=== PATIENT | male | born 1955 | race Caucasian/White ===

== ENCOUNTER → 2020-08-31 12:39 | Outpatient (BNVA) | payer MEDICARE, SELFPAY | PROVIDERS: PCP Internal Medicine; Visit Provider Nurse Practitioner Family | DX: I25.10 Atherosclerotic heart disease of native coronary artery without angina pectoris (principal); R07.89 Other chest pain; F17.200 Nicotine dependence, unspecified, uncomplicated; E78.00 Pure hypercholesterolemia, unspecified; Z95.1 Presence of aortocoronary bypass graft | CPT/HCPCS: Q3014 ==

== ENCOUNTER → 2020-10-25 10:54 | Outpatient (BNVA) | payer MEDICARE, SELFPAY | PROVIDERS: PCP Internal Medicine; Visit Provider Anesthesiology | DX: R07.89 Other chest pain (principal); Z95.4 Presence of other heart-valve replacement | CPT/HCPCS: 99202 ==

== ENCOUNTER 2021-06-01 09:28 | Outpatient (REF) | payer MEDICARE, SELFPAY ==
[2021-06-01 11:25] LABS: MANUAL DIFF FLAG NO
[2021-06-01 11:34] LABS: Basophils Absolute Auto 0.1 X10*3/uL (0.0-0.2); Basophils Percent Auto 0.7 % (0-2); Eosinophils Absolute Auto 0.1 X10*3/uL (0.0-0.4); Eosinophils Percent Auto 1.8 % (0-4); Hematocrit 45.4 % (42.0-52.0); Hemoglobin 15.8 g/dl (14.0-18.0); Imm Gran Abs Auto 0.02 X10*3/uL (0.00-0.03); Imm Gran Pct Auto 0.3 % (0.0-0.4); Lymphocytes Absolute Auto 2.1 X10*3/uL (1.2-4.9); Lymphocytes Percent Auto 27.9 % (20-40); Mean Corpuscular HGB Conc 34.8 g/dl (31.0-36.0); Mean Corpuscular Hemoglobin 30.9 pg (27.0-33.0); Mean Corpuscular Volume 88.7 fL (80.0-98.0); Mean Platelet Volume 10.3 fL (9.4-12.4); Monocytes Absolute Auto 0.6 X10*3/uL (0.1-1.2); Monocytes Percent Auto 8.2 % (2-11); Neutrophils Absolute Auto 4.6 x10*3/uL (2.0-8.3); Neutrophils Percent Auto 61.1 % (45-73); Platelet Count 212 X10*3/uL (160-400); Red Blood Count 5.12 X10*6/uL (4.60-5.80); Red Cell Distribution Width 13.1 % (11.0-16.0); White Blood Count 7.6 X10*3/uL (4.8-10.8)
[2021-06-01 11:51] LABS: Estimated Average Glucose 203 mg/dL; Hemoglobin A1c % 8.7 %
[2021-06-01 12:09] LABS: TSH reflex Free T4 1.33 uIU/mL (0.32-4.0)
[2021-06-01 12:10] LABS: Alanine Aminotransferase 15 U/L (0-40); Albumin Level 4.2 g/dL (3.5-5.0); Alkaline Phosphatase 92 U/L (39-117); Anion Gap 13 (12-20); Aspartate Amino Transferase 17 U/L (5-37); Bilirubin Total 0.7 mg/dL (0.0-1.0); Blood Urea Nitrogen 10 mg/dL (9-16); Calcium 9.2 mg/dL (8.4-10.2); Carbon Dioxide 27 mmol/L (22-29); Chloride 102 mmol/L (96-108); Cholesterol 160 mg/dL; Estimated Glomerular Filt Rate > 60; Glucose Fasting 180 mg/dL (60-99); HDL Cholesterol 42 mg/dL; LDL Cholesterol Calculated 92 mg/dl; Potassium 4.1 mmol/L (3.3-5.1); Sodium 138 mmol/L (135-145); Total Protein 6.9 g/dL (6.5-8.0); Triglycerides 132 mg/dL
== END 2021-06-01 09:29 | disposition home or self-care (01) ==
LOC: HO.HMGCLDS 09:28
PROVIDERS: PCP Internal Medicine; Visit Provider Internal Medicine
DX: E78.00 Pure hypercholesterolemia, unspecified (principal); I25.10 Atherosclerotic heart disease of native coronary artery without angina pectoris; E11.9 Type 2 diabetes mellitus without complications; E66.3 Overweight; K21.9 Gastro-esophageal reflux disease without esophagitis; F17.200 Nicotine dependence, unspecified, uncomplicated
CPT/HCPCS: 36415; 80053; 80061; 83036; 84443; 85025

== ENCOUNTER 2022-02-14 07:33 | Outpatient (REF) | payer MEDICARE, SELFPAY ==
[2022-02-14 07:58] LABS: MANUAL DIFF FLAG NO
[2022-02-14 08:28] LABS: Basophils Absolute Auto 0.1 X10*3/uL (0.0-0.2); Basophils Percent Auto 1.1 % (0-2); Eosinophils Absolute Auto 0.2 X10*3/uL (0.0-0.4); Eosinophils Percent Auto 2.5 % (0-4); Hematocrit 44.4 % (42.0-52.0); Hemoglobin 15.6 g/dl (14.0-18.0); Imm Gran Abs Auto 0.02 X10*3/uL (0.00-0.03); Imm Gran Pct Auto 0.3 % (0.0-0.4); Lymphocytes Absolute Auto 2.2 X10*3/uL (1.2-4.9); Lymphocytes Percent Auto 29.3 % (20-40); Mean Corpuscular HGB Conc 35.1 g/dl (31.0-36.0); Mean Corpuscular Hemoglobin 30.6 pg (27.0-33.0); Mean Corpuscular Volume 87.2 fL (80.0-98.0); Mean Platelet Volume 9.8 fL (9.4-12.4); Monocytes Absolute Auto 0.6 X10*3/uL (0.1-1.2); Monocytes Percent Auto 8.5 % (2-11); Neutrophils Absolute Auto 4.4 x10*3/uL (2.0-8.3); Neutrophils Percent Auto 58.3 % (45-73); Platelet Count 198 X10*3/uL (160-400); Red Blood Count 5.09 X10*6/uL (4.60-5.80); White Blood Count 7.5 X10*3/uL (4.8-10.8)
[2022-02-14 08:34] LABS: Estimated Average Glucose 232 mg/dL; Hemoglobin A1c % 9.7 %
[2022-02-14 08:51] LABS: Alanine Aminotransferase 13 U/L (0-40); Albumin Level 4.2 g/dL (3.5-5.0); Alkaline Phosphatase 78 U/L (39-117); Anion Gap 12 (12-20); Aspartate Amino Transferase 15 U/L (5-37); Bilirubin Total 0.5 mg/dL (0.0-1.0); Blood Urea Nitrogen 9 mg/dL (9-16); Carbon Dioxide 27 mmol/L (22-29); Chloride 102 mmol/L (96-108); Cholesterol 163 mg/dL; Estimated Glomerular Filt Rate > 60; Glucose Fasting 240 mg/dL (60-99); HDL Cholesterol 37 mg/dL; LDL Cholesterol Calculated 89 mg/dl; Potassium 4.3 mmol/L (3.3-5.1); Sodium 137 mmol/L (135-145); Triglycerides 186 mg/dL
[2022-02-14 08:57] LABS: B Type Natriuretic Peptide 93 pg/mL (<100)
[2022-02-14 09:20] LABS: Prostate Specific Antigen 4.23 ng/mL (<0.05-4.0); TSH reflex Free T4 1.66 uIU/mL (0.32-4.0); Vitamin D 25-OH Total 18.4 ng/mL (>30)
== END 2022-02-14 07:34 | disposition home or self-care (01) ==
LOC: HO.LAB 07:33
PROVIDERS: PCP Internal Medicine; Visit Provider Internal Medicine
DX: Z00.00 Encounter for general adult medical examination without abnormal findings (principal); Z12.5 Encounter for screening for malignant neoplasm of prostate; E11.9 Type 2 diabetes mellitus without complications; E55.9 Vitamin D deficiency, unspecified; E78.00 Pure hypercholesterolemia, unspecified; I10 Essential (primary) hypertension; N40.0 Benign prostatic hyperplasia without lower urinary tract symptoms; R06.00 Dyspnea, unspecified
CPT/HCPCS: 36415; 80053; 80061; 82306; 83036; 83880; 84153; 84443; 85025

== ENCOUNTER 2022-09-02 07:46 | Outpatient (REF) | payer MEDICARE, SELFPAY ==
[2022-09-02 08:01] LABS: MANUAL DIFF FLAG NO
[2022-09-02 08:30] LABS: Basophils Absolute Auto 0.1 X10*3/uL (0.0-0.2); Basophils Percent Auto 1.1 % (0-2); Eosinophils Absolute Auto 0.2 X10*3/uL (0.0-0.4); Eosinophils Percent Auto 2.3 % (0-4); Hematocrit 47.8 % (42.0-52.0); Hemoglobin 16.8 g/dl (14.0-18.0); Imm Gran Abs Auto 0.09 X10*3/uL (0.00-0.03); Imm Gran Pct Auto 1.1 % (0.0-0.4); Lymphocytes Absolute Auto 2.4 X10*3/uL (1.2-4.9); Lymphocytes Percent Auto 28.8 % (20-40); Mean Corpuscular HGB Conc 35.1 g/dl (31.0-36.0); Mean Corpuscular Hemoglobin 30.8 pg (27.0-33.0); Mean Corpuscular Volume 87.5 fL (80.0-98.0); Mean Platelet Volume 9.7 fL (9.4-12.4); Monocytes Absolute Auto 0.6 X10*3/uL (0.1-1.2); Monocytes Percent Auto 7.8 % (2-11); Neutrophils Absolute Auto 4.8 x10*3/uL (2.0-8.3); Neutrophils Percent Auto 58.9 % (45-73); Platelet Count 181 X10*3/uL (160-400); Red Blood Count 5.46 X10*6/uL (4.60-5.80); Red Cell Distribution Width 12.7 % (11.0-16.0); White Blood Count 8.2 X10*3/uL (4.8-10.8)
[2022-09-02 08:38] LABS: Estimated Average Glucose 278 mg/dL; Hemoglobin A1c % 11.3 %
[2022-09-02 09:10] LABS: Alanine Aminotransferase 17 U/L (0-40); Albumin Level 4.2 g/dL (3.5-5.0); Alkaline Phosphatase 93 U/L (39-117); Anion Gap 13 (12-20); Aspartate Amino Transferase 18 U/L (5-37); Bilirubin Total 0.6 mg/dL (0.0-1.0); Blood Urea Nitrogen 13 mg/dL (9-16); Calcium 9.6 mg/dL (8.4-10.2); Carbon Dioxide 28 mmol/L (22-29); Chloride 98 mmol/L (96-108); Cholesterol 172 mg/dL; Estimated Glomerular Filt Rate > 60; Glucose Fasting 289 mg/dL (60-99); HDL Cholesterol 37 mg/dL; LDL Cholesterol Calculated 100 mg/dl; Potassium 5.1 mmol/L (3.3-5.1); Sodium 134 mmol/L (135-145); Total Protein 6.9 g/dL (6.5-8.0); Triglycerides 178 mg/dL
[2022-09-02 09:29] LABS: TSH reflex Free T4 2.18 uIU/mL (0.32-4.0); Vitamin D 25-OH Total 18.4 ng/mL (>30)
[2022-09-08 20:38] LABS: Glutamic acid decarboxylase Ab <5 IU/mL (<5)
== END 2022-09-02 07:47 | disposition home or self-care (01) ==
LOC: HO.LAB 07:46
PROVIDERS: PCP Internal Medicine; Visit Provider Internal Medicine
DX: Z00.00 Encounter for general adult medical examination without abnormal findings (principal); E78.00 Pure hypercholesterolemia, unspecified; E11.9 Type 2 diabetes mellitus without complications; I10 Essential (primary) hypertension; E55.9 Vitamin D deficiency, unspecified
CPT/HCPCS: 36415; 80053; 80061; 82306; 83036; 84443; 84681; 85025; 86341

== ENCOUNTER 2022-12-01 10:59 | Outpatient (REF) | payer MEDICARE, SELFPAY ==
[2022-12-01 13:48] LABS: MANUAL DIFF FLAG NO
[2022-12-01 13:59] LABS: Appearance Urine Clear; Color Urine Yellow; Glucose Urine UA 500 mg/dL (Negative); Leukocyte Esterase Urine Negative (Negative); Nitrite Urine Negative (Negative); Specific Gravity - Urine 1.015 (1.005-1.025); UMIC TRIGGER UACC YES; Urine Blood Small (1+) (Negative); Urine Ketones Negative (Negative); Urine Protein Trace mg/dL (Neg-Trace)
[2022-12-01 14:04] LABS: Basophils Absolute Auto 0.1 X10*3/uL (0.0-0.2); Basophils Percent Auto 1.2 % (0-2); Eosinophils Absolute Auto 0.2 X10*3/uL (0.0-0.4); Eosinophils Percent Auto 2.6 % (0-4); Hematocrit 45.3 % (42.0-52.0); Hemoglobin 16.2 g/dl (14.0-18.0); Imm Gran Abs Auto 0.02 X10*3/uL (0.00-0.03); Imm Gran Pct Auto 0.3 % (0.0-0.4); Lymphocytes Absolute Auto 1.8 X10*3/uL (1.2-4.9); Lymphocytes Percent Auto 24.2 % (20-40); Mean Corpuscular HGB Conc 35.8 g/dl (31.0-36.0); Mean Corpuscular Hemoglobin 30.6 pg (27.0-33.0); Mean Corpuscular Volume 85.5 fL (80.0-98.0); Mean Platelet Volume 9.9 fL (9.4-12.4); Monocytes Absolute Auto 0.7 X10*3/uL (0.1-1.2); Monocytes Percent Auto 9.5 % (2-11); Neutrophils Absolute Auto 4.7 x10*3/uL (2.0-8.3); Neutrophils Percent Auto 62.2 % (45-73); Platelet Count 198 X10*3/uL (160-400); Red Cell Distribution Width 13.3 % (11.0-16.0); White Blood Count 7.6 X10*3/uL (4.8-10.8)
[2022-12-01 14:06] LABS: Estimated Average Glucose 266 mg/dL; Hemoglobin A1c % 10.9 %
[2022-12-01 14:21] LABS: Creatinine Urine 120.09 mg/dL; Microalbum/Creatinine Ratio Ur 58.2 ug/mg cr
[2022-12-01 14:24] LABS: Bacteria Urine None Seen (None Seen); Hyaline Casts Urine 0-2 /LPF (0-2); Squamous Epithelial Cell Urine 0-2 /HPF (0-2); WBC Urine 0-5 /HPF (0-5)
[2022-12-01 14:25] LABS: Alanine Aminotransferase 17 U/L (0-40); Albumin Level 4.1 g/dL (3.5-5.0); Alkaline Phosphatase 101 U/L (39-117); Anion Gap 12 (12-20); Aspartate Amino Transferase 18 U/L (5-37); Bilirubin Total 0.9 mg/dL (0.0-1.0); Blood Urea Nitrogen 9 mg/dL (9-16); Calcium 9.5 mg/dL (8.4-10.2); Carbon Dioxide 27 mmol/L (22-29); Chloride 100 mmol/L (96-108); Cholesterol 142 mg/dL; Estimated Glomerular Filt Rate > 60; Glucose Fasting 227 mg/dL (60-99); HDL Cholesterol 37 mg/dL; LDL Cholesterol Calculated 84 mg/dl; Potassium 4.3 mmol/L (3.3-5.1); Sodium 135 mmol/L (135-145); Total Protein 6.7 g/dL (6.5-8.0); Triglycerides 105 mg/dL
[2022-12-01 14:42] LABS: TSH reflex Free T4 1.37 uIU/mL (0.32-4.0); Vitamin D 25-OH Total 21.7 ng/mL (>30)
== END 2022-12-01 11:00 | disposition home or self-care (01) ==
LOC: HO.HMGCLDS 10:59
PROVIDERS: PCP Internal Medicine; Visit Provider Internal Medicine
DX: E78.00 Pure hypercholesterolemia, unspecified (principal); E11.9 Type 2 diabetes mellitus without complications; E55.9 Vitamin D deficiency, unspecified; I10 Essential (primary) hypertension; R30.0 Dysuria
CPT/HCPCS: 36415; 80053; 80061; 81001; 82043; 82306; 83036; 84443; 85025

== ENCOUNTER 2023-03-15 09:16 | Outpatient (REF) | payer MEDICARE, SELFPAY ==
[2023-03-15 11:25] LABS: MANUAL DIFF FLAG NO
[2023-03-15 11:45] LABS: Basophils Absolute Auto 0.1 X10*3/uL (0.0-0.2); Basophils Percent Auto 0.9 % (0-2); Eosinophils Absolute Auto 0.2 X10*3/uL (0.0-0.4); Eosinophils Percent Auto 2.2 % (0-4); Hematocrit 46.1 % (42.0-52.0); Hemoglobin 16.7 g/dl (14.0-18.0); Imm Gran Abs Auto 0.02 X10*3/uL (0.00-0.03); Imm Gran Pct Auto 0.2 % (0.0-0.4); Lymphocytes Percent Auto 24.5 % (20-40); Mean Corpuscular HGB Conc 36.2 g/dl (31.0-36.0); Mean Corpuscular Hemoglobin 31.1 pg (27.0-33.0); Mean Corpuscular Volume 85.8 fL (80.0-98.0); Mean Platelet Volume 10.3 fL (9.4-12.4); Monocytes Absolute Auto 0.7 X10*3/uL (0.1-1.2); Neutrophils Absolute Auto 5.2 x10*3/uL (2.0-8.3); Neutrophils Percent Auto 64.2 % (45-73); Platelet Count 223 X10*3/uL (160-400); Red Blood Count 5.37 X10*6/uL (4.60-5.80); Red Cell Distribution Width 13.1 % (11.0-16.0); White Blood Count 8.1 X10*3/uL (4.8-10.8)
[2023-03-15 11:58] LABS: Estimated Average Glucose 266 mg/dL; Hemoglobin A1c % 10.9 % (<6.0)
[2023-03-15 12:16] LABS: Alanine Aminotransferase 13 U/L (0-40); Albumin Level 4.1 g/dL (3.5-5.0); Alkaline Phosphatase 97 U/L (39-117); Anion Gap 12 (12-20); Aspartate Amino Transferase 14 U/L (5-37); Bilirubin Total 0.5 mg/dL (0.0-1.0); Blood Urea Nitrogen 8 mg/dL (9-16); Calcium 9.8 mg/dL (8.4-10.2); Carbon Dioxide 27 mmol/L (22-29); Chloride 100 mmol/L (96-108); Cholesterol 156 mg/dL (<200); Estimated Glomerular Filt Rate > 60; Glucose Fasting 270 mg/dL (60-99); HDL Cholesterol 36 mg/dL (>40); LDL Cholesterol Calculated 93 mg/dL (<100); Sodium 135 mmol/L (135-145); Total Protein 7.4 g/dL (6.5-8.0); Triglycerides 138 mg/dL (<150)
[2023-03-15 12:21] LABS: TSH reflex Free T4 1.27 uIU/mL (0.32-4.0); Vitamin D 25-OH Total 25.6 ng/mL (>30)
[2023-03-20 11:58] LABS: Testosterone, Free 20.1 pg/mL (35.0-155.0); Testosterone, Total 184 ng/dL (250-1100)
== END 2023-03-15 09:17 | disposition home or self-care (01) ==
LOC: HO.HMGCLDS 09:16
PROVIDERS: PCP Internal Medicine; Visit Provider Internal Medicine
DX: E11.9 Type 2 diabetes mellitus without complications (principal); E78.00 Pure hypercholesterolemia, unspecified; I10 Essential (primary) hypertension; R53.83 Other fatigue; R79.89 Other specified abnormal findings of blood chemistry; E55.9 Vitamin D deficiency, unspecified
CPT/HCPCS: 36415; 80053; 80061; 82306; 83036; 84402; 84403; 84443; 85025

== ENCOUNTER 2023-03-19 07:00 | Outpatient (REF) | payer MEDICARE, SELFPAY ==
[2023-03-19 16:03] LABS: Appearance Urine Clear; Color Urine Yellow; Glucose Urine UA 250 mg/dL (Negative); Leukocyte Esterase Urine Negative (Negative); Nitrite Urine Negative (Negative); PH 7.5 (5.0-9.0); Urine Blood Negative (Negative); Urine Ketones Negative (Negative); Urine Protein Negative (Neg-Trace)
[2023-03-19 16:43] LABS: Creatinine Urine 57.49 mg/dL; Microalbum/Creatinine Ratio Ur 20.8 ug/mg cr (<30)
== END 2023-03-19 07:01 | disposition home or self-care (01) ==
LOC: HO.HMGCLNP 07:00
PROVIDERS: PCP Internal Medicine; Visit Provider Internal Medicine
DX: R30.0 Dysuria (principal); E11.9 Type 2 diabetes mellitus without complications
CPT/HCPCS: 81003; 82043

== ENCOUNTER 2023-03-19 12:47 | Outpatient (AMB) | payer MEDICARE, SELFPAY ==
[2023-03-19 12:59] VITALS: BP 110/70; PULSE 67; O2SAT 96; BMI 25.3
--- NOTE | 2023-03-19 12:59 | A.OFFPC_ITS ---
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 Accompanied by: Self / Same As Patient Allergies trazodone Adverse Reaction (Intermediate, Verified 03/19/23 13:42) bedwetting Medication List - Last Reconciled 03/19/23 by Laron Jimenez MD albuterol sulfate 90 mcg/actuation 2 puffs PO Q6H PRN aspirin 81 mg PO DAILY gabapentin 300 mg PO TID glimepiride 1 mg PO QAM metformin ER 500 mg PO BID metoprolol tartrate 50 mg PO BID nitroglycerin 0.4 mg sublingual Q5M PRN nystatin (Nystop) 1 appl topical BID 7 days omeprazole magnesium 20 mg PO DAILY oxycodone 15 mg PO Q6H PRN 28 days rosuvastatin 40 mg PO DAILY tamsulosin 0.4 mg PO DAILY tiotropium bromide 2.5 mcg/actuation (Spiriva Respimat) 2 inhalations inhalation QAM 30 days Tradjenta (linagliptin) 5 mg PO QAM 30 days NS Tobacco use date assessed: 03/19/23 Fall risk assessment: No Falls in past year Last assessed Fall Risk: 03/19/23 Dental Screening Dental Screen Date: 03/19/23 Did you have a dental visit in the last 12 months?: No Did you have a dental problem in the last 6 months where you did not have access to dental care?: No Was dental information given to patient?: No HPI DM, COPD, hyperlipidemia HPI Details Patient comes in today for his follow up visit States that he has been experiencing increased pain in both his hands and arms and both legs for a few weeks now Notes that the pain is often worse in the morning and at night but they do not keep him up at night He denies any increased pain over his neck or lower back Has also been experiencing increased pain over the medial aspect of his knee for the past 4 weeks Relates that he was changing a tire back then when he suddenly felt a sharp pain in his right knee and the pain has been bothering him since then Still has chronic pain over his anterior chest wall but states that his current Rx helps keep his pain manageable He denies any headaches or dizziness Denies any increased SOB No nausea/vomiting, no abdominal pain No change in bowel habits noted Needs a couple of his Rx refilled Had his follow up labs done a few days ago - to discuss his results States that he has not been able to get his urine test done yet and will try to get this done today [facility] Medical History Allergy to metal Benign prostatic hyperplasia Chest wall discomfort Colonoscopy refused COPD (chronic obstructive pulmonary disease) Coronary artery disease Depression Diabetes mellitus GERD without esophagitis Hyperlipidemia Insomnia Overweight (BMI 25.0-29.9) Pure hypercholesterolemia Smoker Tietze's syndrome Surgical History History of coronary artery bypass graft (~2002) Family History Father Liver problem Cancer Mother CVD (cardiovascular disease) COPD (chronic obstructive pulmonary disease) Brother Myocardial infarction Brother S/P CABG x 1 CVD (cardiovascular disease) Family/Other FH: mental illness Daughter Substance abuse Social History Housing: House Alcohol intake: current Alcohol intake frequency: does not drink Patient Tobacco Use Status: Current everyday Tobacco user Tobacco use type: Cigarette Cigarettes Per Day: 10 e-Cigarette/Vaping Use: Never Used Second Hand Smoke Exposure: Yes service: No Current occupational status: retired Cognitive needs: No Hearing needs: No Vision needs: Yes Questionnaire PHQ-9 Over the last 2 weeks, how often have you been bothered by any of the following problems? 1. Little interest or pleasure in doing things: not at all 2. Feeling down, depressed, or hopeless: not at all 3. Trouble falling or staying asleep, or sleeping too much: several days (due to pain) 4. Feeling tired or having little energy: not at all 5. Poor appetite or overeating: not at all 6. Feeling bad about yourself - or that you are a failure or have let yourself or your family down: not at all 7. Trouble concentrating on things, such as reading the newspaper or watching television: not at all 8. Moving or speaking so slowly that other people could have noticed. Or the opposite - being so fidgety or restless that you have been moving around a lot more than usual: not at all 9. Thoughts that you would be better off or of hurting yourself in some way: not at all Total score: 1 Depression Screening Interpretation: Negative 73711 - PHQ-9 Billing: Yes Source: Developed by Drs. Marcus Benites, Amrita Canseco, Finesse Coleman and colleagues, with an educational isauro from [employer]. Thrive Questionnaire Date Thrive assessed: 03/19/23 I am a: Patient What is your living situation today?: I have a steady place to live Within the past 12 months, did the food you bought not last and you didn't have the money to get more?: Never true Within the past 12 months, did you worry whether your food would run out before you got money to buy more?: Never true Do you have trouble paying for medicines?: No Do you have trouble getting transportation to medical appointments?: No Do you have trouble paying your heating and electricity bill?: No Do you have trouble taking care of your child, family member or friend?: No Do you have trouble with day-to-day activities such as bathing, preparing meals, shopping, managing finances, etc.?: No Are you currently unemployed and looking for a job?: No Are you interested in more education?: No Please select the resources that you would like help with: None Currently or been in a relationship where the following occur: no concerns reported AUDIT C Alcohol Use Questionnaire (AUDIT-C) 1. How often do you have a drink containing alcohol?: Never 3. How often do you have six or more drinks on one occasion?: Never Total Score: 0 Score Reviewed/Action Taken: Yes BUDDY-7 AMB Questionnaire BUDDY-7 Date BUDDY - 7 assessed: 03/19/23 Feeling nervous, anxious, or on edge: 0 = Not at all Not being able to stop or control worryin = Not at all Worrying too much about different things: 0 = Not at all Trouble relaxin = Not at all Being so restless that it is hard to sit still: 0 = Not at all Becoming easily annoyed or irritable: 0 = Not at all Feeling afraid as if something awful might happen: 0 = Not at all Total BUDDY-7 score (0-4 normal; 5-9 mild; 10-14 moderate; 15-21 severe): 0 Source: Developed by Drs. Marcus Benites, Amrita Canseco, Finesse Coleman and colleagues, with an educational isauro from [employer]. Review of Systems Const Denies chills, Reports fatigue, Denies fever(s) and Denies headache(s) ENT Denies dysphagia, Denies dizziness, Denies otalgia, Denies headache(s), Denies neck pain, Denies odynophagia and Denies sore throat Card Reports chest pain (chronic - over the anterior chest wall) and Denies dyspnea Resp Denies cough, Denies dyspnea and Denies wheezing GI Denies abdominal pain, Denies constipation, Denies dysphagia, Denies heartburn, Denies diarrhea, Denies nausea, Denies odynophagia and Denies vomiting Denies dysuria, Reports nocturia and Reports urinary frequency Musc Denies back pain, Reports arthralgias (in both hands and feet, on and off but worse in AM and at night; right knee), Denies muscle weakness and Denies neck pain Skin/Breast Reports rash (recurrent itchy rash over the inguinal areas - Nystatin powder helps) Neuro Denies dizziness and Denies headache(s) Endo Reports fatigue Aller/Immun Denies wheezing Physical exam (Primary Care) Vital Signs: Last Vital Signs Pulse 67 03/19/23 12:59 BP 110/70 03/19/23 12:59 Pulse Ox 96 03/19/23 12:59 Oxygen Delivery Method Room Air 03/19/23 12:59 BMI result Body Mass Index 25.3 Tobacco/Smoking Status: Tobacco use Status Tobacco use date assessed 03/19/23 03/19/23 13:06 Patient Tobacco Use Status Current everyday Tobacco 03/19/23 13:06 Tobacco use type Cigarette 03/19/23 13:06 e-Cigarette/Vaping Use Never Used 03/19/23 13:06 PHQ-9: PHQ-9 Score PHQ-9: Total score 1 03/19/23 13:06 Depression Screening Interpretation: Negative Thrive Assessment: Date of Thrive Assessment Date Thrive assessed 03/19/23 03/19/23 13:06 Currently or been in a relationship where the following occur: no concerns reported Const General: no acute distress and alert HENMT Ears: TM's normal bilaterally and EAC's normal Throat: Yes posterior oropharynx normal and Yes tonsils normal Neck Neck: Yes no lymphadenopathy and Yes supple Lymphatic: no lymphadenopathy noted Chest Chest palpation & inspection: tenderness (over the entire anterior chest wall - CHRONIC) Resp Auscultation: no rales, no wheezes and diminished lung sounds bilateral (slightly) Cardio Rate: regular rate Rhythm: regular rhythm Heart sounds: no murmurs GI Palpation (GI): Soft to palpation, nontender and no guarding Auscultation: normal bowel sounds General: Yes no CVA tenderness Back/Spine/Pelvis Back: no CVA tenderness Cervical Spine: No Cervical spine tenderness Thoracic/Lumbar Spine: thoracic and lumbar spine normal to inspection and No lumbar spinal tenderness Skin Rashes: no rashes Extrem General: Yes no clubbing, cyanosis or edema Right lower extremity: knee Details: tenderness Location: of the medial joint line; no swelling Results Reviewed Results Reviewed: Laboratory Tests 03/15/23 03/15/23 03/15/23 09:19 09:19 09:19 WBC 8.1 Hgb 16.7 Hct 46.1 Plt Count 223 Sodium 135 Potassium 4.0 Estimated GFR > 60 Fasting Glucose 270 H Hemoglobin A1c % 10.9 H Calcium 9.8 AST 14 ALT 13 Triglycerides 138 Cholesterol 156 LDL Cholesterol, Calc 93 HDL Cholesterol 36 L 25-OH Vitamin D Total 25.6 TSH 1.27 Assessment and Plan Assessment & Plan (1) Bilateral hand pain: Code(s): M79.641 - Pain in right hand; M79.642 - Pain in left hand Plan: Will send for EMG and NCV of the upper extremities for further evaluation Discussed that his symptoms are most likely due to osteoarthritis but neuropathy sometimes may also present with similar symptoms (2) Pain in both lower extremities: Code(s): M79.604 - Pain in right leg; M79.605 - Pain in left leg Plan: Will also send for EMG & NCV of the lower extremities for further evaluation (3) Right knee pain: Code(s): M25.561 - Pain in right knee Qualifiers: Chronicity: unspecified Qualified Code(s): M25.561 - Pain in right knee Plan: Will send for right knee x-rays for further evaluation (4) Pure hypercholesterolemia: Code(s): E78.00 - Pure hypercholesterolemia, unspecified Plan: Results of his labs done a few days ago reviewed and discussed with patient Reinforced low cholesterol diet Continue Crestor 40 mg QD Will recheck his labs and fasting lipids in 3 months for follow up (5) Coronary artery disease: Code(s): I25.10 - Atherosclerotic heart disease of [place] coronary artery without angina pectoris Qualifiers: Coronary Disease-Associated Artery/Lesion type: [place] artery [place] vs. 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 [Tietze] Plan: Continue Oxycodone 15 mg every 6 hours as needed for increased pain and Gabapentin 300 mg TID Was seen by pain management for his chronic chest wall pain last year and has been advised that his chronic chest pains may be due to an allergic reaction to the wires used to hold his sternum and ribs in place following his sternotomy and recommended that he have them removed but patient does not wish to pursue this option further at this time Has been referred to allergy/immunology to check him for allergy to metals, potentially his guide wire, and if he is, then we have a more urgent and valid reason to have his sternotomy wires removed - was scheduled to see drop forger sometime earlier this year for initial consultation but patient also failed to keep his appointment Follow up with [facility] [place] [facility] [place] [facility] as scheduled (7) Diabetes mellitus: Code(s): E11.9 - Type 2 diabetes mellitus without complications Qualifiers: Diabetes mellitus type: type 2 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 use Diabetes mellitus complication status: without complication Qualified Code(s): E11.9 - Type 2 diabetes mellitus without complications Plan: HgbA1c remains unchanged at 10.9% on his labs done a few days ago - goal is < 7.0% Reinforced diabetic diet Was on Metformin ER 1000 mg BID and Tradjenta 5 mg QD previously but had to cut his Metformin ER down to 500 mg BID as he was frequently feeling very nauseous lately on his previous dose Continue Metformin ER 500 mg BID and Tradjenta 5 mg QD Was also on Glimepiride 1 mg QD but will now increase this to 2 mg QD (8) COPD (chronic obstructive pulmonary disease): Code(s): J44.9 - Chronic obstructive pulmonary disease, unspecified Qualifiers: COPD type: unspecified COPD Qualified Code(s): J44.9 - Chronic obstructive pulmonary disease, unspecified Plan: Stable lately Was on Spiriva Respimat 2.5 mcg 2 inhalations QD and Albuterol HFA 1 to 2 inhalations Q 6 hours PRN but this was switched over to Atrovent HFA a few months ago as could not afford his Spiriva Respimat (over $300) due to insurance formulary change His sent over a message with patient that his insurance will now AGAIN cover Spiriva and he needs a new Rx - will start him back on Spiriva Respimat 2.5 mcg 2 inhalations QD; will D/C Atrovent HFA Continue Albuterol HFA 2 inhalations Q 6 hours PRN - Rx refilled (9) GERD without esophagitis: Code(s): K21.9 - Gastro-esophageal reflux disease without esophagitis Plan: Dietary restrictions reinforced Conitinue Omeprazole 40 mg QD (10) Benign prostatic hyperplasia: Code(s): N40.0 - Benign prostatic hyperplasia without lower urinary tract symptoms Qualifiers: Lower urinary tract symptom presence: unspecified whether lower urinary tract symptoms present Qualified Code(s): N40.0 - Benign prostatic hyperplasia without lower urinary tract symptoms Plan: Comtinue Tamsulosin 0.4 mg QD Follow up with urology as scheduled Patient is advised that part of the reason for his nocturia and urinary frequency is his uncontrolled blood sugar (11) Depression: Code(s): F32.9 - Major depressive disorder, single episode, unspecified Qualifiers: Depression Type: major depressive disorder Major depression recurrence: recurrent Active/Remission status: currently active Major depression episode severity: unspecified Qualified Code(s): F33.9 - Major depressive disorder, recurrent, unspecified Plan: Is currently not on any Rx for depression - feels that he has been doing well so far and no intervention is needed at this time (12) Smoker: Code(s): F17.200 - Nicotine dependence, unspecified, uncomplicated Plan: Counseled again on smoking cessation although patient appears unmotivated to quit (13) Overweight (BMI 25.0-29.9): Code(s): E66.3 - Overweight Plan: Reinforced diet/exercise as tolerated/lose weight - patient has been mostly sedentary for the past few years now due to significantly increased anterior chest wall pain even with minimal activity or exertion Plan Follow up in 3 months Orders: Orders NE electromyogram (EMG) Today M79.604 - Pain in right leg, M79.605 - Pain in left leg, M79.641 - Pain in right hand, M79.642 - Pain in left hand NE nerve conduction velocity Today M79.604 - Pain in right leg, M79.605 - Pain in left leg, M79.641 - Pain in right hand, M79.642 - Pain in left hand XR knee RT 3V Today M25.561 - Pain in right knee Complete Blood Count Auto Diff 3 Months I10 - Essential (primary) hypertension Comprehensive [place]. Panel Fast 3 Months E78.00 - Pure hypercholesterolemia, unspecified Lipid Panel 3 Months E78.00 - Pure hypercholesterolemia, unspecified Hemoglobin A1c 3 Months E11.9 - Type 2 diabetes mellitus without complications TSH reflex Free T4 3 Months E78.00 - Pure hypercholesterolemia, unspecified Microalbumin, Random (w Creat) 3 Months E11.9 - Type 2 diabetes mellitus without complications UA CC w/rflx Micro + Cult 3 Months R30.0 - Dysuria Vitamin D 25-OH Total 3 Months E55.9 - Vitamin D deficiency, unspecified Medications: Changed From glimepiride 1 mg PO QAM 90 tabs 1RF To glimepiride 2 mg PO QAM 30 days 30 tabs 3RF Refilled albuterol sulfate 90 mcg/actuation 2 puffs PO Q6H PRN 8.5 ea 5RF for wheezing nystatin (Nystop) 1 appl topical BID 7 days 30 grams 2RF Review Patient declined Colonoscopy: 01/04/21 Coding Level of Care Code Est Pt Level 4 (45401) Diagnoses Bilateral hand pain M79.641; M79.642 Pain in both lower extremities M79.604; M79.605 Right knee pain M25.561 Chronicity: unspecified Pure hypercholesterolemia E78.00 Coronary artery disease I25.10 Coronary Disease-Associated Artery/Lesion type: [place] artery [place] vs. 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
== END 2023-03-19 13:53 | disposition home or self-care (01) ==
PROVIDERS: PCP Internal Medicine; Visit Provider Internal Medicine
DX: E11.9 Type 2 diabetes mellitus without complications (principal); K21.9 Gastro-esophageal reflux disease without esophagitis; F17.210 Nicotine dependence, cigarettes, uncomplicated; F33.9 Major depressive disorder, recurrent, unspecified; J44.9 Chronic obstructive pulmonary disease, unspecified; M79.641 Pain in right hand; M79.642 Pain in left hand; M79.604 Pain in right leg; M79.605 Pain in left leg; M25.561 Pain in right knee; E78.00 Pure hypercholesterolemia, unspecified; I25.10 Atherosclerotic heart disease of native coronary artery without angina pectoris
CPT/HCPCS: 99214

== ENCOUNTER 2023-04-13 09:34 | Outpatient (REF) | payer MEDICARE, SELFPAY ==
--- NOTE | 2023-04-13 | EMG_ITS ---
Chief complaint: Bilateral hand pain, feet numbness Poorly controlled diabetes with recent A1c 10.9 Reason for referral: Evaluate for neuropathy Referred by: Dr. Jimenez Procedure done: Order was for bilateral upper extremities and bilateral lower extremity NCS/EMG Precautions and/or limitations: Poor tolerance of test The limb temperature was monitored continuously and remained between 32-36 degrees C during the performance of the NCS. Nerve Conduction Studies Anti Sensory Summary Table ?Stim Site NR Onset (ms) Norm Onset (ms) Peak (ms) Norm Peak (ms) O-P Amp (?V) Norm O-P Amp Site1 Site2 Delta-0 (ms) Dist (cm) Jesse (m/s) Norm Jesse (m/s) Left Median Anti Sensory (2nd Digit) Wrist ? 3.0 4.1 <3.6 9.4 >10 Wrist 2nd Digit 3.0 14.0 47 Right Median Anti Sensory (2nd Digit) Wrist ? 2.9 3.8 <3.6 20.6 >10 Wrist 2nd Digit 2.9 14.0 48 Right Radial Anti Sensory (Thumb) Forearm ? 0.9 2.1 <3.1 3.1 Forearm Thumb 0.9 0.0 Left Ulnar Anti Sensory (5th Digit) Wrist ? 2.9 3.5 <3.7 9.5 >15.0 Wrist 5th Digit 2.9 14.0 48 Right Ulnar Anti Sensory (5th Digit) Wrist ? 2.8 3.9 <3.7 14.6 >15.0 Wrist 5th Digit 2.8 14.0 50 Motor Summary Table ?Stim Site NR Onset (ms) Norm Onset (ms) O-P Amp (mV) Norm O-P Amp iAmp (mV) Amp (1st) (%) Site1 Site2 Delta-0 (ms) Dist (cm) Jesse (m/s) Norm Jesse (m/s) Left Median Motor (Abd Poll Brev) Wrist ? 5.0 <3.9 2.8 >4.5 3.4 100.0 Elbow Wrist 4.5 21.0 47 >45 Elbow ? 9.5 3.9 4.6 139.3 Right Median Motor (Abd Poll Brev) Wrist ? 3.6 <3.9 7.7 >4.5 9.3 100.0 Elbow Wrist 4.4 19.0 43 >45 Elbow ? 8.0 7.7 9.5 100.0 Left Ulnar Motor (Abd Dig Minimi) Wrist ? 3.0 <3.0 5.4 >5 6.6 100.0 B Elbow Wrist 3.2 17.0 53 >45 B Elbow ? 6.2 6.8 8.4 125.9 A Elbow B Elbow 1.7 10.0 59 >45 A Elbow ? 7.9 6.6 8.2 122.2 Right Ulnar Motor (Abd Dig Minimi) Wrist ? 3.0 <3.0 9.4 >5 11.3 100.0 B Elbow Wrist 3.8 17.0 45 >45 B Elbow ? 6.8 7.9 9.4 84.0 A Elbow B Elbow 1.6 10.0 62 >45 A Elbow ? 8.4 8.5 10.2 90.4 FINDINGS: Right median motor nerve showed normal distal latency, normal amplitude and slow conduction velocity. Left median motor nerve showed prolonged distal latency, small amplitude and normal conduction velocity. Bilateral median sensory nerves showed prolonged peak latency. Right ulnar sensory nerve showed prolonged peak latency and small amplitude. Left ulnar sensory nerve showed normal peak latency but small amplitude. Bilateral ulnar motor nerves and right radial sensory nerve within normal. Patient did not want to proceed with this test further. NCS for lower extremities not done. Needle EMG not done. IMPRESSION: 1. This is an abnormal NCS study of bilateral upper extremities. No needle EMG done. 2. There is electrodiagnostic evidence for bilateral moderate-severe median neuropathy at the wrists, could be consistent with Carpal Tunnel Syndrome. 3. Abnormal ulnar SNAPS could be suggestive of neuropathy. CLINICAL COMMENT: Patient will think about if he will come back for lower extremity testing. He was given the number to call and schedule. Thank you for your kind referral. Yudelka Zavaleta MD, ZIA Board Certified, [place] [employer] and [employer] (ABPMR) Board Certified, [place] Board [employer] Electro[employer]ostic [employer] (ABEM) CODIN MTDD
== END 2023-04-13 09:35 | disposition home or self-care (01) ==
LOC: HO.NEURO 09:34
PROVIDERS: PCP Internal Medicine; Visit Provider Internal Medicine
DX: M79.641 Pain in right hand (principal); M79.642 Pain in left hand; M79.604 Pain in right leg
CPT/HCPCS: 95911

== ENCOUNTER → 2023-04-13 09:45 | Outpatient (BNV) | payer MEDICARE, SELFPAY | PROVIDERS: PCP Internal Medicine; Visit Provider Physical Medicine & Rehabilitation | DX: G56.13 Other lesions of median nerve, bilateral upper limbs (principal) | CPT/HCPCS: 95911 ==

== ENCOUNTER 2023-06-19 14:47 | Outpatient (AMB) | payer MEDICARE, SELFPAY ==
[2023-06-19 14:50] VITALS: BP 120/82; PULSE 73; O2SAT 95; BMI 25.1
--- NOTE | 2023-06-19 14:50 | A.OFFPC_ITS ---
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: No Accompanied by: Self / Same As Patient Allergies trazodone Adverse Reaction (Intermediate, Verified 10/05/23 09:54) bedwetting Medication List - Last Reconciled 06/19/23 by Laron Jimenez MD albuterol sulfate 90 mcg/actuation 2 puffs PO Q6H PRN aspirin 81 mg PO DAILY gabapentin 300 mg PO TID glimepiride 2 mg PO QAM 30 days metformin ER 500 mg PO BID metoprolol tartrate 50 mg PO BID nitroglycerin 0.4 mg sublingual Q5M PRN nystatin (Nystop) 1 appl topical BID 7 days omeprazole magnesium 20 mg PO DAILY oxycodone 15 mg PO Q6H PRN 28 days rosuvastatin 40 mg PO DAILY tamsulosin 0.4 mg PO DAILY tiotropium bromide 2.5 mcg/actuation (Spiriva Respimat) 2 inhalations inhalation QAM 30 days Tradjenta (linagliptin) 5 mg PO QAM 30 days NS Tobacco use date assessed: 06/19/23 Fall risk assessment: No Falls in past year Last assessed Fall Risk: 06/19/23 Dental Screening Dental Screen Date: 06/19/23 Did you have a dental visit in the last 12 months?: No Did you have a dental problem in the last 6 months where you did not have access to dental care?: No Was dental information given to patient?: No HPI Annual Exam-DM, OA, hyperlipidemia, COPD HPI Details Patient comes in today for his annual physical examination States that he feels okay Denies any headaches or dizziness Denies any increased SOB; still has recurrent sharp anterior chest wall pains but states that his pains are adequately controlled/managed on his current Rx No nausea/vomiting, no abdominal pain No change in bowel habits noted Denies any acute urinary symptoms - states that he does have some trouble urinating at times (slow urine) but this has been going on for a while now; denies any pain on urination He has never had a screening colonoscopy done (by choice) and still prefers NOT to have it done as he prefers to avoid any and all medical procedures as much as possible He has not had any follow up labs done recently yet [facility] Medical History (Updated 10/05/23 @ 13:02 by Laron Jimenez MD) Hypotestosteronism Colonoscopy refused Allergy to metal Chest wall discomfort Insomnia Pure hypercholesterolemia Overweight (BMI 25.0-29.9) Smoker Depression Benign prostatic hyperplasia GERD without esophagitis COPD (chronic obstructive pulmonary disease) Diabetes mellitus Tietze's syndrome Coronary artery disease Hyperlipidemia Surgical History History of coronary artery bypass graft (~2002) Family History Father Liver problem Cancer Mother CVD (cardiovascular disease) COPD (chronic obstructive pulmonary disease) Brother Myocardial infarction Brother S/P CABG x 1 CVD (cardiovascular disease) Family/Other FH: mental illness Daughter Substance abuse Social History Housing: House Alcohol intake: current Alcohol intake frequency: does not drink Patient Tobacco Use Status: Current everyday Tobacco user Tobacco use type: Cigarette Cigarette Packs Per Day: 0.5 Cigarettes Per Day: 10 e-Cigarette/Vaping Use: Never Used Second Hand Smoke Exposure: Yes service: No Current occupational status: retired Cognitive needs: No Hearing needs: No Vision needs: Yes Questionnaire PHQ-9 Over the last 2 weeks, how often have you been bothered by any of the following problems? 1. Little interest or pleasure in doing things: not at all 2. Feeling down, depressed, or hopeless: not at all 3. Trouble falling or staying asleep, or sleeping too much: several days (due to pain) 4. Feeling tired or having little energy: not at all 5. Poor appetite or overeating: not at all 6. Feeling bad about yourself - or that you are a failure or have let yourself or your family down: not at all 7. Trouble concentrating on things, such as reading the newspaper or watching television: not at all 8. Moving or speaking so slowly that other people could have noticed. Or the opposite - being so fidgety or restless that you have been moving around a lot more than usual: not at all 9. Thoughts that you would be better off or of hurting yourself in some way: not at all Total score: 1 Depression Screening Interpretation: Negative Depression Screening Done: Yes 81733 - PHQ-9 Billing: Yes Source: Developed by Drs. Marcus Benites, Amrita Canseco, Finesse Coleman and colleagues, with an educational isauro from [employer]. Thrive Questionnaire Date Thrive assessed: 06/19/23 I am a: Patient What is your living situation today?: I have a steady place to live Within the past 12 months, did the food you bought not last and you didn't have the money to get more?: Never true Within the past 12 months, did you worry whether your food would run out before you got money to buy more?: Never true Do you have trouble paying for medicines?: No Do you have trouble getting transportation to medical appointments?: No Do you have trouble paying your heating and electricity bill?: No Do you have trouble taking care of your child, family member or friend?: No Do you have trouble with day-to-day activities such as bathing, preparing meals, shopping, managing finances, etc.?: No Are you currently unemployed and looking for a job?: No Are you interested in more education?: No Please select the resources that you would like help with: None Currently or been in a relationship where the following occur: no concerns reported AUDIT C Alcohol Use Questionnaire (AUDIT-C) 1. How often do you have a drink containing alcohol?: Never 3. How often do you have six or more drinks on one occasion?: Never Total Score: 0 Score Reviewed/Action Taken: Yes BUDDY-7 AMB Questionnaire BUDDY-7 Date BUDDY - 7 assessed: 06/19/23 Feeling nervous, anxious, or on edge: 0 = Not at all Not being able to stop or control worryin = Not at all Worrying too much about different things: 0 = Not at all Trouble relaxin = Not at all Being so restless that it is hard to sit still: 0 = Not at all Becoming easily annoyed or irritable: 0 = Not at all Feeling afraid as if something awful might happen: 0 = Not at all Total BUDDY-7 score (0-4 normal; 5-9 mild; 10-14 moderate; 15-21 severe): 0 Source: Developed by Drs. Marcus Benites, Amrita Canseco, Finesse Coleman and colleagues, with an educational isauro from [employer]. Review of Systems Const Denies chills, Reports fatigue, Denies fever(s) and Denies headache(s) Eyes Denies blurry vision, Denies change in vision, Denies irritation and Denies itchy eyes ENT Denies dysphagia, Denies dizziness, Denies otalgia, Denies headache(s), Denies neck pain, Denies odynophagia and Denies sore throat Card Reports chest pain (chronic - over the anterior chest wall) and Reports dyspnea on exertion (mild) Resp Denies chest congestion, Denies cough, Reports dyspnea on exertion (mild) and Denies wheezing GI Denies abdominal pain, Denies constipation, Denies dysphagia, Denies heartburn, Denies diarrhea, Denies nausea, Denies odynophagia and Denies vomiting Reports difficulty urinating (at times), Denies dysuria, Reports nocturia and Reports urinary frequency Musc Denies back pain, Reports arthralgias (in both hands and feet, on and off but worse in AM and at night; right knee), Denies muscle weakness and Denies neck pain Skin/Breast Reports rash (recurrent itchy rash over the inguinal areas - Nystatin powder helps) Neuro Denies dizziness and Denies headache(s) Psych Denies anxiety and Denies depression Endo Reports fatigue Aller/Immun Denies itchy eyes and Denies wheezing Physical exam (Primary Care) Vital Signs: Last Vital Signs Pulse 73 06/19/23 14:50 BP 120/82 06/19/23 14:50 Pulse Ox 95 06/19/23 14:50 Oxygen Delivery Method Room Air 06/19/23 14:50 BMI result Body Mass Index 25.1 Tobacco/Smoking Status: Tobacco use Status Tobacco use date assessed 06/19/23 06/19/23 14:51 Patient Tobacco Use Status Current everyday Tobacco 06/19/23 14:51 Tobacco use type Cigarette 06/19/23 14:51 e-Cigarette/Vaping Use Never Used 06/19/23 14:51 PHQ-9: PHQ-9 Score PHQ-9: Total score 1 06/19/23 16:10 Depression Screening Interpretation: Negative Thrive Assessment: Date of Thrive Assessment Date Thrive assessed 06/19/23 06/19/23 14:51 Currently or been in a relationship where the following occur: no concerns reported Const General: no acute distress and alert Orientation/consciousness: [facility] x3 [facility]: Yes normocephalic and Yes atraumatic Ears: TM's normal bilaterally and EAC's normal General nose exam: No nasal discharge present Face and sinus: Yes normal facial exam and Yes sinuses nontender Teeth and gingiva: dentition normal Throat: Yes posterior oropharynx normal and Yes tonsils normal Eyes Eyelids: Yes eyelids normal Conjunctivae: conjunctivae normal Pupils: Equal, round and reactive pupils present EOM: EOMs intact bilaterally Neck Neck: Yes no lymphadenopathy and Yes supple Thyroid: Thyroid normal Lymphatic: no lymphadenopathy noted Chest Chest palpation & inspection: tenderness (over the entire anterior chest wall - CHRONIC) Resp Auscultation: no rales, no wheezes and diminished lung sounds bilateral (slightly) Cardio Rate: regular rate Rhythm: regular rhythm Heart sounds: no murmurs GI Palpation (GI): Soft to palpation and nontender Auscultation: normal bowel sounds General: Yes no CVA tenderness Back/Spine/Pelvis Back: no CVA tenderness Cervical Spine: No Cervical spine tenderness Thoracic/Lumbar Spine: No lumbar spinal tenderness Skin Lesions: no lesions Rashes: no rashes Neuro General: patient oriented x3, moves all extremities, no focal motor deficits and CN's II-XI intact bilaterally Cranial nerves: Yes Equal, round and reactive pupils present Cognition (Neuro): normal cognition Gait exam (Neuro): Normal gait present Extrem General: Yes no clubbing, cyanosis or edema Right lower extremity: knee Details: tenderness Location: of the medial joint line; no swelling Assessment and Plan Assessment & Plan (1) Annual physical exam: Code(s): Z00.00 - Encounter for general adult medical examination without abnormal findings Plan: Patient is instructed to get his previously ordered labs done MARCO A He has never had a screening colonoscopy done (by choice) and still prefers NOT to have it done but agrees to get Cologuard testing instead (2) Coronary artery disease: Code(s): I25.10 - Atherosclerotic heart disease of [place] coronary artery without angina pectoris Qualifiers: Coronary Disease-Associated Artery/Lesion type: [place] artery [place] vs. 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 [Tietze] Plan: Continue Oxycodone 15 mg every 6 hours as needed for increased pain and increase his Gabapentin to 400 mg TID Was seen by pain management for his chronic chest wall pain last year and has been advised that his chronic chest pains may be due to an allergic reaction to the wires used to hold his sternum and ribs in place following his sternotomy and recommended that he have them removed but patient does not wish to pursue this option further at this time He was referred to allergy/immunology to check him for allergy to metals, potentially his guide wire, and if he is, then we have a more urgent and valid reason to have his sternotomy wires removed - he was scheduled to see detail technician sometime earlier this year for initial consultation but patient failed to keep his appointment Follow up with [facility] as scheduled (4) Pure hypercholesterolemia: Code(s): E78.00 - Pure hypercholesterolemia, unspecified Plan: Have instructed patient to get his labs done MARCO A to follow up on his cholesterol levels Reinforced low cholesterol diet Continue Crestor 40 mg QD Will recheck his labs and fasting lipids in 3 months for follow up (5) Diabetes mellitus: Code(s): E11.9 - Type 2 diabetes mellitus without complications Qualifiers: Diabetes mellitus type: type 2 Diabetes mellitus intermediate project manager insulin use: without intermediate project manager use Diabetes mellitus complication status: without complic ation Qualified Code(s): E11.9 - Type 2 diabetes mellitus without complications Plan: His HgbA1c was at 10.9% when last checked in February 2023 - goal is < 7.0% Reinforced diabetic diet Was on Metformin ER 1000 mg BID and Tradjenta 5 mg QD previously but had to cut his Metformin ER down to 500 mg BID as he was frequently feeling very nauseous on his previous dose Continue Metformin ER 500 mg BID, Tradjenta 5 mg QD and Glimepiride 2 mg QD He is advised that if his HgbA1c has not improved significantly when he gets his labs done (soon), then we will need to make some changes to his meds (6) COPD (chronic obstructive pulmonary disease): Code(s): J44.9 - Chronic obstructive pulmonary disease, unspecified Qualifiers: COPD type: unspecified COPD Qualified Code(s): J44.9 - Chronic obstructive pulmonary disease, unspecified Plan: Stable lately Was on Spiriva Respimat 2.5 mcg 2 inhalations QD and Albuterol HFA 1 to 2 inhalations Q 6 hours PRN but this was switched over to Atrovent HFA a few months ago as could not afford his Spiriva Respimat (over $300) due to insurance formulary change Will start him instead on Incruse Ellipta 62.5 mcg 1 inhalation QD - is advised that Atrovent is a short-acting anticholinergic Rx and Incruse Ellipta may work out better for him Continue Albuterol HFA 2 inhalations Q 6 hours PRN (7) GERD without esophagitis: Code(s): K21.9 - Gastro-esophageal reflux disease without esophagitis Plan: Dietary restrictions reinforced Conitinue Omeprazole 40 mg QD (8) Benign prostatic hyperplasia: Code(s): N40.0 - Benign prostatic hyperplasia without lower urinary tract symptoms Qualifiers: Lower urinary tract symptom presence: unspecified whether lower urinary tract symptoms present Qualified Code(s): N40.0 - Benign prostatic hyperplasia without lower urinary tract symptoms Plan: Comtinue Tamsulosin 0.4 mg QD Follow up with urology as scheduled Will check his PSA level in 3 months for follow p (9) Bilateral hand pain: Code(s): M79.641 - Pain in right hand; M79.642 - Pain in left hand Plan: EMG and NCV of the upper extremities done back in March 2023 revealed (+) abnormal NCS study of bilateral upper extremities. No needle EMG done. There is electrodiagnostic evidence for bilateral moderate-severe median neuropathy at the wrists, could be consistent with Carpal Tunnel Syndrome. Abnormal ulnar SNAPS could be suggestive of neuropathy. He is advised as well that his symptoms are most likely also partly due to osteoarthritis (10) Pain in both lower extremities: Code(s): M79.604 - Pain in right leg; M79.605 - Pain in left leg Plan: He was also sent for EMG & NCV of the lower extremities for further evaluation but patient declined to have the test done when he was there for upper extremity testing. He was instructed to call them back to schedule it for any time at his convenience and he has yet to do so (11) Right knee pain: Code(s): M25.561 - Pain in right knee Qualifiers: Chronicity: unspecified Qualified Code(s): M25.561 - Pain in right knee Plan: Is likely due to OA Patient was also sent for right knee x-rays for further evaluation previously but he did not get these done (12) Depression: Code(s): F32.9 - Major depressive disorder, single episode, unspecified Qualifiers: Depression Type: major depressive disorder Major depression recurrence: recurrent Active/Remission status: currently active Major depression episode severity: unspecified Qualified Code(s): F33.9 - Major depressive disorder, recurrent, unspecified Plan: Is currently not on any Rx for depression - feels that he has been doing well so far and no intervention is needed at this time (13) Smoker: Code(s): F17.200 - Nicotine dependence, unspecified, uncomplicated Plan: Counseled again on smoking cessation although patient appears unmotivated to quit (14) Overweight (BMI 25.0-29.9): Code(s): E66.3 - Overweight Plan: Reinforced diet/exercise as tolerated/lose weight - patient has been mostly sedentary for the past few years now due to significantly increased anterior chest wall pain even with minimal activity or exertion (15) Colon cancer screening: Code(s): Z12.11 - Encounter for screening for malignant neoplasm of colon Plan: Patient declined colonoscopy but agrees to do Cologuard testing instead - Cologuard ordered Plan Follow up in 3 months Orders: Orders Comprehensive Pipestem. Panel Fast 3 Months E78.00 - Pure hypercholesterolemia, unspecified Hemoglobin A1c 3 Months E11.9 - Type 2 diabetes mellitus without complications TSH reflex Free T4 3 Months E78.00 - Pure hypercholesterolemia, unspecified UA CC w/rflx Micro + Cult 3 Months R30.0 - Dysuria Testosterone, Free/Total 3 Months R79.89 - Other specified abnormal findings of blood chemistry Complete Blood Count Auto Diff 3 Months I10 - Essential (primary) hypertension Lipid Panel 3 Months E78.00 - Pure hypercholesterolemia, unspecified Microalbumin, Random (w Creat) 3 Months E11.9 - Type 2 diabetes mellitus without complications Vitamin D 25-OH Total 3 Months E55.9 - Vitamin D deficiency, unspecified Vitamin B12 and Folate 3 Months E53.8 - Deficiency of other specified B group vitamins Prostate Specific Antigen 3 Months N40.0 - Benign prostatic hyperplasia without lower urinary tract symptoms Referrals Cologuard Test Z12.11 - Encounter for screening for malignant neoplasm of colon Medications: New Incruse Ellipta 62.5 mcg/actuation (umeclidinium) 1 inh inhalation DAILY 30 ea 5RF 30 days NS Changed From gabapentin 300 mg PO TID 90 caps 3RF M94.0 - Chondrocostal junction syndrome [Tietze] To gabapentin 400 mg PO TID 90 caps 5RF 30 days M94.0 - Chondrocostal junction syndrome [Tietze] Review Patient declined Colonoscopy: 01/04/21 Coding Level of Care Code Est Pt Prev Care >65y(31798) Diagnoses Annual physical exam Z00.00 Coronary artery disease involving [place] coronary artery of [place] heart without angina pectoris I25.10 Coronary Disease-Associated Artery/Lesion type: [place] artery [place] vs. transplanted heart: [place] heart Associated angina: without angina Tietze's syndrome M94.0 Pure hypercholesterolemia E78.00 Type 2 diabetes mellitus without complication, without long-term current use of insulin E11.9 Diabetes mellitus type: type 2 Diabetes mellitus shelter insulin use: without shelter use Diabetes mellitus complication status: without complication Chronic obstructive pulmonary disease, unspecified COPD type J44.9 COPD type: unspecified COPD GERD without esophagitis K21.9 Benign prostatic hyperplasia, unspecified whether lower urinary tract symptoms present N40.0 Lower urinary tract symptom presence: unspecified whether lower urinary tract symptoms present Bilateral hand pain M79.641; M79.642 Pain in both lower extremities M79.604; M79.605 Right knee pain, unspecified chronicity M25.561 Chronicity: unspecified Episode of recurrent major depressive disorder, unspecified depression episode severity F33.9 Depression Type: major depressive disorder Major depression recurrence: recurrent Active/Remission status: currently active Major depression episode severity: unspecified Smoker F17.200 Overweight (BMI 25.0-29.9) E66.3 Colon cancer screening Z12.11
== END 2023-06-19 16:13 | disposition home or self-care (01) ==
PROVIDERS: PCP Internal Medicine; Visit Provider Internal Medicine
DX: Z00.00 Encounter for general adult medical examination without abnormal findings (principal); I25.10 Atherosclerotic heart disease of native coronary artery without angina pectoris; M94.0 Chondrocostal junction syndrome [Tietze]; E78.00 Pure hypercholesterolemia, unspecified; E11.9 Type 2 diabetes mellitus without complications; J44.9 Chronic obstructive pulmonary disease, unspecified; K21.9 Gastro-esophageal reflux disease without esophagitis; N40.0 Benign prostatic hyperplasia without lower urinary tract symptoms; M79.641 Pain in right hand; M79.642 Pain in left hand; M79.604 Pain in right leg; M79.605 Pain in left leg
CPT/HCPCS: 99499

== ENCOUNTER 2023-07-02 08:51 | Outpatient (REF) | payer MEDICARE, SELFPAY ==
[2023-07-02 11:23] LABS: MANUAL DIFF FLAG NO
[2023-07-02 11:36] LABS: Basophils Absolute Auto 0.1 X10*3/uL (0.0-0.2); Basophils Percent Auto 0.9 % (0-2); Eosinophils Absolute Auto 0.3 X10*3/uL (0.0-0.4); Eosinophils Percent Auto 2.9 % (0-4); Hematocrit 45.9 % (42.0-52.0); Hemoglobin 16.2 g/dl (14.0-18.0); Imm Gran Abs Auto 0.03 X10*3/uL (0.00-0.03); Imm Gran Pct Auto 0.3 % (0.0-0.4); Lymphocytes Percent Auto 21.2 % (20-40); Mean Corpuscular HGB Conc 35.3 g/dl (31.0-36.0); Mean Corpuscular Hemoglobin 31.2 pg (27.0-33.0); Mean Corpuscular Volume 88.4 fL (80.0-98.0); Mean Platelet Volume 9.6 fL (9.4-12.4); Monocytes Absolute Auto 0.7 X10*3/uL (0.1-1.2); Monocytes Percent Auto 7.7 % (2-11); Neutrophils Absolute Auto 6.4 x10*3/uL (2.0-8.3); Platelet Count 205 X10*3/uL (160-400); Red Blood Count 5.19 X10*6/uL (4.60-5.80); Red Cell Distribution Width 13.6 % (11.0-16.0); White Blood Count 9.5 X10*3/uL (4.8-10.8)
[2023-07-02 11:37] LABS: Appearance Urine Clear; Color Urine Yellow; Glucose Urine UA Negative (Negative); Leukocyte Esterase Urine Negative (Negative); Nitrite Urine Negative (Negative); PH 7.5 (5.0-9.0); Urine Blood Negative (Negative); Urine Ketones Negative (Negative); Urine Protein Negative (Neg-Trace)
[2023-07-02 11:56] LABS: Estimated Average Glucose 157 mg/dL; Hemoglobin A1c % 7.1 % (<6.0)
[2023-07-02 12:14] LABS: Alanine Aminotransferase 13 U/L (0-40); Albumin Level 4.1 g/dL (3.5-5.0); Alkaline Phosphatase 87 U/L (39-117); Anion Gap 14 (12-20); Aspartate Amino Transferase 17 U/L (5-37); Bilirubin Total 0.5 mg/dL (0.0-1.0); Blood Urea Nitrogen 9 mg/dL (9-16); Calcium 9.6 mg/dL (8.4-10.2); Carbon Dioxide 25 mmol/L (22-29); Chloride 103 mmol/L (96-108); Cholesterol 155 mg/dL (<200); Estimated Glomerular Filt Rate > 60; Glucose Fasting 162 mg/dL (60-99); HDL Cholesterol 39 mg/dL (>40); LDL Cholesterol Calculated 86 mg/dL (<100); Potassium 4.4 mmol/L (3.3-5.1); Sodium 138 mmol/L (135-145); Total Protein 7.3 g/dL (6.5-8.0); Triglycerides 153 mg/dL (<150)
[2023-07-02 12:19] LABS: TSH reflex Free T4 1.47 uIU/mL (0.32-4.0); Vitamin D 25-OH Total 28.4 ng/mL (>30)
[2023-07-02 12:32] LABS: Creatinine Urine 64.96 mg/dL; Microalbum/Creatinine Ratio Ur 30.7 ug/mg cr (<30)
== END 2023-07-02 08:52 | disposition home or self-care (01) ==
LOC: HO.HMGCLDS 08:51
PROVIDERS: PCP Internal Medicine; Visit Provider Internal Medicine
DX: R30.0 Dysuria (principal); E11.9 Type 2 diabetes mellitus without complications; I10 Essential (primary) hypertension; E55.9 Vitamin D deficiency, unspecified; E78.00 Pure hypercholesterolemia, unspecified
CPT/HCPCS: 36415; 80053; 80061; 81003; 82043; 82306; 82570; 83036; 84443; 85025

== ENCOUNTER 2023-09-21 08:47 | Outpatient (AMB) | payer MEDICARE, SELFPAY ==
--- NOTE | 2023-09-21 08:49 | A.OFFVIS_ITS ---
Intake Vital Signs 09/21/23 09:02 Height 5 ft 6 in Weight 162 lb BMI 26.1 BP 143/64 H Blood Pressure Location Lt brachial Position Sitting Pulse 59 Intake Visit Reasons: Colonoscopy Screening Intake Note: Patient new consult for 2nd pre Colonoscopy screening Patient cc: acid reflex due his Hiatal hernia. Denies any other GI issues. First Colonoscopy was done by Dr. Kothari. 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 Patient had positive Cologuard in June of 2023. Patient denies any cardiac or respiratory symptoms. History of GERD on PPI. Moving his bowels without any issues. Previously patient refused colonoscopies. Denies any family history of colorectal cancer. Denies any issues with anesthesia in the past. No history of sleep apnea. On low-dose aspirin. [facility] Medical History Allergy to metal Benign prostatic hyperplasia Chest wall discomfort Colonoscopy refused COPD (chronic obstructive pulmonary disease) Coronary artery disease Depression Diabetes mellitus GERD without esophagitis Hyperlipidemia Insomnia Overweight (BMI 25.0-29.9) Pure hypercholesterolemia Smoker Tietze's syndrome Surgical History History of coronary artery bypass graft (~2002) Family History Father Liver problem Cancer Mother CVD (cardiovascular disease) COPD (chronic obstructive pulmonary disease) Brother Myocardial infarction Brother S/P CABG x 1 CVD (cardiovascular disease) Family/Other FH: mental illness Daughter Substance abuse Social History Housing: House Alcohol intake: current Alcohol intake frequency: does not drink Patient Tobacco Use Status: Current everyday Tobacco user Tobacco use type: Cigarette Cigarettes Per Day: 10 e-Cigarette/Vaping Use: Never Used Second Hand Smoke Exposure: Yes service: No Current occupational status: retired Cognitive needs: No Hearing needs: No Vision needs: Yes Review of Systems Card Reports dyspnea Resp Reports cough and Reports dyspnea Physical Exam Vital Signs: Last Vital Signs Pulse 59 09/21/23 09:02 BP 143/64 H 09/21/23 09:02 BMI result Body Mass Index 26.1 Const General: no acute distress and well developed Nutritional Appearance: well nourished Orientation/consciousness: patient oriented x3 Resp Effort & Inspection: normal respiratory effort, able to speak in complete sentences, Actively coughing, no tracheal deviation and symmetric chest movement Auscultation: rhonchi and wheezes Cardio Rate: regular rate GI Inspection: Yes normal to inspection and No distended Palpation (GI): Soft to palpation, not firm, nontender and No hepatosplenomegaly present Auscultation: normal bowel sounds General: Yes no CVA tenderness Back/Spine/Pelvis Back: no CVA tenderness Skin General skin exam: elasticity normal, turgor normal and dry skin Neuro General: patient oriented x3 Psych Appearance: grossly normal Mental Status: mental status grossly normal Assessment & Plan Assessment & Plan (1) COPD exacerbation: Code(s): J44.1 - Chronic obstructive pulmonary disease with (acute) exacerbation (2) Positive colorectal cancer screening using Cologuard test: Code(s): R19.5 - Other fecal abnormalities Plan Positive Cologuard, please book patient for colonoscopy. History of COPD frequent coughing, short of breath most likely related to COPD. Patient is on inhalers, has not seen supervisor production department for over 5 years. Will send him to see supervisor production department to be cleared for the procedure. Patient is on low dose aspirin. Colonoscopy in 2007 showed no polyps. Coronary artery bypass in 2002. Patient denies any chest pain shortness of breath most likely due to COPD and smoking. What to expect before during and after the procedure discussed with patient. Clear liquid diet and good bowel prep discussed with patient. If patient will not be able to be cleared for the procedure we might need to work on PA for colonography. I will see patient after procedure, sooner on as needed basis. Patient is agreeable to this plan and verbalizes understanding of instructions. He was given the opportunity to ask questions and all questions answered. Thank you for allowing me to participate in his care Orders: Referrals Pulmonary Medicine Referral J44.1 - Chronic obstructive pulmonary disease with (acute) exacerbation Medications: New bisacodyl (Dulcolax (bisacodyl)) take 4 tabs at noon the day before your colonoscopy 20 mg (4 x 5 mg) PO ONCE 1 day 4 tabs 0RF Z12.11 - Encounter for screening for malignant neoplasm of colon polyethylene glycol 3350 (Miralax) As directed by gastroenterology department at [facility] 238 grams PO ONCE 238 grams 0RF Z12.11 - Encounter for screening for malignant neoplasm of colon Coding Level of Care Code New Pt Level 4 (33098) Diagnoses COPD exacerbation J44.1 Positive colorectal cancer screening using Cologuard test R19.5 Time Spent (min) 45 Comment 30 minutes spent with patient and additional 10 minutes spent reviewing his records
[2023-09-21 09:02] VITALS: BP 143/64; PULSE 59; BMI 26.1
== END 2023-09-21 10:05 | disposition home or self-care (01) ==
PROVIDERS: PCP Internal Medicine; Visit Provider Nurse Practitioner Family
DX: J44.1 Chronic obstructive pulmonary disease with (acute) exacerbation (principal); R19.5 Other fecal abnormalities
CPT/HCPCS: 99204

== ENCOUNTER → 2023-09-21 08:47 | Outpatient (BNVA) | payer MEDICARE, SELFPAY | PROVIDERS: PCP Internal Medicine; Visit Provider Nurse Practitioner Family | DX: J44.1 Chronic obstructive pulmonary disease with (acute) exacerbation (principal); R19.5 Other fecal abnormalities | CPT/HCPCS: 99202 ==

== ENCOUNTER 2023-10-03 08:56 | Outpatient (REF) | payer MEDICARE, SELFPAY ==
[2023-10-03 11:25] LABS: MANUAL DIFF FLAG NO
[2023-10-03 11:40] LABS: Appearance Urine Clear; Color Urine Yellow; Glucose Urine UA Negative (Negative); Leukocyte Esterase Urine Negative (Negative); Nitrite Urine Negative (Negative); Specific Gravity - Urine 1.015 (1.005-1.025); UMIC TRIGGER UACC YES; Urine Blood Trace (Negative); Urine Ketones Negative (Negative); Urine Protein Negative (Neg-Trace)
[2023-10-03 11:42] LABS: Basophils Absolute Auto 0.1 X10*3/uL (0.0-0.2); Basophils Percent Auto 1.1 % (0-2); Eosinophils Absolute Auto 0.2 X10*3/uL (0.0-0.4); Eosinophils Percent Auto 2.8 % (0-4); Hematocrit 45.6 % (42.0-52.0); Hemoglobin 15.9 g/dl (14.0-18.0); Imm Gran Abs Auto 0.02 X10*3/uL (0.00-0.03); Imm Gran Pct Auto 0.3 % (0.0-0.4); Lymphocytes Absolute Auto 2.2 X10*3/uL (1.2-4.9); Lymphocytes Percent Auto 29.9 % (20-40); Mean Corpuscular HGB Conc 34.9 g/dl (31.0-36.0); Mean Corpuscular Hemoglobin 30.9 pg (27.0-33.0); Mean Corpuscular Volume 88.7 fL (80.0-98.0); Mean Platelet Volume 9.7 fL (9.4-12.4); Monocytes Absolute Auto 0.7 X10*3/uL (0.1-1.2); Neutrophils Absolute Auto 4.2 x10*3/uL (2.0-8.3); Neutrophils Percent Auto 56.9 % (45-73); Platelet Count 188 X10*3/uL (160-400); Red Blood Count 5.14 X10*6/uL (4.60-5.80); Red Cell Distribution Width 13.3 % (11.0-16.0); White Blood Count 7.4 X10*3/uL (4.8-10.8)
[2023-10-03 11:45] LABS: Bacteria Urine None Seen (None Seen); Hyaline Casts Urine 0-2 /LPF (0-2); RBC Urine 0-2 /HPF (0-2); Squamous Epithelial Cell Urine 0-2 /HPF (0-2); WBC Urine 0-5 /HPF (0-5)
[2023-10-03 12:06] LABS: Alanine Aminotransferase 16 U/L (0-40); Albumin Level 4.1 g/dL (3.5-5.0); Alkaline Phosphatase 92 U/L (39-117); Anion Gap 13 (12-20); Aspartate Amino Transferase 20 U/L (5-37); Bilirubin Total 0.4 mg/dL (0.0-1.0); Blood Urea Nitrogen 11 mg/dL (9-16); Calcium 9.6 mg/dL (8.4-10.2); Carbon Dioxide 30 mmol/L (22-29); Chloride 101 mmol/L (96-108); Cholesterol 157 mg/dL (<200); Estimated Glomerular Filt Rate > 60; Glucose Fasting 176 mg/dL (60-99); HDL Cholesterol 40 mg/dL (>40); LDL Cholesterol Calculated 85 mg/dL (<100); Potassium 4.6 mmol/L (3.3-5.1); Sodium 139 mmol/L (135-145); Total Protein 7.2 g/dL (6.5-8.0); Triglycerides 160 mg/dL (<150)
[2023-10-03 12:11] LABS: Vitamin D 25-OH Total 19.9 ng/mL (>30)
[2023-10-03 12:39] LABS: Creatinine Urine 95.66 mg/dL; Microalbum/Creatinine Ratio Ur 42.8 ug/mg cr (<30)
[2023-10-03 14:58] LABS: Folate 5.6 ng/mL (> or = 4.0); Prostate Specific Antigen 5.46 ng/mL (<0.05-4.0); Vitamin B12 503 pg/mL (200-900)
[2023-10-03 15:20] LABS: Estimated Average Glucose 180 mg/dL; Hemoglobin A1c % 7.9 % (<6.0)
[2023-10-10 14:48] LABS: Testosterone, Free 17.1 pg/mL (30.0-135.0); Testosterone, Total 139 ng/dL (250-1100)
== END 2023-10-03 08:57 | disposition home or self-care (01) ==
LOC: HO.HMGCLDS 08:56
PROVIDERS: PCP Internal Medicine; Visit Provider Internal Medicine
DX: E78.00 Pure hypercholesterolemia, unspecified (principal); E11.9 Type 2 diabetes mellitus without complications; R79.89 Other specified abnormal findings of blood chemistry; I10 Essential (primary) hypertension; E55.9 Vitamin D deficiency, unspecified; E53.8 Deficiency of other specified B group vitamins; N40.0 Benign prostatic hyperplasia without lower urinary tract symptoms; R30.0 Dysuria; Z12.5 Encounter for screening for malignant neoplasm of prostate
CPT/HCPCS: 36415; 80053; 80061; 81001; 82043; 82306; 82570; 82607; 82746; 83036; 84153; 84402; 84403; 84443; 85025

== ENCOUNTER 2023-10-05 09:11 | Outpatient (AMB) | payer MEDICARE, SELFPAY ==
--- NOTE | 2023-10-05 09:14 | A.OFFPC_ITS ---
Vital Signs 10/05/23 09:16 Height 5 ft 6 in Weight 166 lb 6 oz BMI 26.9 BP 132/64 Blood Pressure Location Lt brachial Position Sitting Pulse 58 Pulse Source Pulse Oximeter Pulse Oximetry (%) 93 Oxygen Delivery Method Room Air Intake Visit Reasons: 3mth f/u Intake Note: Patient is here to follow up on DM, COPD, Hypercholesterolemia. Student Admissions Clerk Required: No Stunner Animal: Present Accompanied by: Spouse Allergies trazodone Adverse Reaction (Intermediate, Verified 10/05/23 09:54) bedwetting Medication List - Last Reconciled 10/05/23 by Laron Jimenez MD albuterol sulfate 90 mcg/actuation 2 puffs inhalation Q6H PRN aspirin 81 mg PO DAILY bisacodyl (Dulcolax (bisacodyl)) 20 mg (4 x 5 mg) PO ONCE 1 day gabapentin 400 mg PO TID 30 days glimepiride 2 mg PO QAM 30 days Incruse Ellipta 62.5 mcg/actuation (umeclidinium) 1 inh inhalation DAILY 30 days NS metformin ER 500 mg PO BID metoprolol tartrate 50 mg PO BID nitroglycerin 0.4 mg sublingual Q5M PRN nystatin (Nystop) 1 appl topical BID 7 days omeprazole magnesium 20 mg PO DAILY oxycodone 15 mg PO Q6H 28 days polyethylene glycol 3350 (Miralax) 238 grams PO ONCE rosuvastatin 40 mg PO DAILY tamsulosin 0.4 mg PO DAILY tiotropium bromide 2.5 mcg/actuation (Spiriva Respimat) 2 inhalations inhalation QAM 30 days Tradjenta (linagliptin) 5 mg PO QAM 30 days NS trazodone 100 mg PO BEDTIME PRN Tobacco use date assessed: 10/05/23 Fall risk assessment: No Falls in past year Last assessed Fall Risk: 10/05/23 Dental Screening Dental Screen Date: 10/05/23 Did you have a dental visit in the last 12 months?: No Did you have a dental problem in the last 6 months where you did not have access to dental care?: No Was dental information given to patient?: No (dentures) HPI 3mth f/u HPI Details Patient comes in today for his follow up visit States that he continues to feel very fatigued often and that this has been going on for some time now Feels that he sleeps well at night and does not think that his fatigue is from lack of sleep although he admits to having trouble falling asleep at times States that he was recently given a bag of some edible gummies by a friend and he brought the bag in for us to see if this is something he can try taking - bag is noted to be distributed by [facility] He denies any headaches or dizziness Denies any chest pains; still has GERONIMO and states that he does not really do much in terms of physical activity He has been referred to pulmonary for further evaluation of his breathing issues and he is scheduled to be seen for his initial visit with them on 10/29/2023 No nausea/vomiting, no abdominal pain No change in bowel habits noted States that his chronic pain, including his chest wall pains, remain adequately controlled on his current Rx He was also seen by GI recently (referred for colonoscopy due to a positive Cologuard test) and they have him scheduled for the colonoscopy sometime in February 2024 They have advised him to get his breathing issues managed better by pulmonary in the meantime so it would not be an issue when he goes for his colonoscopy later this summer Needs his Nitroglycerin tablets Rx refilled Had his follow up labs done a couple of days ago - to discuss his results [facility] Medical History (Updated 10/05/23 @ 12:32 by Laron Jimenez MD) Hypotestosteronism Colonoscopy refused Allergy to metal Chest wall discomfort Insomnia Pure hypercholesterolemia Overweight (BMI 25.0-29.9) Smoker Depression Benign prostatic hyperplasia GERD without esophagitis COPD (chronic obstructive pulmonary disease) Diabetes mellitus Tietze's syndrome Coronary artery disease Hyperlipidemia Surgical History History of coronary artery bypass graft (~2002) Family History Father Liver problem Cancer Mother CVD (cardiovascular disease) COPD (chronic obstructive pulmonary disease) Brother Myocardial infarction Brother S/P CABG x 1 CVD (cardiovascular disease) Family/Other FH: mental illness Daughter Substance abuse Social History Housing: House Alcohol intake: current Alcohol intake frequency: does not drink Patient Tobacco Use Status: Current everyday Tobacco user Tobacco use type: Cigarette Cigarette Packs Per Day: 0.5 Cigarettes Per Day: 10 e-Cigarette/Vaping Use: Never Used Second Hand Smoke Exposure: Yes service: No Current occupational status: retired Cognitive needs: No Hearing needs: No Vision needs: Yes Questionnaire PHQ-9 Over the last 2 weeks, how often have you been bothered by any of the following problems? 1. Little interest or pleasure in doing things: not at all 2. Feeling down, depressed, or hopeless: not at all 3. Trouble falling or staying asleep, or sleeping too much: not at all 4. Feeling tired or having little energy: not at all 5. Poor appetite or overeating: not at all 6. Feeling bad about yourself - or that you are a failure or have let yourself or your family down: not at all 7. Trouble concentrating on things, such as reading the newspaper or watching television: not at all 8. Moving or speaking so slowly that other people could have noticed. Or the opposite - being so fidgety or restless that you have been moving around a lot more than usual: not at all 9. Thoughts that you would be better off or of hurting yourself in some way: not at all Total score: 0 Depression Screening Interpretation: Negative Depression Screening Done: Yes [id number] - PHQ-9 Billing: Yes Source: Developed by Drs. Marcus Benites, Amrita Canseco, Finesse Coleman and colleagues, with an educational isauro from [employer]. Thrive Questionnaire Date Thrive assessed: 10/05/23 I am a: Patient What is your living situation today?: I have a steady place to live Within the past 12 months, did the food you bought not last and you didn't have the money to get more?: Never true Within the past 12 months, did you worry whether your food would run out before you got money to buy more?: Never true Do you have trouble paying for medicines?: No Do you have trouble getting transportation to medical appointments?: No Do you have trouble paying your heating and electricity bill?: No Do you have trouble taking care of your child, family member or friend?: No Do you have trouble with day-to-day activities such as bathing, preparing meals, shopping, managing finances, etc.?: No Are you currently unemployed and looking for a job?: No Are you interested in more education?: No Currently or been in a relationship where the following occur: no concerns reported THRIVE Score: 0 AUDIT C Alcohol Use Questionnaire (AUDIT-C) 1. How often do you have a drink containing alcohol?: Never Total Score: 0 Score Reviewed/Action Taken: Yes BUDDY-7 AMB Questionnaire BUDDY-7 Date BUDDY - 7 assessed: 10/05/23 Feeling nervous, anxious, or on edge: 0 = Not at all Not being able to stop or control worryin = Not at all Worrying too much about different things: 0 = Not at all Trouble relaxin = Not at all Being so restless that it is hard to sit still: 0 = Not at all Becoming easily annoyed or irritable: 0 = Not at all Feeling afraid as if something awful might happen: 0 = Not at all Total BUDDY-7 score (0-4 normal; 5-9 mild; 10-14 moderate; 15-21 severe): 0 Source: Developed by Drs. Marcus Benites, Amrita Canseco, Finesse Coleman and colleagues, with an educational isauro from [employer]. Review of Systems Const Denies chills, Reports difficulty sleeping (mostly in falling asleep), Reports fatigue, Denies fever(s), Denies headache(s) and Denies night sweats ENT Denies dysphagia, Denies dizziness, Denies otalgia, Denies headache(s), Denies neck pain, Denies odynophagia and Denies sore throat Card Reports chest pain (chronic - over the anterior chest wall) and Reports dyspnea on exertion (mild) Resp Denies chest congestion, Denies cough, Reports dyspnea on exertion (mild) and Denies wheezing GI Denies abdominal pain, Denies constipation, Denies dysphagia, Denies heartburn, Denies diarrhea, Denies nausea, Denies odynophagia and Denies vomiting Reports difficulty urinating (at times), Denies dysuria, Reports nocturia and Reports urinary frequency Musc Denies back pain, Reports arthralgias (in both hands and feet, on and off but worse in AM and at night; right knee), Denies muscle weakness and Denies neck pain Skin/Breast Reports rash (recurrent itchy rash over the inguinal areas - Nystatin powder helps) Neuro Denies dizziness and Denies headache(s) Endo Reports fatigue Aller/Immun Denies wheezing Physical exam (Primary Care) Vital Signs: Last Vital Signs Pulse 58 10/05/23 09:16 BP 132/64 10/05/23 09:16 Pulse Ox 93 10/05/23 09:16 Oxygen Delivery Method Room Air 10/05/23 09:16 BMI result Body Mass Index 26.9 Tobacco/Smoking Status: Tobacco use Status Tobacco use date assessed 10/05/23 10/05/23 09:23 Patient Tobacco Use Status Current everyday Tobacco 10/05/23 09:23 Tobacco use type Cigarette 10/05/23 09:23 e-Cigarette/Vaping Use Never Used 10/05/23 09:23 PHQ-9: PHQ-9 Score PHQ-9: Total score 0 10/05/23 09:23 Depression Screening Interpretation: Negative Thrive Assessment: Date of Thrive Assessment Date Thrive assessed 10/05/23 10/05/23 09:23 Currently or been in a relationship where the following occur: no concerns reported Const General: no acute distress and alert HENMT Ears: TM's normal bilaterally and EAC's normal Throat: Yes posterior oropharynx normal and Yes tonsils normal Neck Neck: Yes no lymphadenopathy and Yes supple Lymphatic: no lymphadenopathy noted Chest Chest palpation & inspection: tenderness (over the entire anterior chest wall - CHRONIC) Resp Auscultation: no rales, no wheezes and diminished lung sounds bilateral (slightly) Cardio Rate: regular rate Rhythm: regular rhythm Heart sounds: no murmurs GI Palpation (GI): Soft to palpation and nontender Auscultation: normal bowel sounds General: Yes no CVA tenderness Back/Spine/Pelvis Back: no CVA tenderness Cervical Spine: No Cervical spine tenderness Thoracic/Lumbar Spine: No lumbar spinal tenderness Skin Rashes: no rashes Extrem General: Yes no clubbing, cyanosis or edema Right lower extremity: knee Details: tenderness Location: of the medial joint line; no swelling Results Reviewed Results Reviewed: Laboratory Tests 10/03/23 10/03/23 10/03/23 09:03 09:03 09:10 WBC 7.4 Hgb 15.9 Hct 45.6 Plt Count 188 Sodium 139 Potassium 4.6 Creatinine 0.82 Estimated GFR > 60 Fasting Glucose 176 H Hemoglobin A1c % 7.9 H Calcium 9.6 AST 20 ALT 16 Triglycerides 160 H Cholesterol 157 LDL Cholesterol, Calc 85 HDL Cholesterol 40 L Prostate Specific Ag 5.46 H Vitamin B12 503 25-OH Vitamin D Total 19.9 L TSH 2.90 Ur Specific [place] 1.015 Urine Protein Negative Urine Glucose (UA) Negative Urine Blood Trace H Urine Nitrite Negative Ur Leukocyte Esterase Microalb/Creat Ratio 10/03/23 09:10 WBC Hgb Hct Plt Count Sodium Potassium Creatinine Estimated GFR Fasting Glucose Hemoglobin A1c % Calcium AST ALT Triglycerides Cholesterol LDL Cholesterol, Calc HDL Cholesterol Prostate Specific Ag Vitamin B12 25-OH Vitamin D Total TSH Ur Specific [place] Urine Protein Urine Glucose (UA) Urine Blood Urine Nitrite Ur Leukocyte Esterase Negative Microalb/Creat Ratio 42.8 H Assessment and Plan Assessment & Plan (1) Pure hypercholesterolemia: Code(s): E78.00 - Pure hypercholesterolemia, unspecified Plan: Results of his labs done a couple of days ago reviewed and discussed with patient Reinforced low cholesterol diet Continue Crestor 40 mg QD Will recheck his labs and fasting lipids in 3 months for follow up (2) Coronary artery disease: Code(s): I25.10 - Atherosclerotic heart disease of eek coronary artery without angina pectoris Qualifiers: Coronary Disease-Associated Artery/Lesion type: eek artery [place] vs. 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 [Tietze] Plan: Continue Oxycodone 15 mg every 6 hours as needed for increased pain and Gabapentin 300 mg TID Was seen by pain management for his chronic chest wall pain a couple of years ago and has been advised that his chronic chest pains may be due to an allergic reaction to the wires used to hold his sternum and ribs in place following his sternotomy and recommended that he have them removed but patient does not wish to pursue this option further He was then referred to allergy/immunology to check him for allergy to metals, potentially his guide wire, and if he is, then we have a more urgent and valid reason to have his sternotomy wires removed - he was scheduled to see patient coordinator front desk sometime last year for initial consultation but patient also failed to keep his appointment States that he does not wish to pursue this further [place] [facility] [place] (4) Diabetes mellitus: Code(s): E11.9 - Type 2 diabetes mellitus without complications Qualifiers: Diabetes mellitus type: type 2 Diabetes mellitus international controller insulin use: without international controller use Diabetes mellitus complication status: without complication Qualified Code(s): E11.9 - Type 2 diabetes mellitus without complications Plan: His HgbA1c has increased to 7.9% on his recent labs (was at 7.1% back in June 2023) - goal is < 7.0% Reinforced diabetic diet Was on Metformin ER 1000 mg BID and Tradjenta 5 mg QD previously but had to cut his Metformin ER down to 500 mg BID as he was frequently feeling very nauseous on his previous dose Continue Metformin ER 500 mg BID, Tradjenta 5 mg QD and Glimepiride 2 mg QD He is advised that we will need to make some changes or adjustments to his meds again if he cannot get his diabetes back under control over the next few months (5) COPD (chronic obstructive pulmonary disease): Code(s): J44.9 - Chronic obstructive pulmonary disease, unspecified Qualifiers: COPD type: unspecified COPD Qualified Code(s): J44.9 - Chronic obstructive pulmonary disease, unspecified Plan: Stable Continue Spiriva Respimat 2.5 mcg 2 inhalations QD and Albuterol HFA 1 to 2 inhalations Q 6 hours PRN He was referred to and will be seeing pulmonary early next month for initial consultation (6) Hypotestosteronism: Code(s): E34.9 - Endocrine disorder, unspecified Plan: Have advised patient that this is most likely the biggest contributor to his increasing fatigue lately and that this is likely multifactorial, including due to him being on chronic opioids as well as being a diabetic We have sent him to have this rechecked but his repeat labs are still pending as of this visit today Is advised that even if his repeat labs confirm his low testosterone level, I would not recommend starting him on testosterone replacement until he can get his prostate checked and prostate cancer is completely ruled out as testosterone replacement can increase one's risk for developing prostate cancer (7) GERD without esophagitis: Code(s): K21.9 - Gastro-esophageal reflux disease without esophagitis Plan: Dietary restrictions reinforced Conitinue Omeprazole 40 mg QD (8) Bilateral hand pain: Code(s): M79.641 - Pain in right hand; M79.642 - Pain in left hand Plan: EMG and NCV of the upper extremities done back in March 2023 revealed (+) abnormal NCS study of bilateral upper extremities. No needle EMG done. There is electrodiagnostic evidence for bilateral moderate-severe median neuropathy at the wrists, could be consistent with Carpal Tunnel Syndrome. Abnormal ulnar SNAPS could be suggestive of neuropathy. He is advised as well that his symptoms are most likely also partly due to osteoarthritis (9) Pain in both lower extremities: Code(s): M79.604 - Pain in right leg; M79.605 - Pain in left leg Plan: He was also sent for EMG & NCV of the lower extremities for further evaluation but patient declined to have the test done when he was there for upper extremity testing. He was instructed to call them back to schedule it for any time at his convenience and he has yet to do so (10) Right knee pain: Code(s): M25.561 - Pain in right knee Qualifiers: Chronicity: unspecified Qualified Code(s): M25.561 - Pain in right knee Plan: Is likely due to OA Patient was also sent for right knee x-rays for further evaluation previously but he did not get these done (11) Benign prostatic hyperplasia: Code(s): N40.0 - Benign prostatic hyperplasia without lower urinary tract symptoms Qualifiers: Lower urinary tract symptom presence: unspecified whether lower urinary tract symptoms present Qualified Code(s): N40.0 - Benign prostatic hyperplasia without lower urinary tract symptoms Plan: He is advised that his PSA has gone up slightly from before and is now at 5.46, which is elevated Comtinue Tamsulosin 0.4 mg QD Follow up with urology as scheduled - have advised that he will need to have urology check him out further to r/o prostate cancer Patient would like to have pulmonary see him first and get his colonoscopy done if possible before going for any procedures for his prostate (12) Depression: Code(s): F32.9 - Major depressive disorder, single episode, unspecified Qualifiers: Depression Type: major depressive disorder Major depression recurrence: recurrent Active/Remission status: currently active Major depression episode severity: unspecified Qualified Code(s): F33.9 - Major depressive disorder, recurrent, unspecified Plan: Is currently not on any Rx for depression - feels that he has been doing well s o far and no intervention is needed at this time (13) Smoker: Code(s): F17.200 - Nicotine dependence, unspecified, uncomplicated Plan: Counseled again on smoking cessation although patient still appears unmotivated to quit (14) Overweight (BMI 25.0-29.9): Code(s): E66.3 - Overweight Plan: Reinforced diet/exercise as tolerated/lose weight - patient has been mostly sedentary for the past few years now due to significantly increased anterior chest wall pain even with minimal activity or exertion (15) Positive colorectal cancer screening using Cologuard test: Code(s): R19.5 - Other fecal abnormalities Plan: He has been referred for colonoscopy and he is scheduled for this sometime in February 2024 Plan Follow up in 3 months Orders: Orders 2 Comprehensive [facility]ascade. Panel Fast 3 Months E78.00 - Pure hypercholesterolemia, unspecified Microalbumin, Random (w Creat) 3 Months E11.9 - Type 2 diabetes mellitus without complications UA CC w/rflx Micro + Cult 3 Months R30.0 - Dysuria Vitamin D 25-OH Total 3 Months E55.9 - Vitamin D deficiency, unspecified Hemoglobin A1c 3 Months E11.9 - Type 2 diabetes mellitus without complications Complete Blood Count Auto Diff 3 Months D64.9 - Anemia, unspecified Lipid Panel 3 Months E78.00 - Pure hypercholesterolemia, unspecified TSH reflex Free T4 3 Months E78.00 - Pure hypercholesterolemia, unspecified Medications: Refilled nitroglycerin do not exceed 3 doses per episode 0.4 mg sublingual Q5M PRN 30 tabs 3RF chest pain Review Patient declined Colonoscopy: 01/04/21 Coding Level of Care Code Est Pt Level 4 (93221) Diagnoses Pure hypercholesterolemia E78.00 Coronary artery disease involving eek coronary artery of eek heart without angina pectoris I25.10 Coronary Disease-Associated Artery/Lesion type: eek artery [place] vs. transplanted heart: eek heart Associated angina: without angina Tietze's syndrome M94.0 Type 2 diabetes mellitus without complication, without long-term current use of insulin E11.9 Diabetes mellitus type: type 2 Diabetes mellitus international controller insulin use: without international controller use Diabetes mellitus complication status: without complication Chronic obstructive pulmonary disease, unspecified COPD type J44.9 COPD type: unspecified COPD Hypotestosteronism E34.9 GERD without esophagitis K21.9 Bilateral hand pain M79.641; M79.642 Pain in both lower extremities M79.604; M79.605 Right knee pain, unspecified chronicity M25.561 Chronicity: unspecified Benign prostatic hyperplasia, unspecified whether lower urinary tract symptoms present N40.0 Lower urinary tract symptom presence: unspecified whether lower urinary tract symptoms present Episode of recurrent major depressive disorder, unspecified depression episode severity F33.9 Depression Type: major depressive disorder Major depression recurrence: recurrent Active/Remission status: currently active Major depression episode severity: unspecified Smoker F17.200 Overweight (BMI 25.0-29.9) E66.3 Positive colorectal cancer screening using Cologuard test R19.5
[2023-10-05 09:16] VITALS: BP 132/64; PULSE 58; O2SAT 93; BMI 26.9
== END 2023-10-05 10:08 | disposition home or self-care (01) ==
PROVIDERS: PCP Internal Medicine; Visit Provider Internal Medicine
DX: E78.00 Pure hypercholesterolemia, unspecified (principal); E11.9 Type 2 diabetes mellitus without complications; J44.9 Chronic obstructive pulmonary disease, unspecified; F33.9 Major depressive disorder, recurrent, unspecified; I25.10 Atherosclerotic heart disease of native coronary artery without angina pectoris; M94.0 Chondrocostal junction syndrome [Tietze]; E34.9 Endocrine disorder, unspecified; K21.9 Gastro-esophageal reflux disease without esophagitis; M79.641 Pain in right hand; M79.642 Pain in left hand; M79.604 Pain in right leg; M79.605 Pain in left leg
CPT/HCPCS: 99214

== ENCOUNTER 2023-10-29 09:28 | Outpatient (AMB) | payer MEDICARE, SELFPAY ==
[2023-10-29 09:32] VITALS: BP 134/70; PULSE 64; O2SAT 97; BMI 26.7
--- NOTE | 2023-10-29 09:32 | MHC.OFFVIS ---
Intake Vital Signs 10/29/23 09:32 Height 5 ft 6 in Weight 165 lb 5.547 oz BMI 26.7 BP 134/70 Blood Pressure Location Lt brachial Position Sitting Pulse 64 Pulse Source Pulse Oximeter Pulse Oximetry (%) 97 Oxygen Delivery Method Room Air Intake Visit Reasons: Chronic obstructive pulmonary disease Architectural Draftsman Required: No Inventory Specialist Manager: Inventory Specialist Manager offered & declined Accompanied by: Spouse Allergies No Known Allergies Allergy (Verified 10/29/23 10:15) Medication List - Last Reconciled 10/29/23 by Lindsey Knott LPN albuterol sulfate 90 mcg/actuation 2 puffs inhalation Q6H PRN aspirin 81 mg PO DAILY bisacodyl (Dulcolax (bisacodyl)) 20 mg (4 x 5 mg) PO ONCE 1 day gabapentin 400 mg PO TID 30 days glimepiride 2 mg PO QAM 30 days metformin ER 500 mg PO BID metoprolol tartrate 50 mg PO BID nitroglycerin 0.4 mg sublingual Q5M PRN nystatin (Nystop) 1 appl topical BID 7 days omeprazole magnesium 20 mg PO DAILY oxycodone 15 mg PO Q6H 28 days polyethylene glycol 3350 (Miralax) 238 grams PO ONCE rosuvastatin 40 mg PO DAILY tamsulosin 0.4 mg PO DAILY tiotropium bromide 2.5 mcg/actuation (Spiriva Respimat) 2 inhalations inhalation QAM 30 days trazodone 100 mg PO BEDTIME PRN HPI Chronic obstructive pulmonary disease HPI Details John is a pleasant 68 year old male, current smoker 1/2 ppd with 50+ pack year history, with underlying COPD, asthma, h/o coronary artery bypass x 3 in 2002, insomnia,GERD, DMII, HTN, BPH, and tietze's syndrome. He was referred by GI for perioperative evaluation for colonscopy as well as to establish care. He was previously under the care of pulmonology years ago. He is suboptimally controlled on Spiriva and albuterol MDI. He continues to report dyspnea on minimal exertion, wheezing, chest tightness and productive cough, unsure sputum color. He denies any recent hospitalizations, antibiotics or prednisone use. He reports diagnosed with asthma as an adult. Denies intubations. He reports GERD is controlled with omeprazole. Denies seasonal allergies. He denies any pertinent family history. 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 He was previously under the care of cardiology but was lost to follow up, advised patient to reestablish care. [facility] Medical History (Updated 10/29/23 @ 10:09 by Emelia Hope NP) Hypotestosteronism Colonoscopy refused Allergy to metal Chest wall discomfort Insomnia Pure hypercholesterolemia Overweight (BMI 25.0-29.9) Smoker Depression Benign prostatic hyperplasia GERD without esophagitis COPD (chronic obstructive pulmonary disease) Diabetes mellitus Tietze's syndrome Coronary artery disease Hyperlipidemia Surgical History History of coronary artery bypass graft (~2002) Family History Father Liver problem Cancer Mother CVD (cardiovascular disease) COPD (chronic obstructive pulmonary disease) Brother Myocardial infarction Brother S/P CABG x 1 CVD (cardiovascular disease) Family/Other FH: mental illness Daughter Substance abuse Social History (Updated 10/29/23 @ 09:43 by Lindsey Knott LPN) Housing: House Alcohol intake: current Alcohol intake frequency: does not drink Patient Tobacco Use Status: Current everyday Tobacco user Tobacco use type: Cigarette Cigarette Packs Per Day: 0.5 Cigarettes Per Day: 10 e-Cigarette/Vaping Use: Never Used Second Hand Smoke Exposure: Yes service: No Current occupational status: retired Cognitive needs: No Hearing needs: No Vision needs: Yes Review of Systems Const Denies chills, Denies excessive sweating, Denies fever(s), Denies headache(s) and Denies night sweats Eyes Denies dry eyes, Denies irritation and Denies itchy eyes ENT Reports Normal hearing present, Denies headache(s), Denies nasal congestion, Denies nasal discharge, Denies post nasal drip and Denies sore throat Card Denies chest pain, Denies chest pain at rest, Denies chest pain with activity, Denies claudication, Denies leg edema, Denies orthopnea and Denies paroxysmal nocturnal dyspnea Resp Denies chest congestion, Denies excessive phlegm production, Denies pain on inspiration, Denies pain with cough and Denies stridor Musc Denies myalgias Neuro Reports Normal hearing present and Denies headache(s) Endo Denies excessive sweating Joaquin/Lymph Denies lymphadenopathy Aller/Immun Denies itchy eyes and Denies seasonal rhinorrhea Physical Exam Vital Signs: Last Vital Signs Pulse 64 10/29/23 09:32 BP 134/70 10/29/23 09:32 Pulse Ox 97 10/29/23 09:32 Oxygen Delivery Method Room Air 10/29/23 09:32 BMI result Body Mass Index 26.7 Const General: cooperative, healthy appearing, comfortable, no acute distress, well developed and alert Orientation/consciousness: patient oriented x3 Limitations: no limitations HEENT Head: Yes normal to inspection, Yes normocephalic and Yes atraumatic Ears: hearing grossly normal bilaterally and external ears normal Eyes General: appearance normal, both eyes and all related structures Eyelids: Yes eyelids normal Sclerae: sclerae normal EOM: EOMs intact bilaterally Neck Neck: Yes normal visual inspection and Yes no lymphadenopathy Lymphatic: no lymphadenopathy noted Chest Chest palpation & inspection: normal inspection of the chest Resp Other: mildly diminished lung sounds Effort & Inspection: normal respiratory effort, able to speak in complete sentences, no audible wheezes, no cough, no stridor, not tachypneic, no tripod positioning and no use of accessory muscles Cardio Jugular venous distension: no JVD Rate: regular rate Rhythm: regular rhythm Skin Other: warm, dry General skin exam: no rashes or lesions noted Neuro General: patient oriented x3 Cranial nerves: Yes Normal hearing present Cognition (Neuro): normal cognition Gait exam (Neuro): Normal gait present Extrem General: Yes normal to inspection, Yes capillary refill normal, Yes no clubbing, cyanosis or edema and Yes no pedal edema Psych Appearance: grossly normal and well kempt Speech and movement: Normal speech and movement present and Clear speech present Affect: normal affect Attitude: cooperative Thought process: Normal thought process present Thought content: Normal thought content present Insight: Good insight present (Psych) Judgement: Good judgement present (Psych) Office Procedures 6 Minute Walk Time:: 10:06 SPO2 % at rest: 97 Pulse at rest: 62 SPO2 % during excercise: 96 Pulse during excercise: 76 SPO2 % after excercise: 97 Pulse after excercise: 66 Distance in yards walked: 1,000 Sri Score: 4 Performance Observations:: Patient walked unassisted on level ground at a slow/moderate pace. He was able to maintain O2 saturation of 96% or greater and pulse rate in the 70's during the entire walk. Patient does report he does not usually walk very far and gets short of breath walking up stairs or on an incline. No supplemental oxygen was required. [id number] - 6 Minute Walk Assessment & Plan Assessment & Plan (1) COPD (chronic obstructive pulmonary disease): Code(s): J44.9 - Chronic obstructive pulmonary disease, unspecified Qualifiers: COPD type: unspecified COPD Qualified Code(s): J44.9 - Chronic obstructive pulmonary disease, unspecified (2) Nicotine dependence, cigarettes, uncomplicated: Code(s): F17.210 - Nicotine dependence, cigarettes, uncomplicated (3) Cough: Code(s): R05.9 - Cough, unspecified Plan John's symptoms are likely related to underlying COPD/asthma, unclear severity. Will send for PFT to evaluate. 6MWT performed and patient does not require supplemental oxygen at this time. Will discontinue spiriva and empirically trial on Trelegy. Inhaler technique reviewed and discussed importance of good oral hygiene. Will also send for chest CT given smoking history, cough, and likely asbestos exposure. All questions were answered and patient is in agreement of plan. Will follow up to review results and further risk stratify for upcoming colonoscopy. Orders: Orders PFT pulmonary function test Today J44.9 - Chronic obstructive pulmonary disease, unspecified CT chest wo IV con Today F17.210 - Nicotine dependence, cigarettes, uncomplicated, R05.9 - Cough, unspecified Medications: New thakswboxzw-aooqftkza-uutkigfv 200-62.5-25 mcg (Trelegy Ellipta) 1 inh inhalation DAILY 60 ea 6RF albuterol sulfate 2.5 mg (3 mL) inhalation Q4-6H PRN 90 mL 2RF shortness of breath or wheezing Coding Level of Care Code New Pt Level 4 (95418) Diagnoses Chronic obstructive pulmonary disease, unspecified COPD type J44.9 COPD type: unspecified COPD Nicotine dependence, cigarettes, uncomplicated F17.210 Cough R05.9 CPT Codes Coding ([id number])
[2023-10-29 10:21] VITALS: PULSE 62; O2SAT 97
== END 2023-10-29 10:31 | disposition home or self-care (01) ==
PROVIDERS: PCP Internal Medicine; Referring Provider Nurse Practitioner Family; Visit Provider Nurse Practitioner Family
DX: J44.9 Chronic obstructive pulmonary disease, unspecified (principal); F17.210 Nicotine dependence, cigarettes, uncomplicated; R05.9 Cough, unspecified
CPT/HCPCS: 94618; 99204

== ENCOUNTER → 2023-10-29 09:28 | Outpatient (BNVA) | payer MEDICARE, SELFPAY | PROVIDERS: PCP Internal Medicine; Referring Provider Nurse Practitioner Family; Visit Provider Nurse Practitioner Family | DX: J44.9 Chronic obstructive pulmonary disease, unspecified (principal); R05.9 Cough, unspecified; F17.210 Nicotine dependence, cigarettes, uncomplicated | CPT/HCPCS: 94618; 99202 ==

== ENCOUNTER 2023-12-03 22:20 | Inpatient (IN) | payer MEDICARE, SELFPAY ==
--- NOTE | 2023-12-03 | ECG_ITS ---
Test Reason : ABD PAIN Blood Pressure : / mmHG Vent. Rate : 074 BPM Atrial Rate : 074 BPM P-R Int : 152 ms QRS Dur : 104 ms QT Int : 420 ms P-R-T Axes : 070 000 067 degrees QTc Int : 466 ms Normal sinus rhythm Possible Left atrial enlargement Borderline ECG No previous ECGs available Referred By: Generic ED Physician Electronically Signed By:FADIA MARCH MD
--- NOTE | ~2023-12-03 | FL_ITS ---
EXAMINATION: XR FLUOROSCOPY WITH IMAGES CLINICAL INFORMATION: ERCP. COMPARISON: CT abdomen and pelvis dated 12/04/2023. TECHNIQUE: Fluoroscopy Supervised By: Dr. Gage Wesley. Fluoroscopy Time: 4 minutes and 20.3 seconds. Cumulative Dose: 45.046 mGy. DAP: 19.595 Gycm2. Images: 5. FINDINGS: The submitted images show an endoscope, injection catheter and ingested contrast within the biliary tree. There are common bile duct filling defects consistent with calculi. These are removed on the final image. FL/FL guidance in OR IMPRESSION: Intraoperative fluoroscopic guidance is provided during ERCP. Please see the patient's Operative Report for full procedural details.
--- NOTE | ~2023-12-03 | US_ITS ---
EXAMINATION: US ABDOMEN LIMITED CLINICAL INFORMATION: CBD stones seen on CT scan COMPARISON: CT scan abdomen and pelvis 12/04/2023 TECHNIQUE: Real-time imaging of the right upper quadrant abdominal viscera. FINDINGS: PANCREAS: The pancreas is obscured by bowel gas. GALLBLADDER: Echogenic bile is seen within the gallbladder. No gallstones are identified. The gallbladder is physiologically distended without evidence of stones, sludge, polyps, wall thickening or pericholecystic fluid. No sonographic Mejia's sign. COMMON BILE DUCT: The proximal common bile duct measures 0.8 cm. The mid and distal common duct are obscured by bowel gas. The common bile duct stones are better seen on CT scan obtained today. US/US abdomen limited IMPRESSION: 1. The pancreas is obscured by bowel gas. 2. The proximal common bile duct is dilated measuring 0.8 cm. The mid and distal common duct are obscured by bowel gas. The common bile duct stones are better seen on CT scan obtained today.
--- NOTE | ~2023-12-03 | CT_ITS ---
EXAMINATION: CT ABDOMEN AND PELVIS WITH CONTRAST CLINICAL INFORMATION: Pain. Concern for choledocholithiasis. COMPARISON: None available. TECHNIQUE: Multidetector volumetric images were obtained from the superior aspect of the liver through the pubic symphysis following administration 85 mL of Omnipaque 350 intravenous contrast. Sagittal and coronal reformatted images were obtained on the technologist's workstation. Oral contrast: No This CT examination was performed using dose optimization techniques as appropriate, variously including the following: *Automated exposure control *Adjustment of mA and/or kV according to patient size (this includes techniques or standardized protocols for targeted exams where dose is matched to indication/reason for exam; i.e. extremities or head) *Use of iterative reconstruction technique DLP: 400 mGy-cm FINDINGS: LUNG BASES: The visualized lung bases are unremarkable. LIVER, GALLBLADDER, AND BILIARY TREE: The liver is normal in size, shape, and attenuation. There is no focal liver lesions. There is mild intrahepatic biliary duct dilatation. The common bile duct is also dilated up to 1.1 cm. There are two to three distal common bile duct calculi measuring up to 9 mm. The gallbladder is mildly distended. PANCREAS: Unremarkable. SPLEEN: Unremarkable. ADRENAL GLANDS: Unremarkable. KIDNEYS AND URETERS: The kidneys are normal in size, shape, and attenuation. There are scattered bilateral renal cysts measuring up to 2.8 cm midpole left kidney. There are scattered bilateral nonobstructing renal calculi measuring up to 7 mm. There is no hydronephrosis. BLADDER: Unremarkable. GASTROINTESTINAL TRACT: There are a few diverticula of the sigmoid colon without diverticulitis. A small tubular structure along the base of the cecum suggests a normal appendix. ABDOMINAL WALL: No significant hernia is appreciated. LYMPH NODES: Normal. VASCULAR: There is significant atherosclerotic plaque of the abdominal aorta with a 3.2 cm infrarenal abdominal aortic aneurysm. There is also atherosclerotic plaque of the iliac and femoral arteries greater on the right. PELVIC VISCERA: Unremarkable. OSSEOUS STRUCTURES: There is mild diffuse lumbar disc degenerative change. CT/CT abdomen pelvis w IV con IMPRESSION: 1. Choledocholithiasis with mild intrahepatic and extrahepatic biliary duct dilatation. 2. Bilateral nonobstructing renal calculi. 3. Diverticulosis without diverticulitis. 4. Significant atherosclerotic plaque of the abdominal aorta with a 3.2 cm infrarenal abdominal aortic aneurysm. There is also atherosclerotic plaque of the iliac and femoral arteries greater on the right. Fleischner guidelines were followed.
--- NOTE | ~2023-12-03 | XR_ITS ---
EXAMINATION: XR ABDOMEN KUB CLINICAL INDICATION: abd fullness COMPARISON: CT abdomen/pelvis 12/04/2023 TECHNIQUE: AP view of the abdomen. FINDINGS: There are dilated loops of small or large bowel. Stool and air is visualized throughout the entirety of the colon. No overt pneumoperitoneum. Moderate scattered atheromatous calcifications of the iliofemoral vessels. No acute osseous abnormality. Visualized lung bases are clear. XR/XR KUB IMPRESSION: Nonobstructive bowel gas pattern.
--- NOTE | ~2023-12-03 | XR_ITS ---
EXAMINATION: XR CHEST CLINICAL INFORMATION: Shortness of breath. COMPARISON: 07/25/2018. TECHNIQUE: Frontal view of the chest was obtained. FINDINGS: Median sternotomy wires and mediastinal clips redemonstrated. Evaluation somewhat limited due to patient rotation and lordotic position. Cardiac silhouette upper limits of normal in size. There is no gross pneumothorax. No pleural effusion. Degenerative changes in the thoracic spine. A few mild opacities at the left lung base may represent atelectasis and/or an infectious/inflammatory process. XR/XR chest 1V IMPRESSION: A few mild opacities at the left lung base may represent atelectasis and/or an infectious/inflammatory process. This study was presented today, 12/05/2023, for interpretation. Stat results provided at this time as requested by referring provider.
[2023-12-03 22:28] VITALS: BP 160/98; PULSE 80; O2SAT 96
[2023-12-03 22:44] VITALS: BP 162/71; PULSE 56; RESP 20; TEMP 36.7; O2SAT 97; BMI 25.6
[2023-12-03 22:59] LABS: MANUAL DIFF FLAG NO
--- NOTE | 2023-12-03 23:04 | PC.NURSE ---
pt biba from home, a&ox4, respirations even and unlabored. pt reporting onset of upper right quadrant pain x3 days, reports intermittent chest burning. pt reports hx of open heart surgery. pt reports nausea but denies vomiting and diarrhea. ems placed 18G in left ac. labs obtained and sent to lab. pt normal sinus on tele 68-70bpm.
[2023-12-03 23:07] LABS: Basophils Absolute Auto 0.1 X10*3/uL (0.0-0.2); Basophils Percent Auto 0.5 % (0-2); Eosinophils Absolute Auto 0.1 X10*3/uL (0.0-0.4); Hematocrit 41.1 % (42.0-52.0); Hemoglobin 14.9 g/dl (14.0-18.0); Imm Gran Abs Auto 0.03 X10*3/uL (0.00-0.03); Imm Gran Pct Auto 0.3 % (0.0-0.4); Lymphocytes Absolute Auto 1.2 X10*3/uL (1.2-4.9); Lymphocytes Percent Auto 10.1 % (20-40); Mean Corpuscular HGB Conc 36.3 g/dl (31.0-36.0); Mean Corpuscular Hemoglobin 31.3 pg (27.0-33.0); Mean Corpuscular Volume 86.3 fL (80.0-98.0); Mean Platelet Volume 9.4 fL (9.4-12.4); Monocytes Absolute Auto 0.9 X10*3/uL (0.1-1.2); Monocytes Percent Auto 7.6 % (2-11); Neutrophils Absolute Auto 9.4 x10*3/uL (2.0-8.3); Neutrophils Percent Auto 80.5 % (45-73); Platelet Count 156 X10*3/uL (160-400); Red Blood Count 4.76 X10*6/uL (4.60-5.80); Red Cell Distribution Width 13.6 % (11.0-16.0); White Blood Count 11.6 X10*3/uL (4.8-10.8)
[2023-12-03 23:15] LABS: Alanine Aminotransferase 120 U/L (0-40); Albumin Level 4.1 g/dL (3.5-5.0); Alkaline Phosphatase 386 U/L (39-117); Anion Gap 18 (12-20); Aspartate Amino Transferase 112 U/L (5-37); Bilirubin Total 2.5 mg/dL (0.0-1.0); Blood Urea Nitrogen 14 mg/dL (9-16); Calcium 9.1 mg/dL (8.4-10.2); Carbon Dioxide 23 mmol/L (22-29); Chloride 96 mmol/L (96-108); Creatinine Clr Calc Pharmacy 72.1; Estimated Glomerular Filt Rate > 60; Glucose Random 202 mg/dL (60-115); Potassium 3.5 mmol/L (3.3-5.1); Sodium 133 mmol/L (135-145); Total Protein 7.3 g/dL (6.5-8.0)
[2023-12-03 23:22] LABS: Troponin-I High Sensitivity 6.6 ng/L (<3.5-35.0)
--- NOTE | 2023-12-03 23:44 | ED.ABDPAIN ---
HPI - Abdominal Pain General Chief Complaint: Abdominal Pain Stated Complaint: abdominal/chest pain, pain is getting better Time Seen by Provider: 12/03/23 23:44 Source: patient Mode of arrival: ambulatory Limitations: no limitations History of Present Illness HPI narrative: Patient history of coronary artery disease status post CABG 20 years ago no history of gallstones been having epigastric right upper abdominal pain for last 3 4 days today after eating meals pain got worse nausea no vomiting about 3 times pain is mostly in epigastric and right upper quadrant no history of gallstones no alcohol use patient also feeling pain in the mid chest after vomiting no shortness of breath no fever or chills Related Data Home Medications ?Medication ?Instructions ?Recorded ?Confirmed aspirin 81 mg tablet,delayed 81 mg PO DAILY 07/20/20 10/29/23 release omeprazole magnesium 20 mg 20 mg PO DAILY 10/25/20 10/29/23 tablet,delayed release Previous Rx's ?Medication ?Instructions ?Recorded metformin 500 mg tablet,extended 500 mg PO BID #360 tabs 02/26/23 release 24 hr nystatin 100,000 unit/gram topical 1 appl topical BID 7 days #30 grams 03/19/23 powder (Nystop) gabapentin 400 mg capsule 400 mg PO TID 30 days #90 caps 06/19/23 tiotropium bromide 2.5 2 inh inhalation QAM 30 days #4 08/23/23 mcg/actuation mist for inhalation grams (Spiriva Respimat) tamsulosin 0.4 mg capsule 0.4 mg PO DAILY #90 caps 09/04/23 trazodone 100 mg tablet 100 mg PO BEDTIME PRN insomnia #90 09/04/23 tabs albuterol sulfate 90 mcg/actuation 2 puff inhalation Q6H PRN 09/19/23 aerosol inhaler shortness of breath or wheezing #8.5 ea bisacodyl 5 mg tablet,delayed 20 mg (4 x 5 mg) PO ONCE 1 day #4 09/21/23 release (Dulcolax (bisacodyl)) tabs polyethylene glycol 3350 17 238 g PO ONCE #238 grams 09/21/23 gram/dose oral powder (Miralax) nitroglycerin 0.4 mg sublingual 0.4 mg sublingual Q5M PRN chest 10/05/23 tablet pain #30 tabs albuterol sulfate 2.5 mg/3 mL 2.5 mg (3 mL) inhalation Q4-6H PRN 10/29/23 (0.083 %) solution for nebulization shortness of breath or wheezing #90 mL fluticasone fur. 200 mcg-umeclid 1 inh inhalation DAILY #60 ea 10/29/23 62.5 mcg-vilant 25 mcg inhalat.powder (Trelegy Ellipta) oxycodone 15 mg tablet 15 mg PO Q6H pain 28 days #112 tabs 11/12/23 glimepiride 2 mg tablet 2 mg PO QAM 30 days #90 tabs 12/03/23 metoprolol tartrate 50 mg tablet 50 mg PO BID #180 tabs 12/03/23 rosuvastatin 40 mg tablet 40 mg PO DAILY #90 tabs 12/03/23 Allergies Allergy/AdvReac Type Severity Reaction Status Date / Time No Known Allergies Allergy Verified 12/03/23 22:44 Review of Systems Review of Systems Yes all other systems are reviewed and are negative PMFSH Past Medical History Medical History Hypotestosteronism Colonoscopy refused Allergy to metal Chest wall discomfort Insomnia Pure hypercholesterolemia Overweight (BMI 25.0-29.9) Smoker Depression Benign prostatic hyperplasia GERD without esophagitis COPD (chronic obstructive pulmonary disease) Diabetes mellitus Tietze's syndrome Coronary artery disease Hyperlipidemia Surgical History History of coronary artery bypass graft (~2002) Family History Family History Father Liver problem Cancer Mother CVD (cardiovascular disease) COPD (chronic obstructive pulmonary disease) Brother Myocardial infarction Brother S/P CABG x 1 CVD (cardiovascular disease) Family/Other FH: mental illness Daughter Substance abuse Social History Social History Housing: House Alcohol intake: current Alcohol intake frequency: does not drink Patient Tobacco Use Status: Current everyday Tobacco user Tobacco use type: Cigarette Cigarette Packs Per Day: 0.5 Cigarettes Per Day: 10 Smoked in Last 30 Days: Yes e-Cigarette/Vaping Use: Never Used Second Hand Smoke Exposure: Yes Use of substances other than those prescribed or required for medical reasons: No Advance Directives: No Advance Directives Information Provided: Yes Do you have a plan to hurt others: No Plan service: No Current occupational status: retired Cognitive needs: No Hearing needs: No Vision needs: Yes Physical Exam ED Vital Signs: Vital Signs - 24 hr 12/03/23 22:44 12/04/23 00:33 Temperature 98.0 F Pulse Rate 56 Respiratory Rate 20 18 Blood Pressure 162/71 H Pulse Oximetry 97 Oxygen Delivery Method Room Air BMI result Body Mass Index 25.6 Appearance: Alert. Oriented X3. No acute distress. Eyes: No pallor or icterus ENT: Pharynx normal. Oral Mucosa moist Neck: Normal inspection. Neck supple. CVS: Normal heart rate and rhythm. Pulses normal. Respiratory: No respiratory distress. Equal air entry bilateral, no wheezing/rales/rhonchi Abdomen: Soft , tenderness right upper quadrant and epigastric area with guarding no rebound tenderness, Bowel sounds are present, no mass palpable, no CVA tenderness Skin: Skin warm and dry. Normal skin color. Normal skin turgor. Extremities: No lower extremity edema. No calf tenderness Neuro: Oriented X 3. No motor deficit. No sensory deficit.No cerebellar signs , cranial nerves II-XII intact Medical Decision Making Medical Decision Making [facility] Narrative: Patient with upper abdominal pain etiology not very clear with elevated liver enzymes with no prior history in the past final CT scan report is pending , possible patient has a gallstone in the neck of the gallbladder. Patient is signed out to Dr. Lebron pending final disposition Differential Diagnosis Differential Diagnoses: The differential diagnosis associated with the presentation includes Cholelithiasis/pancreatic mass/pancreatitis Lab Data [facility] Lab Attestation statement: I reviewed the patient's lab results. 12/03/23 22:55 12/03/23 22:55 Labs: Lab Results 12/03/23 Range/Units 22:55 WBC 11.6 H (4.8-10.8) X10*3/uL RBC 4.76 (4.60-5.80) X10*6/uL Hgb 14.9 (14.0-18.0) g/dl Hct 41.1 L (42.0-52.0) % MCV 86.3 (80.0-98.0) fL MCH 31.3 (27.0-33.0) pg MCHC 36.3 H (31.0-36.0) g/dl RDW 13.6 (11.0-16.0) % Plt Count 156 L (160-400) X10*3/uL MPV 9.4 (9.4-12.4) fL Immature Gran % (Auto) 0.3 (0.0-0.4) % Neut % (Auto) 80.5 H (45-73) % Lymph % (Auto) 10.1 L (20-40) % [place] % (Auto) 7.6 (2-11) % Eos % (Auto) 1.0 (0-4) % Baso % (Auto) 0.5 (0-2) % Lymph # (Auto) 1.2 (1.2-4.9) X10*3/uL [place] # (Auto) 0.9 (0.1-1.2) X10*3/uL Eos # (Auto) 0.1 (0.0-0.4) X10*3/uL Baso # (Auto) 0.1 (0.0-0.2) X10*3/uL Abs Immat Gran (auto) 0.03 (0.00-0.03) X10*3/uL Absolute Neuts (auto) 9.4 H (2.0-8.3) x10*3/uL Absolute Nucleated RBC 0.000 (0.0-0.012) X10*3/uL Nucleated RBC % (auto) 0.0 (0.0-0.2) /100WBC Sodium 133 L (135-145) mmol/L Potassium 3.5 D (3.3-5.1) mmol/L Chloride 96 (96-108) mmol/L Carbon Dioxide 23 (22-29) mmol/L Anion Gap 18 (12-20) BUN 14 (9-16) mg/dL Creatinine 0.86 (0.5-1.4) mg/dL Estim Creat Clear Calc 72.1 Estimated GFR > 60 Random Glucose 202 H (60-115) mg/dL Calcium 9.1 (8.4-10.2) mg/dL Total Bilirubin 2.5 H (0.0-1.0) mg/dL AST 112 H (5-37) U/L ALT 120 H (0-40) U/L Alkaline Phosphatase 386 H (39-117) U/L Troponin I High Sens 6.6 (<3.5-35.0) ng/L Total Protein 7.3 (6.5-8.0) g/dL Albumin 4.1 (3.5-5.0) g/dL Lipase 28 (8-78) U/L Independent Interpretation I performed an independent interpretation of an: EKG Interpretation: Normal sinus rhythm heart rate 74 beats per minute normal interval normal axis no acute ST-T changes no acute ischemia Medications Administered Discontinued Medications Generic Name Dose Route Start Last Admin Trade Name Freq PRN Reason Stop Dose Admin Sodium Chloride 1,000 mls @ 999 mls/hr 12/04/23 00:01 12/04/23 00:32 Ns IV 12/04/23 01:01 999 mls/hr .Q1H1M ONE Administration Iohexol 85 ml 12/04/23 00:24 12/04/23 00:25 Iohexol 350 Mg/Ml 100 Ml Infus..Btl IV 12/04/23 00:25 85 ml ONCE ONE Administration Morphine Sulfate 4 mg 12/04/23 00:04 12/04/23 00:33 Morphine Sulfate 4 Mg/Ml Cartridge IVPUSH 12/04/23 00:05 4 mg ONCE ONE Administration Protocol Ondansetron HCl 4 mg 12/04/23 00:04 12/04/23 00:33 Ondansetron Hcl 4 Mg/2 Ml Vial IVPUSH 12/04/23 00:05 4 mg ONCE ONE Administration Discharge Plan Discharge Clinical Impression: Abdominal pain Patient Disposition: Still a Patient Prescriptions: No Action metformin 500 mg tablet extended release 24 hr 500 mg PO BID Qty: 360 1RF Spiriva Respimat 2.5 mcg/actuation mist 2 inh inhalation QAM 30 Days Qty: 4 5RF tamsulosin 0.4 mg capsule 0.4 mg PO DAILY Qty: 90 1RF trazodone 100 mg tablet 100 mg PO BEDTIME PRN (Reason: insomnia) Qty: 90 1RF albuterol sulfate 90 mcg/actuation HFA aerosol inhaler 2 puff inhalation Q6H PRN (Reason: shortness of breath or wheezing) Qty: 8.5 5RF oxycodone 15 mg tablet 15 mg PO Q6H 28 Days Qty: 112 0RF metoprolol tartrate 50 mg tablet 50 mg PO BID Qty: 180 3RF rosuvastatin 40 mg tablet 40 mg PO DAILY Qty: 90 1RF glimepiride 2 mg tablet 2 mg PO QAM 30 Days Qty: 90 1RF aspirin 81 mg tablet,delayed release (DR/EC) 81 mg PO DAILY gabapentin 400 mg capsule 400 mg PO TID 30 Days Qty: 90 5RF nystatin [Nystop] 100,000 unit/gram powder 1 appl topical BID 7 Days Qty: 30 2RF nitroglycerin 0.4 mg tablet, sublingual 0.4 mg sublingual Q5M PRN (Reason: chest pain) Qty: 30 3RF Rx Instructions: do not exceed 3 doses per episode omeprazole magnesium 20 mg tablet,delayed release (DR/EC) 20 mg PO DAILY bisacodyl [Dulcolax (bisacodyl)] 5 mg tablet,delayed release (DR/EC) 20 mg PO ONCE 1 Days Qty: 4 0RF Rx Instructions: take 4 tabs at noon the day before your colonoscopy polyethylene glycol 3350 [Miralax] 17 gram/dose powder 238 g PO ONCE Qty: 238 0RF Rx Instructions: As directed by gastroenterology department at [facility] Trelegy Ellipta 200-62.5-25 mcg blister with device 1 inh inhalation DAILY Qty: 60 6RF albuterol sulfate 2.5 mg /3 mL (0.083 %) solution for nebulization 2.5 mg inhalation Q4-6H PRN (Reason: shortness of breath or wheezing) Qty: 90 2RF Print Language: Icelandic
[2023-12-04] VITALS (21 sets, daily range): BP systolic 100–137; BP diastolic 45–68; PULSE 57–82; RESP 14–20; TEMP 36.2–37.8; O2SAT 92–98
[2023-12-04 00:25] LABS: Lipase 28 U/L (8-78)
[2023-12-04] MEDS: iohexoL 350 MG/ML 100 ML INFUS..BTL 85 ML IV (00:25)
[2023-12-04] MEDS: 0.9 % Sodium Chloride 1,000 ML 999 ML IV (00:32)
[2023-12-04] MEDS: Morphine Sulfate 4 MG/ML CARTRIDGE IVPUSH (00:33)
[2023-12-04] MEDS: ondansetron HCL 4 MG/2 ML VIAL IVPUSH (00:33)
--- NOTE | 2023-12-04 00:34 | PC.NURSE ---
pt medicated per sep for12/30 upper right quadrant pain.
[2023-12-04] MEDS: Piperacillin Sodium/Tazobactam 4.5 GM in 0.9 % Sodium Chloride 100 ML IV (03:41)
[2023-12-04 03:46] LABS: Lactic Acid 0.8 mmol/L (0.5-2.0)
[2023-12-04 03:53] LABS: INTERNATIONAL NORM RATIO 1.1 (0.9-1.1)
[2023-12-04 03:55] LABS: Partial Thromboplastin Time 29.2 SEC (26.0-36.8)
--- NOTE | 2023-12-04 04:09 | PM.IMHP ---
History of Present Illness Date of Service: 12/04/23 Attending physician on admission: Dexter Pepe Chief Complaint: Abdominal pain John Yoder is a 68 years old man with past medical history significant for type 2 diabetes mellitus, GERD, COPD, CAD and hyperlipidemia presents to the emergency department complaining of epigastric pain that started today associated with nausea and vomiting. Over the weekend he was feeling well and having chills. Denied associated diarrhea. Patient did not report headache, palpitations, chest pain or shortness on breath. HPI was limited as the patient was in severe pain. His who was at bedside contributed to the HPI. In the ED, he was found to have normal vital signs. Most recent temperature is a 100.0 degrees. Blood workup is remarkable for leukocytosis of 11.6. Hemoglobin is normal. Platelets level is 156. Corrected sodium is 135. There are no significant electrolyte imbalances. Renal function is normal. LFTs are elevated. Lipase is normal. Choledocholithiasis with mild intrahepatic and extrahepatic biliary duct dilation, diverticulosis without diverticulitis, significant atherosclerotic plaque of the abdominal aorta with a 3.2 cm infrarenal abdominal aortic aneurysm and bilateral nonobstructive renal calculi. ED tx: NS 1 L bolus, morphine 4 mg IV, Zofran 4 mg IV, Zosyn 4.5 g IV, Dilaudid 0.5 mg IV. Review of Systems Review of Systems: Limited due to acute pain. [facility] Medical History Hypotestosteronism Colonoscopy refused Allergy to metal Chest wall discomfort Insomnia Pure hypercholesterolemia Overweight (BMI 25.0-29.9) Smoker Depression Benign prostatic hyperplasia GERD without esophagitis COPD (chronic obstructive pulmonary disease) Diabetes mellitus Tietze's syndrome Coronary artery disease Hyperlipidemia Family History Father Liver problem Cancer Mother CVD (cardiovascular disease) COPD (chronic obstructive pulmonary disease) Brother Myocardial infarction Brother S/P CABG x 1 CVD (cardiovascular disease) Family/Other FH: mental illness Daughter Substance abuse Surgical History History of coronary artery bypass graft (~2002) Social History Housing: House Alcohol intake: current Alcohol intake frequency: does not drink Patient Tobacco Use Status: Current everyday Tobacco user Tobacco use type: Cigarette Cigarette Packs Per Day: 0.5 Cigarettes Per Day: 10 Smoked in Last 30 Days: Yes e-Cigarette/Vaping Use: Never Used Second Hand Smoke Exposure: Yes Use of substances other than those prescribed or required for medical reasons: No Advance Directives: No Advance Directives Information Provided: Yes Do you have a plan to hurt others: No Plan service: No Current occupational status: retired Cognitive needs: No Hearing needs: No Vision needs: Yes Meds Allergies Allergy/AdvReac Type Severity Reaction Status Date / Time No Known Allergies Allergy Verified 12/03/23 22:44 Active Medications: Current Medications Calcium Carbonate (Calcium Carbonate 750 Mg Tab.Chew) 750 mg PO Q6H PRN PRN Reason: Heartburn Lactated Ringer's (Lr) 1,000 mls @ 125 mls/hr IVCONT .Q8H JANICE Piperacillin Sod/Tazobactam (Sod 3.375 gm/ Sodium Chloride) 50 mls @ 100 mls/hr IV Q6H JANICE Insulin Human Lispro (Insulin Lispro 100 Unit/Ml 3 Ml Vial) 0 unit SUBCUT Q6H JANICE; Protocol Ketorolac Tromethamine (Ketorolac Tromethamine 15 Mg/Ml Vial) 15 mg IVPUSH ONCE ONE Stop: 12/04/23 04:05 Magnesium Hydroxide (Milk Of Magnesia 30 Ml Oral.Susp) 30 ml PO DAILY PRN PRN Reason: Constipation Melatonin (Melatonin 3 Mg Tablet) 6 mg PO BEDTIME PRN PRN Reason: Insomnia Ondansetron HCl (Ondansetron Hcl 4 Mg/2 Ml Vial) 4 mg IVPUSH Q4H PRN PRN Reason: Nausea and Vomiting Polyethylene Glycol (Polyethylene Glycol 3350 17 Gm Powd.Pack) 17 gm PO DAILY PRN PRN Reason: Constipation Sodium Chloride (0.9 % Sodium Chloride Flush 3 Ml Syringe) 3 ml IVFLUSH QSHIFT [facility] Home Medications ?Medication ?Instructions ?Recorded ?Confirmed ?Last Taken ?Type aspirin 81 mg tablet,delayed 81 mg PO DAILY 07/20/20 10/29/23 Unknown History release omeprazole magnesium 20 mg 20 mg PO DAILY 10/25/20 10/29/23 Unknown History tablet,delayed release Physical Exam Vital Signs and Narrative: Vital Signs: Last Vital Signs Temp 100.0 F 12/04/23 04:03 Pulse 82 12/04/23 04:03 Resp 20 12/04/23 04:03 BP 134/68 12/04/23 04:03 Pulse Ox 94 12/04/23 04:03 O2 Del Method Room Air 12/04/23 04:03 BMI result Body Mass Index 25.6 Constitutional - Awake and Alert. Looks in distress due to severe abdominal pain. Febrile. Heart - S1S2, RRR. Lungs - Normal lung expansion, Normal respiratory effort, No respiratory distress, CTA bilaterally Abdomen - Increased bowel sounds. No distention. RUQ + epigastric tenderness to palpation with positive guarding and rebound. Extremities - no calf tenderness bilaterally, no swelling Skin - Warm/Dry Neurological - Alert & oriented x3. No focal weakness noted. Normal speech. Psychological - Appropriate affect Results Labs 12/03/23 22:55 12/03/23 22:55 Labs: Laboratory Results - last 24 hr 12/03/23 12/04/23 22:55 03:31 MCV 86.3 MCH 31.3 MCHC 36.3 H RDW 13.6 Plt Count 156 L MPV 9.4 Immature Gran % (Auto) 0.3 Neut % (Auto) 80.5 H Lymph % (Auto) 10.1 L [place] % (Auto) 7.6 Eos % (Auto) 1.0 Baso % (Auto) 0.5 Lymph # (Auto) 1.2 [place] # (Auto) 0.9 Eos # (Auto) 0.1 Baso # (Auto) 0.1 Abs Immat Gran (auto) 0.03 Absolute Neuts (auto) 9.4 H Absolute Nucleated RBC 0.000 Nucleated RBC % (auto) 0.0 PT 13.0 INR 1.1 APTT 29.2 Anion Gap 18 Estim Creat Clear Calc 72.1 Estimated GFR > 60 Random Glucose 202 H Lactic Acid 0.8 Calcium 9.1 Total Bilirubin 2.5 H AST 112 H ALT 120 H Alkaline Phosphatase 386 H Troponin I High Sens 6.6 Total Protein 7.3 Albumin 4.1 Lipase 28 Imaging Radiologist's Impressions: Impressions Abdomen/Pelvis CT 12/04/23 00:25 IMPRESSION: 1. Choledocholithiasis with mild intrahepatic and extrahepatic biliary duct dilatation. 2. Bilateral nonobstructing renal calculi. 3. Diverticulosis without diverticulitis. 4. Significant atherosclerotic plaque of the abdominal aorta with a 3.2 cm infrarenal abdominal aortic aneurysm. There is also atherosclerotic plaque of the iliac and femoral arteries greater on the right. Fleischner guidelines were followed. Assessment and Plan (1) Choledocholithiasis: Status: Acute (2) Abdominal pain: Qualifiers: Abdominal location: right upper quadrant Qualified Code(s): R10.11 - Right upper quadrant pain Status: Acute (3) Acute cholangitis: Status: Acute (4) GERD without esophagitis: Status: Acute (5) COPD (chronic obstructive pulmonary disease): Qualifiers: COPD type: unspecified COPD Qualified Code(s): J44.9 - Chronic obstructive pulmonary disease, unspecified Status: Acute Plan John Yoder is a 68 y/o man admitted with: Choledocholithiasis + acute cholangitis. Admit to hospitalist service. Keep NPO. Start IV fluids. Pain control with Dilaudid IV as needed. Continue empiric IV antibiotic therapy with Zosyn. Protonix 40 mg IV daily. GI consult for ERCP today -Dr. Kothari contacted by Dr. Pena. Continue to monitor LFTs. Type 2 diabetes mellitus. Hold glimepiride and metformin. BG checks every 6 hours while NPO. Blood glucose control with insulin sliding scale. COPD. Not in acute exacerbation. Bronchodilator therapy as needed. Continue Trelegy, Spiriva or alternative. Hyperlipidemia. Statin on hold due to elevated LFTs and NPO status. Essential hypertension. Continue metoprolol when able. BPH. Continue tamsulosin when able. CAD. Aspirin on hold -procedure plan. Statin on hold due to NPO status and elevated LFTs. Diverticulosis without diverticulitis. Incidental finding. Bilateral nonobstructive renal calculi. Incidental finding. 3.2 cm infrarenal abdominal aortic aneurysm. Incidental finding. Will need follow up as an outpatient. Code status: Full DVT prophylaxis: SCDs (pharmacological DVT prophylaxis on hold -procedure planned). Patient will need hospitalization for at least 2 midnights for choledocholithiasis and acute cholangitis management with empiric IV antibiotic therapy, IV fluids, IV pain meds and evaluation by subspecialty for urgent procedure. Quality Stroke Does the patient have a stroke diagnosis?: No VTE Prior VTE?: No VTE Risk Level:: Medical - moderate - high VTE Device Contraindication: N/A - Device Ordered VTE Drug Contraindication: Treatment Not Indicated
[2023-12-04] MEDS: HYDROmorphone HCl 1 MG/ML SYRINGE IVPUSH ×4 (04:19→13:51)
[2023-12-04] MEDS: Ketorolac Tromethamine 15 MG/ML VIAL IVPUSH (04:19)
[2023-12-04] MEDS: Lactated Ringers 1,000 ML 125 ML IVCONT ×3 (04:26→21:54)
--- NOTE | 2023-12-04 04:28 | PC.NURSE ---
aware of pt temperature at this time, pt medicated per sep. pt reporting 10/10 upper right quadrant pain, pt medicated per sep. continuous fluids administered at this time.
--- NOTE | 2023-12-04 05:01 | MHC.EDTECH ---
This tech took over care of patient at this time, hourly rounds,vitals,and belongings list completed and copy placed in chart.
[2023-12-04] MEDS: Nicotine Polacrilex 2 MG GUM BUCCAL (06:12)
[2023-12-04] MEDS: Pantoprazole Sodium 40 MG/10 ML VIAL IVPUSH (06:12)
[2023-12-04 06:18] LABS: Glucose, Whole Blood 176 mg/dL (60-115)
[2023-12-04] MEDS: Insulin Lispro 100 UNIT/ML 3 ML VIAL SUBCUT ×2 (06:18→23:47)
--- NOTE | 2023-12-04 06:18 | MHC.EDTECH ---
Patient ambulated to the bathroom with a steady gait, patient's POC taken and is 176 RN aware
--- NOTE | 2023-12-04 07:57 | PC.NURSE ---
patient sitting up in bed, respirations equal and unlabored, patient is alert and oriented x3. patient medicated per MAR with prn medication for pain. patient skin is dry and intact, ambulated with steady gait to the bathroom. patient has LR running at 125ml/hr, currently npo
--- NOTE | 2023-12-04 08:02 | PM.EVENT ---
Event Note Date of Service: 12/04/23 Event Note: 68-year-old man admitted with acute and choledocholithiasis Choledocholithiasis + acute cholangitis. Keep NPO. IV fluids. Pain control with Dilaudid IV as needed. Continue empiric IV antibiotic therapy with Zosyn. Protonix 40 mg IV daily. GI consult> plan for ERCP today Continue to monitor LFTs. Type 2 diabetes mellitus. Hold glimepiride and metformin. BG checks every 6 hours while NPO. Blood glucose control with insulin sliding scale. COPD. Not in acute exacerbation. Bronchodilator therapy as needed. Continue Trelegy, Spiriva or alternative. Essential hypertension. Continue metoprolol when able. BPH. Continue tamsulosin when able. CAD. Aspirin on hold -procedure plan. Statin on hold due to NPO status and elevated LFTs. Diverticulosis without diverticulitis. Incidental finding. Bilateral nonobstructive renal calculi. Incidental finding. 3.2 cm infrarenal abdominal aortic aneurysm. Incidental finding. Will need follow up as an outpatient. Code status: Full Attending Dr. Erazo DVT prophylaxis: SCDs (pharmacological DVT prophylaxis on hold -procedure planned). Patient will need hospitalization for at least 2 midnights for choledocholithiasis and acute cholangitis management with empiric IV antibiotic therapy, IV fluids, IV pain meds and evaluation by subspecialty for urgent procedure. Time Spent With Patient Time: Total time managing care of this patient today ____ minutes.
--- NOTE | 2023-12-04 08:31 | PHA.MEDREC ---
Pharmacy Consult ? Medication Reconciliation Pharmacy has completed the medication reconciliation. Spoke to patient's spouse to confirm meds.
--- NOTE | 2023-12-04 08:43 | PM.EVENT ---
Event Note Date of Service: 12/04/23 Event Note: GI Consult-Full note dictated-History from patient, his , and the EMR Imp: Choledocholithiasis seen on CT with biliary ductal dilatation and elevated LFT's. Presently stable and without any signs of sepsis/cholangitis. His abdominal exam is presently benign. Of note, he did take four 81mg aspirin overnight at the direction of the EMT's due to concerns of a possible cardiac issue. He does take one 81 mg aspirin daily, but no other blood thinners. Rec: ERCP with me or Dr. Wesley. Full consent obtained for this, including risks of bleeding, perforation, cholangitis, and pancreatitis. Continue antibiotics. Check RUQ U/S today and if + for gallstones I would recommend a surgery consult for eventual CCY as well. D/W patient and his in detail. They are comfortable with this plan. Thanks Time Spent With Patient Time: Total time managing care of this patient today ____ minutes.
--- NOTE | 2023-12-04 08:50 | MHC.SHP ---
Pre-Procedural Eval Section A - 24 Hr Update-Section A only Date of Service: 12/04/23 The patient is an INPATIENT: Yes The patient has been examined within 24 hours of the surgical procedure. The History & Physical has been completed within 30 days and I have reviewed it.: Yes Section B - Complete if H&P > 30 days Chief Complaint: Choledocolithiasis Allergies: Allergies Allergy/AdvReac Type Severity Reaction Status Date / Time No Known Allergies Allergy Verified 12/03/23 22:44 Plan I have reviewed the history and physical and performed a pertinent physical examination on my patient. No changes have occurred unless specified. Time Spent With Patient Time: Total time managing care of this patient today ____ minutes.
[2023-12-04] MEDS: Piperacillin Sodium/Tazobactam 3.375 GM in 0.9 % Sodium Chloride 50 ML IV (10:44)
--- NOTE | 2023-12-04 11:55 | MHC.CM.PN ---
PT LIVES WITH THEY ARE INDEPENDENT HE HAS A RIDE HOME NOT EXPECTED TO NEED SERVIES WHEN DCD
[2023-12-04 13:10] LABS: Glucose, Whole Blood 141 mg/dL (60-115)
--- NOTE | 2023-12-04 14:11 | PC.NURSE ---
patient left for ERCP
--- NOTE | 2023-12-04 16:20 | PM.OP ---
Brief Operative Note Date of Service: 12/04/23 Pre-op diagnosis: CBD stones Post-op diagnosis: same Procedure: ERCP Surgeon: Gage Wesley MD Anesthesia: GETA Was an Processing Manager used for this Procedure?: No Estimated blood loss (mL): 2 Pathology: none sent Condition: stable Disposition: PACU
--- NOTE | 2023-12-04 16:21 | PM.EVENT ---
Event Note Date of Service: 12/04/23 Event Note: ERCP multiple cbd stones removed after sphincterotomy. purulent bile c/w cholangitis. Rec: cont abx gen surg consult for ccy Time Spent With Patient Time: Total time managing care of this patient today ____ minutes.
[2023-12-04] MEDS: Piperacillin Sodium/Tazobactam 3.375 GM in 0.9 % Sodium Chloride 50 ML 3.37 GM IV ×2 (16:36→21:48)
--- NOTE | 2023-12-04 16:43 | OP_ITS ---
DATE OF SERVICE: 12/04/2023 SURGEON: Gage Wesley MD INDICATIONS: Common bile duct stones. PREOPERATIVE DIAGNOSIS: POSTOPERATIVE DIAGNOSIS: PROCEDURE PERFORMED: Endoscopic retrograde cholangiopancreatography with sphincterotomy and extraction of multiple common bile duct stones. ESTIMATED BLOOD LOSS: COMPLICATIONS: ANESTHESIA: General anesthesia. ASSISTANTS: SPECIMENS: DESCRIPTION OF PROCEDURE: A history and physical was performed. The risks and benefits of the procedure were explained to the patient and informed consent was obtained. The patient was placed in the prone position with a wedge under the right shoulder. The Olympus therapeutic duodenoscope was introduced into the esophagus, stomach, and duodenum. Examination was performed and the scope was removed. He tolerated the procedure well and was returned to recovery area in stable condition. FINDINGS: Endoscopy: Limited examination of the esophagus, stomach, duodenum was within normal limits. There was a moderate-sized periampullary diverticulum. Purulent bile was noted to drain from the major papilla. The common bile duct was cannulated with a sphincterotome and a guidewire. Contrast injection showed multiple filling defects in the distal bile duct. The bile duct appeared somewhat dilated at about 9 mm. The cystic duct was seen to fill. The sphincterotomy was performed to approximately 10 mm and no immediate complications and multiple stones were removed using a combination of the sphincterotome and the balloon extraction catheter. There was a large amount of purulent bile, which drained immediately after the sphincterotomy. After occlusion, cholangiography showed no residual stones. There was noted to be excellent drainage of clear yellow bile. No pancreatogram was attempted or obtained. IMPRESSION: 1. Common bile duct stones, multiple. 2. Cholangitis. RECOMMENDATIONS: 1. Continue IV antibiotics. 2. General Surgery consultation for consideration of cholecystectomy. MD SADA Tariq/MARLENEL / [phone]
[2023-12-04 16:59] LABS: Glucose, Whole Blood 145 mg/dL (60-115)
[2023-12-04] MEDS: Albuterol Sulfate (0.083%) 2.5 MG/3 ML VIAL.NEB INHALE (18:22)
[2023-12-04] MEDS: 0.9 % Sodium Chloride Flush 3 ML SYRINGE IVFLUSH (21:48)
[2023-12-04 23:41] LABS: Glucose, Whole Blood 303 mg/dL (60-115)
[2023-12-05] VITALS (12 sets, daily range): BP systolic 109–151; BP diastolic 63–89; PULSE 60–96; RESP 16–20; TEMP 36–37.1; O2SAT 90–97
--- NOTE | 2023-12-05 | ECG_ITS ---
Test Reason : SOB Blood Pressure : / mmHG Vent. Rate : 087 BPM Atrial Rate : 087 BPM P-R Int : 132 ms QRS Dur : 104 ms QT Int : 408 ms P-R-T Axes : 074 -15 076 degrees QTc Int : 490 ms Sinus rhythm with frequent Premature ventricular complexes and Fusion complexes Nonspecific ST and T wave abnormality Prolonged QT Abnormal ECG When compared with ECG of 03-DEC-2023 22:50, Fusion complexes are now Present Premature ventricular complexes are now Present Referred By: Rosy Ring Electronically Signed By:FADIA MARCH MD
--- NOTE | 2023-12-05 | ECG_ITS ---
Test Reason : sob Blood Pressure : / mmHG Vent. Rate : 085 BPM Atrial Rate : 085 BPM P-R Int : 134 ms QRS Dur : 102 ms QT Int : 420 ms P-R-T Axes : 079 -07 097 degrees QTc Int : 499 ms Sinus rhythm with frequent Premature ventricular complexes in a pattern of bigeminy Nonspecific ST and T wave abnormality Prolonged QT Abnormal ECG When compared with ECG of 05-DEC-2023 12:54, Fusion complexes are no longer Present Referred By: Rosy Ring Electronically Signed By:FADIA MARCH MD
--- NOTE | 2023-12-05 03:29 | CONS_ITS ---
DATE OF SERVICE: 12/04/2023 REASON FOR CONSULTATION: Choledocholithiasis. HISTORY OF PRESENT ILLNESS: This has been obtained from the patient, his , and the medical record. Patient is a 68-year-old male who describes that he was in his usual state of health up until about 2 or 3 days before the admission. He began having some nausea and subsequent increasing abdominal and lower chest pain. He apparently had more severe pain with associated vomiting and came to the ER. He describes that prior to becoming ill, he had been feeling well without any particular GI complaints. He denies any chronic heartburn, dysphagia, change in bowel habits, hematochezia, melena, nor any signs of jaundice. He did not have any definitive fevers at home. He denies any pre-existing history of liver disease in himself nor family members. He does not use any significant amounts of alcohol. He has not been on any new medication. His workup in the ER revealed a CT scan with some biliary dilatation and distal common bile duct stones, as well as elevated LFTs. In the ER, he has been hemodynamically stable. MEDICATIONS: His medications at home included albuterol, aspirin 81 mg, fluticasone, metoprolol, metformin, gabapentin, glimepiride, omeprazole, oxycodone, rosuvastatin, tamsulosin, and trazodone. Medications in the hospital included Dilaudid p.r.n., insulin, Toradol, morphine p.r.n., Zofran p.r.n., IV Protonix, IV Zosyn, and MiraLAX. PAST MEDICAL HISTORY: Diabetes mellitus, gastroesophageal reflux, COPD, hyperlipidemia. He denies any history of stroke. He did undergo an upper endoscopy and colonoscopy with ct in 2007, although I do not have those records available. He does describe that he was found to have a positive Cologuard test recently. Coronary artery disease with previous coronary artery bypass. SOCIAL HISTORY: He is . He does not use any significant amounts of alcohol. He still smokes. FAMILY HISTORY: Noncontributory. REVIEW OF SYSTEMS: CONSTITUTIONAL: He has been feeling well up until the past 2 to 3 days. Appetite had been good. SKIN: Without rash. No pruritus. CARDIAC: No chest pain. PULMONARY: No coughing or hemoptysis. GI: As above. PHYSICAL EXAMINATION: GENERAL: The patient is a pleasant, alert, comfortable-appearing male. SKIN: Warm and dry. Nonjaundiced. HEENT: Anicteric sclerae. Moist mucous membranes. NECK: Supple without lymphadenopathy. CHEST: Clear. CARDIAC: Normal S1, S2. ABDOMEN: Soft, nondistended, nontender without organomegaly or mass. EXTREMITIES: Without edema. LABORATORY DATA: White blood cell count 11.6, hemoglobin 14.9, platelets 156,000. PT is 13.0 with INR of 1.1. Total bilirubin is 2.5, AST 112, ALT 120, alkaline phosphatase 386. His CT scan describes a normal-appearing liver, but mild intrahepatic biliary ductal dilatation and the common duct dilated up to 1.1 cm. There appeared to be 2 or 3 distal common duct stones. The gallbladder appeared to be mildly distended. There is no splenomegaly nor ascites. IMPRESSION: Given the patient's clinical history of relatively acute onset of symptoms and the CT scan findings, along with his elevated LFTs, would speak for symptomatic choledocholithiasis. Given his description of some low-grade fever at home, he may have a component of cholangitis certainly in relation to this. At this point, I would recommend ERCP later today with myself or Dr. Wesley. Full consent was obtained from him and his for this, including risks of bleeding, perforation, cholangitis, and pancreatitis. In the meantime, I would continue IV antibiotics and keep him n.p.o. Full consent has been obtained from him for the ERCP including risks of bleeding, perforation, cholangitis, and pancreatitis. I would also check a limited right upper quadrant ultrasound to look for gallstones such that he may need a cholecystectomy given the findings of common duct stones. We did review his positive Cologuard test. He advises me that he has seen a GI doctor at the hospital, but is not scheduled for a colonoscopy until April. He is concerned about that. Given that I had performed the previous procedure on him with his upper endoscopy and colonoscopy in 2007, he and his would like to switch to me and have a colonoscopy done by me instead. I told him that I would arrange that for him as an outpatient once we have settled the issues with his common duct stones and possibly gallbladder surgery. I do not think I would need to see him in the office first and will just simply schedule the colonoscopy to evaluate the positive Cologuard test. The patient and his were both very comfortable with this plan. Thank you for the consultation. MD DOUGLAS Ward/CAROLINA / [id number]
[2023-12-05 04:25] LABS: Glucose, Whole Blood 226 mg/dL (60-115)
[2023-12-05] MEDS: Lactated Ringers 1,000 ML 125 ML IVCONT (04:57)
[2023-12-05] MEDS: Pantoprazole Sodium 40 MG/10 ML VIAL IVPUSH (04:58)
[2023-12-05] MEDS: Albuterol Sulfate (0.083%) 2.5 MG/3 ML VIAL.NEB INHALE (05:10)
[2023-12-05 06:20] LABS: Glucose, Whole Blood 187 mg/dL (60-115)
[2023-12-05] MEDS: Insulin Lispro 100 UNIT/ML 3 ML VIAL SUBCUT ×4 (06:32→23:41)
--- NOTE | 2023-12-05 07:00 | CA_ITS ---
Transthoracic Echocardiogram Patient (Last, First, Middle): John Yoder M Gender: Male Date of : 1955 Age: 68 Procedure Date: 12/05/2023 Procedure Type: Transthoracic Echocardiogram Location: [facility] [place] Height: 167.64 cm Weight: 71.67 kg BSA: 1.81 m2 Heart Rate: bpm BP: 131 / 81 mmHg Stockroom Inventory Clerk: TAMELA Referring MD: Rosy Ring NP Wheelchair Driver: Sebas Mak MD Symptoms: fluid overload Study Quality: Adequate ECG Rhythm: Sinus with extra beats Conclusions: - 1. Low normal LV ejection fraction 50-55% with impaired relaxation filling pattern with underlying regional wall motion abnormality consistent with coronary artery disease 2. Mildly dilated left atrium 3. Normal cardiac valvular Dopplers 4. Normal RV systolic pressure 5. No pericardial effusion Findings Left Ventricle Normal left ventricular cavity size. There is normal left ventricular wall thickness. The left ventricular systolic function is low normal. The visually estimated ejection fraction is between 50-55%. Spectral Doppler is indicative of an impaired relaxation filling pattern. E/E prime ratio is between 8 and 15 consistent with indeterminate filling pressures. Wall Motion Rest Echo Findings The basal inferior, basal inferoseptal, and mid inferolateral segments are hypokinetic. The basal inferolateral segment is akinetic. All other scored wall segments showed normal motion. Right Ventricle Mildly increased right ventricular cavity size. There is normal right ventricular systolic function. Atria The left atrium is mildly dilated. There is lipomatous hypertrophy of the interatrial septum. There is no evidence of interatrial shunt. The right atrium is likely dilated. Aortic Valve Normal aortic valve structure and function. There is no aortic valve stenosis. There is no aortic valve regurgitation. Mitral Valve There is mild anterior and posterior mitral leaflet thickening. There is trace mitral valve regurgitation. There is no mitral valve stenosis. Pulmonic Valve The pulmonic valve is likely normal. There is trace pulmonic valve regurgitation. Tricuspid Valve Normal tricuspid valve structure. There is mild tricuspid valve regurgitation. The right ventricular systolic pressure is normal. The right ventricular systolic pressure is 33 mmHg. Normal right atrial pressure. There is no evidence of pulmonary hypertension. Great Vessels The pulmonary artery was not well visualized. There is no dilatation of the ascending aorta measuring 2.30 cm. Venous The inferior vena cava is normal in size and collapses greater than 50% with inspiration. Pericardium/Pleural There is no evidence of pericardial effusion. Prior Study Comparison No prior study available for comparison. Measurements 2D Linear Measurements IVSd: 1.02 0.6-0.9/0.6-1.0 cm LVIDd: 5.60 3.9-5.3/4.2-5.9 cm LVIDd Index: 3.09 2.4-3.2/2.2-3.1 cm/m2 LVIDs: 4.18 2.0-3.6 cm LVPWd: 1.05 0.7-1.1 cm Ao Root: 2.60 2.1-3.5 cm LA Diam: 4.70 2.7-3.8/3.0-4.0 cm LAIDs Index: 2.60 1.5-2.3 cm/m2 LV Mass: 286.63 67-162/88-224 g LV Mass Index: 158.36 43-95/49-115 g/m2 LVOT Diam: 2.20 3.0+(-)1.3 cm 2D Systolic Function EF 4C: 47.70 >55% EF 2C: 56.70 >55% EF BiP: 50.40 >55% Aortic Valve AoV Pk Jesse: 1.75 AoV Mn Jesse: 1.00 AoV VTI: 0.38 AoV Pk Grad: 12.00 Aov Mn Grad: 5.00 MANNIE Cont.VTI: 2.24 LVOT LVOT Pk Jesse: 1.03 LVOT Mn Jesse: 0.61 LVOT VTI: 0.23 LVOT Pk Grad: 4.00 LVOT Mn Grad: 2.00 LVOT Diam: 2.20 LVOT Area: 3.80 Right Ventricle TAPSE (mm): 31.00 TVS' Jesse: 13.00 Tricuspid Valve TR Pk Jesse: 2.76 TR Pk Grad: 30.00 RA Press: 3.00 RVSP: 33.00 Great Vessels Aorta Ao Root-2D: 2.60 2.0-3.7 cm Ao Asc: 2.30 2.1-3.4 cm Pulmonary Valve PV Pk Jesse: 1.17 Peak PV Grad: 5.00 Updated in Other Vendor System with Status of Final Sebas Mak MD electronically signed on 12/06/2023 11:59:46 AM with status of Final
--- NOTE | 2023-12-05 08:35 | P.CONGS_ITS ---
History of Present Illness Consult details Consult date: 12/05/23 Narrative: Patient is a 68-year-old man with a plethora of comorbidities who presents here with a 1 to two-day history of progressively worsening epigastric/right upper quadrant pain with associated chills and nausea and vomiting. He otherwise has regular bowel habits. He has never recall being jaundice. Patient underwent emergent ERCP yesterday for choledocholithiasis for his cholangitis As noted above, patient has several intercurrent medical problems as well as a longstanding smoking history. Status post coronary bypass surgery years ago, COPD, diabetes Chart was reviewed and patient evaluated. Elevated bilirubin , normal lipase noted PMFSH Past Medical History Medical History Hypotestosteronism Colonoscopy refused Allergy to metal Chest wall discomfort Insomnia Pure hypercholesterolemia Overweight (BMI 25.0-29.9) Smoker Depression Benign prostatic hyperplasia GERD without esophagitis COPD (chronic obstructive pulmonary disease) Diabetes mellitus Tietze's syndrome Coronary artery disease Hyperlipidemia Family History Family History Father Liver problem Cancer Mother CVD (cardiovascular disease) COPD (chronic obstructive pulmonary disease) Brother Myocardial infarction Brother S/P CABG x 1 CVD (cardiovascular disease) Family/Other FH: mental illness Daughter Substance abuse Surgical History Surgical History History of coronary artery bypass graft (~2002) Social History Social History Household Members: Spouse Housing: House Alcohol intake: current Alcohol intake frequency: does not drink Patient Tobacco Use Status: Current everyday Tobacco user Tobacco use type: Cigar Cigarette Packs Per Day: 0.5 Cigarettes Per Day: 10 e-Cigarette/Vaping Use: Never Used Second Hand Smoke Exposure: Yes service: No Current occupational status: retired Cognitive needs: No Hearing needs: No Vision needs: Yes Meds Allergies Allergy/AdvReac Type Severity Reaction Status Date / Time No Known Allergies Allergy Verified 12/03/23 22:44 Active Medications: Current Medications Albuterol Sulfate (Albuterol Sulfate (0.083%) 2.5 Mg/3 Ml Vial.Neb) 2.5 mg INHALE Q2H PRN PRN Reason: Shortness of Breath/Wheezing Last Admin: 12/05/23 05:10 Dose: 2.5 mg Calcium Carbonate (Calcium Carbonate 750 Mg Tab.Chew) 750 mg PO Q6H PRN PRN Reason: Heartburn Hydromorphone HCl (Hydromorphone Hcl 1 Mg/Ml Syringe) 1 mg IVPUSH Q3H PRN; Protocol PRN Reason: Pain, Severe (Pain Scale 7-10) Last Admin: 12/04/23 13:51 Dose: 1 mg Lactated Ringer's (Lr) 1,000 mls @ 125 mls/hr IVCONT .Q8H [facility] Last Admin: 12/05/23 04:57 Dose: 125 mls/hr Piperacillin Sod/Tazobactam (Sod 3.375 gm/ Sodium Chloride) 50 mls @ 100 mls/hr IV Q6H [facility] Last Admin: 12/05/23 04:41 Dose: Not Given Insulin Human Lispro (Insulin Lispro 100 Unit/Ml 3 Ml Vial) 0 unit SUBCUT Q6H [facility]; Protocol Last Admin: 12/05/23 06:32 Dose: 2 unit Magnesium Hydroxide (Milk Of Magnesia 30 Ml Oral.Susp) 30 ml PO DAILY PRN PRN Reason: Constipation Melatonin (Melatonin 3 Mg Tablet) 6 mg PO BEDTIME PRN PRN Reason: Insomnia Nicotine Polacrilex (Nicotine Polacrilex 2 Mg Gum) 2 mg BUCCAL Q2H PRN PRN Reason: Nicotine Cravings Last Admin: 12/04/23 06:12 Dose: 2 mg Ondansetron HCl (Ondansetron Hcl 4 Mg/2 Ml Vial) 4 mg IVPUSH Q4H PRN PRN Reason: Nausea and Vomiting Pantoprazole Sodium (Pantoprazole Sodium 40 Mg/10 Ml Vial) 40 mg IVPUSH DAILY@0630 [facility] Last Admin: 12/05/23 04:58 Dose: 40 mg Polyethylene Glycol (Polyethylene Glycol 3350 17 Gm Powd.Pack) 17 gm PO DAILY PRN PRN Reason: Constipation Sodium Chloride (0.9 % Sodium Chloride Flush 3 Ml Syringe) 3 ml IVFLUSH QSHIFT [facility] Last Admin: 12/05/23 08:15 Dose: Not Given Home Medications ?Medication ?Instructions ?Recorded ?Confirmed ?Last Taken ?Type aspirin 81 mg tablet,delayed 81 mg PO DAILY 07/20/20 12/04/23 12/03/23 History release omeprazole magnesium 20 mg 20 mg PO DAILY@0630 10/25/20 12/04/23 12/03/23 History tablet,delayed release albuterol sulfate 2.5 mg/3 mL 2.5 mg inhalation Q6H PRN 12/04/23 12/04/23 Unknown History (0.083 %) solution for nebulization shortness of breath or wheezing gabapentin 400 mg capsule 400 mg PO BID 12/04/23 12/04/23 12/03/23 History glimepiride 2 mg tablet 2 mg PO DAILY 12/04/23 12/04/23 12/03/23 History nystatin 100,000 unit/gram topical 1 appl topical BEDTIME PRN Rash 12/04/23 12/04/23 Unknown History powder (Nystop) tamsulosin 0.4 mg capsule 0.4 mg PO BEDTIME 12/04/23 12/04/23 12/03/23 History Physical Exam 2 Vital Signs: Vital Signs: Last Vital Signs Temp 97.1 F 12/05/23 07:36 Pulse 71 12/05/23 07:36 Resp 18 12/05/23 07:36 BP 129/89 12/05/23 07:36 Pulse Ox 92 12/05/23 07:36 O2 Del Method Room Air 12/05/23 07:36 O2 Flow Rate 2 12/04/23 20:21 BMI result Body Mass Index 25.6 Chest: Other: Chest breath sounds bilaterally, HS 1 in 2, sternotomy scar GI: Other: Abdomen mildly corpulent, soft, benign Results Labs 12/03/23 22:55 12/03/23 22:55 Labs: Abnormal lab results 12/04/23 12/04/23 12/04/23 Range/Units 13:07 16:56 23:36 POC Glucose 141 H 145 H 303 H (60-115) mg/dL 12/05/23 12/05/23 Range/Units 04:19 06:16 POC Glucose 226 H 187 H (60-115) mg/dL All other labs normal. Assessment and Plan (1) Choledocholithiasis: Status: Acute (2) Acute cholangitis: Status: Acute (3) Cholelithiasis: Status: Acute Plan I discussed with the patient had his choledocholithiasis is secondary to cholelithiasis. To prevent recurrence of his cholangitis, strongly recommended to pursue laparoscopic possible open cholecystectomy to remove the source of the gallstones in his common bile duct. Risks, benefits, alternatives of laparoscopic possible open cholecystectomy reviewed the patient and included but not limited to bleeding, infection, recurrence of symptoms, numbness, pain, scarring, bowel or bile duct injury or leak and the patient wishes to proceed. Current plan is to tentatively put this under scheduled for tomorrow while the patient has repeat labs and restorative measures continued today. All questions answered. Procedures Date of Service Date of Service: 12/05/23
[2023-12-05] MEDS: ondansetron HCL 4 MG/2 ML VIAL IVPUSH (08:52)
[2023-12-05 09:20] LABS: Hematocrit 35.7 % (42.0-52.0); Mean Corpuscular HGB Conc 36.4 g/dl (31.0-36.0); Mean Corpuscular Hemoglobin 31.7 pg (27.0-33.0); Mean Corpuscular Volume 87.1 fL (80.0-98.0); Mean Platelet Volume 10.4 fL (9.4-12.4); Platelet Count 141 X10*3/uL (160-400); Red Cell Distribution Width 14.1 % (11.0-16.0); White Blood Count 7.8 X10*3/uL (4.8-10.8)
[2023-12-05 09:29] LABS: Alanine Aminotransferase 114 U/L (0-40); Albumin Level 3.4 g/dL (3.5-5.0); Alkaline Phosphatase 431 U/L (39-117); Anion Gap 13 (12-20); Aspartate Amino Transferase 87 U/L (5-37); Bilirubin Direct 3.5 mg/dL (0.0-0.5); Bilirubin Total 4.5 mg/dL (0.0-1.0); Blood Urea Nitrogen 12 mg/dL (9-16); Calcium 8.6 mg/dL (8.4-10.2); Carbon Dioxide 26 mmol/L (22-29); Chloride 104 mmol/L (96-108); Creatinine Clr Calc Pharmacy 72.9; Estimated Glomerular Filt Rate > 60; Glucose Random 188 mg/dL (60-115); Potassium 3.3 mmol/L (3.3-5.1); Sodium 140 mmol/L (135-145); Total Protein 6.2 g/dL (6.5-8.0)
--- NOTE | 2023-12-05 09:35 | HO.POSTANES ---
Post Anesthesia Evaluation Post Anesthesia Evaluation Date of Service: 12/05/23 Vital Signs: Vital Signs Temp Pulse Resp BP Pulse Ox O2 Del Method 12/05/23 07:36 97.1 F 71 18 129/89 92 Room Air 12/05/23 05:10 60 18 12/05/23 02:53 97.5 F 60 18 151/85 H 97 Room Air Anesthesia: General Endotracheal-GETA Mental Status: Awake Pain Control: Satisfactory Nausea/Vomiting: None Hydration: Adequate Anesthesia-Related Issues: No Anes. Related Issues
--- NOTE | 2023-12-05 10:24 | MHC.CM.PN ---
EMR REVIEWED. PER MD ROUNDS PATIENT NOT MEDICALLY CLEARED FOR DC. PLAN FOR OR TOMORROW. CM WILL CONTINUE TO FOLLOW.
--- NOTE | 2023-12-05 10:33 | MHC.SHP ---
Pre-Procedural Eval Section A - 24 Hr Update-Section A only Date of Service: 12/05/23 The patient is an INPATIENT: Yes Changes since office visit: No Cold of Flu in the past 2 weeks, No New Medical Problems, No Changes in Medication and No Patient answered all questions Section B - Complete if H&P > 30 days Chief Complaint: Choledocolithiasis Allergies: Allergies Allergy/AdvReac Type Severity Reaction Status Date / Time No Known Allergies Allergy Verified 12/03/23 22:44 Plan I have reviewed the history and physical and performed a pertinent physical examination on my patient. No changes have occurred unless specified. Time Spent With Patient Time: Total time managing care of this patient today ____ minutes.
[2023-12-05] MEDS: Piperacillin Sodium/Tazobactam 3.375 GM in 0.9 % Sodium Chloride 50 ML 3.37 GM IV (10:40)
--- NOTE | 2023-12-05 10:46 | P.PNIM_ITS ---
Subjective Subjective Date of Service: 12/05/23 Review of Systems Follow up CBD stones better today from abominal pain but now with sob Physical Exam 2 Vital Signs: Vital Signs: Last Vital Signs Temp 97.1 F 12/05/23 07:36 Pulse 71 12/05/23 07:36 Resp 18 12/05/23 07:36 BP 129/89 12/05/23 07:36 Pulse Ox 92 12/05/23 07:36 O2 Del Method Room Air 12/05/23 07:36 O2 Flow Rate 2 12/04/23 20:21 BMI result Body Mass Index 25.6 Appearing in no acute distress lung sounds rales heart regular rate rhythm, clear S1, S2 positive bowel sounds, abdomen is soft, nontender neuro patient is alert x3, no focal deficits Objective Data Active Medications Albuterol Sulfate (Albuterol Sulfate (0.083%) 2.5 Mg/3 Ml Vial.Neb) 2.5 mg INHALE Q2H PRN PRN Reason: Shortness of Breath/Wheezing Last Admin: 12/05/23 05:10 Dose: 2.5 mg Documented By: TREVOR Calcium Carbonate (Calcium Carbonate 750 Mg Tab.Chew) 750 mg PO Q6H PRN PRN Reason: Heartburn Furosemide (Furosemide 40 Mg/4 Ml Vial) 40 mg IVPUSH ONCE ONE; Protocol Stop: 12/05/23 10:46 Hydromorphone HCl (Hydromorphone Hcl 1 Mg/Ml Syringe) 1 mg IVPUSH Q3H PRN; Protocol PRN Reason: Pain, Severe (Pain Scale 7-10) Last Admin: 12/04/23 13:51 Dose: 1 mg Documented By: JACINTO Lactated Ringer's (Lr) 1,000 mls @ 125 mls/hr IVCONT .Q8H [facility] Last Admin: 12/05/23 04:57 Dose: 125 mls/hr Documented By: LIV Piperacillin Sod/Tazobactam (Sod 3.375 gm/ Sodium Chloride) 50 mls @ 100 mls/hr IV Q6H [facility] Last Admin: 12/05/23 10:40 Dose: 3.37 mls/hr Documented By: PEGGY Insulin Human Lispro (Insulin Lispro 100 Unit/Ml 3 Ml Vial) 0 unit SUBCUT Q6H [facility]; Protocol Last Admin: 12/05/23 06:32 Dose: 2 unit Documented By: COLAUGUSTO Magnesium Hydroxide (Milk Of Magnesia 30 Ml Oral.Susp) 30 ml PO DAILY PRN PRN Reason: Constipation Melatonin (Melatonin 3 Mg Tablet) 6 mg PO BEDTIME PRN PRN Reason: Insomnia Nicotine Polacrilex (Nicotine Polacrilex 2 Mg Gum) 2 mg BUCCAL Q2H PRN PRN Reason: Nicotine Cravings Last Admin: 12/04/23 06:12 Dose: 2 mg Documented By: KRYSTYNA Ondansetron HCl (Ondansetron Hcl 4 Mg/2 Ml Vial) 4 mg IVPUSH Q4H PRN PRN Reason: Nausea and Vomiting Last Admin: 12/05/23 08:52 Dose: 4 mg Documented By: PEGGY Pantoprazole Sodium (Pantoprazole Sodium 40 Mg/10 Ml Vial) 40 mg IVPUSH DAILY@0630 [facility] Last Admin: 12/05/23 04:58 Dose: 40 mg Documented By: LIV Polyethylene Glycol (Polyethylene Glycol 3350 17 Gm Powd.Pack) 17 gm PO DAILY PRN PRN Reason: Constipation Sodium Chloride (0.9 % Sodium Chloride Flush 3 Ml Syringe) 3 ml IVFLUSH QSHIFT [facility] Last Admin: 12/05/23 08:15 Dose: Not Given Documented By: PEGGY Non-Admin Reason: IV Running Labs 12/05/23 08:10 12/05/23 08:10 Labs: Laboratory Results - last 24 hr 12/04/23 12/04/23 12/04/23 13:07 16:56 23:36 MCV MCH MCHC RDW Plt Count MPV Absolute Nucleated RBC Nucleated RBC % (auto) Anion Gap Estim Creat Clear Calc Estimated GFR POC Glucose 141 H 145 H 303 H Random Glucose Calcium Total Bilirubin Direct Bilirubin AST ALT Alkaline Phosphatase Total Protein Albumin 12/05/23 12/05/23 12/05/23 04:19 06:16 08:10 MCV 87.1 MCH 31.7 MCHC 36.4 H RDW 14.1 Plt Count 141 L MPV 10.4 Absolute Nucleated RBC 0.000 Nucleated RBC % (auto) 0.0 Anion Gap 13 Estim Creat Clear Calc 72.9 Estimated GFR > 60 POC Glucose 226 H 187 H Random Glucose 188 H Calcium 8.6 Total Bilirubin 4.5 H Direct Bilirubin 3.5 H AST 87 H ALT 114 H Alkaline Phosphatase 431 H Total Protein 6.2 L Albumin 3.4 L Microbiology Microbiology Results: Microbiology 12/04/23 03:31 Blood Culture - Preliminary Blood - Venous Gram negative laverne 12/04/23 03:31 Blood Culture - Preliminary Blood - Venous Gram negative laverne Assessment and Plan (1) Acute cholangitis: Status: Acute Plan 68-year-old man admitted with acute and choledocholithiasis Acute CHF, unspecified Likely from IV fluids cxr showing inflammatory changes, doubt pna with no fever WBC count BNP 415 EKG showing PVCs biut no ischemic changes tx to IMC first dose lasix 60 mg once start Lasix 40 mg IV BID monitor intake and output closely cardiology consultation Echo ordered Choledocholithiasis + acute cholangitis. Continue empiric IV antibiotic therapy with Zosyn. Protonix 40 mg IV daily. GI consult> s/p ERCP 12/04/23 Gen surg>plan for [facility]Y will have to be postoponed due to CHF, contact surgery when patient recovered LFTs trending down Type 2 diabetes mellitus. Hold glimepiride and metformin. BG checks every 6 hours while NPO. Blood glucose control with insulin sliding scale. COPD. Not in acute exacerbation. Bronchodilator therapy as needed. Continue Trelegy, Spiriva or alternative. Essential hypertension. Continue metoprolol when able. BPH. Continue tamsulosin when able. CAD. Aspirin on hold -procedure plan. Statin on hold due to NPO status and elevated LFTs. Diverticulosis without diverticulitis. Incidental finding. Bilateral nonobstructive renal calculi. Incidental finding. 3.2 cm infrarenal abdominal aortic aneurysm. Incidental finding. Will need follow up as an outpatient. Code status: Full Attending Dr. Erazo DVT prophylaxis: SCDs (pharmacological DVT prophylaxis on hold -procedure planned). continue hospital stay for choledocholithiasis and acute cholangitis management with empiric IV antibiotic therapy, IV fluids, IV pain meds and evaluation by subspecialty for urgent procedure. Quality Stroke Does the patient have a stroke diagnosis?: No VTE Prior VTE?: No VTE Risk Level:: Medical - moderate - high VTE Device Contraindication: N/A - Device Ordered VTE Drug Contraindication: Treatment Not Indicated
[2023-12-05] MEDS: Furosemide 40 MG/4 ML VIAL IVPUSH ×2 (11:04→17:44)
[2023-12-05 11:25] LABS: Glucose, Whole Blood 208 mg/dL (60-115)
[2023-12-05 11:34] LABS: B Type Natriuretic Peptide 415 pg/mL (<100)
[2023-12-05 13:08] LABS: Troponin-I High Sensitivity 8.7 ng/L (<3.5-35.0)
--- NOTE | 2023-12-05 13:49 | PC.NURSE ---
Pt with episodes of dry heaves/ difficulty coughing up phlegm. O2 sats on room air 92-93%. Medicated at 0855 with IV zofran for nausea with some effect. Denies pain. CXR, EKG, Labs, KUB done per orders.
--- NOTE | 2023-12-05 14:44 | P.CONCA_ITS ---
History of Present Illness History of Present Illness Date of Service: 12/05/23 Requesting physician: Rosy Ring Consult reason: other (Respiratory distress) Chief complaint: Choledocolithiasis Narrative: I was consulted to see John in cardiology consultation today for sudden-onset shortness of breath since yesterday. Patient 68-year-old male with remote history of coronary artery bypass grafting in 2002, two-vessel coronary artery bypass grafting with no recent ischemic evaluation, last seen our office in 2020 and was recommended a myocardial perfusion imaging, hypertension, COPD, diabetes, chronic smoking presented with acute choledocholithiasis and possible cholangitis. He was in usual state of health over the weekend then suddenly developed right upper quadrant pain with nausea and fever. He underwent ERCP yesterday urgently for his choledocholithiasis and postprocedure said he developed symptoms of shortness of breath. He did receive general anesthesia for the procedure yesterday. He said overnight he is remained short of breath. He denies any chest pain. EKG was performed today which shows no changes compared to admission EKG in terms of ischemia but shows frequent PVCs. His BNP is elevated in the 400 range. He is received about total of 5 L positive balance of fluid since admission. He has not had any recent ischemic or LV function evaluation. He continues to be short of breath and he has not happy. He is scheduled to undergo cholecystectomy but this is being postponed due to his respiratory status. He said he tastes some chemicals and is coughing up phlegm. He appears in mild respiratory distress. Denies palpitations. No lightheadedness. Blood pressure is stable. Review of Systems 2 Constitutional: Constitutional: Reports chills and Reports fever(s) Eyes: Eyes: Reports no additional eye complaints Cardiovascular: Cardiovascular: Denies chest pain, Denies leg edema, Denies lightheadedness, Denies Loss of Consciousness, Denies palpitations and Reports dyspnea Respiratory: Respiratory: Reports cough, Reports excessive phlegm production, Reports dyspnea and Reports wheezing Gastrointestinal: Gastrointestinal: Reports no additional gastrointestinal complaints Genitourinary: Genitourinary: Reports no additional male genitourinary complaints Neurologic: Reports system reviewed and no additional complaints, except as documented Psychiatric: Psychiatric: Reports no additional psychiatric complaints Endocrine: Endocrine: Denies palpitations Allergic/Immunologic: Allergic/Immunologic: Reports wheezing PMFSH Past Medical History Medical History Hypotestosteronism Colonoscopy refused Allergy to metal Chest wall discomfort Insomnia Pure hypercholesterolemia Overweight (BMI 25.0-29.9) Smoker Depression Benign prostatic hyperplasia GERD without esophagitis COPD (chronic obstructive pulmonary disease) Diabetes mellitus Tietze's syndrome Coronary artery disease Hyperlipidemia Family History Family History Father Liver problem Cancer Mother CVD (cardiovascular disease) COPD (chronic obstructive pulmonary disease) Brother Myocardial infarction Brother S/P CABG x 1 CVD (cardiovascular disease) Family/Other FH: mental illness Daughter Substance abuse Surgical History Surgical History History of coronary artery bypass graft (~2002) Social History Social History Household Members: Spouse Housing: House Alcohol intake: current Alcohol intake frequency: does not drink Patient Tobacco Use Status: Current everyday Tobacco user Tobacco use type: Cigar Cigarette Packs Per Day: 0.5 Cigarettes Per Day: 10 e-Cigarette/Vaping Use: Never Used Second Hand Smoke Exposure: Yes service: No Current occupational status: retired Cognitive needs: No Hearing needs: No Vision needs: Yes Meds Allergies Allergy/AdvReac Type Severity Reaction Status Date / Time No Known Allergies Allergy Verified 12/03/23 22:44 Active Medications: Current Medications Albuterol Sulfate (Albuterol Sulfate (0.083%) 2.5 Mg/3 Ml Vial.Neb) 2.5 mg INHALE Q2H PRN PRN Reason: Shortness of Breath/Wheezing Last Admin: 12/05/23 05:10 Dose: 2.5 mg Calcium Carbonate (Calcium Carbonate 750 Mg Tab.Chew) 750 mg PO Q6H PRN PRN Reason: Heartburn Furosemide (Furosemide 40 Mg/4 Ml Vial) 40 mg IVPUSH BID@0900,1800 JANICE; Protocol Hydromorphone HCl (Hydromorphone Hcl 1 Mg/Ml Syringe) 1 mg IVPUSH Q3H PRN; Protocol PRN Reason: Pain, Severe (Pain Scale 7-10) Last Admin: 12/04/23 13:51 Dose: 1 mg Piperacillin Sod/Tazobactam (Sod 3.375 gm/ Sodium Chloride) 50 mls @ 100 mls/hr IV Q6H [facility] Last Admin: 12/05/23 10:40 Dose: 3.37 mls/hr Insulin Human Lispro (Insulin Lispro 100 Unit/Ml 3 Ml Vial) 0 unit SUBCUT Q6H [facility]; Protocol Last Admin: 12/05/23 12:35 Dose: 4 unit Magnesium Hydroxide (Milk Of Magnesia 30 Ml Oral.Susp) 30 ml PO DAILY PRN PRN Reason: Constipation Melatonin (Melatonin 3 Mg Tablet) 6 mg PO BEDTIME PRN PRN Reason: Insomnia Nicotine Polacrilex (Nicotine Polacrilex 2 Mg Gum) 2 mg BUCCAL Q2H PRN PRN Reason: Nicotine Cravings Last Admin: 12/04/23 06:12 Dose: 2 mg Ondansetron HCl (Ondansetron Hcl 4 Mg/2 Ml Vial) 4 mg IVPUSH Q4H PRN PRN Reason: Nausea and Vomiting Last Admin: 12/05/23 08:52 Dose: 4 mg Pantoprazole Sodium (Pantoprazole Sodium 40 Mg/10 Ml Vial) 40 mg IVPUSH DAILY@06 [facility] Last Admin: 12/05/23 04:58 Dose: 40 mg Polyethylene Glycol (Polyethylene Glycol 3350 17 Gm Powd.Pack) 17 gm PO DAILY PRN PRN Reason: Constipation Sodium Chloride (0.9 % Sodium Chloride Flush 3 Ml Syringe) 3 ml IVFLUSH QSHIFT [facility] Last Admin: 12/05/23 08:15 Dose: Not Given Home Medications ?Medication ?Instructions ?Recorded ?Confirmed ?Last Taken ?Type aspirin 81 mg tablet,delayed 81 mg PO DAILY 07/20/20 12/04/23 12/03/23 History release omeprazole magnesium 20 mg 20 mg PO DAILY@0630 10/25/20 12/04/23 12/03/23 History tablet,delayed release albuterol sulfate 2.5 mg/3 mL 2.5 mg inhalation Q6H PRN 12/04/23 12/04/23 Unknown History (0.083 %) solution for nebulization shortness of breath or wheezing gabapentin 400 mg capsule 400 mg PO BID 12/04/23 12/04/23 12/03/23 History glimepiride 2 mg tablet 2 mg PO DAILY 12/04/23 12/04/23 12/03/23 History nystatin 100,000 unit/gram topical 1 appl topical BEDTIME PRN Rash 12/04/23 12/04/23 Unknown History powder (Nystop) tamsulosin 0.4 mg capsule 0.4 mg PO BEDTIME 12/04/23 12/04/23 12/03/23 History Physical Exam 2 Vital Signs: Vital Signs: Last Vital Signs Temp 96.8 F 12/05/23 11:43 Pulse 88 12/05/23 11:43 Resp 18 12/05/23 11:43 BP 131/81 12/05/23 11:43 Pulse Ox 93 12/05/23 11:43 O2 Del Method Room Air 12/05/23 11:43 O2 Flow Rate 2 12/04/23 20:21 BMI result Body Mass Index 25.6 Const: General: cooperative, comfortable, alert, awake and in distress mild and respiratory Nutritional Appearance: average body habitus O rientation/consciousness: patient oriented x3 HEENT: Head: Yes normocephalic and Yes atraumatic Neck: Neck: Yes trachea midline, Yes supple and Yes no JVD Resp: Effort & Inspection: normal respiratory effort Auscultation: crackles (coarse more prominentin the left lower posterior field) and wheezes scattered wheezes Cardio: Rate: regular rate Rhythm: abnormal rhythm with ectopic beats H eart sounds: S1 normal heart sound present, S2 normal heart sound present, no click, no gallops and Murmur heart sound present systolic early GI: Auscultation: normal bowel sounds Skin: General skin exam: no rashes or lesions noted Neuro: General: patient oriented x3 and no focal motor deficits Extrem: General: Yes no clubbing, cyanosis or edema Objective Labs and Meds 12/05/23 08:10 12/05/23 08:10 Lab results: Laboratory Results - last 24 hr 12/04/23 12/04/23 12/05/23 16:56 23:36 04:19 WBC RBC Hgb Hct MCV MCH MCHC RDW Plt Count MPV Absolute Nucleated RBC Nucleated RBC % (auto) Sodium Potassium Chloride Carbon Dioxide Anion Gap BUN Creatinine Estim Creat Clear Calc Estimated GFR POC Glucose 145 H 303 H 226 H Random Glucose Calcium Total Bilirubin Direct Bilirubin AST ALT Alkaline Phosphatase Troponin I High Sens B-Natriuretic Peptide Total Protein Albumin 12/05/23 12/05/23 12/05/23 06:16 08:10 11:12 WBC 7.8 RBC 4.10 L Hgb 13.0 L Hct 35.7 L MCV 87.1 MCH 31.7 MCHC 36.4 H RDW 14.1 Plt Count 141 L MPV 10.4 Absolute Nucleated RBC 0.000 Nucleated RBC % (auto) 0.0 Sodium 140 Potassium 3.3 Chloride 104 Carbon Dioxide 26 Anion Gap 13 BUN 12 Creatinine 0.85 Estim Creat Clear Calc 72.9 Estimated GFR > 60 POC Glucose 187 H Random Glucose 188 H Calcium 8.6 Total Bilirubin 4.5 H Direct Bilirubin 3.5 H AST 87 H ALT 114 H Alkaline Phosphatase 431 H Troponin I High Sens 8.7 B-Natriuretic Peptide 415 H Total Protein 6.2 L Albumin 3.4 L 12/05/23 11:21 WBC RBC Hgb Hct MCV MCH MCHC RDW Plt Count MPV Absolute Nucleated RBC Nucleated RBC % (auto) Sodium Potassium Chloride Carbon Dioxide Anion Gap BUN Creatinine Estim Creat Clear Calc Estimated GFR POC Glucose 208 H Random Glucose Calcium Total Bilirubin Direct Bilirubin AST ALT Alkaline Phosphatase Troponin I High Sens B-Natriuretic Peptide Total Protein Albumin Imaging Radiologist's impression: Impressions Chest X-Ray 12/05/23 11:07 IMPRESSION: A few mild opacities at the left lung base may represent atelectasis and/or an infectious/inflammatory process. This study was presented today, 12/05/2023, for interpretation. Stat results provided at this time as requested by referring provider. Assessment and Plan (1) Acute CHF: Status: Acute Patient with acute respiratory distress since yesterday post procedure and general anesthesia. He is received significant amount of fluid up to 5 L positive balance. There is increase in BNP and clinical findings consistent with coarse crackles although has high likelihood of underlying COPD exacerbation with bronchospasm and/or atelectasis contributing to his respiratory distress. I would agree with diuresis and strict intake and output chart. There is no clinical evidence or EKG evidence of acute myocardial ischemia. He does have frequent PVCs most likely related to his respiratory distress. Full disclosure cardiac monitoring. Trend EKGs and troponins in 3 hours. Strict intake and output chart needs to be pursued. Would treat him with Xopenex as bronchodilators to improve his bronchospasm and also provide him with incentive spirometry. Echocardiogram needs to be ordered. Supportive care with oxygen therapy at bedside. Will follow with you Procedures Date of Service Date of Service: 12/05/23
--- NOTE | 2023-12-05 14:52 | PC.NURSE ---
Report given to Kasie THOMAS med tele
[2023-12-05] MEDS: 0.9 % Sodium Chloride Flush 3 ML SYRINGE IVFLUSH ×2 (15:34→20:38)
[2023-12-05] MEDS: Piperacillin Sodium/Tazobactam 3.375 GM in 0.9 % Sodium Chloride 50 ML IV ×2 (15:34→22:52)
[2023-12-05] MEDS: HYDROmorphone HCl 1 MG/ML SYRINGE IVPUSH ×2 (15:35→20:37)
[2023-12-05 17:40] LABS: Glucose, Whole Blood 190 mg/dL (60-115)
[2023-12-05 17:41] LABS: Troponin-I High Sensitivity 11.9 ng/L (<3.5-35.0)
[2023-12-05] MEDS: oxyCODONE HCl Immed Release 15 MG TABLET PO ×2 (17:45→22:52)
[2023-12-05] MEDS: Metoprolol Tartrate 50 MG TABLET PO (20:37)
[2023-12-05] MEDS: Gabapentin 400 MG CAPSULE PO (20:37)
[2023-12-05] MEDS: Tamsulosin HCL 0.4 MG CAPSULE PO (20:37)
[2023-12-05 23:30] LABS: Glucose, Whole Blood 166 mg/dL (60-115)
[2023-12-06] VITALS (7 sets, daily range): BP systolic 127–153; BP diastolic 60–84; PULSE 61–77; RESP 16–19; TEMP 36.3–37.2; O2SAT 94–97; BMI 24.5
[2023-12-06] MEDS: Piperacillin Sodium/Tazobactam 3.375 GM in 0.9 % Sodium Chloride 50 ML IV ×5 (04:56→23:12)
[2023-12-06] MEDS: oxyCODONE HCl Immed Release 15 MG TABLET PO ×4 (04:56→22:37)
[2023-12-06] MEDS: Omeprazole 20 MG CAPSULE.DR PO (06:09)
[2023-12-06] MEDS: Pantoprazole Sodium 40 MG/10 ML VIAL IVPUSH (06:10)
[2023-12-06 06:19] LABS: Glucose, Whole Blood 147 mg/dL (60-115)
[2023-12-06 07:02] LABS: Alanine Aminotransferase 168 U/L (0-40); Albumin Level 3.4 g/dL (3.5-5.0); Alkaline Phosphatase 488 U/L (39-117); Aspartate Amino Transferase 167 U/L (5-37); Bilirubin Direct 2.8 mg/dL (0.0-0.5); Bilirubin Total 3.9 mg/dL (0.0-1.0); Total Protein 6.2 g/dL (6.5-8.0)
[2023-12-06] MEDS: Furosemide 40 MG/4 ML VIAL IVPUSH (09:15)
[2023-12-06] MEDS: Metoprolol Tartrate 50 MG TABLET PO ×2 (09:15→22:36)
[2023-12-06] MEDS: Gabapentin 400 MG CAPSULE PO ×2 (09:15→22:37)
[2023-12-06] MEDS: 0.9 % Sodium Chloride Flush 3 ML SYRINGE IVFLUSH ×2 (09:16→22:38)
[2023-12-06 09:28] LABS: Anion Gap 15 (12-20); Blood Urea Nitrogen 8 mg/dL (9-16); Calcium 8.5 mg/dL (8.4-10.2); Carbon Dioxide 26 mmol/L (22-29); Chloride 96 mmol/L (96-108); Creatinine Clr Calc Pharmacy 63.9; Estimated Glomerular Filt Rate > 60; Glucose Random 261 mg/dL (60-115); Sodium 134 mmol/L (135-145)
[2023-12-06 09:31] LABS: Potassium 2.8 mmol/L (3.3-5.1)
[2023-12-06 09:50] LABS: B Type Natriuretic Peptide 342 pg/mL (<100)
[2023-12-06] MEDS: Potassium Chloride/H20 10 MEQ/100 ML PIGGYBACK 100 MEQ IV (10:19)
[2023-12-06] MEDS: Potassium Chloride ER 20 MEQ TAB.ER.PRT 40 MEQ PO (10:19)
[2023-12-06 10:59] LABS: Glucose, Whole Blood 257 mg/dL (60-115)
[2023-12-06] MEDS: Insulin Lispro 100 UNIT/ML 3 ML VIAL SUBCUT ×3 (11:37→22:36)
--- NOTE | 2023-12-06 12:00 | PM.PNCARD ---
Subjective Subjective Date of Service: 12/06/23 Principal diagnosis: Acute CHF Interval history: Patient says he has breathing a lot better. He still has cough productive of phlegm but his shortness of breath is improved. Eyes and nose unclear as to their accurate. Hemodynamically stable. No fever or chills Review of Systems Constitutional: Reports no additional constitutional complaints Cardiovascular: Reports no additional cardiovascular complaints and Reports dyspnea (Improved) Respiratory: Reports excessive phlegm production and Reports dyspnea (Improved) Gastrointestinal: Reports no additional gastrointestinal complaints Musculoskeletal: Reports no additional musculoskeletal complaints Reports system reviewed and no additional complaints, except as documented Physical Exam Vital Signs: Last Vital Signs Temp 98.3 F 12/06/23 11:19 Pulse 71 12/06/23 11:19 Resp 18 12/06/23 11:19 BP 127/60 12/06/23 11:19 Pulse Ox 95 12/06/23 11:19 O2 Del Method Room Air 12/06/23 11:19 O2 Flow Rate 2 12/05/23 15:25 BMI result Body Mass Index 24.5 Const General: cooperative, comfortable, alert, awake and in distress mild and respiratory Nutritional Appearance: average body habitus Orientation/consciousness: patient oriented x3 HEENT Head: Yes normocephalic and Yes atraumatic Neck Neck: Yes trachea midline, Yes supple and Yes no JVD Resp Effort & Inspection: normal respiratory effort Auscultation: clear to auscultation bilaterally and diminished lung sounds Cardio Rate: regular rate Rhythm: abnormal rhythm with ectopic beats Heart sounds: S1 normal heart sound present, S2 normal heart sound present, no click, no gallops and Murmur heart sound present systolic early GI Auscultation: normal bowel sounds Skin General skin exam: no rashes or lesions noted Neuro General: patient oriented x3 and no focal motor deficits Extrem General: Yes no clubbing, cyanosis or edema Objective Labs and Meds 12/05/23 08:10 12/06/23 09:08 Lab results: Laboratory Results - last 24 hr 12/05/23 12/05/23 12/05/23 08:10 16:48 17:36 Sodium Potassium Chloride Carbon Dioxide Anion Gap BUN Creatinine Estim Creat Clear Calc Estimated GFR POC Glucose 190 H Random Glucose Calcium Total Bilirubin Direct Bilirubin AST ALT Alkaline Phosphatase Troponin I High Sens 8.7 11.9 B-Natriuretic Peptide Total Protein Albumin 05/12/06/23 12/06/23 23:12 06:08 06:33 Sodium Potassium Chloride Carbon Dioxide Anion Gap BUN Creatinine Estim Creat Clear Calc Estimated GFR POC Glucose 166 H 147 H Random Glucose Calcium Total Bilirubin 3.9 H Direct Bilirubin 2.8 H AST 167 H ALT 168 H Alkaline Phosphatase 488 H Troponin I High Sens B-Natriuretic Peptide Total Protein 6.2 L Albumin 3.4 L 12/06/23 12/06/23 09:08 10:46 Sodium 134 L Potassium 2.8 L* Chloride 96 Carbon Dioxide 26 Anion Gap 15 BUN 8 L Creatinine 0.97 Estim Creat Clear Calc 63.9 Estimated GFR > 60 POC Glucose 257 H Random Glucose 261 H Calcium 8.5 Total Bilirubin Direct Bilirubin AST ALT Alkaline Phosphatase Troponin I High Sens B-Natriuretic Peptide 342 H Total Protein Albumin Imaging Radiologist's impression: Impressions Guidance Fluoroscopy 12/04/23 16:49 IMPRESSION: Intraoperative fluoroscopic guidance is provided during ERCP. Please see the patient's Operative Report for full procedural details. Chest X-Ray 12/05/23 11:07 IMPRESSION: A few mild opacities at the left lung base may represent atelectasis and/or an infectious/inflammatory process. This study was presented today, 12/05/2023, for interpretation. Stat results provided at this time as requested by referring provider. KUB X-Ray 12/05/23 13:33 IMPRESSION: Nonobstructive bowel gas pattern. Progress Note: A&P Assessment and plan (1) Acute CHF: Status: Acute Assessment and Plan: Acute respiratory distress with component of congestive heart failure in this elderly man with prior and remote history of coronary artery bypass grafting with echocardiogram showing low normal LV EF with regional wall motion abnormality. Clinically has significantly improved although not sure if there is significant diuresis obtained as intake and output chart are not clear. I would switch him to oral Lasix therapy at this point time as clinically appears to be much improved with no evidence of rales on physical exam. He is at risk for recurrent development of congestive heart failure as well given his possibility of underlying ischemic heart disease as well as fluid overload. Continue with bronchodilators therapy. Continue with metoprolol therapy both as neurohormonal modulation as well as anti ischemic therapy. Blood pressure is optimized. Continue aggressively CAD with high-intensity statin therapy as well as aspirin therapy. If plan for cholecystectomy and this is an urgent surgery that is required prior to discharge, at current point time is optimized to undergo the surgery with intermediate to high risk for recurrent development of cardiovascular issues including heart failure syndrome. In this setting I would avoid significant fluid overload and pursue closer hemodynamic monitoring during surgery and continue all medicines including metoprolol in the perioperative time. However if surgery can be postponed and can be done more electively I would pursue ischemic workup prior to pursuing noncardiac surgery. Will sign of the case at this point time. Thank you for allowing me to partake in his care Time Spent With Patient Time: Total time managing care of this patient today ____ minutes. Progress Note: Quality Stroke Does the patient have a stroke diagnosis?: No Procedures Date of Service Date of Service: 12/06/23
--- NOTE | 2023-12-06 12:36 | P.PNIM_ITS ---
Subjective Subjective Date of Service: 12/06/23 Interval History: Seen and examined this morning Follow-up for choledocholithiasis, CHF Breathing improved but still had shortness of breath overnight Review of Systems Review of Systems: Yes all other systems are reviewed and are negative Constitutional Constitutional: Denies chills and Denies fever(s) Cardiovascular Cardiovascular: Denies chest pain Respiratory Respiratory: Denies cough Gastrointestinal Gastrointestinal: Denies abdominal pain Physical Exam 2 Vital Signs: Vital Signs: Last Vital Signs Temp 98.3 F 12/06/23 11:19 Pulse 71 12/06/23 11:19 Resp 18 12/06/23 11:19 BP 127/60 12/06/23 11:19 Pulse Ox 95 12/06/23 11:19 O2 Del Method Room Air 12/06/23 11:19 O2 Flow Rate 2 12/05/23 15:25 BMI result Body Mass Index 24.5 Const: General: cooperative, comfortable, no acute distress, alert and awake Nutritional Appearance: average body habitus Orientation/consciousness: p atient oriented x3 Resp: Effort & Inspection: normal respiratory effort, able to speak in complete sentences, no respiratory distress and no use of accessory muscles Cardio: Rate: regular rate GI: Inspection: No distended Palpation (GI): Soft to palpation and nontender Neuro: General: patient oriented x3 and moves all extremities Extrem: General: Yes no pedal edema Objective Data Active Medications Albuterol Sulfate (Albuterol Sulfate (0.083%) 2.5 Mg/3 Ml Vial.Neb) 2.5 mg INHALE Q2H PRN PRN Reason: Shortness of Breath/Wheezing Last Admin: 12/05/23 05:10 Dose: 2.5 mg Documented By: TREVOR Calcium Carbonate (Calcium Carbonate 750 Mg Tab.Chew) 750 mg PO Q6H PRN PRN Reason: Heartburn Gabapentin (Gabapentin 400 Mg Capsule) 400 mg PO BID JANICE Last Admin: 12/06/23 09:15 Dose: 400 mg Documented By: MONFETE Hydromorphone HCl (Hydromorphone Hcl 1 Mg/Ml Syringe) 1 mg IVPUSH Q3H PRN; Protocol PRN Reason: Pain, Severe (Pain Scale 7-10) Last Admin: 12/05/23 20:37 Dose: 1 mg Documented By: PILLO Piperacillin Sod/Tazobactam (Sod 3.375 gm/ Sodium Chloride) 50 mls @ 100 mls/hr IV Q6H [facility] Last Infusion: 12/06/23 10:23 Dose: Infused Documented By: FLORI Insulin Human Lispro (Insulin Lispro 100 Unit/Ml 3 Ml Vial) 0 unit SUBCUT Q6H [facility]; Protocol Last Admin: 12/06/23 11:37 Dose: 6 unit Documented By: FLORI Magnesium Hydroxide (Milk Of Magnesia 30 Ml Oral.Susp) 30 ml PO DAILY PRN PRN Reason: Constipation Melatonin (Melatonin 3 Mg Tablet) 6 mg PO BEDTIME PRN PRN Reason: Insomnia Metoprolol Tartrate (Metoprolol Tartrate 50 Mg Tablet) 50 mg PO BID [facility]; Protocol Last Admin: 12/06/23 09:15 Dose: 50 mg Documented By: FLORI Nicotine Polacrilex (Nicotine Polacrilex 2 Mg Gum) 2 mg BUCCAL Q2H PRN PRN Reason: Nicotine Cravings Last Admin: 12/04/23 06:12 Dose: 2 mg Documented By: KRYSTYNA Nitroglycerin (Nitroglycerin 0.4 Mg Tab.Subl) 0.4 mg SUBLINGUAL Q5M PRN PRN Reason: chest pain Omeprazole (Omeprazole 20 Mg Capsule.Dr) 20 mg PO DAILY@629 [facility] Last Admin: 12/06/23 06:09 Dose: 20 mg Documented By: PILLO Ondansetron HCl (Ondansetron Hcl 4 Mg/2 Ml Vial) 4 mg IVPUSH Q4H PRN PRN Reason: Nausea and Vomiting Last Admin: 12/05/23 08:52 Dose: 4 mg Documented By: PEGGY Oxycodone HCl (Oxycodone Hcl Immed Release 15 Mg Tablet) 15 mg PO Q6H [facility] Last Admin: 12/06/23 10:19 Dose: 15 mg Documented By: FLORI Pantoprazole Sodium (Pantoprazole Sodium 40 Mg/10 Ml Vial) 40 mg IVPUSH DAILY@0630 [facility] Last Admin: 12/06/23 06:10 Dose: 40 mg Documented By: PILLO Polyethylene Glycol (Polyethylene Glycol 3350 17 Gm Powd.Pack) 17 gm PO DAILY PRN PRN Reason: Constipation Sodium Chloride (0.9 % Sodium Chloride Flush 3 Ml Syringe) 3 ml IVFLUSH QSHIFT [facility] Last Admin: 12/06/23 09:16 Dose: 3 ml Documented By: MONFEKAYLAN Tamsulosin HCl (Tamsulosin Hcl 0.4 Mg Capsule) 0.4 mg PO BEDTIME [facility] Last Admin: 12/05/23 20:37 Dose: 0.4 mg Documented By: LAFLAMC Trazodone HCl (Trazodone Hcl 100 Mg Tablet) 100 mg PO BEDTIME PRN PRN Reason: insomnia Labs 12/05/23 08:10 12/06/23 09:08 Labs: Laboratory Results - last 24 hr 12/05/23 12/05/23 12/05/23 08:10 16:48 17:36 Anion Gap Estim Creat Clear Calc Estimated GFR POC Glucose 190 H Random Glucose Calcium Total Bilirubin Direct Bilirubin AST ALT Alkaline Phosphatase Troponin I High Sens 8.7 11.9 B-Natriuretic Peptide Total Protein Albumin 12/05/23 12/06/23 12/06/23 23:12 06:08 06:33 Anion Gap Estim Creat Clear Calc Estimated GFR POC Glucose 166 H 147 H Random Glucose Calcium Total Bilirubin 3.9 H Direct Bilirubin 2.8 H AST 167 H ALT 168 H Alkaline Phosphatase 488 H Troponin I High Sens B-Natriuretic Peptide Total Protein 6.2 L Albumin 3.4 L 12/06/23 12/06/23 09:08 10:46 Anion Gap 15 Estim Creat Clear Calc 63.9 Estimated GFR > 60 POC Glucose 257 H Random Glucose 261 H Calcium 8.5 Total Bilirubin Direct Bilirubin AST ALT Alkaline Phosphatase Troponin I High Sens B-Natriuretic Peptide 342 H Total Protein Albumin Microbiology Microbiology Results: Microbiology 12/04/23 03:31 Blood Culture - Final Blood - Venous Escherichia coli 12/04/23 03:31 Blood Culture - Final Blood - Venous Escherichia coli Assessment and Plan (1) Cholelithiasis: Status: Acute (2) Acute CHF: Status: Acute Plan 68-year-old man admitted with acute and choledocholithiasis hospital course complicated by acute CHF Acute HFpEF Likely from IV fluids cxr showing inflammatory changes, doubt pna with no fever WBC count BNP 415, trending down EKG showing PVCs but no ischemic changes s/p IV lasix with good effect -all transitioned to p.o. Lasix per Cardiology recommendation echo - EF 55% Seen by cardiology-at risk for recurrent development of CHF recommend to continue statin, aspirin, beta brianna. When be at intermediate to high risk for development of cardiovascular issues including heart failure syndrome if surgery is required. (statin on hold for elevated LFTs, asa on hold for possible procedure) Choledocholithiasis + acute cholangitis. Continue empiric IV antibiotic therapy with Zosyn. GI consult> s/p ERCP 12/04/23 with multiple CV stones removed after sphincterotomy, purulent bile consistent with cholangitis Gen surg>plan for CCY will have to be postponed due to CHF, contact surgery when patient recovered LFTs trending down Type 2 diabetes mellitus. Hold glimepiride and metformin. follow POCs Blood glucose control with insulin sliding scale. Hypokalemia Likely due to Lasix Replace, follow COPD. Not in acute exacerbation. Bronchodilator therapy as needed. Continue Trelegy, Spiriva or alternative. Essential hypertension. Continue metoprolol BPH. Continue tamsulosin CAD. Aspirin on hold -procedure plan. Statin on hold due to elevated LFTs. Diverticulosis without diverticulitis. Incidental finding. Bilateral nonobstructive renal calculi. Incidental finding. 3.2 cm infrarenal abdominal aortic aneurysm. Incidental finding. Will need follow up as an outpatient. Code status: Full Attending Dr. Erazo DVT prophylaxis: SCDs (pharmacological DVT prophylaxis on hold -procedure planned). continue hospital stay for choledocholithiasis and acute cholangitis management with empiric IV antibiotic therapy, IV fluids, IV pain meds and evaluation by subspecialty for urgent procedure. Quality Stroke Does the patient have a stroke diagnosis?: No VTE Prior VTE?: No VTE Risk Level:: Medical - moderate - high VTE Device Contraindication: N/A - Device Ordered VTE Drug Contraindication: Treatment Not Indicated
[2023-12-06 15:22] LABS: Potassium 2.7 mmol/L (3.3-5.1)
[2023-12-06] MEDS: Potassium Chloride Packet 20 MEQ PACKET 60 MEQ PO (16:19)
[2023-12-06 16:43] LABS: Magnesium 1.4 mg/dL (1.6-2.6)
[2023-12-06 17:13] LABS: Glucose, Whole Blood 224 mg/dL (60-115)
[2023-12-06] MEDS: Magnesium Sulfate/H2O 2 GM/50 ML PIGGYBACK IV (17:28)
[2023-12-06 20:19] LABS: Glucose, Whole Blood 197 mg/dL (60-115)
[2023-12-06 22:23] LABS: Potassium 3.6 mmol/L (3.3-5.1)
[2023-12-06] MEDS: Tamsulosin HCL 0.4 MG CAPSULE PO (22:35)
[2023-12-06] MEDS: Melatonin 3 MG TABLET 6 MG PO (23:12)
[2023-12-06] MEDS: traZODone HCL 100 MG TABLET PO (23:12)
[2023-12-07] VITALS (7 sets, daily range): BP systolic 126–165; BP diastolic 60–74; PULSE 54–80; RESP 16–22; TEMP 36.1–36.4; O2SAT 91–93; BMI 24.6
[2023-12-07] MEDS: oxyCODONE HCl Immed Release 15 MG TABLET PO ×4 (07:10→23:16)
[2023-12-07] MEDS: Omeprazole 20 MG CAPSULE.DR PO (07:11)
[2023-12-07 07:55] LABS: Glucose, Whole Blood 188 mg/dL (60-115)
[2023-12-07] MEDS: Insulin Lispro 100 UNIT/ML 3 ML VIAL SUBCUT ×3 (08:11→17:14)
[2023-12-07] MEDS: Furosemide 20 MG TABLET PO (08:12)
[2023-12-07] MEDS: Metoprolol Tartrate 50 MG TABLET PO ×2 (08:12→20:40)
[2023-12-07] MEDS: Gabapentin 400 MG CAPSULE PO ×2 (08:12→20:41)
[2023-12-07] MEDS: 0.9 % Sodium Chloride Flush 3 ML SYRINGE IVFLUSH ×3 (08:13→20:45)
--- NOTE | 2023-12-07 09:03 | PM.PNGS ---
Subjective Subjective Date of Service: 12/07/23 Interval history: Patient has minimal upper abdominal complaints. Being treated for his CHF and cardiac evaluation. Patient is tolerating his diet. He is passing flatus but not had a bowel movement for couple of days. Physical Exam Vital Signs: Vital Signs: Last Vital Signs Temp 97.3 F 12/07/23 08:00 Pulse 80 12/07/23 08:00 Resp 22 H 12/07/23 08:00 BP 132/62 12/07/23 08:00 Pulse Ox 93 12/07/23 08:00 O2 Del Method Room Air 12/07/23 08:00 O2 Flow Rate 2 12/05/23 15:25 BMI result Body Mass Index 24.6 GI: Other: Abdomen is soft, mild upper abdominal tenderness but no evidence of any guarding, rebound, or rigidity. Objective Data Active Medications Calcium Carbonate (Calcium Carbonate 750 Mg Tab.Chew) 750 mg PO Q6H PRN PRN Reason: Heartburn Furosemide (Furosemide 20 Mg Tablet) 20 mg PO DAILY [facility]; Protocol Last Admin: 12/07/23 08:12 Dose: 20 mg Documented By: FLORI Gabapentin (Gabapentin 400 Mg Capsule) 400 mg PO BID [facility] Last Admin: 12/07/23 08:12 Dose: 400 mg Documented By: FLORI Hydromorphone HCl (Hydromorphone Hcl 1 Mg/Ml Syringe) 1 mg IVPUSH Q3H PRN; Protocol PRN Reason: Pain, Severe (Pain Scale 7-10) Last Admin: 12/05/23 20:37 Dose: 1 mg Documented By: PILLO Piperacillin Sod/Tazobactam (Sod 3.375 gm/ Sodium Chloride) 50 mls @ 100 mls/hr IV Q6H [facility] Last Infusion: 12/07/23 00:32 Dose: Infused Documented By: EVA Insulin Human Lispro (Insulin Lispro 100 Unit/Ml 3 Ml Vial) 0 unit SUBCUT QIDACHS [facility]; Protocol Last Admin: 12/07/23 08:11 Dose: 2 unit Documented By: FLORI Levalbuterol HCl (Levalbuterol Hcl 1.25 Mg/3 Ml Vial.Neb) 1.25 mg INHALE Q4H PRN PRN Reason: Shortness of Breath/Wheezing Magnesium Hydroxide (Milk Of Magnesia 30 Ml Oral.Susp) 30 ml PO DAILY PRN PRN Reason: Constipation Melatonin (Melatonin 3 Mg Tablet) 6 mg PO BEDTIME PRN PRN Reason: Insomnia Last Admin: 12/06/23 23:12 Dose: 6 mg Documented By: EVA Metoprolol Tartrate (Metoprolol Tartrate 50 Mg Tablet) 50 mg PO BID [facility]; Protocol Last Admin: 12/07/23 08:12 Dose: 50 mg Documented By: FLORI Nicotine Polacrilex (Nicotine Polacrilex 2 Mg Gum) 2 mg BUCCAL Q2H PRN PRN Reason: Nicotine Cravings Last Admin: 12/04/23 06:12 Dose: 2 mg Documented By: KRYSTYNA Nitroglycerin (Nitroglycerin 0.4 Mg Tab.Subl) 0.4 mg SUBLINGUAL Q5M PRN PRN Reason: chest pain Omeprazole (Omeprazole 20 Mg Capsule.Dr) 20 mg PO DAILY@0630 [facility] Last Admin: 12/07/23 07:11 Dose: 20 mg Documented By: EVA Ondansetron HCl (Ondansetron Hcl 4 Mg/2 Ml Vial) 4 mg IVPUSH Q4H PRN PRN Reason: Nausea and Vomiting Last Admin: 12/05/23 08:52 Dose: 4 mg Documented By: PEGGY Oxycodone HCl (Oxycodone Hcl Immed Release 15 Mg Tablet) 15 mg PO Q6H [facility] Last Admin: 12/07/23 07:10 Dose: 15 mg Documented By: EVA Polyethylene Glycol (Polyethylene Glycol 3350 17 Gm Powd.Pack) 17 gm PO DAILY PRN PRN Reason: Constipation Sodium Chloride (0.9 % Sodium Chloride Flush 3 Ml Syringe) 3 ml IVFLUSH QSHIFT [facility] Last Admin: 12/07/23 08:13 Dose: 3 ml Documented By: FLORI Tamsulosin HCl (Tamsulosin Hcl 0.4 Mg Capsule) 0.4 mg PO BEDTIME [facility] Last Admin: 12/06/23 22:35 Dose: 0.4 mg Documented By: EVA Trazodone HCl (Trazodone Hcl 100 Mg Tablet) 100 mg PO BEDTIME PRN PRN Reason: insomnia Last Admin: 12/06/23 23:12 Dose: 100 mg Documented By: EVA Labs 12/05/23 08:10 12/06/23 22:03 Labs: Laboratory Results - last 24 hr 12/06/23 12/06/23 12/06/23 09:08 10:46 14:33 Anion Gap 15 Estim Creat Clear Calc 63.9 Estimated GFR > 60 POC Glucose 257 H Random Glucose 261 H Calcium 8.5 Magnesium 1.4 L* B-Natriuretic Peptide 342 H 12/06/23 12/06/23 12/07/23 17:08 20:15 07:40 Anion Gap Estim Creat Clear Calc Estimated GFR POC Glucose 224 H 197 H 188 H Random Glucose Calcium Magnesium B-Natriuretic Peptide Microbiology Microbiology Results: Microbiology 12/04/23 03:31 Blood Culture - Final Blood - Venous Escherichia coli 12/04/23 03:31 Blood Culture - Final Blood - Venous Escherichia coli Procedures Date of Service Date of Service: 12/07/23 Progress Note: A&P Assessment and plan (1) Cholelithiasis: Status: Acute (2) Acute cholangitis: Status: Acute (3) Choledocholithiasis: Status: Acute Plan Patient undergoing cardiac workup. We will eventually need laparoscopic cholecystectomy which can be done as an outpatient. Patient and and I discussed follow-up in the office and once cardiac clearance is obtained, surgery can be plan. All questions answered. Time Spent With Patient Time: Total time managing care of this patient today ____ minutes. Quality Stroke Does the patient have a stroke diagnosis?: No VTE Prior VTE?: No VTE Risk Level:: Medical - moderate - high VTE Device Contraindication: N/A - Device Ordered VTE Drug Contraindication: Treatment Not Indicated
[2023-12-07 09:08] LABS: Hematocrit 38.5 % (42.0-52.0); Hemoglobin 14.3 g/dl (14.0-18.0); Mean Corpuscular HGB Conc 37.1 g/dl (31.0-36.0); Mean Corpuscular Hemoglobin 31.3 pg (27.0-33.0); Mean Corpuscular Volume 84.2 fL (80.0-98.0); Mean Platelet Volume 10.3 fL (9.4-12.4); Platelet Count 185 X10*3/uL (160-400); Red Blood Count 4.57 X10*6/uL (4.60-5.80); White Blood Count 7.6 X10*3/uL (4.8-10.8)
[2023-12-07 09:38] LABS: Alanine Aminotransferase 205 U/L (0-40); Albumin Level 3.5 g/dL (3.5-5.0); Alkaline Phosphatase 511 U/L (39-117); Anion Gap 17 (12-20); Aspartate Amino Transferase 149 U/L (5-37); Bilirubin Direct 2.2 mg/dL (0.0-0.5); Bilirubin Total 3.5 mg/dL (0.0-1.0); Blood Urea Nitrogen 8 mg/dL (9-16); Calcium 8.9 mg/dL (8.4-10.2); Carbon Dioxide 26 mmol/L (22-29); Chloride 97 mmol/L (96-108); Creatinine Clr Calc Pharmacy 81.6; Estimated Glomerular Filt Rate > 60; Glucose Random 187 mg/dL (60-115); Magnesium 1.6 mg/dL (1.6-2.6); Potassium 3.3 mmol/L (3.3-5.1); Sodium 137 mmol/L (135-145); Total Protein 6.7 g/dL (6.5-8.0)
[2023-12-07] MEDS: Piperacillin Sodium/Tazobactam 3.375 GM in 0.9 % Sodium Chloride 50 ML IV ×3 (09:40→23:17)
[2023-12-07 12:06] LABS: Glucose, Whole Blood 220 mg/dL (60-115)
--- NOTE | 2023-12-07 15:21 | HO.PM.IMPN ---
Subjective Subjective Date of Service: 12/07/23 Interval History: Seen and examined this morning Follow-up for choledocholithiasis, cholangitis, E coli bacteremia No abdominal pain, breathing improved. No fever Review of Systems Review of Systems: Yes all other systems are reviewed and are negative Physical Exam Vital Signs: Vital Signs: Last Vital Signs Temp 97.2 F 12/07/23 12:00 Pulse 54 12/07/23 12:00 Resp 20 12/07/23 12:00 BP 136/64 12/07/23 12:00 Pulse Ox 93 12/07/23 12:00 O2 Del Method Room Air 12/07/23 12:00 O2 Flow Rate 2 12/05/23 15:25 BMI result Body Mass Index 24.6 Const: General: cooperative, comfortable, no acute distress, alert and awake Nutritional Appearance: average body habitus Orientation/consciousness: patient oriented x3 Resp: Effort & Inspection: normal respiratory effort, able to speak in complete sentences, no respiratory distress and no use of accessory muscles Cardio: Rate: regular rate GI: Inspection: No distended Palpation (GI): Soft to palpation and nontender Neuro: General: patient oriented x3 and moves all extremities Extrem: General: Yes no pedal edema Objective Data Active Medications Calcium Carbonate (Calcium Carbonate 750 Mg Tab.Chew) 750 mg PO Q6H PRN PRN Reason: Heartburn Furosemide (Furosemide 20 Mg Tablet) 20 mg PO DAILY [facility]; Protocol Last Admin: 12/07/23 08:12 Dose: 20 mg Documented By: FLORI Gabapentin (Gabapentin 400 Mg Capsule) 400 mg PO BID [facility] Last Admin: 12/07/23 08:12 Dose: 400 mg Documented By: FLORI Hydromorphone HCl (Hydromorphone Hcl 1 Mg/Ml Syringe) 1 mg IVPUSH Q3H PRN; Protocol PRN Reason: Pain, Severe (Pain Scale 7-10) Last Admin: 12/05/23 20:37 Dose: 1 mg Documented By: PILLO Piperacillin Sod/Tazobactam (Sod 3.375 gm/ Sodium Chloride) 50 mls @ 100 mls/hr IV Q6H [facility] Last Infusion: 12/07/23 11:09 Dose: Infused Documented By: FLORI Insulin Human Lispro (Insulin Lispro 100 Unit/Ml 3 Ml Vial) 0 unit SUBCUT QIDACHS [facility]; Protocol Last Admin: 12/07/23 12:16 Dose: 4 unit Documented By: FLORI Levalbuterol HCl (Levalbuterol Hcl 1.25 Mg/3 Ml Vial.Neb) 1.25 mg INHALE Q4H PRN PRN Reason: Shortness of Breath/Wheezing Magnesium Hydroxide (Milk Of Magnesia 30 Ml Oral.Susp) 30 ml PO DAILY PRN PRN Reason: Constipation Melatonin (Melatonin 3 Mg Tablet) 6 mg PO BEDTIME PRN PRN Reason: Insomnia Last Admin: 12/06/23 23:12 Dose: 6 mg Documented By: EVA Metoprolol Tartrate (Metoprolol Tartrate 50 Mg Tablet) 50 mg PO BID [facility]; Protocol Last Admin: 12/07/23 08:12 Dose: 50 mg Documented By: FLORI Nicotine Polacrilex (Nicotine Polacrilex 2 Mg Gum) 2 mg BUCCAL Q2H PRN PRN Reason: Nicotine Cravings Last Admin: 12/04/23 06:12 Dose: 2 mg Documented By: KRYSTYNA Nitroglycerin (Nitroglycerin 0.4 Mg Tab.Subl) 0.4 mg SUBLINGUAL Q5M PRN PRN Reason: chest pain Omeprazole (Omeprazole 20 Mg Capsule.Dr) 20 mg PO DAILY@0630 [facility] Last Admin: 12/07/23 07:11 Dose: 20 mg Documented By: EVA Ondansetron HCl (Ondansetron Hcl 4 Mg/2 Ml Vial) 4 mg IVPUSH Q4H PRN PRN Reason: Nausea and Vomiting Last Admin: 12/05/23 08:52 Dose: 4 mg Documented By: PEGGY Oxycodone HCl (Oxycodone Hcl Immed Release 15 Mg Tablet) 15 mg PO Q6H [facility] Last Admin: 12/07/23 12:16 Dose: 15 mg Documented By: FLORI Polyethylene Glycol (Polyethylene Glycol 3350 17 Gm Powd.Pack) 17 gm PO DAILY PRN PRN Reason: Constipation Sodium Chloride (0.9 % Sodium Chloride Flush 3 Ml Syringe) 3 ml IVFLUSH [facility] Last Admin: 12/07/23 08:13 Dose: 3 ml Documented By: FLORI Tamsulosin HCl (Tamsulosin Hcl 0.4 Mg Capsule) 0.4 mg PO BEDTIME [facility] Last Admin: 12/06/23 22:35 Dose: 0.4 mg Documented By: EVA Trazodone HCl (Trazodone Hcl 100 Mg Tablet) 100 mg PO BEDTIME PRN PRN Reason: insomnia Last Admin: 12/06/23 23:12 Dose: 100 mg Documented By: EVA Labs 12/07/23 08:36 12/07/23 08:36 Labs: Laboratory Results - last 24 hr 12/06/23 12/06/23 12/06/23 14:33 17:08 20:15 MCV MCH MCHC RDW Plt Count MPV Absolute Nucleated RBC Nucleated RBC % (auto) Anion Gap Estim Creat Clear Calc Estimated GFR POC Glucose 224 H 197 H Random Glucose Calcium Magnesium 1.4 L* Total Bilirubin Direct Bilirubin AST ALT Alkaline Phosphatase Total Protein Albumin 12/07/23 12/07/23 12/07/23 07:40 08:36 11:37 MCV 84.2 MCH 31.3 MCHC 37.1 H RDW 14.0 Plt Count 185 D MPV 10.3 Absolute Nucleated RBC 0.000 Nucleated RBC % (auto) 0.0 Anion Gap 17 Estim Creat Clear Calc 81.6 Estimated GFR > 60 POC Glucose 188 H 220 H Random Glucose 187 H Calcium 8.9 Magnesium 1.6 Total Bilirubin 3.5 H Direct Bilirubin 2.2 H AST 149 H ALT 205 H Alkaline Phosphatase 511 H Total Protein 6.7 Albumin 3.5 Assessment and Plan (1) Cholelithiasis: Status: Acute (2) Acute cholangitis: Status: Acute (3) E coli bacteremia: Status: Acute Plan 68-year-old man admitted with acute and choledocholithiasis hospital course complicated by acute CHF Acute HFpEF Likely from IV fluids cxr showing inflammatory changes, doubt pna with no fever WBC count BNP 415, trending down EKG showing PVCs but no ischemic changes s/p IV lasix with good effect -all transitioned to p.o. Lasix per Cardiology recommendation echo - EF 55% with impaired relaxation filling pattern with underlying regional wall motion abnormality consistent with coronary artery disease Seen by cardiology-at risk for recurrent development of CHF recommend to continue statin, aspirin, beta brianna - recommend outpatient ischemic workup prior to cholecystectomy Choledocholithiasis + acute cholangitis. Continue empiric IV antibiotic therapy with Zosyn. GI consult> s/p ERCP 12/04/23 with multiple CV stones removed after sphincterotomy, purulent bile consistent with cholangitis Gen surg>plan for CCY will have to be postponed due to CHF, plan for outpatient follow up after ischemic workup LFTs still elevated, trend daily E coli bacteremia Due to above Continue current antibiotic management with Zosyn, outpatient antibiotics with oral Ceftin likely 2 weeks Type 2 diabetes mellitus. Hold glimepiride and metformin. follow POCs Blood glucose control with insulin sliding scale. Hypokalemia Likely due to Lasix Replace, follow COPD. Not in acute exacerbation. Bronchodilator therapy as needed. Continue Trelegy, Spiriva or alternative. Essential hypertension. Continue metoprolol BPH. Continue tamsulosin CAD. Aspirin on hold -procedure plan. Statin on hold due to elevated LFTs. Diverticulosis without diverticulitis. Incidental finding. Bilateral nonobstructive renal calculi. Incidental finding. 3.2 cm infrarenal abdominal aortic aneurysm. Incidental finding. Will need follow up as an outpatient. Code status: Full Attending Dr. Erazo DVT prophylaxis: SCDs (pharmacological DVT prophylaxis on hold -procedure planned). continue hospital stay for choledocholithiasis and acute cholangitis management with empiric IV antibiotic therapy, IV fluids, IV pain meds and evaluation by subspecialty for urgent procedure. Quality Stroke Does the patient have a stroke diagnosis?: No VTE Prior VTE?: No VTE Risk Level:: Medical - moderate - high VTE Device Contraindication: N/A - Device Ordered VTE Drug Contraindication: Treatment Not Indicated
[2023-12-07 16:33] LABS: Glucose, Whole Blood 202 mg/dL (60-115)
[2023-12-07 20:04] LABS: Glucose, Whole Blood 242 mg/dL (60-115)
[2023-12-07] MEDS: Tamsulosin HCL 0.4 MG CAPSULE PO (20:41)
[2023-12-07] MEDS: Melatonin 3 MG TABLET 6 MG PO (20:44)
[2023-12-07] MEDS: traZODone HCL 100 MG TABLET PO (20:45)
[2023-12-08] VITALS: BP 132/60; PULSE 62; RESP 16; TEMP 36.1; O2SAT 93
[2023-12-08 03:55] VITALS: BP 153/71; PULSE 60; RESP 20; TEMP 37.4; O2SAT 93
[2023-12-08] MEDS: Omeprazole 20 MG CAPSULE.DR PO (05:11)
[2023-12-08] MEDS: Piperacillin Sodium/Tazobactam 3.375 GM in 0.9 % Sodium Chloride 50 ML IV (05:11)
[2023-12-08] MEDS: oxyCODONE HCl Immed Release 15 MG TABLET PO (05:15)
[2023-12-08 06:00] VITALS: BMI 24.5
[2023-12-08 07:27] LABS: Alanine Aminotransferase 162 U/L (0-40); Albumin Level 3.4 g/dL (3.5-5.0); Alkaline Phosphatase 489 U/L (39-117); Aspartate Amino Transferase 75 U/L (5-37); Bilirubin Direct 1.6 mg/dL (0.0-0.5); Bilirubin Total 2.6 mg/dL (0.0-1.0); Total Protein 6.4 g/dL (6.5-8.0)
[2023-12-08 07:45] LABS: Glucose, Whole Blood 192 mg/dL (60-115)
[2023-12-08 08:00] VITALS: BP 136/73; PULSE 64; RESP 18; TEMP 36.8; O2SAT 94
[2023-12-08] MEDS: 0.9 % Sodium Chloride Flush 3 ML SYRINGE IVFLUSH (09:14)
[2023-12-08] MEDS: Insulin Lispro 100 UNIT/ML 3 ML VIAL SUBCUT (09:14)
[2023-12-08 09:15] VITALS: BP 136/73; PULSE 85
[2023-12-08] MEDS: Metoprolol Tartrate 50 MG TABLET PO (09:15)
[2023-12-08] MEDS: Gabapentin 400 MG CAPSULE PO (09:15)
[2023-12-08] MEDS: Furosemide 20 MG TABLET PO (09:15)
--- NOTE | 2023-12-08 10:44 | P.DS_ITS ---
DS: Providers Provider Date of Service: 12/08/23 Date of admission: 12/04/23 04:00 Date of discharge: 12/08/23 Primary care physician: Laron Jimenez MD Consults: 12/04/23 03:16 Consult to Gastroenterology Stat Consulting Provider: Marcus Kothari Reason for consultation: choledocholithiasis Has provider been notified: Yes 12/04/23 16:24 Consult to General Surgery Routine Consulting Provider: [facility] General Surgeons Reason for consultation: cbd stones, cholangitis, s/p ercp 12/05/23 13:01 Consult to Cardiology Routine Consulting Provider: [facility] [place] Cardiovascular Services Reason for consultation: sob, abnormal EKG Attending physician on discharge: Froilan Law Discharging clinician: Valeria Baxter DS: Diagnosis Discharge Diagnosis (1) Cholelithiasis: Status: Acute (2) Acute cholangitis: Status: Acute (3) E coli bacteremia: Status: Acute DS: Summary Hospital Course Hospital Course: from admission H&P on the day of admission John Yoder is a 68 years old man with past medical history significant for type 2 diabetes mellitus, GERD, COPD, CAD and hyperlipidemia presents to the emergency department complaining of epigastric pain that started today associated with nausea and vomiting. Over the weekend he was feeling well and having chills. Denied associated diarrhea. Patient did not report headache, palpitations, chest pain or shortness on breath. HPI was limited as the patient was in severe pain. His who was at bedside contributed to the HPI. In the ED, he was found to have normal vital signs. Most recent temperature is a 100.0 degrees. Blood workup is remarkable for leukocytosis of 11.6. Hemoglobin is normal. Platelets level is 156. Corrected sodium is 135. There are no significant electrolyte imbalances. Renal function is normal. LFTs are elevated. Lipase is normal. Choledocholithiasis with mild intrahepatic and extrahepatic biliary duct dilation, diverticulosis without diverticulitis, significant atherosclerotic plaque of the abdominal aorta with a 3.2 cm infra renal abdominal aortic aneurysm and bilateral nonobstructive renal calculi. ED tx: NS 1 L bolus, morphine 4 mg IV, Zofran 4 mg IV, Zosyn 4.5 g IV, Dilaudid 0.5 mg IV. Acute HFpEF Likely from IV fluids. cxr showing inflammatory changes, not consistent with pneumonia as no fever or elevated WBC count. EKG showing PVCs but no ischemic changes. He was treated with IV lasix with good effect and transitioned to p.o. Lasix per Cardiology recommendation. He had echo which showed EF 55% with impaired relaxation filling pattern with underlying regional wall motion abnormality consistent with coronary artery disease. He was seen by cardiology and deemed to be at risk for recurrent development of CHF or cardiopulmonary complications if he underwent surgical procedure and outpatient ischemic workup prior to cholecystectomy was recommended. Breathing improved, no ongoing hypoxia, patient has been ambulating in the hallway without respiratory symptoms. Choledocholithiasis + acute cholangitis. Initially treated with Zosyn. Seen by GI and s/p ERCP 12/04/23 with multiple CBD stones removed with sphincterotomy noted to have purulent bile consistent with cholangitis. He was seen by General surgery and initially planned for inpatient cholecystectomy however given acute CHF this has been postponed and deferred to the outpatient setting with plan for outpatient follow up after ischemic workup. LFTs have been trending down. His abdominal pain has resolved and he has remained afebrile. Will repeat LFTs early next week E coli bacteremia Due to above. Initially treated with Zosyn, will transitioned to oral cefuroxime upon discharge Time Attestation Discharge Coordination Time (in mins): 40 Quality: Safe Use of Opioids Does Pt have an Active Cancer Diagnosis on the Problem List?: No Quality: Stroke Does the patient have a stroke diagnosis?: No Physical Exam Vital Signs: Vital Signs: Last Vital Signs Temp 98.3 F 12/08/23 08:00 Pulse 85 12/08/23 09:15 Resp 18 12/08/23 08:00 BP 136/73 12/08/23 09:15 Pulse Ox 94 12/08/23 08:00 O2 Del Method Room Air 12/08/23 08:00 O2 Flow Rate 2 12/05/23 15:25 BMI result Body Mass Index 24.5 Const: General: cooperative, comfortable, no acute distress, alert and awake Nutritional Appearance: average body habitus Orientation/consciousness: patient oriented x3 Resp: Effort & Inspection: normal respiratory effort, able to speak in complete sentences, no respiratory distress and no use of accessory muscles Cardio: Rate: regular rate GI: Inspection: No distended Palpation (GI): Soft to palpation and nonten michael Neuro: General: patient oriented x3 and moves all extremities Extrem: General: Yes no pedal edema DS: Data Data Completed and Pending Labs on day of discharge: Laboratory Results - last 24 hr 12/07/23 12/07/23 12/07/23 11:37 16:27 20:00 Hold Purple Top POC Glucose 220 H 202 H 242 H Total Bilirubin Direct Bilirubin AST ALT Alkaline Phosphatase Total Protein Albumin 12/08/23 12/08/23 06:22 07:40 Hold Purple Top SEE NOTE POC Glucose 192 H Total Bilirubin 2.6 H Direct Bilirubin 1.6 H AST 75 H ALT 162 H Alkaline Phosphatase 489 H Total Protein 6.4 L Albumin 3.4 L Discharge Plan Discharge Anticipated Discharge Date/Time: 12/08/23 11:03 Patient Disposition: Home, Self-Care Discharge Diagnosis: E coli bacteremia Cholangitis Choledocholithiasis Acute CHF Referrals: Laron Jimenez MD [Primary Care Provider] - 1 Week Federico Mattson MD [Physician] - 1 Week Sebas Mak MD [Physician] - 1 Week Discharge Medications: New furosemide 20 mg Tablet 20 mg PO DAILY 90 Days Qty: 90 0RF Protocol: Hold for SBP< HOLD for SBP < : 90 cefuroxime axetil 500 mg tablet 500 mg PO Q12H 6 Days Qty: 12 0RF Continued metformin 500 mg tablet extended release 24 hr 500 mg PO BID Qty: 360 1RF trazodone 100 mg tablet 100 mg PO BEDTIME PRN (Reason: insomnia) Qty: 90 1RF albuterol sulfate 90 mcg/actuation HFA aerosol inhaler 2 puff inhalation Q6H PRN (Reason: shortness of breath or wheezing) Qty: 8.5 5RF oxycodone 15 mg tablet 15 mg PO Q6H 28 Days Qty: 112 0RF metoprolol tartrate 50 mg tablet 50 mg PO BID Qty: 180 3RF glimepiride 2 mg tablet 2 mg PO DAILY albuterol sulfate 2.5 mg /3 mL (0.083 %) solution for nebulization 2.5 mg inhalation Q6H PRN (Reason: shortness of breath or wheezing) gabapentin 400 mg capsule 400 mg PO BID tamsulosin 0.4 mg capsule 0.4 mg PO BEDTIME nystatin [Nystop] 100,000 unit/gram powder 1 appl topical BEDTIME PRN (Reason: Rash) aspirin 81 mg tablet,delayed release (DR/EC) 81 mg PO DAILY nitroglycerin 0.4 mg tablet, sublingual 0.4 mg sublingual Q5M PRN (Reason: chest pain) Qty: 30 3RF Rx Instructions: do not exceed 3 doses per episode omeprazole magnesium 20 mg tablet,delayed release (DR/EC) 20 mg PO DAILY@0630 Trelegy Ellipta 200-62.5-25 mcg blister with device 1 inh inhalation DAILY Qty: 60 6RF Held rosuvastatin 40 mg tablet 40 mg PO DAILY Qty: 90 1RF Hold Instructions: hold until follow up LFTs improve Activity on Discharge: As tolerated Stand Alone Forms: Patient Portal Discharge page Print Language: Slovenian Other Ambulatory Orders: Liver Panel (Routine) Timeframe: 20231212 Facility: [facility] - Location: Laboratory Ordered By: Valeria Baxter Care Plan Goals: See below Health Concerns: Cholangitis/choledocholithiasis E coli bacteremia Acute CHF Plan of Treatment: Take Lasix as prescribed Complete entire course of antibiotics as prescribed Call to schedule follow-up appointment with Cardiology After workup with Cardiology has been completed you will need follow-up with General surgery to schedule cholecystectomy Repeat liver function tests next week as ordered Call to schedule follow-up appointment with your PCP as scheduled Returned to the emergency department if new or worsening symptoms arise Assessment: See discharge summary
[2023-12-08 11:55] VITALS: BP 146/74; PULSE 64; RESP 18; TEMP 36.8; O2SAT 96
--- NOTE | 2023-12-08 12:00 | MHC.CM.PN ---
Second IMM given 12/07. Pt is medically cleared for discharge home self-care. Pt will transport him home.
== END 2023-12-08 12:11 | disposition home or self-care (01) | DRG 444 ==
LOC: HO.ED 12-04 03:14 → HO.EDOVER 12-04 04:04 → HO.S3 12-04 20:06 → HO.IMC 12-05 14:00
PROVIDERS: Internal Medicine; Internal Medicine Gastroenterology; Nurse Practitioner Acute Care; Physician Assistant Surgical; Admitting Provider Internal Medicine; Emergency Provider Emergency Medicine; PCP Internal Medicine; Visit Provider Physician Assistant Medical
PROC: 0FC98ZZ Extirpation of Matter from Common Bile Duct, Via Natural or Artificial Opening Endoscopic (ICD-10-PCS; CPT 43260; principal; 2023-12-04 15:00)
DX: K80.32 Calculus of bile duct with acute cholangitis without obstruction (principal); I50.31 Acute diastolic (congestive) heart failure; R78.81 Bacteremia; E87.6 Hypokalemia; B96.20 Unspecified Escherichia coli [E. coli] as the cause of diseases classified elsewhere; N40.0 Benign prostatic hyperplasia without lower urinary tract symptoms; I71.43 Infrarenal abdominal aortic aneurysm, without rupture; N20.0 Calculus of kidney; E11.9 Type 2 diabetes mellitus without complications; I25.10 Atherosclerotic heart disease of native coronary artery without angina pectoris; E78.5 Hyperlipidemia, unspecified; I11.0 Hypertensive heart disease with heart failure; J44.9 Chronic obstructive pulmonary disease, unspecified; Z79.82 Long term (current) use of aspirin; Z79.84 Long term (current) use of oral hypoglycemic drugs; Z79.899 Other long term (current) drug therapy
CPT/HCPCS: 36415; 71045; 74018; 74177; 76705; 80048; 80053; 80076; 82947; 83605; 83690; 83735; 83880; 84132; 84484; 85025; 85027; 85610; 85730; 87040; 87077; 87186; 87205; 93005; 93306; 94640; 99285; C1769; C9113; J1170; J1610; J1885; J1940; J2270; J2371; J2405; J2543; J2704; J3010; J3475; J3480; J7120; Q9967

== ENCOUNTER → 2023-12-03 22:50 | Outpatient (BNV) | payer MEDICARE, SELFPAY | PROVIDERS: Admitting Provider Internal Medicine; Emergency Provider Emergency Medicine; PCP Internal Medicine; Visit Provider Internal Medicine Cardiovascular Disease | DX: R94.31 Abnormal electrocardiogram [ECG] [EKG] (principal); R10.9 Unspecified abdominal pain | CPT/HCPCS: 93010 ==

== ENCOUNTER 2023-12-04 04:00 | Outpatient (BNV) | payer MEDICARE, SELFPAY | END 2023-12-05 07:00 | PROVIDERS: Admitting Provider Internal Medicine; Emergency Provider Emergency Medicine; PCP Internal Medicine; Visit Provider Internal Medicine Cardiovascular Disease | DX: I36.1 Nonrheumatic tricuspid (valve) insufficiency (principal); R93.1 Abnormal findings on diagnostic imaging of heart and coronary circulation; I49.3 Ventricular premature depolarization; I45.81 Long QT syndrome | CPT/HCPCS: 93010; 93306 ==

== ENCOUNTER → 2023-12-04 04:00 | Outpatient (BNV) | payer MEDICARE, SELFPAY | PROVIDERS: Admitting Provider Internal Medicine; Emergency Provider Emergency Medicine; PCP Internal Medicine; Visit Provider Internal Medicine | DX: K80.20 Calculus of gallbladder without cholecystitis without obstruction (principal); K83.09 Other cholangitis; R78.81 Bacteremia; B96.20 Unspecified Escherichia coli [E. coli] as the cause of diseases classified elsewhere | CPT/HCPCS: 99223; 99232; 99239; 99499 ==

== ENCOUNTER → 2023-12-04 04:00 | Outpatient (BNV) | payer MEDICARE, SELFPAY | PROVIDERS: Admitting Provider Internal Medicine; Emergency Provider Emergency Medicine; PCP Internal Medicine; Visit Provider Internal Medicine Cardiovascular Disease | DX: I50.9 Heart failure, unspecified (principal) | CPT/HCPCS: 99222; 99233 ==

== ENCOUNTER → 2023-12-04 04:00 | Outpatient (BNV) | payer MEDICARE, SELFPAY | PROVIDERS: Admitting Provider Internal Medicine; Emergency Provider Emergency Medicine; PCP Internal Medicine; Visit Provider Surgery | DX: K80.20 Calculus of gallbladder without cholecystitis without obstruction (principal); K83.09 Other cholangitis; K80.50 Calculus of bile duct without cholangitis or cholecystitis without obstruction | CPT/HCPCS: 99223; 99232 ==

== ENCOUNTER 2023-12-14 12:47 | Outpatient (REF) | payer MEDICARE, SELFPAY ==
[2023-12-14 11:15] VITALS: PULSE 66; RESP 16; O2SAT 98
--- NOTE | 2023-12-14 14:51 | PFT_ITS ---
Flows: FEV1: 56 % of predicted at 1.56 L FVC: 74 % of predicted at 2.74 L FEV1/FVC: 57 % Bronchodilator response: Present Volumes: Total lung capacity: 90 % of predicted at 5.61 L Residual volume: 147 % of predicted at 3.26 L Slow vital capacity: 59 % of predicted at 2.35 L Expiratory reserve volume: 66 % of predicted at 0.67 L Diffusion capacity: Normal Impression: Moderate to severe obstructive ventilatory defect with positive bronchodilator response. Increased residual volume suggests air trapping. MTDD
[2023-12-14 14:57] LABS: Alanine Aminotransferase 67 U/L (0-40); Alkaline Phosphatase 349 U/L (39-117); Aspartate Amino Transferase 25 U/L (5-37); Bilirubin Direct 0.6 mg/dL (0.0-0.5); Total Protein 7.6 g/dL (6.5-8.0)
== END 2023-12-14 12:48 | disposition home or self-care (01) ==
LOC: HO.RESP 12:47
PROVIDERS: Absent Provider Physician Assistant Medical; PCP Internal Medicine; Visit Provider Nurse Practitioner Family
DX: J44.9 Chronic obstructive pulmonary disease, unspecified (principal); K83.09 Other cholangitis
CPT/HCPCS: 36415; 80076; 94010; 94640; 94727; 94729

== ENCOUNTER 2023-12-14 14:00 | Outpatient (REF) | payer MEDICARE, SELFPAY ==
--- NOTE | ~2023-12-14 | CT_ITS ---
EXAMINATION: CT CHEST WITHOUT CONTRAST CLINICAL INFORMATION: Nicotine dependence COMPARISON: Chest radiograph 12/05/2023, CT abdomen pelvis 12/04/2023 TECHNIQUE: Multidetector volumetric CT imaging of the chest was done. Axial MIP volume rendering provided. Sagittal and coronal reformatted images were obtained. This CT examination was performed using dose optimization techniques as appropriate, variously including the following: *Automated exposure control *Adjustment of mA and/or kV according to patient size (this includes techniques or standardized protocols for targeted exams where dose is matched to indication/reason for exam; i.e. extremities or head) *Use of iterative reconstruction technique DLP: 137 mGy-cm FINDINGS: LUNGS: Some minimal emphysematous changes are present and there is mild diffuse bronchial thickening. There is a 5 mm groundglass nodule at the right apex anteriorly (5:141). The lungs are otherwise clear with no evidence of inflammation or nodules. MEDIASTINUM: Status post median sternotomy and CABG CORONARY ARTERY CALCIFICATION: Marked PLEURA: There is no pleural effusion. No pleural mass or thickening. AXILLA: No lymphadenopathy. UPPER ABDOMEN: Unremarkable. A benign left upper pole 1.8 cm Bosniak class I renal cyst is noted which requires no additional imaging or follow up. No solid renal masses are seen. OSSEOUS STRUCTURES: Unremarkable. CT/CT chest wo IV con IMPRESSION: 1. Minimal emphysematous changes and mild diffuse bronchial thickening. 2. 5 mm groundglass nodule right apex. No follow-up is recommended 3. Other incidental findings as described above. According to the UPDATED 2017 Fleischner Society recommendations, the advised follow-up imaging for a single ground glass nodule <6 mm is no routine follow-up.
== END 2023-12-14 14:01 | disposition home or self-care (01) ==
LOC: HO.CT 14:00
PROVIDERS: PCP Internal Medicine; Visit Provider Nurse Practitioner Family
DX: R05.9 Cough, unspecified (principal); F17.210 Nicotine dependence, cigarettes, uncomplicated
CPT/HCPCS: 71250

== ENCOUNTER → 2023-12-14 14:51 | Outpatient (BNV) | payer MEDICARE, SELFPAY | PROVIDERS: Absent Provider Physician Assistant Medical; PCP Internal Medicine; Visit Provider Internal Medicine Pulmonary Disease | DX: J44.9 Chronic obstructive pulmonary disease, unspecified (principal) | CPT/HCPCS: 94060; 94727; 94729 ==

== ENCOUNTER 2023-12-24 13:49 | Outpatient (AMB) | payer MEDICARE, SELFPAY ==
[2023-12-24 13:58] VITALS: BP 114/62; PULSE 65; O2SAT 96; BMI 25.8
--- NOTE | 2023-12-24 13:58 | MHC.OFFVIS ---
Vital Signs 12/24/23 13:58 Height 5 ft 6 in Weight 159 lb 13.362 oz BMI 25.8 BP 114/62 Blood Pressure Location Rt brachial Position Sitting Pulse 65 Pulse Source Pulse Oximeter Pulse Oximetry (%) 96 Oxygen Delivery Method Room Air Intake Visit Reasons: COPD Allergies No Known Allergies Allergy (Verified 12/24/23 14:01) HPI HPI COPD: Details: John is a pleasant 68 year old male, current smoker 1/2 ppd with 50+ pack year history, with underlying COPD, asthma, h/o coronary artery bypass x 3 in 2002, insomnia,GERD, DMII, HTN, BPH, and tietze's syndrome. He was suboptimally controlled on Spiriva and albuterol MDI, so he was switched to Trelegy. Since initiating he reports significant improvements in respiratory symptoms. He reports decreased occurrences of wheezing and productive cough as well as improvement in dyspnea. Today he presents to review PFT and chest CT. [facility] Medical History (Updated 12/24/23 @ 21:31 by Emelia Hope NP) Acute cholangitis Hypotestosteronism Colonoscopy refused Allergy to metal Chest wall discomfort Insomnia Pure hypercholesterolemia Overweight (BMI 25.0-29.9) Smoker Depression Benign prostatic hyperplasia GERD without esophagitis COPD (chronic obstructive pulmonary disease) Diabetes mellitus Tietze's syndrome Coronary artery disease Hyperlipidemia Surgical History (Updated 12/16/23 @ 00:01 by Chandrakant Vitale) History of coronary artery bypass graft (~2002) Family History Father Liver problem Cancer Mother CVD (cardiovascular disease) COPD (chronic obstructive pulmonary disease) Brother Myocardial infarction Brother S/P CABG x 1 CVD (cardiovascular disease) Family/Other FH: mental illness Daughter Substance abuse Social History Household Members: Spouse Housing: House Alcohol intake: current Alcohol intake frequency: does not drink Patient Tobacco Use Status: Current everyday Tobacco user Tobacco use type: Cigar Cigarette Packs Per Day: 0.5 Cigarettes Per Day: 10 e-Cigarette/Vaping Use: Never Used Second Hand Smoke Exposure: Yes service: No Current occupational status: retired Cognitive needs: No Hearing needs: No Vision needs: Yes Review of Systems Const Denies chills, Denies excessive sweating, Denies fever(s), Denies headache(s) and Denies night sweats Eyes Denies dry eyes, Denies irritation and Denies itchy eyes ENT Reports Normal hearing present and Denies headache(s) Card Denies chest pain, Denies chest pain at rest, Denies chest pain with activity, Denies claudication, Denies leg edema, Denies orthopnea and Denies paroxysmal nocturnal dyspnea Resp Denies chest congestion, Denies excessive phlegm production, Denies pain on inspiration, Denies pain with cough and Denies stridor Musc Denies myalgias Neuro Reports Normal hearing present and Denies headache(s) Endo Denies excessive sweating Joaquin/Lymph Denies lymphadenopathy Aller/Immun Denies itchy eyes and Denies seasonal rhinorrhea Physical Exam Vital Signs: Last Vital Signs Pulse 65 12/24/23 13:58 BP 114/62 12/24/23 13:58 Pulse Ox 96 12/24/23 13:58 Oxygen Delivery Method Room Air 12/24/23 13:58 BMI result Body Mass Index 25.8 Const General: cooperative, healthy appearing, comfortable, no acute distress, well developed and alert Orientation/consciousness: patient oriented x3 Limitations: no limitations HEENT Head: Yes normal to inspection, Yes normocephalic and Yes atraumatic Ears: hearing grossly normal bilaterally and external ears normal Eyes General: appearance normal, both eyes and all related structures Eyelids: Yes eyelids normal Sclerae: sclerae normal EOM: EOMs intact bilaterally Neck Neck: Yes normal visual inspection and Yes no lymphadenopathy Lymphatic: no lymphadenopathy noted Chest Chest palpation & inspection: normal inspection of the chest Resp Effort & Inspection: normal respiratory effort, able to speak in complete sentences, no audible wheezes, no cough, no stridor, not tachypneic, no tripod positioning and no use of accessory muscles Auscultation: diminished lung sounds Cardio Jugular venous distension: no JVD Rate: regular rate Rhythm: regular rhythm Skin Other: warm, dry General skin exam: no rashes or lesions noted Neuro General: patient oriented x3 Cranial nerves: Yes Normal hearing present Cognition (Neuro): normal cognition Gait exam (Neuro): Normal gait present Extrem General: Yes normal to inspection, Yes capillary refill normal, Yes no clubbing, cyanosis or edema and Yes no pedal edema Psych Appearance: grossly normal and well kempt Speech and movement: Normal speech and movement present and Clear speech present Affect: normal affect Attitude: cooperative Thought process: Normal thought process present Thought content: Normal thought content present Insight: Good insight present (Psych) Judgement: Good judgement present (Psych) Results Reviewed Results Reviewed: [address] [address] [address] Scan Report Signed Patient: John Yoder MR#: [id number] : 1955 Acct:[id number] Age/Sex: 68 / M ADM Date: 12/14/23 Loc: HO.CT Attending Dr: Emelia Hope NP Ordering Physician: Emelia Hope NP Date of Service: 12/14/23 Procedure(s): CT chest wo IV con Accession Number(s): [id number] cc: Laron Jimenez MD; Emelia Hope NP~ EXAMINATION: CT CHEST WITHOUT CONTRAST CLINICAL INFORMATION: Nicotine dependence COMPARISON: Chest radiograph 12/05/2023, CT abdomen pelvis 12/04/2023 TECHNIQUE: Multidetector volumetric CT imaging of the chest was done. Axial MIP volume rendering provided. Sagittal and coronal reformatted images were obtained. This CT examination was performed using dose optimization techniques as appropriate, variously including the following: *Automated exposure control *Adjustment of mA and/or kV according to patient size (this includes techniques or standardized protocols for targeted exams where dose is matched to indication/reason for exam; i.e. extremities or head) *Use of iterative reconstruction technique DLP: 137 mGy-cm FINDINGS: LUNGS: Some minimal emphysematous changes are present and there is mild diffuse bronchial thickening. There is a 5 mm groundglass nodule at the right apex anteriorly (5:141). The lungs are otherwise clear with no evidence of inflammation or nodules. MEDIASTINUM: Status post median sternotomy and CABG CORONARY ARTERY CALCIFICATION: Marked PLEURA: There is no pleural effusion. No pleural mass or thickening. AXILLA: No lymphadenopathy. UPPER ABDOMEN: Unremarkable. A benign left upper pole 1.8 cm Bosniak class I renal cyst is noted which requires no additional imaging or follow up. No solid renal masses are seen. OSSEOUS STRUCTURES: Unremarkable. CT/CT chest wo IV con IMPRESSION: 1. Minimal emphysematous changes and mild diffuse bronchial thickening. 2. 5 mm groundglass nodule right apex. No follow-up is recommended 3. Other incidental findings as described above. According to the UPDATED 2017 Fleischner Society recommendations, the advised follow-up imaging for a single ground glass nodule <6 mm is no routine follow-up. Dictated By: Baldemar Chan MD Signed By: <Electronically signed by Baldemar Chan MD in OV> 12/20/23 1204 DD/ 1421 TD/TT: Dietary Services Director: CARO Assessment & Plan Assessment & Plan (1) COPD (chronic obstructive pulmonary disease): Code(s): J44.9 - Chronic obstructive pulmonary disease, unspecified Category: Medical Qualifiers: COPD type: unspecified COPD Qualified Code(s): J44.9 - Chronic obstructive pulmonary disease, unspecified (2) Nicotine dependence, cigarettes, uncomplicated: Code(s): F17.210 - Nicotine dependence, cigarettes, uncomplicated Category: Medical (3) Cough: Code(s): R05.9 - Cough, unspecified Category: Medical (4) Encounter for preoperative pulmonary examination: Code(s): Z01.811 - Encounter for preprocedural respiratory examination Category: Medical (5) Pulmonary nodule: Code(s): R91.1 - Solitary pulmonary nodule Category: Medical Plan Reviewed PFT which revealed moderate to severe obstructive ventilatory defect with positive bronchodilator response. Increased residual volume suggests air trapping. Reviewed chest CT which revealed mild emphysematous changes with mild diffuse bronchial thickening as well as 5 mm groundglass nodule right apex. Given patient continues to smoke, will schedule for chest CT in one year. Respiratory exam unremarkable today. Patient reports improvements in respiratory symptoms since switching to Trelegy, advised to continue. At the last visit, 6MWT performed and patient does not require supplemental oxygen. At this time, patient would be considered low risk for pulmonary complications for proposed colonoscopy. All questions were answered and patient is in agreement of plan. Will follow up in 6 months or sooner if needed. Orders: Orders CT chest wo IV con 11 Months F17.210 - Nicotine dependence, cigarettes, uncomplicated, R91.1 - Solitary pulmonary nodule Coding Level of Care Code Est Pt Level 4 (49195) Diagnoses Chronic obstructive pulmonary disease, unspecified COPD type J44.9 COPD type: unspecified COPD Nicotine dependence, cigarettes, uncomplicated F17.210 Cough R05.9 Encounter for preoperative pulmonary examination Z01.811 Pulmonary nodule R91.1
== END 2023-12-24 14:47 | disposition home or self-care (01) ==
PROVIDERS: PCP Internal Medicine; Visit Provider Nurse Practitioner Family
DX: J44.9 Chronic obstructive pulmonary disease, unspecified (principal); F17.210 Nicotine dependence, cigarettes, uncomplicated; R05.9 Cough, unspecified; Z01.811 Encounter for preprocedural respiratory examination; R91.1 Solitary pulmonary nodule
CPT/HCPCS: 99214

== ENCOUNTER → 2023-12-24 13:49 | Outpatient (BNVA) | payer MEDICARE, SELFPAY | PROVIDERS: PCP Internal Medicine; Visit Provider Nurse Practitioner Family | DX: Z01.811 Encounter for preprocedural respiratory examination (principal); J44.9 Chronic obstructive pulmonary disease, unspecified; R05.9 Cough, unspecified; R91.1 Solitary pulmonary nodule; F17.210 Nicotine dependence, cigarettes, uncomplicated | CPT/HCPCS: 99212 ==

== ENCOUNTER 2024-01-03 14:02 | Outpatient (AMB) | payer MEDICARE, SELFPAY ==
[2024-01-03 14:12] VITALS: BP 118/60; PULSE 62; BMI 24.9
--- NOTE | 2024-01-03 14:12 | MHC.OFFVIS ---
Vital Signs 01/03/24 14:12 Height 5 ft 6 in Weight 154 lb 5.177 oz BMI 24.9 BP 118/60 Blood Pressure Location Lt brachial Position Sitting Pulse 62 Pulse Source Monitor Intake Visit Reasons: [facility] 12/04 ed - chest pain (NS) Allergies No Known Allergies Allergy (Verified 12/24/23 14:01) HPI Comments Details: 68-year-old male is here for a follow-up and to discuss cardiac clearance for a cholecystectomy. He was in the hospital and Dr. Mak consulted on him on 12/05/2023 due to shortness of breath. He reports he has been doing well. He denies any chest pains, shortness of breath, swelling, orthopnea, or palpitations. [facility] Medical History (Updated 12/24/23 @ 21:31 by Emelia Hope NP) Acute cholangitis Hypotestosteronism Colonoscopy refused Allergy to metal Chest wall discomfort Insomnia Pure hypercholesterolemia Overweight (BMI 25.0-29.9) Smoker Depression Benign prostatic hyperplasia GERD without esophagitis COPD (chronic obstructive pulmonary disease) Diabetes mellitus Tietze's syndrome Coronary artery disease Hyperlipidemia Surgical History (Updated 12/16/23 @ 00:01 by Chandrakant Vitale) History of coronary artery bypass graft (~2002) Family History Father Liver problem Cancer Mother CVD (cardiovascular disease) COPD (chronic obstructive pulmonary disease) Brother Myocardial infarction Brother S/P CABG x 1 CVD (cardiovascular disease) Family/Other FH: mental illness Daughter Substance abuse Social History Household Members: Spouse Housing: House Alcohol intake: current Alcohol intake frequency: does not drink Patient Tobacco Use Status: Current everyday Tobacco user Tobacco use type: Cigar Cigarette Packs Per Day: 0.5 Cigarettes Per Day: 10 e-Cigarette/Vaping Use: Never Used Second Hand Smoke Exposure: Yes service: No Current occupational status: retired Cognitive needs: No Hearing needs: No Vision needs: Yes Review of Systems Const Denies weakness ENT Denies dizziness Card Denies chest pain, Denies chest pain with activity, Denies syncope, Denies rapid heart rate, Denies pedal edema, Denies edema, Denies leg edema, Denies lightheadedness, Denies palpitations, Denies dyspnea, Denies dyspnea on exertion and Denies orthopnea Resp Denies cough, Denies dyspnea and Denies dyspnea on exertion GI Denies hematochezia and Denies change in stool character Musc Denies abnormal gait, Denies muscle cramps, Denies muscle weakness, Denies numbness, Denies radiating pain into limb and Denies tingling Neuro Denies abnormal gait, Denies dizziness, Denies syncope, Denies numbness, Denies tingling and Denies weakness Endo Denies palpitations Physical Exam Vital Signs: Last Vital Signs Pulse 62 01/03/24 14:12 BP 118/60 01/03/24 14:12 BMI result Body Mass Index 24.9 Assessment & Plan Assessment & Plan (1) Coronary artery disease: Code(s): I25.10 - Atherosclerotic heart disease of [place] coronary artery without angina pectoris Category: Medical Qualifiers: Associated angina: without angina Coronary Disease-Associated Artery/Lesion type: [place] artery [place] vs. transplanted heart: [place] heart Qualified Code(s): I25.10 - Atherosclerotic heart disease of [place] coronary artery without angina pectoris (2) Pre-operative cardiovascular examination: Code(s): Z01.810 - Encounter for preprocedural cardiovascular examination (3) Acute CHF: Code(s): I50.9 - Heart failure, unspecified Category: Medical Plan No anginal symptoms. On aspirin 81mg, metorpolol tartrate 50mg, and has nitroglycerin. Will order CTA to assess for ischemia. Is planning to undergo cholecystectomy. No signs of fluid overload. On furosimide 20mg. Daily weights and salt avoidance. Daily weights recommended. Will repeat labs. Orders: Orders Basic Metabolic Panel 01/03/24 I25.10 - Atherosclerotic heart disease of [place] coronary artery without angina pectoris Lipid Panel 01/03/24 I25.10 - Atherosclerotic heart disease of [place] coronary artery without angina pectoris Liver Panel 01/03/24 I25.10 - Atherosclerotic heart disease of [place] coronary artery without angina pectoris B Type Natriuretic Peptide 01/03/24 I25.10 - Atherosclerotic heart disease of [place] coronary artery without angina pectoris Coding Level of Care Code Est Pt Level 4 (47148) Diagnoses Coronary artery disease involving [place] coronary artery of [place] heart without angina pectoris I25.10 Associated angina: without angina Coronary Disease-Associated Artery/Lesion type: [place] artery [place] vs. transplanted heart: [place] heart Pre-operative cardiovascular examination Z01.810 Acute CHF I50.9
== END 2024-01-03 14:58 | disposition home or self-care (01) ==
PROVIDERS: PCP Internal Medicine; Visit Provider Nurse Practitioner
DX: I25.10 Atherosclerotic heart disease of native coronary artery without angina pectoris (principal); Z01.810 Encounter for preprocedural cardiovascular examination; I50.9 Heart failure, unspecified
CPT/HCPCS: 93010; 99214

== ENCOUNTER → 2024-01-03 14:02 | Outpatient (BNVA) | payer MEDICARE, SELFPAY | PROVIDERS: PCP Internal Medicine; Visit Provider Nurse Practitioner | DX: Z01.810 Encounter for preprocedural cardiovascular examination (principal); I25.10 Atherosclerotic heart disease of native coronary artery without angina pectoris; I50.9 Heart failure, unspecified | CPT/HCPCS: 93005; 99212 ==

== ENCOUNTER 2024-01-17 11:09 | Outpatient (REF) | payer MEDICARE, SELFPAY ==
[2024-01-17 13:29] LABS: Appearance Urine Clear; Color Urine Yellow; Glucose Urine UA Negative (Negative); Leukocyte Esterase Urine Trace (Negative); Nitrite Urine Negative (Negative); PH 6.5 (5.0-9.0); Specific Gravity - Urine 1.015 (1.005-1.025); UMIC TRIGGER UACC YES; Urine Blood Negative (Negative); Urine Ketones Negative (Negative); Urine Protein Trace mg/dL (Neg-Trace)
[2024-01-17 13:43] LABS: B Type Natriuretic Peptide 110 pg/mL (<100)
[2024-01-17 13:44] LABS: Bacteria Urine None Seen (None Seen); Hyaline Casts Urine 0-2 /LPF (0-2); RBC Urine 0-2 /HPF (0-2); Squamous Epithelial Cell Urine 0-2 /HPF (0-2); WBC Urine 0-5 /HPF (0-5)
[2024-01-17 14:13] LABS: MANUAL DIFF FLAG NO
[2024-01-17 14:19] LABS: Basophils Absolute Auto 0.1 X10*3/uL (0.0-0.2); Basophils Percent Auto 0.9 % (0-2); Eosinophils Absolute Auto 0.2 X10*3/uL (0.0-0.4); Eosinophils Percent Auto 2.5 % (0-4); Hematocrit 45.5 % (42.0-52.0); Hemoglobin 15.8 g/dl (14.0-18.0); Imm Gran Abs Auto 0.03 X10*3/uL (0.00-0.03); Imm Gran Pct Auto 0.3 % (0.0-0.4); Lymphocytes Absolute Auto 1.9 X10*3/uL (1.2-4.9); Lymphocytes Percent Auto 19.8 % (20-40); Mean Corpuscular HGB Conc 34.7 g/dl (31.0-36.0); Mean Corpuscular Volume 89.4 fL (80.0-98.0); Mean Platelet Volume 9.8 fL (9.4-12.4); Monocytes Absolute Auto 0.7 X10*3/uL (0.1-1.2); Monocytes Percent Auto 7.9 % (2-11); Neutrophils Absolute Auto 6.4 x10*3/uL (2.0-8.3); Neutrophils Percent Auto 68.6 % (45-73); Platelet Count 255 X10*3/uL (160-400); Red Blood Count 5.09 X10*6/uL (4.60-5.80); Red Cell Distribution Width 14.6 % (11.0-16.0); White Blood Count 9.4 X10*3/uL (4.8-10.8)
[2024-01-17 14:34] LABS: Estimated Average Glucose 189 mg/dL; Hemoglobin A1c % 8.2 % (<6.0)
[2024-01-17 14:42] LABS: Alanine Aminotransferase 14 U/L (0-40); Alkaline Phosphatase 120 U/L (39-117); Anion Gap 14 (12-20); Aspartate Amino Transferase 17 U/L (5-37); Bilirubin Direct 0.2 mg/dL (0.0-0.5); Bilirubin Total 0.6 mg/dL (0.0-1.0); Blood Urea Nitrogen 9 mg/dL (9-16); Calcium 9.4 mg/dL (8.4-10.2); Carbon Dioxide 27 mmol/L (22-29); Chloride 100 mmol/L (96-108); Cholesterol 295 mg/dL (<200); Estimated Glomerular Filt Rate > 60; Glucose Fasting 164 mg/dL (60-99); Glucose Random 165 mg/dL (60-115); HDL Cholesterol 41 mg/dL (>40); LDL Cholesterol Calculated 214 mg/dL (<100); Sodium 137 mmol/L (135-145); Total Protein 7.3 g/dL (6.5-8.0); Triglycerides 201 mg/dL (<150)
[2024-01-17 14:47] LABS: Creatinine Urine 114.59 mg/dL; Microalbum/Creatinine Ratio Ur 26.1 ug/mg cr (<30)
[2024-01-17 14:56] LABS: TSH reflex Free T4 1.12 uIU/mL (0.32-4.0); Vitamin D 25-OH Total 30.3 ng/mL (>30)
== END 2024-01-17 11:10 | disposition home or self-care (01) ==
LOC: HO.HMGCLDS 11:09
PROVIDERS: PCP Internal Medicine; Referring Provider Nurse Practitioner; Visit Provider Internal Medicine
DX: E11.9 Type 2 diabetes mellitus without complications (principal); I25.10 Atherosclerotic heart disease of native coronary artery without angina pectoris; E55.9 Vitamin D deficiency, unspecified; R30.0 Dysuria; E78.00 Pure hypercholesterolemia, unspecified; D64.9 Anemia, unspecified
CPT/HCPCS: 36415; 80048; 80053; 80061; 80076; 81001; 82043; 82248; 82306; 82570; 83036; 83880; 84443; 85025

== ENCOUNTER 2024-01-18 13:32 | Outpatient (AMB) | payer MEDICARE, SELFPAY ==
--- NOTE | 2024-01-18 13:40 | A.OFFPC_ITS ---
Vital Signs 01/18/24 13:42 Height 5 ft 6 in Weight 157 lb 4 oz BMI 25.4 BP 100/66 Blood Pressure Location Lt brachial Position Sitting Pulse 59 Pulse Source Pulse Oximeter Pulse Oximetry (%) 95 Oxygen Delivery Method Room Air Intake Visit Reasons: 3mth f/u Intake Note: Patient is here to follow up on DM, CHF, COPD, Hypercholesterolemia. 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 Autocutter: Present Accompanied by: Spouse Allergies No Known Allergies Allergy (Verified 01/18/24 14:27) Medication List - Last Reconciled 01/18/24 by Laron Jimenez MD albuterol sulfate 2.5 mg inhalation Q6H PRN albuterol sulfate 90 mcg/actuation 2 puffs inhalation Q6H PRN aspirin 81 mg PO DAILY calyxygqbjk-vnqetuykf-fjsnubqt 200-62.5-25 mcg (Trelegy Ellipta) 1 inh inhalation DAILY furosemide 20 mg See Protocol PO DAILY gabapentin 400 mg PO BID glimepiride 2 mg PO DAILY metformin ER 500 mg PO BID metoprolol tartrate 50 mg PO BID nitroglycerin 0.4 mg sublingual Q5M PRN nystatin (Nystop) 1 appl topical BEDTIME PRN omeprazole magnesium 20 mg PO DAILY@0630 oxycodone 15 mg PO Q6H 28 days tamsulosin 0.4 mg PO BEDTIME trazodone 100 mg PO BEDTIME PRN Tobacco use date assessed: 01/18/24 Fall risk assessment: No Falls in past year Last assessed Fall Risk: 01/18/24 Dental Screening Dental Screen Date: 10/05/23 HPI 3mth f/u HPI Details Patient comes in today for his follow-up visit He was admitted to [facility] for a few days last month after he presented to the emergency room with nausea, vomiting and epigastric pain He was also reporting some chills at that time and was found to have a fever of up to 100 degrees F in the emergency room Labs done revealed leukocytosis of 11,600, LFTs were elevated, lipase was normal Abdominal and pelvic CT done revealed choledocholithiasis with mild intrahepatic and extrahepatic biliary duct dilatation, diverticulosis without diverticulitis, significant atherosclerotic plaque of the abdominal aorta with a 3.2 cm infrarenal abdominal aortic aneurysm and bilateral nonobstructive renal calculi Patient was admitted to the hospital, given some IV fluids and started on IV Zosyn He was seen by Gastroenterology and underwent ERCP with multiple CBD stones removed with sphincterotomy He was also noted to have purulent bile consistent with cholangitis He was seen by General surgery and was planned to have cholecystectomy done initially but symptoms of acute CHF made them postpone the surgery and defer it to the outpatient setting Patient's symptoms gradually improved with medical management and he was later transitioned from IV Zosyn to oral cefuroxime prior to discharge He was sent home with instructions to follow-up with surgery, Cardiology and with his PCP He was also instructed to have repeat labs done in a few weeks as his rosuvastatin was held when he was and the hospital due to his elevated LFTs so these need to be followed up soon Patient states that he currently feels okay and that his previous GI symptoms have all resolved He denies any fever, headaches or dizziness Denies any chest pains, no increased shortness of breath No change in bowel habits noted He will need his Albuterol inhaler Rx refilled today He had his follow-up labs done yesterday - to discuss his results He has already seen Pulmonary and Cardiology earlier this month for follow-up [facility] Medical History Acute cholangitis Hypotestosteronism Colonoscopy refused Allergy to metal Chest wall discomfort Insomnia Pure hypercholesterolemia Overweight (BMI 25.0-29.9) Smoker Depression Benign prostatic hyperplasia GERD without esophagitis COPD (chronic obstructive pulmonary disease) Diabetes mellitus Tietze's syndrome Coronary artery disease Hyperlipidemia Surgical History History of cholecystectomy History of coronary artery bypass graft (~2002) Family History Father Liver problem Cancer Mother CVD (cardiovascular disease) COPD (chronic obstructive pulmonary disease) Brother Myocardial infarction Brother S/P CABG x 1 CVD (cardiovascular disease) Family/Other FH: mental illness Daughter Substance abuse Social History Household Members: Spouse Housing: House Alcohol intake: current Alcohol intake frequency: does not drink Patient Tobacco Use Status: Current everyday Tobacco user Tobacco use type: Cigar Cigarette Packs Per Day: 0.5 Cigarettes Per Day: 10 e-Cigarette/Vaping Use: Never Used Second Hand Smoke Exposure: Yes service: No Current occupational status: retired Cognitive needs: No Hearing needs: No Vision needs: Yes Questionnaire Thrive Questionnaire Date Thrive assessed: 12/04/23 BUDDY-7 AMB Questionnaire BUDDY-7 Date BUDDY - 7 assessed: 10/05/23 Source: Developed by Drs. Marcus Benites, Amrita Canseco, Finesse Coleman and colleagues, with an educational isauro from [employer]. Review of Systems Const Denies chills, Reports difficulty sleeping (mostly in falling asleep), Reports fatigue, Denies fever(s), Denies headache(s) and Denies night sweats ENT Denies dysphagia, Denies dizziness, Denies otalgia, Denies headache(s), Denies neck pain, Denies odynophagia and Denies sore throat Card Reports chest pain (chronic - over the anterior chest wall) and Reports dyspnea on exertion (mild) Resp Denies chest congestion, Denies cough, Reports dyspnea on exertion (mild) and Denies wheezing GI Denies abdominal pain, Denies constipation, Denies dysphagia, Denies heartburn, Denies diarrhea, Denies nausea, Denies odynophagia and Denies vomiting Reports difficulty urinating (at times), Denies dysuria, Reports nocturia and Reports urinary frequency Musc Denies back pain, Reports arthralgias (in both hands and feet, on and off but worse in AM and at night; right knee), Denies muscle weakness and Denies neck pain Skin/Breast Denies rash Neuro Denies dizziness and Denies headache(s) Endo Reports fatigue Aller/Immun Denies wheezing Physical exam (Primary Care) Vital Signs: Last Vital Signs Pulse 59 01/18/24 13:42 BP 100/66 01/18/24 13:42 Pulse Ox 95 01/18/24 13:42 Oxygen Delivery Method Room Air 01/18/24 13:42 BMI result Body Mass Index 25.4 Tobacco/Smoking Status: Tobacco use Status Tobacco use date assessed 01/18/24 01/18/24 13:49 Patient Tobacco Use Status Current everyday Tobacco 01/18/24 13:49 Tobacco use type Cigarette 01/18/24 13:49 e-Cigarette/Vaping Use Never Used 01/18/24 13:49 Thrive Assessment: Date of Thrive Assessment Date Thrive assessed 12/04/23 01/18/24 13:49 Const General: no acute distress and alert HENMT Ears: TM's normal bilaterally and EAC's normal Throat: Yes posterior oropharynx normal and Yes tonsils normal Neck Neck: Yes supple Thyroid: Thyroid normal Lymphatic: no lymphadenopathy noted Chest Chest palpation & inspection: tenderness (over the entire anterior chest wall - CHRONIC) Resp Auscultation: no rales, no wheezes and diminished lung sounds bilateral (slightly) Cardio Rate: regular rate Rhythm: regular rhythm Heart sounds: no murmurs GI Palpation (GI): Soft to palpation and nontender Auscultation: normal bowel sounds General: Yes no CVA tenderness Back/Spine/Pelvis Back: no CVA tenderness Cervical Spine: No Cervical spine tenderness Thoracic/Lumbar Spine: No lumbar spinal tenderness Skin Rashes: no rashes Extrem General: Yes no clubbing, cyanosis or edema Right lower extremity: knee Details: tenderness Location: of the medial joint line; no swelling Results Reviewed Results Reviewed: Laboratory Tests 01/17/24 01/17/24 01/17/24 11:15 11:20 11:33 WBC 9.4 Hgb 15.8 Hct 45.5 Plt Count 255 D Sodium 137 Potassium 4.0 D Creatinine 0.76 Estimated GFR > 60 Fasting Glucose 164 H Hemoglobin A1c % 8.2 H AST 17 ALT 14 B-Natriuretic Peptide 110 H Triglycerides 201 H Cholesterol 295 H LDL Cholesterol, Calc 214 H HDL Cholesterol 41 25-OH Vitamin D Total 30.3 L TSH 1.12 Ur Specific Crawford 1.015 Urine Protein Trace Urine Glucose (UA) Negative Urine Blood Negative Urine Nitrite Negative Ur Leukocyte Esterase Trace H Microalb/Creat Ratio 26.1 Assessment and Plan Assessment & Plan (1) Choledocholithiasis: Code(s): K80.50 - Calculus of bile duct without cholangitis or cholecystitis without obstruction Plan: S/P ERCP, GB stone extraction and sphincterotomy last month (November 2023) with GI He was initially scheduled for cholecystectomy by surgery but was found to have acute cholangitis at the time and surgery was postponed He will be following up with surgery on an outpatient basis and cholecystectomy will be scheduled once he is cleared by Cardiology (2) Acute cholangitis: Code(s): K83.09 - Other cholangitis Plan: Resolved - S/P Abx Tx with IV Zosyn initially, which was transitioned to oral Cefuroxime when patient was discharged Patient states that he completed his antibiotics and his GI symptoms are mostly resolved at present (3) Pure hypercholesterolemia: Code(s): E78.00 - Pure hypercholesterolemia, unspecified Plan: Results of his labs done yesterday reviewed and discussed with patient - he is advised that his cholesterol levels have increased significantly from previous as his Rosuvastatin was stopped due to his elevated LFTs last month Reinforced low cholesterol diet He is advised that his LFTs are now back to normal on his recent labs and he should start back on Rosuvastatin 40 mg QD Will recheck his labs and fasting lipids in 3 months for follow up (4) Coronary artery disease: Code(s): I25.10 - Atherosclerotic heart disease of [place] coronary artery without angina pectoris Qualifiers: Coronary Disease-Associated Artery/Lesion type: [place] artery [place] vs. 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 [Tietze] Plan: Continue Oxycodone 15 mg every 6 hours as needed for increased pain and Gabapentin 300 mg TID Was seen by pain management for his chronic chest wall pain a couple of years ago and has been advised that his chronic chest pains may be due to an allergic reaction to the wires used to hold his sternum and ribs in place following his sternotomy and recommended that he have them removed but patient does not wish to pursue this option further He was then referred to allergy/immunology to check him for allergy to metals, potentially his guide wire, and if he is, then we have a more urgent and valid reason to have his sternotomy wires removed - he was scheduled to see roll hauler sometime last year for initial consultation but patient also failed to keep his appointment States that he does not wish to pursue this further Follow up with [facility] Pain Management as scheduled (6) Diabetes mellitus: Code(s): E11.9 - Type 2 diabetes mellitus without complications Qualifiers: Diabetes mellitus type: type 2 Diabetes mellitus halfway insulin use: without halfway use Diabetes mellitus complication status: without complication Qualified Code(s): E11.9 - Type 2 diabetes mellitus without complications Plan: His HgbA1c has increased to 8.2% from 7.9% on his recent labs (was at 7.9% a few months ago) - goal is < 7.0% Reinforced diabetic diet Continue Metformin ER 500 mg BID, Tradjenta 5 mg QD and Glimepiride 2 mg QD for now He had to cut his previous Metformin ER 1000 mg down to 500 mg BID as he was frequently feeling very nauseous on the previous dose He is advised that we will need to make some changes or adjustments to his meds again if he cannot get his diabetes back under control over the next few months (7) COPD (chronic obstructive pulmonary disease): Code(s): J44.9 - Chronic obstructive pulmonary disease, unspecified Qualifiers: COPD type: unspecified COPD Qualified Code(s): J44.9 - Chronic obstructive pulmonary disease, unspecified Plan: Stable Continue Trelegy 200-62.5-25 mcg 1 inhalation QD and Albuterol HFA 1 to 2 inhalations Q 6 hours PRN Follow up with pulmonary as scheduled (8) Hypotestosteronism: Code(s): E34.9 - Endocrine disorder, unspecified Plan: Have advised patient that this is most likely the biggest contributor to his increasing fatigue lately and that this is likely multifactorial, including due to him being on chronic opioids as well as being a diabetic His testosterone level was still low when last checked in September 2023 Will have him see urology for this once his current cardiac issues and GI issues are resolved (9) GERD without esophagitis: Code(s): K21.9 - Gastro-esophageal reflux disease without esophagitis Plan: Dietary restrictions reinforced Conitinue Omeprazole 40 mg QD (10) Bilateral hand pain: Code(s): M79.641 - Pain in right hand; M79.642 - Pain in left hand Plan: EMG and NCV of the upper extremities done back in March 2023 revealed (+) abnormal NCS study of bilateral upper extremities. No needle EMG done. There is electrodiagnostic evidence for bilateral moderate-severe median neuropathy at the wrists, could be consistent with Carpal Tunnel Syndrome. Abnormal ulnar SNAPS could be suggestive of neuropathy. He is advised as well that his symptoms are most likely also partly due to osteoarthritis (11) Pain in both lower extremities: Code(s): M79.604 - Pain in right leg; M79.605 - Pain in left leg Plan: He was also sent for EMG & NCV of the lower extremities for further evaluation but patient declined to have the test done when he was there for upper extremity testing. He was instructed to call them back to schedule it for any time at his convenience and he has yet to do so (12) Right knee pain: Code(s): M25.561 - Pain in right knee Qualifiers: Chronicity: unspecified Qualified Code(s): M25.561 - Pain in right knee Plan: Is likely due to OA Patient was also sent for right knee x-rays for further evaluation previously but he did not get these done (13) Benign prostatic hyperplasia: Code(s): N40.0 - Benign prostatic hyperplasia without lower urinary tract symptoms Qualifiers: Lower urinary tract symptom presence: unspecified whether lower urinary tract symptoms present Qualified Code(s): N40.0 - Benign prostatic hyperplasia without lower urinary tract symptoms Plan: He is advised that his PSA has gone up slightly from before and is now at 5.46, which is elevated Comtinue Tamsulosin 0.4 mg QD Follow up with urology as scheduled - have advised that he will need to have urology check him out further to r/o prostate cancer Patient would like to have pulmonary see him first and get his colonoscopy done if possible before going for any procedures for his prostate (14) Depression: Code(s): F32.9 - Major depressive disorder, single episode, unspecified Qualifiers: Depression Type: major depressive disorder Major depression recurrence: recurrent Active/Remission status: currently active Major depression episode severity: unspecified Qualified Code(s): F33.9 - Major depressive disorder, recurrent, unspecified Plan: Is currently not on any Rx for depression - feels that he has been doing well so far and no intervention is needed at this time (15) Smoker: Code(s): F17.200 - Nicotine dependence, unspecified, uncomplicated Plan: Counseled again on smoking cessation although patient still appears unmotivated to quit (16) Overweight (BMI 25.0-29.9): Code(s): E66.3 - Overweight Plan: Reinforced diet/exercise as tolerated/lose weight - patient has been mostly sedentary for the past few years now due to significantly increased anterior chest wall pain even with minimal activity or exertion (17) Positive colorectal cancer screening using Cologuard test: Code(s): R19.5 - Other fecal abnormalities Plan: He has been referred for colonoscopy and he is scheduled for this sometime in April 2024 Plan Follow up in 3 months Orders: Orders Comprehensive Atco. Panel Fast 3 Months E78.00 - Pure hypercholesterolemia, unspecified Hemoglobin A1c 3 Months E11.9 - Type 2 diabetes mellitus without complications TSH reflex Free T4 3 Months E78.00 - Pure hypercholesterolemia, unspecified Vitamin B12 and Folate 3 Months E53.8 - Deficiency of other specified B group vitamins Complete Blood Count Auto Diff 3 Months D64.9 - Anemia, unspecified Lipid Panel 3 Months E78.00 - Pure hypercholesterolemia, unspecified Microalbumin, Random (w Creat) 3 Months E11.9 - Type 2 diabetes mellitus without complications UA CC w/rflx Micro + Cult 3 Months R30.0 - Dysuria Vitamin D 25-OH Total 3 Months E55.9 - Vitamin D deficiency, unspecified Medications: Refilled albuterol sulfate 90 mcg/actuation 2 puffs inhalation Q6H PRN 8.5 ea 5RF yong rtness of breath or wheezing Review Patient declined Colonoscopy: 01/04/21 Coding Level of Care Code Est Pt Level 4 (00032) Complex EM visit Add On G2211 Diagnoses Choledocholithiasis K80.50 Acute cholangitis K83.09 Pure hypercholesterolemia E78.00 Coronary artery disease involving [place] coronary artery of [place] heart without angina pectoris I25.10 Coronary Disease-Associated Artery/Lesion type: [place] artery [place] vs. 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 mellitus terminal manager insulin use: without halfway use Diabetes mellitus complication status: without complication Chronic obstructive pulmonary disease, unspecified COPD type J44.9 COPD type: unspecified COPD Hypotestosteronism E34.9 GERD without esophagitis K21.9 Bilateral hand pain M79.641; M79.642 Pain in both lower extremities M79.604; M79.605 Right knee pain, unspecified chronicity M25.561 Chronicity: unspecified Benign prostatic hyperplasia, unspecified whether lower urinary tract symptoms present N40.0 Lower urinary tract symptom presence: unspecified whether lower urinary tract symptoms present Episode of recurrent major depressive disorder, unspecified depression episode severity F33.9 Depression Type: major depressive disorder Major depression recurrence: recurrent Active/Remission status: currently active Major depression episode severity: unspecified Smoker F17.200 Overweight (BMI 25.0-29.9) E66.3 Positive colorectal cancer screening using Cologuard test R19.5
[2024-01-18 13:42] VITALS: BP 100/66; PULSE 59; O2SAT 95; BMI 25.4
== END 2024-01-18 14:34 | disposition home or self-care (01) ==
PROVIDERS: PCP Internal Medicine; Visit Provider Internal Medicine
DX: K80.50 Calculus of bile duct without cholangitis or cholecystitis without obstruction (principal); K83.09 Other cholangitis; E78.00 Pure hypercholesterolemia, unspecified; I25.10 Atherosclerotic heart disease of native coronary artery without angina pectoris; M94.0 Chondrocostal junction syndrome [Tietze]; E11.9 Type 2 diabetes mellitus without complications; J44.9 Chronic obstructive pulmonary disease, unspecified; E34.9 Endocrine disorder, unspecified; K21.9 Gastro-esophageal reflux disease without esophagitis; M79.641 Pain in right hand; M79.642 Pain in left hand; F33.9 Major depressive disorder, recurrent, unspecified; M79.604 Pain in right leg; M79.605 Pain in left leg; M25.561 Pain in right knee; N40.0 Benign prostatic hyperplasia without lower urinary tract symptoms; F17.200 Nicotine dependence, unspecified, uncomplicated; E66.3 Overweight; R19.5 Other fecal abnormalities
CPT/HCPCS: 99214; G2211

== ENCOUNTER 2024-03-03 13:06 | Outpatient (AMB) | payer MEDICARE, SELFPAY ==
--- NOTE | 2024-03-03 13:07 | MHC.OFFVIS ---
Vital Signs 03/03/24 13:19 Height 5 ft 6 in Weight 157 lb 2 oz BMI 25.4 BP 114/58 L Blood Pressure Location Lt brachial Position Sitting Pulse 66 Intake Visit Reasons: abdominal pain Intake Note: Patient is seen in office for evaluation and treatment of abdominal pain. Pt c/o: was seen by Dr Mattson at ED on 11/2023 at the time had surgery by Dr Wesley for stones in the liver bile duct per pt, abdominal pain at all times, worse after meals, upset stomach, RUQ tender to the touch, denies n/v/d/c Grounds Keeper Required: No Accompanied by: Spouse Allergies No Known Allergies Allergy (Verified 03/03/24 13:15) HPI Comments Details: Patient presents with his . I took care of the patient in a relatively recent hospitalization for symptomatic cholelithiasis/choledocholithiasis. He had an ERCP. He was to have a laparoscopic cholecystectomy but because of cardiac issues/CHF case did not proceed. Patient was still having symptomatic gallbladder symptoms of right upper quadrant pain. He wishes to proceed with the procedure. Chart was reviewed and patient evaluated. Patient states he had coronary angiogram at [facility] which apparently did not warrant any interventions beyond that. We will nonetheless obtained formal cardiac clearance. COUNTS INCLUDE 234 BEDS AT THE [facility] Medical History Acute cholangitis Hypotestosteronism Colonoscopy refused Allergy to metal Chest wall discomfort Insomnia Pure hypercholesterolemia Overweight (BMI 25.0-29.9) Smoker Depression Benign prostatic hyperplasia GERD without esophagitis COPD (chronic obstructive pulmonary disease) Diabetes mellitus Tietze's syndrome Coronary artery disease Hyperlipidemia Surgical History History of cholecystectomy History of coronary artery bypass graft (~2002) Family History Father Liver problem Cancer Mother CVD (cardiovascular disease) COPD (chronic obstructive pulmonary disease) Brother Myocardial infarction Brother S/P CABG x 1 CVD (cardiovascular disease) Family/Other FH: mental illness Daughter Substance abuse Social History Household Members: Spouse Housing: House Alcohol intake: current Alcohol intake frequency: does not drink Patient Tobacco Use Status: Current everyday Tobacco user Tobacco use type: Cigar Cigarette Packs Per Day: 0.5 Cigarettes Per Day: 10 e-Cigarette/Vaping Use: Never Used Second Hand Smoke Exposure: Yes service: No Current occupational status: retired Cognitive needs: No Hearing needs: No Vision needs: Yes Physical Exam Vital Signs: Last Vital Signs Pulse 66 03/03/24 13:19 BP 114/58 L 03/03/24 13:19 BMI result Body Mass Index 25.4 Chest Other: Chest breath sounds bilaterally, sternotomy scar, HS 1 in 2 GI Other: Abdomen is soft, benign Assessment & Plan Assessment & Plan (1) Symptomatic cholelithiasis: Code(s): K80.20 - Calculus of gallbladder without cholecystitis without obstruction Category: Surgical Plan Risks, benefits, alternatives laparoscopic possible open cholecystectomy reviewed the patient and included but not limited to bleeding, infection, recurrence of symptoms, numbness, pain, scarring, bowel or bile duct injury or leak and the patient wishes to proceed. All questions answered. Arrangements were made for this once cardiac clearance has been obtained. Coding Level of Care Code Est Pt Level 5 (93522) Diagnoses Symptomatic cholelithiasis K80.20
[2024-03-03 13:19] VITALS: BP 114/58; PULSE 66; BMI 25.4
== END 2024-03-03 13:22 | disposition home or self-care (01) ==
PROVIDERS: PCP Internal Medicine; Visit Provider Surgery
DX: K80.20 Calculus of gallbladder without cholecystitis without obstruction (principal)
CPT/HCPCS: 99214

== ENCOUNTER → 2024-03-03 13:06 | Outpatient (BNVA) | payer MEDICARE, SELFPAY | PROVIDERS: PCP Internal Medicine; Visit Provider Surgery | DX: K80.20 Calculus of gallbladder without cholecystitis without obstruction (principal) | CPT/HCPCS: 99212 ==

== ENCOUNTER 2024-04-25 06:18 | Day surgery (SDC) | payer MEDICARE, SELFPAY ==
--- NOTE | 2024-04-17 | ECG_ITS ---
Test Reason : Pre Op Blood Pressure : / mmHG Vent. Rate : 053 BPM Atrial Rate : 053 BPM P-R Int : 138 ms QRS Dur : 104 ms QT Int : 472 ms P-R-T Axes : 074 -07 065 degrees QTc Int : 442 ms Sinus bradycardia Cannot rule out Anterior infarct , age undetermined Abnormal ECG When compared with ECG of 05-DEC-2023 16:44, Premature ventricular complexes are no longer Present Vent. rate has decreased BY 32 BPM QT has shortened Referred By: Cesilia Keyes Electronically Signed By:RUTHY LUNA
[2024-04-17 12:45] VITALS: BP 120/62; PULSE 50; RESP 16; O2SAT 96; BMI 25.8
--- NOTE | 2024-04-24 08:25 | P.HPSUR_ITS ---
Pre-Procedural Eval Section A - 24 Hr Update-Section A only Date of Service: 04/25/24 The patient is an INPATIENT: No Changes since office visit: No Cold of Flu in the past 2 weeks, No New Medical Problems, No Changes in Medication and No Patient answered all questions Section B - Complete if H&P > 30 days Chief Complaint: Calculus of gallbladder without cholecystitis Allergies: Allergies Allergy/AdvReac Type Severity Reaction Status Date / Time No Known Allergies Allergy Verified 04/17/24 13:02 Review of Systems Sugical H&P ROS: Negative: Constitution, Cardiovascular, Respiratory, Neurological, Psychiatric, Hem-Onc, Allergic/Immunologic, Gastrointestinal, Genitourinary, Musculoskeletal, Integumentary, Endocrine and Eyes/ Ears/Nose/Throat Exam Surgical H&P Exam: Normal: HEENT, Normal: Heart, Normal: Lungs, Normal: Extremities, Normal: Abdomen, Normal: Skin and Normal: Neurological Plan I have reviewed the history and physical and performed a pertinent physical examination on my patient. No changes have occurred unless specified. Time Spent With Patient Time: Total time managing care of this patient today ____ minutes.
[2024-04-25] VITALS (11 sets, daily range): BP systolic 125–162; BP diastolic 64–71; PULSE 51–56; RESP 14–18; TEMP 36.1–36.8; O2SAT 94–100
[2024-04-25 06:44] LABS: Glucose, Whole Blood 187 mg/dL (60-115)
[2024-04-25] MEDS: Lactated Ringers 1,000 ML 100 ML IVCONT (06:50)
[2024-04-25] MEDS: Albuterol Sulfate (0.083%) 2.5 MG/3 ML VIAL.NEB INHALE (07:20)
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
--- NOTE | 2024-04-25 09:53 | W.PM.OPN ---
Operative Note Operative Note Date of Service: 04/25/24 Narrative: Preoperative diagnosis: [] Symptomatic gallbladder Postop diagnosis: [] The same Procedure [] laparoscopic cholecystectomy Surgeon: [] Srinivasan Vegetable Harvest Worker: [] Andrzej Type of Anesthesia: [General Indication for surgery: [] Gallbladder with omental adhesions to it Findings: [] Patient brought to the operating room, placed on operative table supine position, after an adequate level of general anesthesia was induced, the patient's abdomen was prepped and draped in usual sterile fashion. Using a supraumbilical curvilinear incision, Almonte technique was used to insufflate abdominal cavity to 15 mm of CO2. Upper midline and right subcostal ports were placed under direct laparoscopic view, the patient was grasped with laparoscopic graspers, and retracted superiorly and laterally. Omental adhesions were swept off the gallbladder and the hilum was approached. Cystic artery and cystic duct were each identified, circumferentially skeletonized, traced directly into the gallbladder, and critical view obtained. Each was clipped proximally x2, distally x1, and transected. Gallbladder was then cauterized from the gallbladder fossa using Bovie. Specimen was placed in an Endo-Catch bag, a retrieved through the umbilical port. Abdominal cavity was copiously irrigated, and secured hemostasis. All ports removed under direct laparoscopic view. Wounds were closed in the following manner; umbilical wound is fascia reapproximated using interrupted 0 Vicryl sutures. Skin wounds were closed using subcuticular 4-0 Vicryl sutures followed by Steri-Strips and sterile dressings. Wounds were infiltrated 0.5% Marcaine at completion. Sponge, needle, and instrument counts were reported to be correct. Patient tolerated the procedure well and emerged from anesthesia stable condition. EBL minimal
[2024-04-25] MEDS: fentaNYL citrate/PF 100 MCG/2 ML VIAL 50 MCG IVPUSH (10:08)
[2024-04-25] MEDS: oxyCODONE HCl Immed Release 5 MG TABLET PO (10:34)
== END 2024-04-25 11:10 | disposition home or self-care (01) ==
PROVIDERS: PCP Internal Medicine; Visit Provider Surgery
PROC: 0FT44ZZ Resection of Gallbladder, Percutaneous Endoscopic Approach (ICD-10-PCS; CPT 47562; principal; 2024-04-25 08:30)
DX: K82.8 Other specified diseases of gallbladder (principal); K81.0 Acute cholecystitis; K83.09 Other cholangitis; K21.9 Gastro-esophageal reflux disease without esophagitis; E78.00 Pure hypercholesterolemia, unspecified; I25.10 Atherosclerotic heart disease of native coronary artery without angina pectoris; Z95.1 Presence of aortocoronary bypass graft; J44.9 Chronic obstructive pulmonary disease, unspecified; E11.9 Type 2 diabetes mellitus without complications; M94.0 Chondrocostal junction syndrome [Tietze]; Z79.891 Long term (current) use of opiate analgesic; Z79.82 Long term (current) use of aspirin; Z79.84 Long term (current) use of oral hypoglycemic drugs; Z79.899 Other long term (current) drug therapy; F17.210 Nicotine dependence, cigarettes, uncomplicated; Z98.890 Other specified postprocedural states
CPT/HCPCS: 47562; 82947; 88304; 93005; 94640; J0131; J0690; J1100; J2003; J2250; J2405; J2704; J2795; J3010

== ENCOUNTER → 2024-04-25 06:18 | Outpatient (BNV) | payer MEDICARE, SELFPAY | PROVIDERS: PCP Internal Medicine; Visit Provider Surgery | DX: K80.20 Calculus of gallbladder without cholecystitis without obstruction (principal) | CPT/HCPCS: 47562 ==

== ENCOUNTER 2024-05-07 09:46 | Outpatient (AMB) | payer MEDICARE, SELFPAY ==
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
== END 2024-05-07 10:23 | disposition home or self-care (01) ==
PROVIDERS: PCP Internal Medicine; Visit Provider Surgery
DX: Z90.49 Acquired absence of other specified parts of digestive tract (principal)
CPT/HCPCS: 99024

== ENCOUNTER → 2024-05-07 09:46 | Outpatient (BNVA) | payer MEDICARE, SELFPAY | PROVIDERS: PCP Internal Medicine; Visit Provider Surgery | DX: Z48.815 Encounter for surgical aftercare following surgery on the digestive system (principal); Z90.49 Acquired absence of other specified parts of digestive tract | CPT/HCPCS: 99212 ==

== ENCOUNTER 2024-05-15 10:17 | Outpatient (REF) | payer MEDICARE, SELFPAY ==
[2024-05-15 13:25] LABS: MANUAL DIFF FLAG NO
[2024-05-15 13:29] LABS: Appearance Urine Clear; Color Urine Yellow; Glucose Urine UA 100 mg/dL (Negative); Leukocyte Esterase Urine Negative (Negative); Nitrite Urine Negative (Negative); Specific Gravity - Urine 1.015 (1.005-1.025); Urine Blood Negative (Negative); Urine Ketones Negative (Negative); Urine Protein Negative (Neg-Trace)
[2024-05-15 14:03] LABS: Basophils Absolute Auto 0.1 X10*3/uL (0.0-0.2); Basophils Percent Auto 0.9 % (0-2); Eosinophils Absolute Auto 0.2 X10*3/uL (0.0-0.4); Eosinophils Percent Auto 1.3 % (0-4); Hematocrit 44.6 % (42.0-52.0); Hemoglobin 15.4 g/dl (14.0-18.0); Imm Gran Abs Auto 0.04 X10*3/uL (0.00-0.03); Imm Gran Pct Auto 0.4 % (0.0-0.4); Lymphocytes Absolute Auto 2.1 X10*3/uL (1.2-4.9); Lymphocytes Percent Auto 18.5 % (20-40); Mean Corpuscular HGB Conc 34.5 g/dl (31.0-36.0); Mean Corpuscular Hemoglobin 30.9 pg (27.0-33.0); Mean Corpuscular Volume 89.6 fL (80.0-98.0); Mean Platelet Volume 10.3 fL (9.4-12.4); Monocytes Absolute Auto 0.7 X10*3/uL (0.1-1.2); Monocytes Percent Auto 6.6 % (2-11); Neutrophils Absolute Auto 8.1 x10*3/uL (2.0-8.3); Neutrophils Percent Auto 72.3 % (45-73); Platelet Count 289 X10*3/uL (160-400); Red Blood Count 4.98 X10*6/uL (4.60-5.80); Red Cell Distribution Width 13.5 % (11.0-16.0); White Blood Count 11.2 X10*3/uL (4.8-10.8)
[2024-05-15 14:08] LABS: Estimated Average Glucose 189 mg/dL; Hemoglobin A1C 265.4573 umol/L; Hemoglobin A1c % 8.2 % (<6.0); Total Hemoglobin (HGBA1C) 3982.7817 umol/L
[2024-05-15 14:34] LABS: Alanine Aminotransferase 25 U/L (0-40); Albumin Level 4.1 g/dL (3.5-5.0); Alkaline Phosphatase 145 U/L (39-117); Anion Gap 11 (12-20); Aspartate Amino Transferase 28 U/L (5-37); Bilirubin Total 0.5 mg/dL (0.0-1.0); Blood Urea Nitrogen 11 mg/dL (9-16); Calcium 9.8 mg/dL (8.4-10.2); Carbon Dioxide 27 mmol/L (22-29); Chloride 100 mmol/L (96-108); Cholesterol 168 mg/dL (<200); Estimated Glomerular Filt Rate > 60; Glucose Fasting 199 mg/dL (60-99); HDL Cholesterol 45 mg/dL (>40); LDL Cholesterol Calculated 93 mg/dL (<100); Potassium 4.2 mmol/L (3.3-5.1); Sodium 134 mmol/L (135-145); Total Protein 7.4 g/dL (6.5-8.0); Triglycerides 153 mg/dL (<150); Vitamin D 25-OH Total 41.1 ng/mL (>30)
[2024-05-15 14:44] LABS: Creatinine Urine 116.08 mg/dL; Microalbum/Creatinine Ratio Ur 33.5 ug/mg cr (<30)
[2024-05-15 14:45] LABS: Folate 3.9 ng/mL (> or = 4.0); Vitamin B12 524 pg/mL (200-900)
== END 2024-05-15 10:18 | disposition home or self-care (01) ==
LOC: HO.HMGCLDS 10:17
PROVIDERS: PCP Internal Medicine; Visit Provider Internal Medicine
DX: E11.9 Type 2 diabetes mellitus without complications (principal); E78.00 Pure hypercholesterolemia, unspecified; R30.0 Dysuria; E55.9 Vitamin D deficiency, unspecified; E53.8 Deficiency of other specified B group vitamins; D64.9 Anemia, unspecified
CPT/HCPCS: 36415; 80053; 80061; 81003; 82043; 82306; 82570; 82607; 82746; 83036; 84443; 85025

== ENCOUNTER 2024-05-16 09:49 | Outpatient (AMB) | payer MEDICARE, SELFPAY ==
[2024-05-16 10:19] VITALS: BP 110/72; PULSE 70; O2SAT 94; BMI 25.5
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
== END 2024-05-16 11:39 | disposition home or self-care (01) ==
PROVIDERS: PCP Internal Medicine; Visit Provider Internal Medicine
DX: E78.00 Pure hypercholesterolemia, unspecified (principal); I25.10 Atherosclerotic heart disease of native coronary artery without angina pectoris; M94.0 Chondrocostal junction syndrome [Tietze]; E11.9 Type 2 diabetes mellitus without complications; J44.9 Chronic obstructive pulmonary disease, unspecified; K21.9 Gastro-esophageal reflux disease without esophagitis; G56.10 Other lesions of median nerve, unspecified upper limb; E34.9 Endocrine disorder, unspecified; M79.604 Pain in right leg; M79.605 Pain in left leg; M25.561 Pain in right knee; F33.9 Major depressive disorder, recurrent, unspecified; N40.0 Benign prostatic hyperplasia without lower urinary tract symptoms; F17.200 Nicotine dependence, unspecified, uncomplicated; E66.3 Overweight

== ENCOUNTER → 2024-05-16 09:49 | Outpatient (BNVA) | payer MEDICARE, SELFPAY | PROVIDERS: PCP Internal Medicine; Visit Provider Internal Medicine | DX: Z23 Encounter for immunization (principal); E78.00 Pure hypercholesterolemia, unspecified; I25.10 Atherosclerotic heart disease of native coronary artery without angina pectoris; M94.0 Chondrocostal junction syndrome [Tietze]; E11.9 Type 2 diabetes mellitus without complications; J44.9 Chronic obstructive pulmonary disease, unspecified; K21.9 Gastro-esophageal reflux disease without esophagitis; G56.10 Other lesions of median nerve, unspecified upper limb; E34.9 Endocrine disorder, unspecified; M25.561 Pain in right knee; F33.9 Major depressive disorder, recurrent, unspecified; E66.3 Overweight; F17.200 Nicotine dependence, unspecified, uncomplicated; Z71.6 Tobacco abuse counseling | CPT/HCPCS: 90471; 90656; 99212 ==

== ENCOUNTER 2024-05-19 10:49 | Day surgery (SDC) | payer MEDICARE, SELFPAY ==
[2024-05-15 13:45] VITALS: BMI 24.9
[2024-05-19 12:47] VITALS: BP 132/87; PULSE 71; RESP 16; TEMP 36.8; O2SAT 96
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
--- NOTE | 2024-05-19 12:56 | MHC.SHP ---
Pre-Procedural Eval Section A - 24 Hr Update-Section A only Date of Service: 05/19/24 The patient is an INPATIENT: No The patient has been examined within 24 hours of the surgical procedure. The History & Physical has been completed within 30 days and I have reviewed it.: No Section B - Complete if H&P > 30 days Chief Complaint: Positive Cologuard test, colon cancer screening Relevant Social History: Tobacco Use Present Medications: see Short Stay Collaborative assessment Medical History: Significant History (Benign prostatic hyperplasia Chest wall discomfort Colonoscopy refused COPD (chronic obstructive pulmonary disease) Coronary artery disease Depression Diabetes mellitus GERD without esophagitis Hyperlipidemia Insomnia Overweight (BMI 25.0-29.9) Pure hypercholesterolemia) History of Previous Operations: Relevant previous surgery/procedure and date(s) (History of coronary artery bypass graft (~2002)) Allergies: Allergies Allergy/AdvReac Type Severity Reaction Status Date / Time No Known Allergies Allergy Verified 05/16/24 11:02 Review of Systems Sugical H&P ROS: Negative: Constitution, Cardiovascular, Respiratory and Gastrointestinal Exam Surgical H&P Exam: Normal: Heart, Normal: Lungs, Normal: Extremities and Normal: Abdomen Plan Diagnosis/Plan: Unchanged I have reviewed the history and physical and performed a pertinent physical examination on my patient. No changes have occurred unless specified. Time Spent With Patient Time: Total time managing care of this patient today ____ minutes.
[2024-05-19] MEDS: Lactated Ringers 1,000 ML 80 ML IVCONT (12:58)
[2024-05-19 13:06] LABS: Glucose, Whole Blood 162 mg/dL (60-115)
--- NOTE | 2024-05-19 13:33 | HO.OPN-COLON ---
Colonoscopy Operative Note Operative Note Date of Service: 05/19/24 Narrative: COLONOSCOPY TILL CECUM WITH SNARE POLYPECTOMY Pre-op diagnosis: Colon cancer screening, positive Cologuard test. Post-op diagnosis:? Colon polyps, Diverticulosis, hemorrhoids Endoscopist:? Kim Greenwood MD Anesthesia:?MAC Consent: Indications for the procedure and potential complications of bleeding, perforation, reaction to medications and missed diagnosis were discussed with the patient and informed consent was obtained. Instrument: Olympus CF H 190 L variable stiffness adult colonoscope Monitoring: Vital signs and clinical assessment, intermittent blood pressure monitoring, continuous EKG monitoring, Pulse oximetry and Carbon Dioxide monitoring were done throughout the procedure. Please see anesthesia flowsheet. Colon withdrawl time was 15 minutes. Procedure: The patient was placed in the left lateral decubitis position and pre-procedure medications were administered. After a digital rectal examination of the ano-rectum, the video colonoscope was inserted into the rectum and advanced through the colon to the cecum. The colonoscope was slowly withdrawn in a retrograde panoramic fashion and the colon mucosa was carefully examined including a retroflexed view of the rectum. Findings and interventions are described below. Procedure Difficulty: without difficulty Findings: Terminal Ileum: Not evaluated Cecum: Normal Ascending Colon: Normal Transverse Colon: Normal Descending Colon: Moderate diverticulosis Sigmoid Colon: Moderate diverticulosis Rectum: A 7-8 mm sessile polyp - removed with a hot snare Ano-rectum: Moderate internal hemorrhoids Colon preparation: Good after copious irrigation. Limestone Bowel Preparation Scale Right colon; 2 Transverse colon: 2 Left colon; 2 (0 = Unprepared colon segment with mucosa not seen due to solid stool that cannot be cleared. 1 = Portion of mucosa of the colon segment seen, but other areas of the colon segment not well seen due to staining, residual stool and/or opaque liquid. 2 = Minor amount of residual staining, small fragments of stool and/or opaque liquid, but mucosa of colon segment seen well. 3 = Entire mucosa of colon segment seen well with no residual staining, small fragments of stool or opaque liquid) Impression and Post Procedure Diagnosis: Colonoscopy Findings: One small polyp was removed Moderate diverticulosis seen in the left colon Moderate hemorrhoids on retroflexed exam. Plan: I will send a letter with polyp biopsy results Repeat Colonoscopy in 5 years if polyps are adenomatous and 10 year if polyps are hyperplastic. Above findings were reviewed with the patient and relevant handouts were given and the discharge area. BIOPSIES SHOWED: Colon, rectal polyp: Tubular adenoma; negative for high-grade dysplasia and carcinoma Letter sent advising repeat colonoscopy in 5 years. Patient was placed on the colonoscopy recall list
[2024-05-19 13:35] VITALS: BP 99/52; PULSE 64; RESP 16; TEMP 36.1; O2SAT 95
[2024-05-19 13:53] VITALS: BP 118/56; PULSE 61; RESP 16; TEMP 36.1; O2SAT 95
== END 2024-05-19 14:09 | disposition home or self-care (01) ==
PROVIDERS: PCP Internal Medicine; Visit Provider Internal Medicine Gastroenterology
PROC: 0DJD8ZZ Inspection of Lower Intestinal Tract, Via Natural or Artificial Opening Endoscopic (ICD-10-PCS; CPT 45378; principal; 2024-05-19 13:10)
DX: R19.5 Other fecal abnormalities (principal); D12.8 Benign neoplasm of rectum; K57.30 Diverticulosis of large intestine without perforation or abscess without bleeding; K64.8 Other hemorrhoids; K44.9 Diaphragmatic hernia without obstruction or gangrene; K21.9 Gastro-esophageal reflux disease without esophagitis; I10 Essential (primary) hypertension; E78.00 Pure hypercholesterolemia, unspecified; I25.10 Atherosclerotic heart disease of native coronary artery without angina pectoris; Z95.1 Presence of aortocoronary bypass graft; E11.9 Type 2 diabetes mellitus without complications; J44.1 Chronic obstructive pulmonary disease with (acute) exacerbation; J45.909 Unspecified asthma, uncomplicated; M94.0 Chondrocostal junction syndrome [Tietze]; Z79.82 Long term (current) use of aspirin; Z79.899 Other long term (current) drug therapy; Z88.8 Allergy status to other drugs, medicaments and biological substances; F17.210 Nicotine dependence, cigarettes, uncomplicated
CPT/HCPCS: 45385; 82947; 88305; J2003; J2704

== ENCOUNTER → 2024-05-19 10:49 | Outpatient (BNV) | payer MEDICARE, SELFPAY | PROVIDERS: PCP Internal Medicine; Visit Provider Internal Medicine Gastroenterology | DX: Z12.11 Encounter for screening for malignant neoplasm of colon (principal); R19.5 Other fecal abnormalities; D12.8 Benign neoplasm of rectum; K57.90 Diverticulosis of intestine, part unspecified, without perforation or abscess without bleeding; K64.8 Other hemorrhoids | CPT/HCPCS: 45385 ==

== ENCOUNTER 2024-06-27 08:47 | Outpatient (AMB) | payer MEDICARE, SELFPAY ==
[2024-06-27 08:50] VITALS: BP 100/62; PULSE 61; O2SAT 4; BMI 25.7
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
--- OUTSIDE RECORDS SUMMARY | 2024-07-02 05:53 | XMS_ITS | Patient Health Record ---
Author Organization [facility] Address [address] [place] [address] Care Team Providers Care Brand Lead Name Role Phone Laron Jimenez MD Primary Care Provider Gage Calvo Jr Unavailable Marcus Kothari Unavailable [phone] RESULTS Component Value Reference Range Notes US abdomen limited Reviewed date:12/04/2023 04:07:58 PM Interpretation: Performing Lab: Notes/Report: [address] [address] Ultrasound Report Signed Patient: Shahbaz Cevallos MR#: [id number] 49 : 1955 Acct:[id number] Age/Sex: 68 / M ADM Date: 12/04/23 Loc: [place] [address]: 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 FINDINGS: PANCREAS: The pancreas is obscured by bowel gas. GALLBLADDER: Echogenic bile is seen within the gallbladder. No gallstones are identified. The gallbladder is physiologically distended without evidence of stones, sludge, polyps, wall thickening or pericholecystic fluid. No sonographic Mejia's sign. COMMON BILE DUCT: The proximal common bile duct measures 0.8 cm. The mid and distal common duct are obscured by bowel gas. The common bile duct stones are better seen on CT scan obtained today. US/US abdomen limited IMPRESSION: 1. The pancreas is obscured by bowel gas. 2. The proximal common bile duct is dilated measuring 0.8 cm. The mid and distal common duct are obscured by bowel gas. The common bile duct stones are better seen on CT scan obtained today. 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 COMPARISON: CT abdomen and pelvis dated 12/04/2023. TECHNIQUE: Fluoroscopy Supervised By: Dr. Gage Wesley. Fluoroscopy Time: 4 minutes and 20.3 seconds. Cumulative Dose: 45.046 mGy. DAP: 19.595 Gycm2. Images: 5. FINDINGS: The submitted images show an endoscope, injection catheter and ingested contrast within the biliary tree. There are common bile duct filling defects consistent with calculi. These are removed on the final image. FL/FL guidance in OR IMPRESSION: Intraoperative fluoroscopic guidance is provided during ERCP. Please see the patient's Operative Report for full procedural details. Dictated By: Chapito Benoit MD Signed By: <Electronically signed by Chapito Benoit MD in OV> 12/05/23 1837 DD/ 1649 TD/TT: Outpatient Coder: ADILENE Complete Blood Count no Diff Reviewed date:12/06/2023 10:17:53 AM Interpretation: Performing Lab:[facility], [address] [place] [address] Notes/Report: White Blood Count 7.8 4.8-10.8 X10*3/uL Red Blood Count 4.10 4.60-5.80 X10*6/uL Hemoglobin 13.0 14.0-18.0 g/dl Hematocrit 35.7 42.0-52.0 % Mean Corpuscular Volume 87.1 80.0-98.0 fL Mean Corpuscular Hemoglobin 31.7 27.0-33.0 pg Mean Corpuscular HGB Conc 36.4 31.0-36.0 g/dl Red Cell Distribution Width 14.1 11.0-16.0 % Platelet Count 141 160-400 X10*3/uL Mean Platelet Volume 10.4 9.4-12.4 fL NRBC Pct Auto 0.0 0.0-0.2 /100WBC NRBC Abs Auto 0.000 0.0-0.012 X10*3/uL REASON FOR REFERRAL No Information SOCIAL HISTORY Sex Assigned At : Social History Observation Description Sex Assigned At Unknown PROBLEMS Problem Type ICD Code Onset Dates Problem Status W/U Status Risk SNOMED Code Notes Problem Other cholangitis (K83.09) Active confirmed Cholangitis (54093408) Encounters Encounter Location Date Provider Diagnosis [facility] [address] [place] [address] 12/04/2023 Marcus Kothari PLAN OF TREATMENT No Information Insurance Providers Payer Name Payer Address Payer Phone Subscriber Number Group Number Insured Name Patient Relationship to Insured Coverage Start Date Coverage End Date [facility] Medicare Advantage Plan [address] [address] [place] [address] [id number] SHAHBAZ CEVALLOS Self - patient is the insured
--- OUTSIDE RECORDS SUMMARY | 2024-07-02 05:53 | XMS_ITS ---
Author Organization [facility] Address [address] [place] [address] Care Team Providers Care Manager Care Management Name Role Phone Tony BARRETT, [place] Primary Care Provider Gage Calvo Jr Unavailable [phone] Marcus Kothari Unavailable [phone] REASON FOR VISIT Needs a colonoscopy for + Cologuard carlos Encounters Encounter Location Date Provider Diagnosis [facility] [address] [place] [address] 12/04/2023 Marcus Kothari PLAN OF TREATMENT No Information
== END 2024-06-27 09:33 | disposition home or self-care (01) ==
PROVIDERS: PCP Internal Medicine; Visit Provider Internal Medicine
DX: Z00.00 Encounter for general adult medical examination without abnormal findings (principal); E11.9 Type 2 diabetes mellitus without complications; J44.9 Chronic obstructive pulmonary disease, unspecified; F33.9 Major depressive disorder, recurrent, unspecified; E78.00 Pure hypercholesterolemia, unspecified; I25.10 Atherosclerotic heart disease of native coronary artery without angina pectoris; M94.0 Chondrocostal junction syndrome [Tietze]; K21.9 Gastro-esophageal reflux disease without esophagitis; G56.10 Other lesions of median nerve, unspecified upper limb; E34.9 Endocrine disorder, unspecified; M79.604 Pain in right leg; M79.605 Pain in left leg

== ENCOUNTER → 2024-06-27 08:47 | Outpatient (BNVA) | payer MEDICARE, SELFPAY | PROVIDERS: PCP Internal Medicine; Visit Provider Internal Medicine | DX: Z00.00 Encounter for general adult medical examination without abnormal findings (principal); E78.00 Pure hypercholesterolemia, unspecified; I25.10 Atherosclerotic heart disease of native coronary artery without angina pectoris; M94.0 Chondrocostal junction syndrome [Tietze]; E11.9 Type 2 diabetes mellitus without complications; J44.9 Chronic obstructive pulmonary disease, unspecified; K21.9 Gastro-esophageal reflux disease without esophagitis; G56.10 Other lesions of median nerve, unspecified upper limb; E34.9 Endocrine disorder, unspecified; M79.604 Pain in right leg; M79.605 Pain in left leg; M25.561 Pain in right knee; N40.0 Benign prostatic hyperplasia without lower urinary tract symptoms; F33.9 Major depressive disorder, recurrent, unspecified; E66.3 Overweight; Z68.25 Body mass index [BMI] 25.0-25.9, adult; Z71.6 Tobacco abuse counseling; Z71.3 Dietary counseling and surveillance | CPT/HCPCS: 96127; 99397 ==

== ENCOUNTER 2024-07-28 13:58 | Outpatient (AMB) | payer MEDICARE, SELFPAY ==
[2024-07-28 14:31] VITALS: PULSE 68; O2SAT 96; BMI 26.2
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
--- OUTSIDE RECORDS SUMMARY | 2024-07-28 16:18 | XMS_ITS ---
Author Organization [facility] Address [address] [place] [address] Care Team Providers Care Personalized Living Manager Nurse Name Role Phone Tony BARRETT, [place] Primary Care Provider Gage Calvo Jr Unavailable [phone] Marcus Kothari Unavailable [phone] REASON FOR VISIT Needs a colonoscopy for + Cologuard carlos Encounters Encounter Location Date Provider Diagnosis [facility] [address] [place] [address] 12/04/2023 Marcus Kothari PLAN OF TREATMENT No Information
--- OUTSIDE RECORDS SUMMARY | 2024-07-28 16:19 | XMS_ITS | Patient Health Record ---
Author Organization [facility] Address 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 Ordering Physician: Marcus Kothari Date of Service: 12/04/23 Procedure(s): US abdomen limited Accession Number(s): [id number] cc: Laron Jimenez MD; Marcus Kothari EXAMINATION: [...] in OV> 12/04/23 1254 DD/ 0856 TD/TT: Consulting Sme: FL guidance in OR Reviewed date:12/06/2023 10:17:23 AM Interpretation: Performing Lab: Notes/Report: [address] [address] Fluoroscopy Report Signed Patient: Shahbaz Cevallos MR#: [id number] [birth year] : 1955 Acct:[id number] Age/Sex: 68 / M ADM Date: 12/04/23 Loc: [facility] 476-[address]: Rosy Ring 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 SECRETARY Ordering Physician: Gage Wesley MD Date of Service: 12/04/23 Procedure(s): FL guidance in OR Accession Number(s): [id number] cc: Laron Jimenez MD; Gage Wesley MD [...] in OV> 12/05/23 1837 DD/ 1649 TD/TT: Consulting Sme: ADILENE Complete Blood Count no Diff Reviewed date:12/06/2023 10:17:53 AM Interpretation: Performing Lab:[facility], [address] [place] [address] Notes/Report: White Blood Count 7.8 4.8-10.8 X10*3/uL [...] Problem Other cholangitis (K83.09) Active confirmed Cholangitis (74786512) Encounters Encounter Location Date Provider Diagnosis [facility] [address] [place] [address] 12/04/2023 Marcus Kothari PLAN OF TREATMENT No Information Insurance Providers Payer Name Payer Address Payer Phone Subscriber Number Group Number Insured Name Patient Relationship to Insured Coverage Start Date Coverage End Date [facility] Medicare Advantage Plan [address] [address] [place] [address] [phone] [id number] SHAHBAZ CEVALLOS Self - patient is the insured
== END 2024-07-28 15:01 | disposition home or self-care (01) ==
PROVIDERS: PCP Internal Medicine; Visit Provider Nurse Practitioner Family
DX: J44.9 Chronic obstructive pulmonary disease, unspecified (principal); F17.210 Nicotine dependence, cigarettes, uncomplicated; R05.9 Cough, unspecified; R91.1 Solitary pulmonary nodule
CPT/HCPCS: 99214

== ENCOUNTER → 2024-07-28 13:58 | Outpatient (BNVA) | payer MEDICARE, SELFPAY | PROVIDERS: PCP Internal Medicine; Visit Provider Nurse Practitioner Family | DX: J44.9 Chronic obstructive pulmonary disease, unspecified (principal); R05.9 Cough, unspecified; R91.1 Solitary pulmonary nodule; F17.210 Nicotine dependence, cigarettes, uncomplicated | CPT/HCPCS: 99212 ==

== ENCOUNTER 2024-09-11 13:26 | Outpatient (AMB) | payer MEDICARE, SELFPAY ==
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
[2024-09-11 13:42] VITALS: BP 96/52; PULSE 56; BMI 27.5
--- OUTSIDE RECORDS SUMMARY | 2024-09-11 14:22 | XMS_ITS | Patient Health Record ---
Author Organization [facility] Address [address] [place] [address] Care Team Providers Care Technical Sales Director Name Role Phone Laron Jimenez MD Primary Care Provider Gage Calvo Jr Unavailable [phone] Marcus Kothari Unavailable [phone] RESULTS Component Value Reference Range Notes US abdomen limited Reviewed date:12/04/2023 04:07:58 PM Interpretation: Performing Lab: Notes/Report: [address] [address] Ultrasound Report Signed Patient: Shahbaz Cevallos MR#: [id number] 49 : 1955 Acct:[id number] Age/Sex: 68 / M ADM Date: 12/04/23 Loc: [place] [address]: Rosy Ring RURAL SOCIOLOGIST Ordering Physician: Marcus Kothari Date of Service: 12/04/23 Procedure(s): US abdomen limited Accession Number(s): [id number] cc: Laron Jimenez MD; Marcus Kothari EXAMINATION: [...] in OV> 12/04/23 1254 DD/ 0856 TD/TT: Hydramatic Specialist: FL guidance in OR Reviewed date:12/06/2023 10:17:23 AM Interpretation: Performing Lab: Notes/Report: [address] [address] Fluoroscopy Report Signed Patient: Shahbaz Cevallos MR#: [id number] [birth year] : 1955 Acct:[id number] Age/Sex: 68 / M ADM Date: 12/04/23 Loc: [facility] [address]: Rosy Ring RURAL SOCIOLOGIST Ordering Physician: Gage Wesley MD Date of Service: 12/04/23 Procedure(s): FL guidance in OR Accession Number(s): [id number] cc: Laron Jimenez MD; Gage Wesley MD [...] in OV> 12/05/23 1837 DD/ 1649 TD/TT: Hydramatic Specialist: ADILENE Complete Blood Count no Diff Reviewed date:12/06/2023 10:17:53 AM Interpretation: Performing Lab:[facility], [address] [place] [address] Notes/Report: White Blood Count 7.8 4.8-10.8 X10*3/uL [...] Problem Other cholangitis (K83.09) Active confirmed Cholangitis ([id number]) Encounters Encounter Location Date Provider Diagnosis [facility] [address] [place] [address] 12/04/2023 Marcus Kothari PLAN OF TREATMENT No Information Insurance Providers Payer Name Payer Address Payer Phone Subscriber Number Group Number Insured Name Patient Relationship to Insured Coverage Start Date Coverage End Date [facility] Medicare Advantage Plan [address] [address] [place] [address] [id number] SHAHBAZ CEVALLOS Self - patient is the insured
--- OUTSIDE RECORDS SUMMARY | 2024-09-11 14:22 | XMS_ITS ---
Author Organization [facility] Address [address] [place] [address] Care Team Providers Care Substitute Teacher Name Role Phone Tony BARRETT, [place] Primary Care Provider Gage Calvo Jr Unavailable Marcus Kothari Unavailable [phone] REASON FOR VISIT Needs a colonoscopy for + Cologuard carlos Encounters Encounter Location Date Provider Diagnosis [facility] [address] [place] [address] 12/04/2023 Marcus Kothari PLAN OF TREATMENT No Information
== END 2024-09-11 14:01 | disposition home or self-care (01) ==
PROVIDERS: PCP Internal Medicine; Visit Provider Internal Medicine Cardiovascular Disease
DX: I25.10 Atherosclerotic heart disease of native coronary artery without angina pectoris (principal); Z86.79 Personal history of other diseases of the circulatory system; I95.9 Hypotension, unspecified
CPT/HCPCS: 99214; G2211

== ENCOUNTER → 2024-09-11 13:26 | Outpatient (BNVA) | payer MEDICARE, SELFPAY | PROVIDERS: PCP Internal Medicine; Visit Provider Internal Medicine Cardiovascular Disease | DX: I25.10 Atherosclerotic heart disease of native coronary artery without angina pectoris (principal); I95.9 Hypotension, unspecified; Z86.79 Personal history of other diseases of the circulatory system | CPT/HCPCS: 99212 ==

== ENCOUNTER 2024-09-15 14:49 | Outpatient (AMB) | payer MEDICARE, SELFPAY ==
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
[2024-09-15 15:03] VITALS: BP 124/62; PULSE 76; O2SAT 96; BMI 26.9
--- OUTSIDE RECORDS SUMMARY | 2024-09-15 17:03 | XMS_ITS ---
Author Organization [facility] Address [address] [place] [address] Care Team Providers Care Hoisting Engineer Name Role Phone Tony BARRETT, [place] Primary Care Provider Gage Calvo Jr Unavailable [phone] Marcus Kothari Unavailable [phone] REASON FOR VISIT Needs a colonoscopy for + Cologuard carlos Encounters Encounter Location Date Provider Diagnosis [facility] [address] [place] [address] 12/04/2023 Marcus Kothari PLAN OF TREATMENT No Information
--- OUTSIDE RECORDS SUMMARY | 2024-09-15 17:03 | XMS_ITS | Patient Health Record ---
Author Organization [facility] Address [address] [place] [address] Care Team Providers Care Supply Chain Tech Name Role Phone Laron Jimenez MD Primary Care Provider Gage Calvo Jr Unavailable Marcus Kothari Unavailable [phone] RESULTS Component Value Reference Range Notes US abdomen limited Reviewed date:12/04/2023 04:07:58 PM Interpretation: Performing Lab: Notes/Report: [address] [address] Ultrasound Report Signed Patient: Shahbaz Cevallos MR#: [id number] [birth year] : 1955 Acct:[id number] Age/Sex: 68 / M ADM Date: 12/04/23 Loc: [place] [address]: Rosy Ring RESORT KEEPER Ordering Physician: Marcus Kothari Date of Service: 12/04/23 Procedure(s): US abdomen limited Accession Number(s): [id number] cc: Laron Jimenez MD; Marcus Kothari EXAMINATION: [...] in OV> 12/04/23 1254 DD/ 0856 TD/TT: Solutions Developer: FL guidance in OR Reviewed date:12/06/2023 10:17:23 AM Interpretation: Performing Lab: Notes/Report: [address] [address] Fluoroscopy Report Signed Patient: Shahbaz Cevallos MR#: [id number] [birth year] : 1955 Acct:[id number] Age/Sex: 68 / M ADM Date: 12/04/23 Loc: [facility] [address]: Rosy Ring RESORT KEEPER Ordering Physician: Gage Wesley MD Date of Service: 12/04/23 Procedure(s): FL guidance in OR Accession Number(s): [id number] cc: Laron Jimenez MD; Gage Wesley MD [...] in OV> 12/05/23 1837 DD/ 1649 TD/TT: Solutions Developer: ADILENE Complete Blood Count no Diff Reviewed date:12/06/2023 10:17:53 AM Interpretation: Performing Lab:[facility], [address] [place] [address] Notes/Report: White Blood Count 7.8 4.8-10.8 X10*3/uL [...] Problem Other cholangitis (K83.09) Active confirmed Cholangitis ([id number]) Encounters Encounter Location Date Provider Diagnosis [facility] [address] [place] [address] 12/04/2023 Marcus Kothari PLAN OF TREATMENT No Information Insurance Providers Payer Name Payer Address Payer Phone Subscriber Number Group Number Insured Name Patient Relationship to Insured Coverage Start Date Coverage End Date [facility] Medicare Advantage Plan [address] [address] [place] [address] [phone] [id number] SHAHBAZ CEVALLOS Self - patient is the insured
== END 2024-09-15 15:28 | disposition home or self-care (01) ==
PROVIDERS: PCP Internal Medicine; Visit Provider Nurse Practitioner Family
DX: J44.9 Chronic obstructive pulmonary disease, unspecified (principal); F17.210 Nicotine dependence, cigarettes, uncomplicated; R05.9 Cough, unspecified; R91.1 Solitary pulmonary nodule
CPT/HCPCS: 99214

== ENCOUNTER → 2024-09-15 14:49 | Outpatient (BNVA) | payer MEDICARE, SELFPAY | PROVIDERS: PCP Internal Medicine; Visit Provider Nurse Practitioner Family | DX: J44.9 Chronic obstructive pulmonary disease, unspecified (principal); R91.1 Solitary pulmonary nodule; R05.9 Cough, unspecified; F17.210 Nicotine dependence, cigarettes, uncomplicated | CPT/HCPCS: 99212 ==

== ENCOUNTER 2024-10-16 13:07 | Outpatient (REF) | payer MEDICARE, SELFPAY ==
--- NOTE | ~2024-10-16 | US_ITS ---
EXAMINATION: Noninvasive assessment of the bilateral lower extremities with ARTERIAL DUPLEX. CLINICAL INFORMATION: Peripheral vascular disease, unspecified. Hyperlipidemia. Diabetes. Smoking. TECHNIQUE: Duplex Doppler techniques with waveform analysis and measurement of velocities in the bilateral common femoral, profunda femoris, superficial femoral, popliteal and tibial arteries were performed. Additionally, ankle pulse volume recordings, ankle pressure measurements and ankle brachial indices were obtained of the lower extremity arterial system bilaterally. The study was performed only at rest. COMPARISON: None FINDINGS: Calcified plaques throughout the interrogated arteries. DIRECT DUPLEX DOPPLER FINDINGS: RIGHT LEG: Common femoral artery: 424 cm/s, phasicity: Monophasic. Spectral broadening. Arrhythmia. Profunda femoris artery: 41 cm/s, phasicity: Monophasic and reverse. Spectral broadening. Superficial femoral artery (proximal): 70 cm/s, phasicity: Monophasic. Spectral broadening. Superficial femoral artery (mid): 36 cm/s, phasicity: Monophasic. Spectral broadening. Superficial femoral artery (distal): 48 cm/s, phasicity: Monophasic. Spectral broadening. Popliteal artery: 34 cm/s, phasicity: Monophasic. Spectral broadening. Posterior tibial artery: 26 cm/s, phasicity: Monophasic. Spectral broadening. Peroneal artery: 15 cm/s, phasicity: Monophasic. Spectral broadening. Anterior tibial artery: 8 cm/s, phasicity: Monophasic and reversal. Collateral flow. Dorsalis pedis artery: 16 cm/s, phasicity:Monophasic waveform. Spectral broadening. LEFT LEG: Common femoral artery: 222 cm/s, phasicity: Biphasic. Arrhythmia. Profunda femoris artery: 179 cm/s, phasicity: Biphasic. Spectral broadening. Arrhythmia. Superficial femoral artery (proximal): 257 cm/s, phasicity: Biphasic. Spectral broadening. Superficial femoral artery (mid): 143 cm/s, phasicity: Biphasic. Superficial femoral artery (distal): 99 cm/s, phasicity: Biphasic. Popliteal artery: 84 cm/s, phasicity: Biphasic. Posterior tibial artery: 98 cm/s, phasicity: Biphasic. Peroneal artery: 30 cm/s, phasicity: Biphasic. Anterior tibial artery: 70 cm/s, phasicity: Biphasic. Dorsalis pedis artery: 73 cm/s, phasicity: Biphasic. US/US arterial duplex LE BI IMPRESSION: Right leg: Severe inflow disease. Left leg: Moderate to severe inflow disease. Arrhythmia. Electronically signed by: Brian High MD 10/17/2024 07:57 AM EDT
== END 2024-10-16 13:08 | disposition home or self-care (01) ==
LOC: HO.US 13:07
PROVIDERS: PCP Internal Medicine; Visit Provider Internal Medicine Cardiovascular Disease
DX: I73.9 Peripheral vascular disease, unspecified (principal)
CPT/HCPCS: 93925

== ENCOUNTER → 2024-10-16 13:09 | Outpatient (BNV) | payer MEDICARE, SELFPAY | PROVIDERS: PCP Internal Medicine; Visit Provider Radiology Diagnostic Radiology | DX: I73.9 Peripheral vascular disease, unspecified (principal); I49.9 Cardiac arrhythmia, unspecified | CPT/HCPCS: 93925 ==

== ENCOUNTER 2024-10-23 14:46 | Outpatient (AMB) | payer MEDICARE, SELFPAY ==
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
--- OUTSIDE RECORDS SUMMARY | 2024-10-23 16:15 | XMS_ITS | Patient Health Record ---
Author Organization [facility] Address [address] [place] [address] Care Team Providers Care Professor Of Anthropology Name Role Phone Laron Jimenez MD Primary Care Provider Gage Calvo Jr Unavailable Marcus Kothari Unavailable [phone] Results Component Value Reference Range Notes US abdomen limited Reviewed date:12/04/2023 04:07:58 PM Interpretation: Performing Lab: Notes/Report: [address] [address] Ultrasound Report Signed Patient: Shahbaz Cevallos MR#: [id number] 49 : 1955 Acct:[id number] Age/Sex: 68 / M ADM Date: 12/04/23 Loc: [place] [address]: Rosy Ring ADJUNCT MATHEMATICS INSTRUCTOR Ordering Physician: Marcus Kothari Date of Service: 12/04/23 Procedure(s): US abdomen limited Accession Number(s): [id number] cc: Laron Jimenez MD; Marcus Kothari EXAMINATION: [...] in OV> 12/04/23 1254 DD/ 0856 TD/TT: Stamping Machine Operator: [address] [address] Ultrasound Report Signed Patient: Jaziel Cevallos MR#: [id number] [birth year] : 1955 Acct:[id number] Age/Sex: 68 / M ADM Date: 12/04/23 [facility] [address]: Rosy Ring NP Ordering Physician: Marcus Kothari Date of Service: 12/04/23 Procedure(s): US abd omen limited Accession Number(s): [id number] cc: Laron Jimenez MD; Marcus Kothari EXAMINATION: US ABDOMEN LIMITED CLINICAL INFORMATION: CBD stones seen on CT scan COMPARISON: CT scan abdomen and pelvis 12/04/2023 TECHNIQUE: Real-time imaging of the right upper quadrant abdominal viscera. FINDINGS: PANCREAS: The pancre as is obscured by bowel gas. GALLBLADDER: Echogen ic bile is seen within the gallbladder. No gallstones are ident ified. The gallbladder is physiologically distended without evidence of stones, sludge, polyps, wall thickening or pericholecystic flui d. No sonographic Mejia's sign. COMMON BILE DUCT: Th e proximal common bile duct measures 0.8 cm. The mid and distal commo n duct are obscured by bowel gas. The common bile duct stones are bett er seen on CT scan obtained today. U S/US abdomen limited IMPRESSION: 1. The pancreas is o bscured by bowel gas. 2. The proximal comm on bile duct is dilated measuring 0.8 cm. The mid and distal common du ct are obscured by bowel gas. The common bile duct stones are better se en on CT scan obtained today. Dictated By: Tila Mayfield MD Signed By: <Electron ically signed by Tila Mayfield MD in OV> 12/04/23 1254 DD/ 0856 TD/TT: Stamping Machine Operator: FL guidance in OR Reviewed date:12/06/2023 10:17:23 AM Interpretation: Performing Lab: Notes/Report: [address] [address] Fluoroscopy Report Signed Patient: Shahbaz Cevallos MR#: [id number] [birth year] : 1955 Acct:[id number] Age/Sex: 68 / M ADM Date: 12/04/23 Loc: [facility] [address]: Rosy Ring NP Ordering Physician: Gage Wesley MD Date of Service: 12/04/23 Procedure(s): FL guidance in OR Accession Number(s): [id number] cc: Laron Jimenez MD; Gage Wesley MD [...] in OV> 12/05/23 1837 DD/ 1649 TD/TT: Stamping Machine Operator: [address] [address] Fluoroscopy Report Signed Patient: Jaziel Cevallos MR#: [id number] [birth year] : 1955 Acct:[id number] Age/Sex: 68 / M ADM Date: 12/04/23 Loc: [facility] [address]: Rosy Ring ADJUNCT MATHEMATICS INSTRUCTOR Ordering Physician: Gage Wesley MD Date of Service: 12/04/23 Procedure(s): BK samaniego in OR Accession Number(s): [id number] cc: Laron Jimenez MD; Gage Wesley MD EXAMINATION: XR FLUOROSCOPY WITH IMAGES CLINICAL INFORMATION: ERCP. COMPARISON: CT abdomen and pelvi s dated 12/04/2023. TECHNIQUE: Fluoroscopy Supervis ed By: Dr. Gage Wesley. Fluoroscopy Time: 4 minutes and 20.3 seconds. Cumulative Dose: 45.046 mGy. DAP: 19.595 Gycm2. Images: 5. FINDINGS: The submitted images show an endoscope, injection catheter and ingested contrast within the biliary tree. There are common bile duct filling defects consistent w ith calculi. These are removed on the final image. F L/FL guidance in OR IMPRESSION: Intraoperative fluor oscopic guidance is provided during ERCP. Please see the patient's Op erative Report for full procedural details. Dictated By: Chapito Benoit MD Signed By: <Baldemar icayvonne signed by Chapito Benoit MD in OV> 12/05/23 1837 DD/ 1649 TD/TT: Stamping Machine Operator: ADILENE Complete Blood Count no Diff Reviewed date:12/06/2023 10:17:53 AM Interpretation: Performing Lab:[facility], [address] [place] [address] Notes/Report: White Blood Count 7.8 4.8-10.8 X10*3/uL [...] /100WBC NRBC Abs Auto 0.000 0.0-0.012 X10*3/uL Reason For Referral No Information Problems Problem Type SNOMED Code ICD Code Onset Dates Problem Status W/U Status Risk Notes Problem Cholangitis (29251350) Other cholangitis (K83.09) Active confirmed Encounters Encounter Location Date Provider Diagnosis [facility] [address] [place] [address] 12/04/2023 Marcus Kothari Plan Of Treatment No Information Insurance Providers Payer Name Payer Address Payer Phone Subscriber Number Group Number Insured Name Patient Relationship to Insured Coverage Start Date Coverage End Date AARP Medicare Advantage Plan [address] [address] [place] [address] [id number] SHAHBAZ CEVALLOS Self - patient is the insured
--- OUTSIDE RECORDS SUMMARY | 2024-10-23 16:15 | XMS_ITS ---
Author Organization [facility] Address [address] [place] [address] Care Team Providers Care Candle Extrusion Machine Operator Name Role Phone Tony BARRETT, Laron Primary Care Provider Gage Calvo Jr Unavailable Marcus Kothari Unavailable [phone] REASON FOR VISIT Needs a colonoscopy for + Cologuard carlos Encounters Encounter Location Date Provider Diagnosis [facility] [address] [place] [address] 12/04/2023 Marcus Kothari Plan Of Treatment No Information Progress Notes * MARLENY CEVALLOSOB:1955 (68 yo M)Acc No.[id number]:12/04/2023 Patient:?MARTMITAWN :1955???Age:68 Y???Sex:Male Address:[address] [place] [address], [address] * true * Date:? Generated for Gareth stoll/Baltazar/eTransmitting on:?10/23/2024 04:15 PM EDT
== END 2024-10-23 15:13 | disposition home or self-care (01) ==
LOC: HO.HUSH 14:47
PROVIDERS: PCP Internal Medicine; Visit Provider Urology
DX: Z13.9 Encounter for screening, unspecified (principal)

== ENCOUNTER → 2024-10-23 14:46 | Outpatient (BNVA) | payer MEDICARE, SELFPAY | PROVIDERS: PCP Internal Medicine; Visit Provider Urology | DX: N40.1 Benign prostatic hyperplasia with lower urinary tract symptoms (principal); R35.1 Nocturia; E11.9 Type 2 diabetes mellitus without complications; R35.0 Frequency of micturition; R79.89 Other specified abnormal findings of blood chemistry | CPT/HCPCS: 81003; 99202 ==

== ENCOUNTER 2024-10-24 10:23 | Outpatient (REF) | payer MEDICARE, SELFPAY ==
--- OUTSIDE RECORDS SUMMARY | 2024-10-24 11:51 | XMS_ITS ---
Author Organization [facility] Address [address] [place] [address] Care Team Providers Care Bending Press Operator Name Role Phone Tony BARRETT, Laron Primary Care Provider Gage Calvo Jr Unavailable [phone] Marcus Kothari Unavailable [phone] REASON FOR VISIT Needs a colonoscopy for + Cologuard carlos Encounters Encounter Location Date Provider Diagnosis [facility] [address] [place] [address] 12/04/2023 Marcus Kothari Plan Of Treatment No Information Progress Notes * MARLENY CEVALLOSOB:1955 (68 yo M)Acc No.[id number]:12/04/2023 Patient:?MARTMITAWN :1955???Age:68 Y???Sex:Male Address:[address] [place], [address] * true * Date:? Generated for Gareth stoll/Baltazar/eTransmitting on:?10/24/2024 11:51 AM EDT
--- OUTSIDE RECORDS SUMMARY | 2024-10-24 11:51 | XMS_ITS | Patient Health Record ---
Author Organization [facility] Address [address] [place] [address] Care Team Providers Care Weekend Anchor Name Role Phone Laron Jimenez MD Primary Care Provider Gage Calvo Jr Unavailable Marcus Kothari Unavailable [phone] Results Component Value Reference Range Notes US abdomen limited Reviewed date:12/04/2023 04:07:58 PM Interpretation: Performing Lab: Notes/Report: [address] [address] Ultrasound Report Signed Patient: Shahbaz Cevallos MR#: [id number] 49 : 1955 Acct:[id number] Age/Sex: 68 / M ADM Date: 12/04/23 Loc: [place] [address]: Rosy Ring 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 PRESIDENT INDUSTRIAL RELATIONS Ordering Physician: Marcus Kothari Date of Service: 12/04/23 Procedure(s): US abdomen limited Accession Number(s): [id number] cc: Laron Jimenez MD; Marcus Kothari EXAMINATION: [...] in OV> 12/04/23 1254 DD/ 0856 TD/TT: Low Vision Therapist: [address] [address] Ultrasound Report Signed Patient: Jaziel Cevlalos MR#: [id number] 49 : 1955 Acct:[id number] Age/Sex: 68 / M ADM Date: 12/04/23 [facility] [address]: Rosy Ring NP Ordering Physician: Marcus Kothari Date of Service: 12/04/23 Procedure(s): US abd omen limited Accession Number(s): [id number] cc: Laron Jimenez MD; Marcus Kothari EXAMINATION: [...] in OV> 12/04/23 1254 DD/ 0856 TD/TT: Low Vision Therapist: FL guidance in OR Reviewed date:12/06/2023 10:17:23 AM Interpretation: Performing Lab: Notes/Report: [address] [address] Fluoroscopy Report Signed Patient: Shahbaz Cevallos MR#: [id number] [birth year] : 1955 Acct:[id number] Age/Sex: 68 / M ADM Date: 12/04/23 Loc: [facility] 476-[address]: Rosy Ring NP Ordering Physician: Gage Wesley MD Date of Service: 12/04/23 Procedure(s): FL guidance in OR Accession Number(s): [id number] cc: Laron Jimenez MD; Gage Wesley MD [...] in OV> 12/05/23 1837 DD/ 1649 TD/TT: Low Vision Therapist: [address] [address] Fluoroscopy Report Signed Patient: Jaziel Cevallos MR#: [id number] 49 : 1955 Acct:[id number] Age/Sex: 68 / M ADM Date: 12/04/23 Loc: [facility] 476-[address]: Rosy Ring VICE PRESIDENT [employer]ATIONS Ordering Physician: Gage Wesley MD Date of Service: 12/04/23 Procedure(s): BK samaniego in OR Accession Number(s): [id number] cc: Laron Jimenez MD; Gage Wesley MD [...] in OV> 12/05/23 1837 DD/ 1649 TD/TT: Low Vision Therapist: ADILENE Complete Blood Count no Diff Reviewed date:12/06/2023 10:17:53 AM Interpretation: Performing Lab:[facility], [address] [place] [address] Notes/Report: White Blood Count 7.8 4.8-10.8 X10*3/uL [...] Status W/U Status Risk Notes Problem Cholangitis (17952094) Other cholangitis (K83.09) Active confirmed Encounters Encounter Location Date Provider Diagnosis [facility] [address] [place] [address] 12/04/2023 Marcus Kothari Plan Of Treatment No Information Insurance Providers Payer Name Payer Address Payer Phone Subscriber Number Group Number Insured Name Patient Relationship to Insured Coverage Start Date Coverage End Date AARP Medicare Advantage Plan [address] [address] [place] [address] [id number] SHAHBAZ CEVALLOS Self - patient is the insured
[2024-10-24 13:26] LABS: MANUAL DIFF FLAG NO
[2024-10-24 13:39] LABS: Basophils Absolute Auto 0.1 X10*3/uL (0.0-0.2); Basophils Percent Auto 0.8 % (0-2); Eosinophils Absolute Auto 0.2 X10*3/uL (0.0-0.4); Eosinophils Percent Auto 1.9 % (0-4); Hematocrit 44.4 % (42.0-52.0); Hemoglobin 15.4 g/dl (14.0-18.0); Imm Gran Abs Auto 0.06 X10*3/uL (0.00-0.03); Imm Gran Pct Auto 0.6 % (0.0-0.4); Lymphocytes Absolute Auto 2.2 X10*3/uL (1.2-4.9); Lymphocytes Percent Auto 20.5 % (20-40); Mean Corpuscular HGB Conc 34.7 g/dl (31.0-36.0); Mean Corpuscular Hemoglobin 30.4 pg (27.0-33.0); Mean Corpuscular Volume 87.6 fL (80.0-98.0); Mean Platelet Volume 10.2 fL (9.4-12.4); Monocytes Absolute Auto 0.9 X10*3/uL (0.1-1.2); Monocytes Percent Auto 7.8 % (2-11); Neutrophils Absolute Auto 7.5 x10*3/uL (2.0-8.3); Neutrophils Percent Auto 68.4 % (45-73); Platelet Count 202 X10*3/uL (160-400); Red Blood Count 5.07 X10*6/uL (4.60-5.80); Red Cell Distribution Width 13.8 % (11.0-16.0); White Blood Count 10.9 X10*3/uL (4.8-10.8)
[2024-10-24 14:16] LABS: Estimated Average Glucose 192 mg/dL; Hemoglobin A1C 265.3767 umol/L; Hemoglobin A1c % 8.3 % (<6.0); Total Hemoglobin (HGBA1C) 3967.7225 umol/L
[2024-10-24 14:27] LABS: Alanine Aminotransferase 27 U/L (0-40); Alkaline Phosphatase 103 U/L (39-117); Anion Gap 14 (12-20); Aspartate Amino Transferase 31 U/L (5-37); Bilirubin Total 0.4 mg/dL (0.0-1.0); Blood Urea Nitrogen 13 mg/dL (9-16); Calcium 9.1 mg/dL (8.4-10.2); Carbon Dioxide 25 mmol/L (22-29); Chloride 104 mmol/L (96-108); Cholesterol 116 mg/dL (<200); Estimated Glomerular Filt Rate > 60; Glucose Fasting 161 mg/dL (60-99); HDL Cholesterol 40 mg/dL (>40); LDL Cholesterol Calculated 54 mg/dL (<100); Potassium 4.6 mmol/L (3.3-5.1); Sodium 138 mmol/L (135-145); TSH reflex Free T4 1.16 uIU/mL (0.32-4.0); Triglycerides 112 mg/dL (<150); Vitamin D 25-OH Total 25.6 ng/mL (>30)
[2024-10-24 14:28] LABS: PSA,Total (Free>4and<10) 6.44 ng/mL (0.00-4.00)
[2024-10-24 14:39] LABS: Folate 4.1 ng/mL (> or = 4.0); Vitamin B12 410 pg/mL (200-900)
[2024-10-28 11:54] LABS: Free Prostate Spec Ag 0.7 ng/mL; Percent Free Prostate Spec Ag 11 % (calc) (>25); Prostate Specific Ag Total 6.3 ng/mL (< OR = 4.0)
[2024-11-02 08:53] LABS: Testosterone, Free 19.8 pg/mL (30.0-135.0); Testosterone, Total 132 ng/dL (250-1100)
== END 2024-10-24 10:24 | disposition home or self-care (01) ==
LOC: HO.HMGCLDS 10:23
PROVIDERS: PCP Internal Medicine; Referring Provider Urology; Visit Provider Internal Medicine
DX: D64.9 Anemia, unspecified (principal)
CPT/HCPCS: 36415; 80053; 80061; 82306; 82607; 82746; 83036; 84153; 84154; 84402; 84403; 84443; 85025

== ENCOUNTER 2024-10-30 09:38 | Outpatient (AMB) | payer MEDICARE, SELFPAY ==
[2024-10-30 10:00] VITALS: BP 126/82; PULSE 73; O2SAT 96; BMI 26.6
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
--- OUTSIDE RECORDS SUMMARY | 2024-10-30 10:46 | XMS_ITS | Patient Health Record ---
Author Organization [facility] Address [address] [place] [address] Care Team Providers Care Stoker Erector Name Role Phone Laron Jimenez MD Primary Care Provider Gage Calvo Jr Unavailable Marcus Kothari Unavailable [phone] Results Component Value Reference Range Notes US abdomen limited Reviewed date:12/04/2023 04:07:58 PM Interpretation: Performing Lab: Notes/Report: [address] [address] Ultrasound Report Signed Patient: Shahbaz Cevallos MR#: [id number] 49 : 1955 Acct:[id number] Age/Sex: 68 / M ADM Date: 12/04/23 Loc: [place] [address]: Rosy Ring FORESTRY PATROLMAN Ordering Physician: Marcus Kothari Date of Service: 12/04/23 Procedure(s): US abdomen limited Accession Number(s): [id number] cc: Laron Jimenez MD; Marcus Kothari EXAMINATION: [...] in OV> 12/04/23 1254 DD/ 0856 TD/TT: Bottle Inspector: [address] [address] Ultrasound Report Signed Patient: Jaziel Cevallos MR#: [id number] 49 : 1955 Acct:[id number] Age/Sex: 68 / M ADM Date: 12/04[facility] [address]: Rosy Ring NP Ordering Physician: Marcus Kothari Date of Service: 12/04/23 Procedure(s): US abd omen limited Accession Number(s): [id number] cc: Laron Jimenez MD; Marcus Kothari EXAMINATION: [...] in OV> 12/04/23 1254 DD/ 0856 TD/TT: Bottle Inspector: FL guidance in OR Reviewed date:12/06/2023 10:17:23 AM Interpretation: Performing Lab: Notes/Report: [address] [address] Fluoroscopy Report Signed Patient: Shahbaz Cevallos MR#: [id number] 49 : 1955 Acct:[id number] Age/Sex: 68 / M ADM Date: 12/04/23 Loc: [facility] [address]: Rosy Ring NP Ordering Physician: Gage Wesley MD Date of Service: 12/04/23 Procedure(s): FL guidance in OR Accession Number(s): [id number] cc: Laron Jimenez MD; Gage Wesley MD [...] in OV> 12/05/23 1837 DD/ 1649 TD/TT: Bottle Inspector: [address] [address] Fluoroscopy Report Signed Patient: Jaziel Cevallos MR#: [id number] 49 : 1955 Acct:[id number] Age/Sex: 68 / M ADM Date: 12/04/23 Loc: [facility] [address]: Rosy Ring FORESTRY PATROLMAN Ordering Physician: Gage Wesley MD Date of Service: 12/04/23 Procedure(s): BK samaniego in OR Accession Number(s): [id number] cc: Laron Jimenez MD; Gage Wesley MD [...] in OV> 12/05/23 1837 DD/ 1649 TD/TT: Bottle Inspector: ADILENE Complete Blood Count no Diff Reviewed date:12/06/2023 10:17:53 AM Interpretation: Performing Lab:[facility], [address] [place] [address] Notes/Report: White Blood Count 7.8 4.8-10.8 X10*3/uL [...] Status W/U Status Risk Notes Problem Cholangitis (20093194) Other cholangitis (K83.09) Active confirmed Encounters Encounter Location Date Provider Diagnosis [facility] [address] [place] [address] 12/04/2023 Marcus Kothari Plan Of Treatment No Information Insurance Providers Payer Name Payer Address Payer Phone Subscriber Number Group Number Insured Name Patient Relationship to Insured Coverage Start Date Coverage End Date AARP Medicare Advantage Plan [address] [address] [place] [address] [id number] SHAHBAZ CEVALLOS Self - patient is the insured
--- OUTSIDE RECORDS SUMMARY | 2024-10-30 10:46 | XMS_ITS ---
Author Organization [facility] Address [address] [place] [address] Care Team Providers Care Agricultural Consultant Name Role Phone Tony BARRETT, Laron Primary Care Provider Gage Calvo Jr Unavailable Marcus Kothari Unavailable [phone] REASON FOR VISIT Needs a colonoscopy for + Cologuard carlos Encounters Encounter Location Date Provider Diagnosis [facility] [address] [place] [address] 12/04/2023 Marcus Kothari Plan Of Treatment No Information Progress Notes * MARLENY CEVALLOSOB:1955 (68 yo M)Acc No.[id number]:12/04/2023 Patient:?MARTMITAWN :1955???Age:68 Y???Sex:Male Address:[address] [place], [address] * true * Date:? Generated for Gareth stoll/Baltazar/eTransmitting on:?10/30/2024 10:46 AM EDT
== END 2024-10-30 10:45 | disposition home or self-care (01) ==
LOC: HO.HMCH 09:39
PROVIDERS: PCP Internal Medicine; Visit Provider Internal Medicine
DX: E11.51 Type 2 diabetes mellitus with diabetic peripheral angiopathy without gangrene (principal); J44.9 Chronic obstructive pulmonary disease, unspecified; I73.9 Peripheral vascular disease, unspecified; F33.9 Major depressive disorder, recurrent, unspecified; E78.00 Pure hypercholesterolemia, unspecified; I25.10 Atherosclerotic heart disease of native coronary artery without angina pectoris; M94.0 Chondrocostal junction syndrome [Tietze]; K21.9 Gastro-esophageal reflux disease without esophagitis; G56.10 Other lesions of median nerve, unspecified upper limb; E34.9 Endocrine disorder, unspecified; M25.561 Pain in right knee; N40.0 Benign prostatic hyperplasia without lower urinary tract symptoms; F17.200 Nicotine dependence, unspecified, uncomplicated

== ENCOUNTER → 2024-10-30 09:38 | Outpatient (BNVA) | payer MEDICARE, SELFPAY | PROVIDERS: PCP Internal Medicine; Visit Provider Internal Medicine | DX: I25.10 Atherosclerotic heart disease of native coronary artery without angina pectoris (principal); E78.5 Hyperlipidemia, unspecified; E78.00 Pure hypercholesterolemia, unspecified; M94.0 Chondrocostal junction syndrome [Tietze]; E11.9 Type 2 diabetes mellitus without complications; J44.9 Chronic obstructive pulmonary disease, unspecified; K21.9 Gastro-esophageal reflux disease without esophagitis; G56.10 Other lesions of median nerve, unspecified upper limb; E34.9 Endocrine disorder, unspecified; I73.9 Peripheral vascular disease, unspecified; M25.561 Pain in right knee; N40.0 Benign prostatic hyperplasia without lower urinary tract symptoms; F33.9 Major depressive disorder, recurrent, unspecified; E66.3 Overweight; F17.210 Nicotine dependence, cigarettes, uncomplicated; Z68.26 Body mass index [BMI] 26.0-26.9, adult | CPT/HCPCS: 96127; 99212 ==

== ENCOUNTER 2024-11-13 13:04 | Outpatient (AMB) | payer MEDICARE, SELFPAY ==
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
== END 2024-11-13 13:50 | disposition home or self-care (01) ==
LOC: HO.HVS 13:05
PROVIDERS: PCP Internal Medicine; Visit Provider Surgery Vascular Surgery
DX: I73.9 Peripheral vascular disease, unspecified (principal)
CPT/HCPCS: 99204; G2211

== ENCOUNTER → 2024-11-13 13:04 | Outpatient (BNVA) | payer MEDICARE, SELFPAY | PROVIDERS: PCP Internal Medicine; Visit Provider Surgery Vascular Surgery | DX: E11.51 Type 2 diabetes mellitus with diabetic peripheral angiopathy without gangrene (principal); F17.210 Nicotine dependence, cigarettes, uncomplicated | CPT/HCPCS: 99202 ==

== ENCOUNTER 2024-11-19 07:02 | Day surgery (SDC) | payer MEDICARE, SELFPAY ==
[2024-11-19] VITALS (19 sets, daily range): BP systolic 119–156; BP diastolic 48–85; PULSE 60–84; RESP 14–23; TEMP 36.6–36.7; O2SAT 94–100; BMI 25.0
[2024-11-19 07:43] LABS: MANUAL DIFF FLAG NO
[2024-11-19 07:45] LABS: Basophils Absolute Auto 0.1 X10*3/uL (0.0-0.2); Basophils Percent Auto 0.7 % (0-2); Eosinophils Absolute Auto 0.1 X10*3/uL (0.0-0.4); Eosinophils Percent Auto 1.1 % (0-4); Hemoglobin 14.6 g/dl (14.0-18.0); Imm Gran Abs Auto 0.04 X10*3/uL (0.00-0.03); Imm Gran Pct Auto 0.4 % (0.0-0.4); Lymphocytes Absolute Auto 2.1 X10*3/uL (1.2-4.9); Lymphocytes Percent Auto 19.9 % (20-40); Mean Corpuscular HGB Conc 35.6 g/dl (31.0-36.0); Mean Corpuscular Hemoglobin 30.5 pg (27.0-33.0); Mean Corpuscular Volume 85.8 fL (80.0-98.0); Mean Platelet Volume 9.5 fL (9.4-12.4); Monocytes Absolute Auto 0.9 X10*3/uL (0.1-1.2); Monocytes Percent Auto 8.1 % (2-11); Neutrophils Absolute Auto 7.5 x10*3/uL (2.0-8.3); Neutrophils Percent Auto 69.8 % (45-73); Platelet Count 180 X10*3/uL (160-400); Red Blood Count 4.78 X10*6/uL (4.60-5.80); Red Cell Distribution Width 13.8 % (11.0-16.0); White Blood Count 10.8 X10*3/uL (4.8-10.8)
[2024-11-19 07:55] LABS: Glucose, Whole Blood 271 mg/dL (60-115)
[2024-11-19 08:00] LABS: Blood Urea Nitrogen 9 mg/dL (9-16); Creatinine Clr Calc Pharmacy 76.2; Estimated Glomerular Filt Rate > 60
[2024-11-19] MEDS: 0.9 % Sodium Chloride 1,000 ML 100 ML IVCONT (08:12)
[2024-11-19] MEDS: Midazolam HCl 2 MG/2 ML VIAL 0.5 MG IVPUSH (09:27)
[2024-11-19] MEDS: fentaNYL citrate/PF 100 MCG/2 ML VIAL 25 MCG IVPUSH (09:27)
[2024-11-19] MEDS: Morphine Sulfate 2 MG/ML CARTRIDGE 4 MG IVPUSH (10:40)
--- NOTE | 2024-11-19 10:54 | W.PM.OPN ---
Operative Note Operative Note Date of Service: 11/19/24 Narrative: Angiogram report from [facility] Preoperative diagnosis: Atherosclerosis of right lower extremity with activity limiting claudication Postoperative diagnosis: Same Procedure: 1. Ultrasound-guided left common femoral access 2. Aortogram with bilateral lower extremity runoff Surgeon:Tony Bonilla M.D., FACS, RPVI Color Paste Mixing Supervisor:None Anesthesia: Local with moderate conscious sedation. Total intraservice moderate sedation time was 21 minutes. I monitored the patient's level of consciousness and physiologic status continuously throughout the procedure. Specimens:none Drains:none Estimated blood loss: Less than 10 ml Radiation Dose: 190 mGy Implant: None Indications: 69-year-old gentleman who has had severe right lower extremity activity limiting claudication now presents for endovascular intervention. The patient has signed the informed consent after reviewing risks, complications, benefits, and alternatives previously discussed with the patient. The patient was given the opportunity to ask any additional questions or voice any concerns. All questions were answered to the patient's satisfaction. Procedure in detail: Patient was brought to the angiography suite prior to which a time-out was called for patient identification and site verification. Bilateral groins were prepped and draped in the standard surgical fashion. Under ultrasound guidance left common femoral was punctured with micro puncture needle and wire. Subsequently a precision 5 Setswana sheath was then placed. Linkovery wire was advanced to the level of the aorta. 5 Setswana Flush catheter was brought up and parked at the level of the renal arteries. Aortogram was then undertaken. Catheter was brought down to the level of the iliac bifurcation. Iliacs were subsequently imaged. Through the iliac bifurcation we performed a power injection with bilateral lower extremity runoff Catheter was then brought in up and over to the right side external iliac. A more focal right lower extremity runoff study was then undertaken. No intervention was indicated. Catheter wire sheath was brought back to the ipsilateral side. Through the 5 Setswana sheath a CELT closure device was deployed. Interpretation of films: 1. Ultrasound demonstrates appropriate femoral access site. Vessel was patent with minimal stenosis. Needle entry was visualized. Image of ultrasound was saved. 2. Aortogram demonstrates appropriate caliber aorta. Minimal disease. Appropriate take-off of the renals. 3. Iliac images demonstrate no significant disease. On the right side there was very mild stenosis at the origin of the external iliac just distal to the takeoff of the hypogastric but was not flow-limiting 4. Right Leg Common femoral artery: Occluded Profundus Femoris: No significant disease Superficial femoral artery: Mild to moderate disease at [facility] Popliteal artery (p1,p2,p3): No significant disease Anterior tibial artery: Patent Peroneal artery: Patent Posterior tibial artery: Patent Dorsalis pedis/plantar arch: Incomplete 5. Left Leg Common femoral artery: Occluded Profundus Femoris: No significant disease Superficial femoral artery: No significant disease Popliteal artery (p1,p2,p3): No significant disease Anterior tibial artery: Patent Peroneal artery: Patent Posterior tibial artery: Patent Dorsalis pedis/plantar arch: Incomplete Conclusion: 1. Successful diagnostic angiogram. Patient will require right common femoral endarterectomy. 2. Anticoagulation status: No change This note is constructed using voice recognition software. While every effort has been made to ensure accuracy, apartment manager errors may have been included. Thank you for allowing me to participate in the care of your patient. Yours sincerely, Tony Bonilla MD, FACS, R.P.V.I.
== END 2024-11-19 12:17 | disposition home or self-care (01) ==
PROVIDERS: PCP Internal Medicine; Visit Provider Surgery Vascular Surgery
DX: E11.51 Type 2 diabetes mellitus with diabetic peripheral angiopathy without gangrene (principal); I70.211 Atherosclerosis of native arteries of extremities with intermittent claudication, right leg; Z79.84 Long term (current) use of oral hypoglycemic drugs; I25.10 Atherosclerotic heart disease of native coronary artery without angina pectoris; Z95.1 Presence of aortocoronary bypass graft; E78.00 Pure hypercholesterolemia, unspecified; F17.210 Nicotine dependence, cigarettes, uncomplicated
CPT/HCPCS: 36247; 36415; 75630; 76937; 82565; 82947; 84520; 85025; 99152; C1769; C1887; C1894; J1644; J2250; J2270; J3010; Q9967

== ENCOUNTER → 2024-11-19 07:02 | Outpatient (BNV) | payer MEDICARE, SELFPAY | PROVIDERS: PCP Internal Medicine; Visit Provider Surgery Vascular Surgery | DX: I70.211 Atherosclerosis of native arteries of extremities with intermittent claudication, right leg (principal) | CPT/HCPCS: 36216; 75630; 75710; 76937; 99152 ==

== ENCOUNTER 2024-11-21 12:32 | Outpatient (REF) | payer MEDICARE, SELFPAY ==
--- NOTE | ~2024-11-21 | CT_ITS ---
EXAMINATION: CT CHEST WITHOUT CONTRAST CLINICAL INFORMATION: Solitary pulmonary nodule COMPARISON: AP chest 12/14/2023 TECHNIQUE: Multidetector volumetric CT imaging of the chest was done. Axial MIP volume rendering provided. Sagittal and coronal reformatted images were obtained. This CT examination was performed using dose optimization techniques as appropriate, variously including the following: *Automated exposure control *Adjustment of mA and/or kV according to patient size (this includes techniques or standardized protocols for targeted exams where dose is matched to indication/reason for exam; i.e. extremities or head) *Use of iterative reconstruction technique DLP: 165 mGy/cm. FINDINGS: RN TEACHER: Hyperinflated lungs lungs are clear. There are median sternotomy sutures from previous intervention. LUNGS: The lungs are hyperinflated without any acute pneumonic process. A 5 mm groundglass density right lung apex image 37/5 is stable. 2 mm nodular density right lung apex axial image 32/5 is stable as well. 2 mm ill-defined nodule right upper lobe image 40/5 is stable. A 1.3 cm groundglass density seen in the left upper lobe anterior segment image 40/5, stable as well. Minimal diffuse bronchial wall thickening is stable as well. MEDIASTINUM: Thyroid lobes are symmetric and normal. The central tracheal and bronchial airway is widely patent. Mild sclerotic changes of thoracic aorta are noted without aneurysmal dilatation. No pericardial effusion seen. No abnormal mediastinal lymph nodes seen. CORONARY ARTERY CALCIFICATION: Mild coronary artery calcifications are present. PLEURA: There is no pleural effusion, thickening or calcification. AXILLA: No abnormal size axillary lymph nodes seen. The chest wall soft tissues are unremarkable. UPPER ABDOMEN: Visualized liver, spleen, pancreas and bilateral adrenal glands are unremarkable. There is an exophytic cysts upper mid pole left kidney. The gallbladder is out. OSSEOUS STRUCTURES: There are median sternotomy sutures from previous intervention. No aggressive lytic or sclerotic process seen there is mild anterolisthesis mid and lower dorsal spine. CT/CT chest wo IV con IMPRESSION: Stable multiple small pulmonary nodules and groundglass density measuring 5 mm and less. No abnormal mediastinal or axillary lymphadenopathy. Mild hyperinflation/emphysema. Fleischner guidelines were followed. Electronically signed by: Steve Love MD 11/21/2024 02:22 PM EDT
--- OUTSIDE RECORDS SUMMARY | 2024-11-21 12:58 | XMS_ITS ---
Author Organization [facility] Address [address] [place] [address] Care Team Providers Care Ship Ceiler Name Role Phone Tony BARRETT, Laron Primary Care Provider Gage Calvo Jr Unavailable [phone] Marcus Kothari Unavailable [phone] REASON FOR VISIT Needs a colonoscopy for + Cologuard carlos Encounters Encounter Location Date Provider Diagnosis [facility] [address] [place] [address] 12/04/2023 Marcus Kothari Plan Of Treatment No Information Progress Notes * MARLENY CEVALLOSOB:1955 (68 yo M)Acc No.[id number]:12/04/2023 Patient:?RDMITA MCKAYWN :1955???Age:68 Y???Sex:Male Address:[address] [place], [address] * true * Date:? Generated for Gareth stoll/Baltazar/eTransmitting on:?11/21/2024 12:58 PM EDT
--- OUTSIDE RECORDS SUMMARY | 2024-11-21 12:58 | XMS_ITS | Patient Health Record ---
Author Organization [facility] Address [address] [place] [address] Care Team Providers Care Gallery Or Museum Guide Name Role Phone Laron Jimenez MD Primary Care Provider Gage Calvo Jr Unavailable Marcus Kothari Unavailable [phone] Results Component Value Reference Range Notes US abdomen limited Reviewed date:12/04/2023 04:07:58 PM Interpretation: Performing Lab: Notes/Report: [address] [address] Ultrasound Report Signed Patient: Shahbaz Cevallos MR#: [id number] 49 : 1955 Acct:[id number] Age/Sex: 68 / M ADM Date: 12/04/23 Loc: [place] [address]: Rosy Ring PRICE LISTER Ordering Physician: Marcus Kothari Date of Service: 12/04/23 Procedure(s): US abdomen limited Accession Number(s): [id number] cc: Laron Jimenez MD; Marcus Kothari EXAMINATION: [...] in OV> 12/04/23 1254 DD/ 0856 TD/TT: Artists' Model: [address] [address] Ultrasound Report Signed Patient: Jaziel Cevallos MR#: [id number] 49 : 1955 Acct:[id number] Age/Sex: 68 / M ADM Date: 12/04/23 [facility]: Rosy Ring NP Ordering Physician: Marcus Kothari Date of Service: 12/04/23 Procedure(s): US abd omen limited Accession Number(s): [id number] cc: Laron Jimenez MD; Marcus Kothari EXAMINATION: [...] in OV> 12/04/23 1254 DD/ 0856 TD/TT: Artists' Model: FL guidance in OR Reviewed date:12/06/2023 10:17:23 AM Interpretation: Performing Lab: Notes/Report: [address] [address] Fluoroscopy Report Signed Patient: Shahbaz Cevallos MR#: [id number] 49 : 1955 Acct:[id number] Age/Sex: 68 / M ADM Date: 12/04/23 Loc: [facility] 476-[address]: Rosy Ring NP Ordering Physician: Gage Wesley MD Date of Service: 12/04/23 Procedure(s): FL guidance in OR Accession Number(s): [id number] cc: Laron Jimenez MD; Gage Wesley MD [...] in OV> 12/05/23 1837 DD/ 1649 TD/TT: Artists' Model: [address] [address] Fluoroscopy Report Signed Patient: Jaziel Cevallos MR#: [id number] 49 : 1955 Acct:[id number] Age/Sex: 68 / M ADM Date: 12/04/23 Loc: [facility] 476-[address]: Rosy Ring PRICE LISTER Ordering Physician: Gage Wesley MD Date of Service: 12/04/23 Procedure(s): BK samaniego in OR Accession Number(s): [id number] cc: Laron Jimenez MD; Gage Wesley MD [...] in OV> 12/05/23 1837 DD/ 1649 TD/TT: Artists' Model: ADILENE Complete Blood Count no Diff Reviewed date:12/06/2023 10:17:53 AM Interpretation: Performing Lab:[facility], [address] [place] [address] Notes/Report: White Blood Count 7.8 4.8-10.8 X10*3/uL [...] Status W/U Status Risk Notes Problem Cholangitis (38614736) Other cholangitis (K83.09) Active confirmed Encounters Encounter Location Date Provider Diagnosis [facility] [address] [place] [address] 12/04/2023 Marcus Kothari Plan Of Treatment No Information Insurance Providers Payer Name Payer Address Payer Phone Subscriber Number Group Number Insured Name Patient Relationship to Insured Coverage Start Date Coverage End Date AARP Medicare Advantage Plan [address] [address] [place] [address] [id number] SHAHBAZ CEVALLOS Self - patient is the insured
== END 2024-11-21 12:33 | disposition home or self-care (01) ==
LOC: HO.CT 12:32
PROVIDERS: PCP Internal Medicine; Visit Provider Nurse Practitioner Family
DX: R91.1 Solitary pulmonary nodule (principal); F17.210 Nicotine dependence, cigarettes, uncomplicated
CPT/HCPCS: 71250

== ENCOUNTER → 2024-11-21 12:34 | Outpatient (BNV) | payer MEDICARE, SELFPAY | PROVIDERS: PCP Internal Medicine; Visit Provider Radiology Diagnostic Radiology | DX: R91.8 Other nonspecific abnormal finding of lung field (principal) | CPT/HCPCS: 71250 ==

== ENCOUNTER 2024-11-27 13:16 | Outpatient (AMB) | payer MEDICARE, SELFPAY ==
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
[2024-11-27 13:31] VITALS: BP 130/63; PULSE 81; O2SAT 97; BMI 26.4
--- OUTSIDE RECORDS SUMMARY | 2024-11-27 14:22 | XMS_ITS ---
Author Organization [facility] Address [address] [place] [address] Care Team Providers Care Global Supply Chain Director Name Role Phone Tony BARRETT, Laron Primary Care Provider Gage Calvo Jr Unavailable Marcus Kothari Unavailable [phone] REASON FOR VISIT Needs a colonoscopy for + Cologuard carlos Encounters Encounter Location Date Provider Diagnosis [facility] [address] [place] [address] 12/04/2023 Marcus Kothari Plan Of Treatment No Information Progress Notes * MARLENY CEVALLOSOB:1955 (68 yo M)Acc No.[id number]:12/04/2023 Patient:?MARTMITAWN :1955???Age:68 Y???Sex:Male Address:[address] [place] [address], [address] * true * Date:? Generated for Gareth stoll/Baltazar/eTransmitting on:?11/27/2024 02:21 PM EDT
--- OUTSIDE RECORDS SUMMARY | 2024-11-27 14:22 | XMS_ITS | Patient Health Record ---
Author Organization [facility] Address [address] [place] [address] Care Team Providers Care Learning And Development Director Name Role Phone Laron Jimenez MD Primary Care Provider Gage Calvo Jr Unavailable [phone] Marcus Kothari Unavailable [phone] Results Component Value Reference Range Notes US abdomen limited Reviewed date:12/04/2023 04:07:58 PM Interpretation: Performing Lab: Notes/Report: [address] [address] Ultrasound Report Signed Patient: Shahbaz Cevallos MR#: [id number] 49 : 1955 Acct:[id number] Age/Sex: 68 / M ADM Date: 12/04/23 Loc: [place] [address]: Rosy Ring EVIDENCE CUSTODIAN Ordering Physician: Marcus Kothari Date of Service: 12/04/23 Procedure(s): US abdomen limited Accession Number(s): [id number] cc: Laron Jimenez MD; Marcus Kothari EXAMINATION: [...] in OV> 12/04/23 1254 DD/ 0856 TD/TT: Chef & Owner: [address] [address] Ultrasound Report Signed Patient: Jaziel Cevallos MR#: [id number] 49 : 1955 Acct:[id number] Age/Sex: 68 / M ADM Date: 12/04/23 [facility]: Rosy Ring NP Ordering Physician: Marcus Kothari Date of Service: 12/04/23 Procedure(s): US abd omen limited Accession Number(s): [id number] cc: Laron Jimenez MD; Marcus Kothari EXAMINATION: [...] in OV> 12/04/23 1254 DD/ 0856 TD/TT: Chef & Owner: FL guidance in OR Reviewed date:12/06/2023 10:17:23 AM Interpretation: Performing Lab: Notes/Report: [address] [address] Fluoroscopy Report Signed Patient: Shahbaz Cevallos MR#: [id number] 49 : 1955 Acct:[id number] Age/Sex: 68 / M ADM Date: 12/04/23 Loc: [facility] [address]: Rosy Ring NP Ordering Physician: Gage Wesley MD Date of Service: 12/04/23 Procedure(s): FL guidance in OR Accession Number(s): [id number] cc: Laron Jimenez MD; Gage Wesley MD [...] in OV> 12/05/23 1837 DD/ 1649 TD/TT: Chef & Owner: [address] [address] Fluoroscopy Report Signed Patient: Jaziel Cevallos MR#: [id number] 49 : 1955 Acct:[id number] Age/Sex: 68 / M ADM Date: 12/04/23 Loc: [facility] [address]: Rosy Ring EVIDENCE CUSTODIAN Ordering Physician: Gage Wesley MD Date of Service: 12/04/23 Procedure(s): BK samaniego in OR Accession Number(s): [id number] cc: Laron Jimenez MD; Gage Wesley MD [...] in OV> 12/05/23 1837 DD/ 1649 TD/TT: Chef & Owner: ADILENE Complete Blood Count no Diff Reviewed date:12/06/2023 10:17:53 AM Interpretation: Performing Lab:[facility], [address] [place] [address] Notes/Report: White Blood Count 7.8 4.8-10.8 X10*3/uL [...] Status W/U Status Risk Notes Problem Cholangitis (78239197) Other cholangitis (K83.09) Active confirmed Encounters Encounter Location Date Provider Diagnosis [facility] [address] [place] [address] 12/04/2023 Marcus Kothari Plan Of Treatment No Information Insurance Providers Payer Name Payer Address Payer Phone Subscriber Number Group Number Insured Name Patient Relationship to Insured Coverage Start Date Coverage End Date A[employer] Medicare Advantage Plan [address] [address] [place] [address] [phone] [id number] SHAHBAZ CEVALLOS Self - patient is the insured
== END 2024-11-27 14:06 | disposition home or self-care (01) ==
LOC: HO.PMC 13:16
PROVIDERS: PCP Internal Medicine; Referring Provider Internal Medicine; Visit Provider Anesthesiology
DX: G89.29 Other chronic pain (principal)
CPT/HCPCS: 99203

== ENCOUNTER → 2024-11-27 13:16 | Outpatient (BNVA) | payer MEDICARE, SELFPAY | PROVIDERS: PCP Internal Medicine; Referring Provider Internal Medicine; Visit Provider Anesthesiology | DX: G89.29 Other chronic pain (principal) | CPT/HCPCS: 99202 ==

== ENCOUNTER 2024-11-28 08:22 | Outpatient (AMB) | payer MEDICARE, SELFPAY ==
--- OUTSIDE RECORDS SUMMARY | 2024-11-28 08:30 | XMS_ITS | Patient Health Record ---
Author Organization [facility] Address [address] [place] [address] Care Team Providers Care Building Engineer Name Role Phone Laron Jimenez MD Primary Care Provider Gage Calvo Jr Unavailable [phone] Marcus Kothari Unavailable [phone] Results Component Value Reference Range Notes US abdomen limited Reviewed date:12/04/2023 04:07:58 PM Interpretation: Performing Lab: Notes/Report: [address] [address] Ultrasound Report Signed Patient: Shahbaz Cevallos MR#: [id number] 49 : 1955 Acct:[id number] Age/Sex: 68 / M ADM Date: 12/04/23 Loc: [place] [address]: Rosy Ring COOK NIGHT Ordering Physician: Marcus Kothari Date of Service: 12/04/23 Procedure(s): US abdomen limited Accession Number(s): [id number] cc: Laron Jimenez MD; Marcus Kotahri EXAMINATION: US ABDOMEN LIMITED CLINICAL INFORMATION: CBD [...] in OV> 12/04/23 1254 DD/ 0856 TD/TT: Respiratory Care Program Director: [address] [address] Ultrasound Report Signed Patient: Jaziel Cevallos MR#: [id number] 49 : 1955 Acct:[id number] Age/Sex: 68 / M ADM Date: 12/04/23 [facility] [address]: Rosy Ring NP Ordering Physician: Marcus Kothari Date of Service: 12/04/23 Procedure(s): US abd omen limited Accession Number(s): [id number] cc: Laron Jimenez MD; Marcus Kothari EXAMINATION: [...] in OV> 12/04/23 1254 DD/ 0856 TD/TT: Respiratory Care Program Director: FL guidance in OR Reviewed date:12/06/2023 10:17:23 AM Interpretation: Performing Lab: Notes/Report: [address] [address] Fluoroscopy Report Signed Patient: Shahbaz Cevallos MR#: [id number] 49 : 1955 Acct:[id number] Age/Sex: 68 / M ADM Date: 12/04/23 Loc: [facility] [address]: Rosy Ring NP Ordering Physician: Gage Wesley MD Date of Service: 12/04/23 Procedure(s): FL guidance in OR Accession Number(s): [id number] cc: Laron Jimenez MD; Gage Wesley MD [...] in OV> 12/05/23 1837 DD/ 1649 TD/TT: Respiratory Care Program Director: [address] [address] Fluoroscopy Report Signed Patient: Jaziel Cevallos MR#: [id number] 49 : 1955 Acct:[id number] Age/Sex: 68 / M ADM Date: 12/04/23 Loc: [facility] [address]: Rosy Ring COOK NIGHT Ordering Physician: Gage Wesley MD Date of Service: 12/04/23 Procedure(s): BK samaniego in OR Accession Number(s): [id number] cc: Laron Jimenez MD; Gage Wesley MD [...] in OV> 12/05/23 1837 DD/ 1649 TD/TT: Respiratory Care Program Director: ADILENE Complete Blood Count no Diff Reviewed date:12/06/2023 10:17:53 AM Interpretation: Performing Lab:[facility], [address] [place] [address] Notes/Report: White Blood Count 7.8 4.8-10.8 X10*3/uL [...] Status W/U Status Risk Notes Problem Cholangitis (22583043) Other cholangitis (K83.09) Active confirmed Encounters Encounter Location Date Provider Diagnosis [facility] [address] [place] [address] 12/04/2023 Marcus Kothari Plan Of Treatment No Information Insurance Providers Payer Name Payer Address Payer Phone Subscriber Number Group Number Insured Name Patient Relationship to Insured Coverage Start Date Coverage End Date AARP Medicare Advantage Plan [address] [address] [place] [address] [phone] [id number] SHAHBAZ CEVALLOS Self - patient is the insured
--- OUTSIDE RECORDS SUMMARY | 2024-11-28 08:31 | XMS_ITS ---
Author Organization [facility] Address [address] [place] [address] Care Team Providers Care Fish Protector Name Role Phone Tony BARRETT, Laron Primary Care Provider Gage Calvo Jr Unavailable Marcus Kothari Unavailable [phone] REASON FOR VISIT Needs a colonoscopy for + Cologuard carlos Encounters Encounter Location Date Provider Diagnosis [facility] [address] [place] [address] 12/04/2023 Marcus Kothari Plan Of Treatment No Information Progress Notes * MARLENY CEVALLOSOB:1955 (68 yo M)Acc No.[id number]:12/04/2023 Patient:?MARTMITAWN :1955???Age:68 Y???Sex:Male Address:[address] [place] [address], [address] * true * Date:? Generated for Gareth stoll/Baltazar/eTransmitting on:?11/28/2024 08:30 AM EDT
[2024-11-28 08:46] VITALS: BP 130/62; PULSE 68; BMI 26.8
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
== END 2024-11-28 09:14 | disposition home or self-care (01) ==
LOC: HO.HCS 08:23
PROVIDERS: PCP Internal Medicine; Visit Provider Nurse Practitioner Family
DX: I25.10 Atherosclerotic heart disease of native coronary artery without angina pectoris (principal); Z95.1 Presence of aortocoronary bypass graft; Z86.79 Personal history of other diseases of the circulatory system; J44.9 Chronic obstructive pulmonary disease, unspecified; R07.89 Other chest pain; G89.29 Other chronic pain; E78.5 Hyperlipidemia, unspecified; I73.9 Peripheral vascular disease, unspecified; Z01.810 Encounter for preprocedural cardiovascular examination
CPT/HCPCS: 93010; 99214; G2211

== ENCOUNTER → 2024-11-28 08:22 | Outpatient (BNVA) | payer MEDICARE, SELFPAY | PROVIDERS: PCP Internal Medicine; Visit Provider Nurse Practitioner Family | DX: Z01.810 Encounter for preprocedural cardiovascular examination (principal); I25.10 Atherosclerotic heart disease of native coronary artery without angina pectoris; I73.9 Peripheral vascular disease, unspecified; J44.9 Chronic obstructive pulmonary disease, unspecified; E78.5 Hyperlipidemia, unspecified; E11.9 Type 2 diabetes mellitus without complications; R07.9 Chest pain, unspecified; F17.210 Nicotine dependence, cigarettes, uncomplicated; R07.89 Other chest pain; G89.29 Other chronic pain; Z95.1 Presence of aortocoronary bypass graft; Z86.79 Personal history of other diseases of the circulatory system | CPT/HCPCS: 93005; 99212 ==

== ENCOUNTER 2024-12-01 14:37 | Outpatient (AMB) | payer MEDICARE, SELFPAY ==
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
--- OUTSIDE RECORDS SUMMARY | 2024-12-01 14:44 | XMS_ITS | Patient Health Record ---
Author Organization [facility] Address [address] [place] [address] Care Team Providers Care Rolloff Truck Driver Name Role Phone Laron Jimenez MD Primary Care Provider Gage Calvo Jr Unavailable [phone] Marcus Kothari Unavailable [phone] Results Component Value Reference Range Notes US abdomen limited Reviewed date:12/04/2023 04:07:58 PM Interpretation: Performing Lab: Notes/Report: [address] [address] Ultrasound Report Signed Patient: Shahbaz Cevallos MR#: [id number] 49 : 1955 Acct:[id number] Age/Sex: 68 / M ADM Date: 12/04/23 Loc: [place] [address]: Rosy Ring DOCUMENT ANALYST Ordering Physician: Marcus Kothari Date of Service: 12/04/23 Procedure(s): US abdomen limited Accession Number(s): [id number] cc: Laron Jimenez MD; Marcus Kothari EXAMINATION: [...] in OV> 12/04/23 1254 DD/ 0856 TD/TT: Perinatal Social Worker: [address] [address] Ultrasound Report Signed Patient: Jaziel Cevallos MR#: [id number] [birth year] : 1955 Acct:[id number] Age/Sex: 68 / M ADM Date: 12/04/23 [facility] [address]: Rosy Ring NP Ordering Physician: Marcus Kothari Date of Service: 12/04/23 Procedure(s): US abd omen limited Accession Number(s): [id number] cc: Laron Jimenez MD; Marcus Kothari EXAMINATION: [...] in OV> 12/04/23 1254 DD/ 0856 TD/TT: Perinatal Social Worker: FL guidance in OR Reviewed date:12/06/2023 10:17:23 AM Interpretation: Performing Lab: Notes/Report: [address] [address] Fluoroscopy Report Signed Patient: Shahbaz Cevallos MR#: [id number] [birth year] : 1955 Acct:[id number] Age/Sex: 68 / M ADM Date: 12/04/23 Loc: [facility] [address]: Rosy Ring NP Ordering Physician: Gage Wesley MD Date of Service: 12/04/23 Procedure(s): FL guidance in OR Accession Number(s): [id number] cc: Laron Jimenez MD; Gage Wesley MD [...] in OV> 12/05/23 1837 DD/ 1649 TD/TT: Perinatal Social Worker: [address] [address] Fluoroscopy Report Signed Patient: Jaziel Cevallos MR#: [id number] [birth year] : 1955 Acct:[id number] Age/Sex: 68 / M ADM Date: 12/04/23 Loc: [facility] [address]: Rosy Ring DOCUMENT ANALYST Ordering Physician: Gage Wesley MD Date of Service: 12/04/23 Procedure(s): BK samaniego in OR Accession Number(s): [id number] cc: Laron Jimenez MD; Gage Wesley MD [...] in OV> 12/05/23 1837 DD/ 1649 TD/TT: Perinatal Social Worker: ADILENE Complete Blood Count no Diff Reviewed date:12/06/2023 10:17:53 AM Interpretation: Performing Lab:[facility], [address] [place] [phone] Notes/Report: White Blood Count 7.8 4.8-10.8 X10*3/uL [...] Problem Status W/U Status Risk Notes Problem Other cholangitis (K83.09) Active confirmed Encounters Encounter Location Date Provider Diagnosis [facility] [address] [place] [address] 12/04/2023 Marcus Kothari Plan Of Treatment No Information Insurance Providers Payer Name Payer Address Payer Phone Subscriber Number Group Number Insured Name Patient Relationship to Insured Coverage Start Date Coverage End Date AARP Medicare Advantage Plan [address] [address] [place] [address] [id number] SHAHBAZ CEVALLOS Self - patient is the insured
--- OUTSIDE RECORDS SUMMARY | 2024-12-01 14:44 | XMS_ITS ---
Author Organization [facility] Address [address] [place] [address] Care Team Providers Care Client Experience Manager Name Role Phone Tony BARRETT, Laron Primary Care Provider Gage Calvo Jr Unavailable Marcus Kothari Unavailable [phone] REASON FOR VISIT Needs a colonoscopy for + Cologuard carlos Encounters Encounter Location Date Provider Diagnosis [facility] [address] [place] [address] 12/04/2023 Marcus Kothari Plan Of Treatment No Information Progress Notes * MARLENY CEVALLOSOB:1955 (68 yo M)Acc No.[id number]:12/04/2023 Patient:?MARTMITAWN :1955???Age:68 Y???Sex:Male Address:[address] [place], [address] * true * Date:? Generated for Gareth stoll/Baltazar/eTransmitting on:?12/01/2024 02:44 PM EDT
[2024-12-01 14:48] VITALS: BP 108/54; PULSE 76; O2SAT 95; BMI 27.6
== END 2024-12-01 15:13 | disposition home or self-care (01) ==
LOC: HO.HPS 14:38
PROVIDERS: PCP Internal Medicine; Visit Provider Nurse Practitioner Family
DX: J44.9 Chronic obstructive pulmonary disease, unspecified (principal); F17.210 Nicotine dependence, cigarettes, uncomplicated; R05.9 Cough, unspecified; R91.1 Solitary pulmonary nodule; Z01.811 Encounter for preprocedural respiratory examination
CPT/HCPCS: 99214

== ENCOUNTER → 2024-12-01 14:37 | Outpatient (BNVA) | payer MEDICARE, SELFPAY | PROVIDERS: PCP Internal Medicine; Visit Provider Nurse Practitioner Family | DX: Z01.811 Encounter for preprocedural respiratory examination (principal); J44.9 Chronic obstructive pulmonary disease, unspecified; R05.9 Cough, unspecified; R91.1 Solitary pulmonary nodule; F17.210 Nicotine dependence, cigarettes, uncomplicated | CPT/HCPCS: 99212 ==

== ENCOUNTER 2024-12-04 13:05 | Outpatient (AMB) | payer MEDICARE, SELFPAY ==
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
[2024-12-04 13:16] VITALS: BMI 27.4
--- OUTSIDE RECORDS SUMMARY | 2024-12-04 13:39 | XMS_ITS | Patient Health Record ---
Author Organization [facility] Address [address] [place] [address] Care Team Providers Care Roving Changer Name Role Phone Tony BARRETT, Laron Primary Care Provider Unava Gage Delgado Jr [phone] Results Component Value Reference Range Notes Complete Blood Count no Diff Reviewed date:12/06/2023 10:17:53 AM Interpretation: Performing Lab:[facility], [address] [place] [id number] Notes/Report: White Blood Count 7.8 4.8-10.8 X10*3/uL [...] Status W/U Status Risk Notes Problem Cholangitis (13120504) Other cholangitis (K83.09) Active confirmed Plan Of Treatment No Information Insurance Providers Payer Name Payer Address Payer Phone Subscriber Number Group Number Insured Name Patient Relationship to Insured Coverage Start Date Coverage End Date AARP Medicare Advantage Plan [address] [address] [place] [address] [id number] SHAHBAZ CEVALLOS Self - patient is the insured
--- OUTSIDE RECORDS SUMMARY | 2024-12-04 13:39 | XMS_ITS ---
Author Organization [facility] Address [address] [place] [address] Care Team Providers Care Greenhouse Grower Name Role Phone Tony BARRETT, Laron Primary Care Provider Gage Calvo Jr Unavailable Marcus Kothari Unavailable [phone] REASON FOR VISIT Needs a colonoscopy for + Cologuard carlos Encounters Encounter Location Date Provider Diagnosis [facility] [address] [place] [address] 12/04/2023 Marcus Kothari Plan Of Treatment No Information Progress Notes * MARLENY CEVALLOSOB:1955 (68 yo M)Acc No.[id number]:12/04/2023 Patient:?MARTMITAWN :1955???Age:68 Y???Sex:Male Address:[address] [place] [address], [address] * true * Date:? Generated for Gareth stoll/Baltazar/eTransmitting on:?12/04/2024 01:39 PM EDT
== END 2024-12-04 13:48 | disposition home or self-care (01) ==
LOC: HO.HVS 13:06
PROVIDERS: PCP Internal Medicine; Visit Provider Surgery Vascular Surgery
DX: I73.9 Peripheral vascular disease, unspecified (principal)
CPT/HCPCS: 99214; G2211

== ENCOUNTER → 2024-12-04 13:05 | Outpatient (BNVA) | payer MEDICARE, SELFPAY | PROVIDERS: PCP Internal Medicine; Visit Provider Surgery Vascular Surgery | DX: Z48.812 Encounter for surgical aftercare following surgery on the circulatory system (principal); I73.9 Peripheral vascular disease, unspecified; Z98.890 Other specified postprocedural states | CPT/HCPCS: 99212 ==

== ENCOUNTER → 2024-12-11 12:45 | Outpatient (BNVA) | payer MEDICARE, SELFPAY | PROVIDERS: PCP Internal Medicine; Visit Provider Nurse Practitioner Family | DX: Z13.89 Encounter for screening for other disorder (principal) ==

== ENCOUNTER → 2024-12-22 07:30 | Outpatient (BNV) | payer MEDICARE, SELFPAY | PROVIDERS: Admitting Provider Surgery Vascular Surgery; PCP Internal Medicine; Visit Provider Surgery Vascular Surgery | DX: I70.211 Atherosclerosis of native arteries of extremities with intermittent claudication, right leg (principal) | CPT/HCPCS: 35302; 99232 ==

== ENCOUNTER 2024-12-22 10:39 | Inpatient (IN) | payer MEDICARE, SELFPAY ==
[2024-12-09 09:58] VITALS: BP 113/63; PULSE 71; RESP 16; O2SAT 96; BMI 26.6
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
[2024-12-09 12:11] LABS: Hematocrit 42.8 % (42.0-52.0); Hemoglobin 15.2 g/dl (14.0-18.0); INTERNATIONAL NORM RATIO 0.9 (0.9-1.1); Mean Corpuscular HGB Conc 35.5 g/dl (31.0-36.0); Mean Corpuscular Hemoglobin 30.6 pg (27.0-33.0); Mean Corpuscular Volume 86.1 fL (80.0-98.0); Mean Platelet Volume 10.1 fL (9.4-12.4); Platelet Count 189 X10*3/uL (160-400); Prothrombin Time 10.5 SEC (10.9-12.4); Red Blood Count 4.97 X10*6/uL (4.60-5.80); Red Cell Distribution Width 13.6 % (11.0-16.0); White Blood Count 10.2 X10*3/uL (4.8-10.8)
[2024-12-09 12:14] LABS: Partial Thromboplastin Time 33.7 SEC (26.0-36.8)
[2024-12-09 12:45] LABS: Anion Gap 14 (12-20); Blood Urea Nitrogen 15 mg/dL (9-16); Calcium 9.8 mg/dL (8.4-10.2); Carbon Dioxide 26 mmol/L (22-29); Chloride 98 mmol/L (96-108); Creatinine Clr Calc Pharmacy 67.9; Estimated Glomerular Filt Rate > 60; Glucose Random 278 mg/dL (60-115); Potassium 4.5 mmol/L (3.3-5.1); Sodium 133 mmol/L (135-145)
[2024-12-22] VITALS (23 sets, daily range): BP systolic 94–153; BP diastolic 48–88; PULSE 62–850; RESP 12–30; TEMP 36.1–36.4; O2SAT 92–100; BMI 26.7
[2024-12-22] MEDS: Lactated Ringers 1,000 ML 100 ML IVCONT (07:00)
[2024-12-22] MEDS: Albuterol Sulfate (0.083%) 2.5 MG/3 ML VIAL.NEB INHALE (07:17)
[2024-12-22] MEDS: Insulin Lispro 100 UNIT/ML 3 ML VIAL SUBCUT (07:24)
--- NOTE | 2024-12-22 07:36 | MHC.SHP ---
Pre-Procedural Eval Section A - 24 Hr Update-Section A only Date of Service: 12/22/24 Section B - Complete if H&P > 30 days Chief Complaint: Peripheral vascular disease, unspecified Relevant Family History (Specify if Yes): No Allergies: Allergies Allergy/AdvReac Type Severity Reaction Status Date / Time No Known Allergies Allergy Verified 12/22/24 06:58 Review of Systems Sugical H&P ROS: Negative: Constitution, Respiratory, Neurological, Psychiatric and Hem-Onc and Yes, Specify: Cardiovascular (pad) Exam Surgical H&P Exam: Normal: HEENT, Normal: Heart and Normal: Lungs Plan Diagnosis/Plan: Unchanged I have reviewed the history and physical and performed a pertinent physical examination on my patient. No changes have occurred unless specified. Time Spent With Patient Time: Total time managing care of this patient today ____ minutes.
[2024-12-22] MEDS: ceFAZolin Sodium/Dextrose,Iso 2 GM/50 ML PIGGYBACK IV ×2 (07:37→14:20)
[2024-12-22 09:31] LABS: Glucose, Whole Blood 279 mg/dL (60-115)
--- NOTE | 2024-12-22 10:18 | P.OP_ITS ---
Operative Note Operative Note Date of Service: 12/22/24 Narrative: Operative note by [facility] Preoperative diagnosis: Atherosclerosis with activity limiting claudication Postoperative diagnosis: Same Procedure: 1. Right common femoral endarterectomy 2. Right superficial femoral endarterectomy Surgeon:Tony Bonilla M.D. Transmission System Operator: Savage hWeeler Anesthesia: General Specimens: 1 Drains: None Estimated blood loss: 100 mL Indications: 69-year-old gentleman with prior history diabetes smoking has peripheral vascular disease with severe activity limiting claudication. He now presents for operative intervention. The patient has signed the informed consent after reviewing risks, complications, benefits, and alternatives previously discussed with the patient. The patient was given the opportunity to ask any additional questions or voice any concerns. All questions were answered to the patient's satisfaction. Procedure in detail: Patient was brought to the operating room prior to which a time-out was called for patient identification and site verification. Right leg was prepped and draped in the standard surgical fashion. Proximally 10 cm incision was carried out in a longitudinal manner over the common femoral artery. This did require extensive dissection to get down into the common femoral superficial femoral and profundus femoris. These were all isolated with silastic loops. Once this was accomplished we identified side branches these were isolated with silastic loops as well. We then administered 5000 units of systemic heparin. After 5 minutes of circulation the common femoral superficial femoral and profundus femoris were then clamped. Once this was accomplished arteriotomy was then created. We then used Rivera scissors to extend the incision proximally and distally. We had to extend down into the SFA. We then did a dissection of the plaque using a [place]uda elevator. We were able to remove a large portion of plaque which was quite substantial. Once this was done we had to remotely endarterectomized the superficial femoral and profundus femoris. We did get a good edge at the common femoral. Once this was accomplished we then flushed clean. We carefully dissected any loose debris. The arterial bed was then irrigated and flushed with heparinized saline. We then used a seen assure and we circumferentially anastomosed with a 5 0 Prolene. Prior to closure of the vessel was flushed clear. Then the vessel was closed. We used interrupted 6 0 sutures for a few bleeding points. Once this was all accomplished adequate hemostasis was achieved. Vistaseal sealant was used in the groin. Deep layer was reapproximated using 2-0 Polysorb superficial layer with 3-0 Polysorb local was infiltrated and finally skin was closed with skin clips. At the end the case sponge instrument counts were correct. Patient tolerated the procedure well. Returned to recovery with stable vitals. This note is constructed using voice recognition software. While every effort has been made to ensure accuracy, ethylbenzene cracking supervisor errors may have been included. Thank you for allowing me to participate in the care of your patient. Yours sincerely, Tony Bonilla MD, FACS, R.P.V.I.
[2024-12-22] MEDS: fentaNYL citrate/PF 100 MCG/2 ML VIAL 25 MCG IVPUSH (10:38)
[2024-12-22 10:52] LABS: Glucose, Whole Blood 189 mg/dL (60-115)
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
--- NOTE | 2024-12-22 11:30 | PHA.MEDREC ---
Addendum entered by Rogerio Londono [facility] 12/22/24 11:56: MED REC CHECKED BY [facility] Original Note: Pharmacy Consult ? Medication Reconciliation Pharmacy has reviewed the medication reconciliation done by nursing. Claims match med list.
[2024-12-22] MEDS: Morphine Sulfate 2 MG/ML CARTRIDGE IVPUSH ×4 (11:44→23:56)
--- OUTSIDE RECORDS SUMMARY | 2024-12-22 11:47 | XMS_ITS | Patient Health Record ---
Author Organization [facility] Address [address] [place] [id number] Care Team Providers Care Research Program Internship Name Role Phone Tony BARRETT, [place] Primary Care Provider Gage Calvo Jr Unavailable Reason For Referral No Information Problems Problem Type SNOMED Code ICD Code Onset Dates Problem Status W/U Status Risk Notes Problem Other cholangitis (K83.09) Active confirmed Plan Of Treatment No Information Insurance Providers Payer Name Payer Address Payer Phone Subscriber Number Group Number Insured Name Patient Relationship to Insured Coverage Start Date Coverage End Date [employer] Medicare Advantage Plan [address] [address] [place] [phone] [id number] SHAHBAZ CEVALLOS Self - patient is the insured
[2024-12-22] MEDS: oxyCODONE HCl Immed Release 5 MG TABLET PO ×2 (14:02→20:36)
[2024-12-22] MEDS: 0.9 % Sodium Chloride Flush 3 ML SYRINGE IVFLUSH ×2 (15:24→22:26)
--- NOTE | 2024-12-22 18:30 | PC.NURSE ---
Pt. Arrived to ICU at approx 1115 from PACU. Pt. A&Ox4, initially drowsy. SR on tele, HR 60s-80s with frequent PVCs, weaned to RA, tolerating regular diet. R fem sx site covered with foam dsg, small amt. of staining. R pedal pulses obtained via dopplar. c/o pain at R fem surgical site and from carey. PRN analgesia given per SEP. Small amt. of serosanguineous draninge around carey- carey advanced by this RN and additional water added to balloon with no pain relief. Carey removed at 1530, pt. able to spontaneously void via urinal, pink tinged urine. Pt. updated by this RN, plan of care ongoing.
[2024-12-22] MEDS: Albuterol Sulfate 90 MCG 8 GM INHALER 2 PUFF INHALE ×2 (20:04→22:27)
[2024-12-22] MEDS: metFORMIN HCl ER 500 MG TAB.ER.24H PO (20:15)
[2024-12-22] MEDS: Metoprolol Tartrate 25 MG TABLET PO (20:15)
[2024-12-22] MEDS: Gabapentin 400 MG CAPSULE PO (20:15)
[2024-12-23] VITALS (14 sets, daily range): BP systolic 104–132; BP diastolic 58–77; PULSE 69–92; RESP 13–27; TEMP 36–36.8; O2SAT 91–96; BMI 26.4
[2024-12-23] MEDS: Albuterol Sulfate 90 MCG 8 GM INHALER 2 PUFF INHALE ×3 (01:21→21:41)
[2024-12-23] MEDS: oxyCODONE HCl Immed Release 5 MG TABLET PO ×5 (01:25→19:31)
[2024-12-23] MEDS: Morphine Sulfate 2 MG/ML CARTRIDGE IVPUSH (04:04)
[2024-12-23 06:20] LABS: MANUAL DIFF FLAG NO
[2024-12-23 06:22] LABS: Basophils Absolute Auto 0.1 X10*3/uL (0.0-0.2); Basophils Percent Auto 0.7 % (0-2); Eosinophils Absolute Auto 0.1 X10*3/uL (0.0-0.4); Hematocrit 37.7 % (42.0-52.0); Hemoglobin 13.3 g/dl (14.0-18.0); Imm Gran Abs Auto 0.03 X10*3/uL (0.00-0.03); Imm Gran Pct Auto 0.3 % (0.0-0.4); Lymphocytes Absolute Auto 1.7 X10*3/uL (1.2-4.9); Lymphocytes Percent Auto 17.4 % (20-40); Mean Corpuscular HGB Conc 35.3 g/dl (31.0-36.0); Mean Corpuscular Hemoglobin 30.6 pg (27.0-33.0); Mean Corpuscular Volume 86.7 fL (80.0-98.0); Monocytes Percent Auto 9.8 % (2-11); Neutrophils Percent Auto 70.8 % (45-73); Platelet Count 152 X10*3/uL (160-400); Red Blood Count 4.35 X10*6/uL (4.60-5.80); Red Cell Distribution Width 13.3 % (11.0-16.0); White Blood Count 9.9 X10*3/uL (4.8-10.8)
--- NOTE | 2024-12-23 06:34 | PC.NURSE ---
Assumed care 1899 - pt alert and oriented. Right femoral surgical site c/d/i with small stain, pedal pulses palpable. Pt c/o pain at surgical site - prn morphine and oxycodone administered - see SEP. Pt c/o of sob/chest congestion - prn albuterol inhaler administered - see SEP.
[2024-12-23 06:37] LABS: Anion Gap 10 (12-20); Blood Urea Nitrogen 12 mg/dL (9-16); Calcium 8.6 mg/dL (8.4-10.2); Carbon Dioxide 29 mmol/L (22-29); Chloride 101 mmol/L (96-108); Creatinine Clr Calc Pharmacy 83.7; Estimated Glomerular Filt Rate > 60; Glucose Random 216 mg/dL (60-115); Potassium 3.8 mmol/L (3.3-5.1); Sodium 136 mmol/L (135-145)
[2024-12-23 06:58] LABS: Albumin Level 3.5 g/dL (3.5-5.0); Magnesium 1.4 mg/dL (1.6-2.6); Phosphorus 3.4 mg/dL (2.7-4.5)
[2024-12-23] MEDS: 0.9 % Sodium Chloride Flush 3 ML SYRINGE IVFLUSH ×2 (07:17→21:43)
[2024-12-23] MEDS: Magnesium Sulfate/H2O 2 GM/50 ML PIGGYBACK IV (07:17)
--- NOTE | 2024-12-23 08:28 | HO.POSTANES ---
Post Anesthesia Evaluation Post Anesthesia Evaluation Date of Service: 12/23/24 Vital Signs: Vital Signs Temp Pulse Resp BP Pulse Ox O2 Del Method 12/23/24 08:00 111/72 92 Room Air 12/23/24 07:00 88 15 111/72 96 Room Air 12/23/24 06:00 80 13 113/63 96 Room Air 12/23/24 05:00 72 18 113/63 95 Room Air 12/23/24 04:00 71 16 109/64 91 L Room Air 12/23/24 03:00 72 18 126/65 95 Room Air 12/23/24 02:00 72 17 104/59 L 93 Room Air 12/23/24 01:00 97.9 F 69 15 105/62 95 Room Air 12/23/24 00:00 76 27 H 117/77 96 Room Air 12/22/24 23:00 65 16 153/63 H 94 Room Air 12/22/24 22:00 75 22 H 153/69 H 96 Room Air 12/22/24 20:59 69 23 H 148/67 H 96 Room Air Anesthesia: General Endotracheal-GETA Mental Status: Awake Pain Control: Satisfactory Nausea/Vomiting: None Hydration: Adequate Anesthesia-Related Issues: No Anes. Related Issues
--- NOTE | 2024-12-23 09:52 | HO.VASCPN ---
Subjective Subjective Date of Service: 12/23/24 Interval history: John is doing well this morning. He states he has little pain this morning. He has been eating and drinking well. He states he did not get much sleep last night; from the pain and the noises of the ICU. He remains on bedrest. His Veronica was removed last night and he has been urinating without difficulty. He states that the groin was swollen last night and has been keeping ice on it, which he states the swelling has gone down. He states his foot/leg feels very good this morning, very warm. He has no new concerns this morning. Physical Exam Vital Signs: Vital Signs: Last Vital Signs Temp 97.9 F 12/23/24 01:00 Pulse 92 12/23/24 09:00 Resp 25 H 12/23/24 09:00 BP 118/65 12/23/24 09:00 Pulse Ox 94 12/23/24 09:00 O2 Del Method Room Air 12/23/24 09:00 O2 Flow Rate 2 12/22/24 12:00 BMI result Body Mass Index 26.4 Const: General: comfortable and no acute distress Orientation/consciousness: patient oriented x3 HEENT: Ears: hearing grossly normal bilaterally Resp: Effort & Inspection: normal respiratory effort and able to speak in complete sentences Auscultation: clear to auscultation bilaterally Cardio: Rate: regular rate Rhythm: regular rhythm Heart sounds: S1 normal heart sound present and S2 normal heart sound present Bruits: no abdominal aortic bruits, no carotid bruits, no femoral bruits and no renal bruits GI: Palpation (GI): No Abdominal aortic bruit present : Other: Right groin: dressing intact, very small amt of dried blood noted in the middle of the dressing. Slight swelling noted in the groin, slightly tender to palpation. Neuro: General: patient oriented x3 Cranial nerves: Yes CN's II-XII intact bilaterally Extrem: Other: Right lower extremity/foot: warm to the touch. Palpable DP pulse. Progress Note: A&P Assessment and plan (1) Femoral artery occlusion: Status: Acute Assessment and Plan: John is post op day 1 s/p right femoral endarterectomy yesterday. He is also s/p diagnostic right angiogram on 11/19/24. He is doing well this morning. He remains on bedrest in the ICU. He will be moved up to med/surg floor later today. His Veronica was discontinued overnight and has been successfully urinating without difficulty. His pain has been well controlled. We will d/c the IV Morphine and add Oxy ER bid in addition to the prn Oxy. He will remain on bedrest for the next 24h. We have added Heparin SQ q8h. We will continue to monitor. If there are any questions or concerns, please do not hesitate to reach out to us. Time Spent With Patient Time: Total time managing care of this patient today ____ minutes. Procedures Date of Service Date of Service: 12/23/24 Quality Stroke Does the patient have a stroke diagnosis?: No VTE Prior VTE?: No VTE Risk Level:: Medical - moderate - high VTE Device Contraindication: Treatment Not Indicated VTE Drug Contraindication: N/A - Med Ordered
[2024-12-23] MEDS: Tamsulosin HCL 0.4 MG CAPSULE PO (09:53)
[2024-12-23] MEDS: Aspirin Enteric Coated 81 MG TABLET.DR PO (09:53)
[2024-12-23] MEDS: Ezetimibe 10 MG TABLET PO (09:53)
[2024-12-23] MEDS: Gabapentin 400 MG CAPSULE PO ×2 (09:53→21:43)
[2024-12-23] MEDS: metFORMIN HCl ER 500 MG TAB.ER.24H PO ×2 (09:53→21:43)
[2024-12-23] MEDS: oxyCODONE HCl ER 10 MG TAB.ER.12H PO ×2 (09:54→21:42)
[2024-12-23] MEDS: Metoprolol Tartrate 25 MG TABLET PO ×2 (09:54→21:42)
[2024-12-23] MEDS: Omeprazole 20 MG CAPSULE.DR PO (09:54)
--- NOTE | 2024-12-23 10:29 | P.PNCC_ITS ---
Subjective Subjective Date of Service: 12/23/24 Interval History: 69-year-old gentleman with underlying diabetes mellitus, COPD, hyperlipidemia now postoperative day 1 after an elective right femoral endarterectomy being monitored in the postop period in the intensive care unit. No events overnight. Critical Care Time (minutes): 0 Physical Exam 2 Vital Signs: Vital Signs: Last Vital Signs Temp 97.9 F 12/23/24 01:00 Pulse 92 12/23/24 09:00 Resp 25 H 12/23/24 09:00 BP 118/65 12/23/24 09:00 Pulse Ox 94 12/23/24 09:00 O2 Del Method Room Air 12/23/24 09:00 O2 Flow Rate 2 12/22/24 12:00 BMI result Body Mass Index 26.4 Const: General: no acute distress, alert and awake Eyes: Sclerae: sclerae normal EOM: EOMs intact bilaterally Neck: Neck: Yes no lymphadenopathy, Yes trachea midline and Yes supple Resp: Effort & Inspection: normal respiratory effort and no respiratory distress Auscultation: clear to auscultation bilaterally Cardio: Rate: regular rate Rhythm: regular rhythm Heart sounds: no gallops, no murmurs and no rubs GI: Palpation (GI): Soft to palpation and Other GI palpation findings present ( Nontender) Auscultation: normal bowel sounds Extrem: Other: Right femoral surgical site with no hematoma General: Yes no pedal edema, No clubbing and No cyanosis Objective Data Labs 12/23/24 05:50 12/23/24 05:50 Labs: Laboratory Results - last 24 hr 12/22/24 12/23/24 10:49 05:50 WBC 9.9 RBC 4.35 L Hgb 13.3 L Hct 37.7 L MCV 86.7 MCH 30.6 MCHC 35.3 RDW 13.3 Plt Count 152 L MPV 10.0 Immature Gran % (Auto) 0.3 Neut % (Auto) 70.8 Lymph % (Auto) 17.4 L [place] % (Auto) 9.8 Eos % (Auto) 1.0 Baso % (Auto) 0.7 Lymph # (Auto) 1.7 [place] # (Auto) 1.0 Eos # (Auto) 0.1 Baso # (Auto) 0.1 Abs Immat Gran (auto) 0.03 Absolute Neuts (auto) 7.0 Absolute Nucleated RBC 0.000 Nucleated RBC % (auto) 0.0 Sodium 136 Potassium 3.8 Chloride 101 Carbon Dioxide 29 Anion Gap 10 L BUN 12 Creatinine 0.73 Estim Creat Clear Calc 83.7 Estimated GFR > 60 POC Glucose 189 H Random Glucose 216 H Calcium 8.6 D Phosphorus 3.4 Magnesium 1.4 L* Albumin 3.5 Progress Note: A&P Assessment and plan (1) Coronary artery disease: Status: Acute (2) Peripheral arterial disease: Status: Acute (3) Preop cardiovascular exam: Status: Acute (4) Diabetes mellitus: Status: Acute (5) Benign prostatic hyperplasia: Status: Acute (6) COPD (chronic obstructive pulmonary disease): Status: Acute Plan Assessment: 69-year-old gentleman with underlying diabetes mellitus, CAD, PVD, COPD, now postoperative day 0 after an elective right femoral endarterectomy, recovering well. Plan: Neuro: No acute issues. Cardiac: Postoperative day 0 after an elective right femoral endarterectomy. Vascular surgery service care appreciated. Maintain SBP under 160. Underlying CAD and PVD. Pulmonary: No acute issues. Underlying COPD. Renal: No acute issues. Endo: No acute issues. Underlying diabetes mellitus. GI: No acute issues. ID: No acute issues Heme/Onc: No acute issues. Psych: No acute issues. Miscellaneous: No acute issues. Prophylaxis: Per vascular surgery Diet: Regular Quality Stroke Does the patient have a stroke diagnosis?: No VTE Prior VTE?: No VTE Risk Level:: Medical - moderate - high VTE Device Contraindication: Treatment Not Indicated VTE Drug Contraindication: N/A - Med Ordered
[2024-12-23] MEDS: Atorvastatin Calcium 80 MG TABLET PO (11:42)
[2024-12-23] MEDS: [UNRECOGNIZED DRUG - OTHER] 1 EACH PO (11:42)
[2024-12-23] MEDS: [UNRECOGNIZED DRUG - OTHER] 1 EACH PO (11:42)
[2024-12-23] MEDS: Heparin Sodium,Porcine 5,000 UNIT/ML VIAL 5000 UNIT SUBCUT ×2 (11:43→19:04)
[2024-12-23 11:53] LABS: Glucose, Whole Blood 298 mg/dL (60-115)
--- NOTE | 2024-12-23 13:13 | MHC.CM.PN ---
Met with pt and spouse to review d/c planning needs: pt resides w/spouse, independent w/all ADL's and has no services or DME. HCP copy requested: spouse to transport pt to home when medically cleared. IMM in chart. CM to follow.
[2024-12-23 16:48] LABS: Glucose, Whole Blood 344 mg/dL (60-115)
[2024-12-23] MEDS: Insulin Lispro 100 UNIT/ML 3 ML VIAL 8 UNIT SUBCUT (16:59)
[2024-12-23] MEDS: Acetaminophen 325 MG TABLET 650 MG PO (19:04)
[2024-12-23 20:02] LABS: Glucose, Whole Blood 315 mg/dL (60-115)
[2024-12-23] MEDS: Insulin Lispro 100 UNIT/ML 3 ML VIAL SUBCUT (21:42)
[2024-12-24 03:34] VITALS: BP 137/70; PULSE 50; RESP 18; TEMP 36.3; O2SAT 96
[2024-12-24] MEDS: Heparin Sodium,Porcine 5,000 UNIT/ML VIAL 5000 UNIT SUBCUT ×2 (04:15→11:58)
[2024-12-24] MEDS: oxyCODONE HCl Immed Release 5 MG TABLET PO (04:15)
[2024-12-24 06:20] LABS: MANUAL DIFF FLAG NO
[2024-12-24 06:32] LABS: Basophils Absolute Auto 0.1 X10*3/uL (0.0-0.2); Basophils Percent Auto 0.5 % (0-2); Eosinophils Absolute Auto 0.2 X10*3/uL (0.0-0.4); Eosinophils Percent Auto 1.4 % (0-4); Hematocrit 39.1 % (42.0-52.0); Hemoglobin 13.5 g/dl (14.0-18.0); Imm Gran Abs Auto 0.05 X10*3/uL (0.00-0.03); Imm Gran Pct Auto 0.4 % (0.0-0.4); Lymphocytes Absolute Auto 1.8 X10*3/uL (1.2-4.9); Lymphocytes Percent Auto 15.8 % (20-40); Mean Corpuscular HGB Conc 34.5 g/dl (31.0-36.0); Mean Corpuscular Hemoglobin 30.1 pg (27.0-33.0); Mean Corpuscular Volume 87.3 fL (80.0-98.0); Mean Platelet Volume 10.5 fL (9.4-12.4); Monocytes Absolute Auto 1.2 X10*3/uL (0.1-1.2); Monocytes Percent Auto 10.5 % (2-11); Neutrophils Absolute Auto 8.2 x10*3/uL (2.0-8.3); Neutrophils Percent Auto 71.4 % (45-73); Platelet Count 147 X10*3/uL (160-400); Red Blood Count 4.48 X10*6/uL (4.60-5.80); Red Cell Distribution Width 13.6 % (11.0-16.0); White Blood Count 11.4 X10*3/uL (4.8-10.8)
[2024-12-24 06:41] LABS: Albumin Level 3.6 g/dL (3.5-5.0); Anion Gap 13 (12-20); Blood Urea Nitrogen 14 mg/dL (9-16); Calcium 8.5 mg/dL (8.4-10.2); Carbon Dioxide 25 mmol/L (22-29); Chloride 101 mmol/L (96-108); Creatinine Clr Calc Pharmacy 84.9; Estimated Glomerular Filt Rate > 60; Glucose Random 233 mg/dL (60-115); Magnesium 1.6 mg/dL (1.6-2.6); Phosphorus 2.4 mg/dL (2.7-4.5); Potassium 3.7 mmol/L (3.3-5.1); Sodium 135 mmol/L (135-145)
[2024-12-24 07:14] LABS: Glucose, Whole Blood 278 mg/dL (60-115)
[2024-12-24 07:43] VITALS: BP 150/67; PULSE 90; RESP 16; TEMP 36.6; O2SAT 94
[2024-12-24] MEDS: Omeprazole 20 MG CAPSULE.DR PO (07:52)
[2024-12-24] MEDS: Insulin Lispro 100 UNIT/ML 3 ML VIAL SUBCUT ×2 (07:52→11:58)
[2024-12-24] MEDS: Gabapentin 400 MG CAPSULE PO (07:53)
[2024-12-24] MEDS: Atorvastatin Calcium 80 MG TABLET PO (07:53)
[2024-12-24] MEDS: Tamsulosin HCL 0.4 MG CAPSULE PO (07:53)
[2024-12-24] MEDS: oxyCODONE HCl ER 10 MG TAB.ER.12H PO (07:53)
[2024-12-24] MEDS: Ezetimibe 10 MG TABLET PO (07:53)
[2024-12-24] MEDS: metFORMIN HCl ER 500 MG TAB.ER.24H PO (07:53)
[2024-12-24] MEDS: Metoprolol Tartrate 25 MG TABLET PO (07:53)
[2024-12-24] MEDS: Aspirin Enteric Coated 81 MG TABLET.DR PO (07:53)
[2024-12-24] MEDS: [UNRECOGNIZED DRUG - OTHER] 1 EACH PO (07:54)
[2024-12-24] MEDS: [UNRECOGNIZED DRUG - OTHER] 1 EACH PO (07:54)
[2024-12-24] MEDS: 0.9 % Sodium Chloride Flush 3 ML SYRINGE IVFLUSH (07:55)
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
--- NOTE | 2024-12-24 09:41 | MHC.CM.PN ---
DP: PT HAS BEEN MEDICALLY CLEARED FOR DC HOME, NO SERVICES. PT HAS OWN RIDE HOME.
--- NOTE | 2024-12-24 10:07 | PM.DS ---
DS: Providers Provider Date of Service: 12/24/24 Date of admission: 12/22/24 10:39 Date of discharge: 12/24/24 Primary care physician: Laron Jimenez MD Consults: 12/23/24 10:15 Consult to Hospitalist Routine Comment: Consulting Provider: [facility] Hospitalists Reason For Exam: s/p femoral endart, med mgte DS: Diagnosis Discharge Diagnosis (1) Femoral artery occlusion: Status: Acute (2) Coronary artery disease: Status: Acute (3) Diabetes mellitus: Status: Acute (4) COPD (chronic obstructive pulmonary disease): Status: Acute (5) Benign prostatic hyperplasia: Status: Acute (6) Peripheral arterial disease: Status: Acute (7) Preop cardiovascular exam: Status: Acute DS: Summary Hospital Course Hospital Course: John is s/p right femoral endarterectomy, performed on 12/[address] Bonilla. He is also s/p right diagnostic angiogram on 11/19, revealing an occluded femoral artery. Post op, John has been doing well. He completed 48h of bedrest. His pain has been well controlled with oral medications. He has been urinating well. He is eating and drinking well. He has not been sleeping well; however, he states it is difficult for him to sleep when he is not at home. His blood sugars have been on the higher side; they have been controlled with an Insulin sliding scale. The incision site is clean, dry, and intact. There was swelling in the area of the incision immediately postop; this resolved with ice/cold compresses. He will be getting OOB today and into the chair. He remains stable and will be discharged home today. His lives with him at home and can help him if needed. We had a lengthy discussion about only lifting no more than a gallon of milk (5#) for the next 2w, until his follow up appt. We discussed about keeping the incision open to air, but keeping it clean and dry; no submerging in a tub/hottub. We discussed the importance of a healthy, well balanced diet as well as keeping his blood sugars maintained under 200. We discussed to rest; however, not to be sedentary. We discussed to take small walks, but not any strenuous activity, until he is cleared at the 2w follow up. 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 We discussed that if he had any concerns, he can reach out to our office with any questions. Time Attestation Discharge Coordination Time (in mins): >45 min Quality: Safe Use of Opioids Does Pt have an Active Cancer Diagnosis on the Problem List?: No Quality: Stroke Does the patient have a stroke diagnosis?: No Physical Exam Vital Signs: Vital Signs: Last Vital Signs Temp 97.9 F 12/24/24 07:43 Pulse 90 12/24/24 07:43 Resp 16 12/24/24 07:43 BP 150/67 H 12/24/24 07:43 Pulse Ox 94 12/24/24 07:43 O2 Del Method Room Air 12/24/24 07:43 O2 Flow Rate 2 12/22/24 12:00 BMI result Body Mass Index 26.4 Const: General: comfortable and no acute distress Orientation/consciousness: patient oriented x3 HEENT: Ears: hearing grossly normal bilaterally Resp: Effort & Inspection: normal respiratory effort and able to speak in complete sentences Auscultation: clear to auscultation bilaterally Cardio: Rate: regular rate Rhythm: regular rhythm Heart sounds: S1 normal heart sound present and S2 normal heart sound present Bruits: no abdominal aortic bruits, no carotid bruits, no femoral bruits and no renal bruits GI: Palpation (GI): No Abdominal aortic bruit present : Other: Right groin: watson intact. Incision site is C/D/I. No bleeding or oozing noted. No swelling or bruising noted. Neuro: General: patient oriented x3 Cranial nerves: Yes CN's II-XII intact bilaterally Extrem: Other: Right foot/extremity: warm to the touch. Palpable DP pulse. DS: Data Data Completed and Pending Completed studies during hospitalization [Text1]: Pending at discharge 12/22/24 09:11 Surgical [PTH] Routine Procedures Extirpation of Matter from Common Bile Duct, Via Natural or Artificial Opening Endoscopic (12/04/23) Labs on day of discharge: Laboratory Results - last 24 hr 12/23/24 12/23/24 12/23/24 11:31 16:33 19:57 WBC RBC Hgb Hct MCV MCH MCHC RDW Plt Count MPV Immature Gran % (Auto) Neut % (Auto) Lymph % (Auto) [place] % (Auto) Eos % (Auto) Baso % (Auto) Lymph # (Auto) [place] # (Auto) Eos # (Auto) Baso # (Auto) Abs Immat Gran (auto) Absolute Neuts (auto) Absolute Nucleated RBC Nucleated RBC % (auto) Sodium Potassium Chloride Carbon Dioxide Anion Gap BUN Creatinine Estim Creat Clear Calc Estimated GFR POC Glucose 298 H 344 H 315 H Random Glucose Calcium Phosphorus Magnesium Albumin 12/24/24 12/24/24 05:52 07:06 WBC 11.4 H RBC 4.48 L Hgb 13.5 L Hct 39.1 L MCV 87.3 MCH 30.1 MCHC 34.5 RDW 13.6 Plt Count 147 L MPV 10.5 Immature Gran % (Auto) 0.4 Neut % (Auto) 71.4 Lymph % (Auto) 15.[address] [place] % (Auto) 10.5 Eos % (Auto) 1.4 Baso % (Auto) 0.5 Lymph # (Auto) 1.8 [place] # (Auto) 1.2 Eos # (Auto) 0.2 Baso # (Auto) 0.1 Abs Immat Gran (auto) 0.05 H Absolute Neuts (auto) 8.2 Absolute Nucleated RBC 0.000 Nucleated RBC % (auto) 0.0 Sodium 135 Potassium 3.7 Chloride 101 Carbon Dioxide 25 Anion Gap 13 BUN 14 Creatinine 0.72 Estim Creat Clear Calc 84.9 Estimated GFR > 60 POC Glucose 278 H Random Glucose 233 H Calcium 8.5 Phosphorus 2.4 L Magnesium 1.6 Albumin 3.6 Discharge Plan Discharge Anticipated Discharge Date/Time: 12/24/24 13:34 Patient Disposition: Home, Self-Care Discharge Diagnosis: s/p femoral endarterectomy Referrals: Laron Jimenez MD [Primary Care Provider] - 1 Week Discharge Medications: Continued metformin 500 mg tablet extended release 24 hr 500 mg PO BID Qty: 360 3RF gabapentin 400 mg capsule 400 mg PO BID 30 Days Qty: 60 5RF tamsulosin 0.4 mg capsule 0.4 mg PO DAILY Qty: 90 1RF trazodone 100 mg tablet 100 mg PO BEDTIME PRN (Reason: insomnia) Qty: 90 1RF Tradjenta 5 mg tablet 5 mg PO QAM 90 Days Qty: 90 1RF glimepiride 2 mg tablet 2 mg PO DAILY Qty: 90 0RF metoprolol tartrate 50 mg tablet 25 mg PO BID Qty: 180 3RF rosuvastatin 40 mg tablet 40 mg PO DAILY Qty: 90 1RF oxycodone 15 mg tablet 15 mg PO Q6H 28 Days Qty: 112 0RF albuterol sulfate 2.5 mg /3 mL (0.083 %) solution for nebulization 2.5 mg inhalation Q6H PRN (Reason: shortness of breath or wheezing) omeprazole 20 mg Capsule,Delayed Release(Dr/Ec) 20 mg PO DAILY ipratropium-albuterol 0.5 mg-3 mg(2.5 mg base)/3 mL solution for nebulization 3 ml inhalation Q6H PRN (Reason: Shortness Of Breath) Rx Instructions: INHALE THE CONTENTS OF 1 VIAL VIA NEBULIZER EVERY 6 HOURS NEEDED aspirin 81 mg tablet,delayed release (DR/EC) 81 mg PO DAILY nitroglycerin 0.4 mg tablet, sublingual 0.4 mg sublingual Q5M PRN (Reason: chest pain) Qty: 30 3RF Rx Instructions: do not exceed 3 doses per episode albuterol sulfate 90 mcg/actuation HFA aerosol inhaler 2 puff inhalation Q6H PRN (Reason: shortness of breath or wheezing) Qty: 8.5 5RF Trelegy Ellipta 200-62.5-25 mcg blister with device 1 inh inhalation DAILY Qty: 60 6RF dutasteride [Avodart] 0.5 mg capsule 0.5 mg PO DAILY Qty: 30 5RF ezetimibe 10 mg tablet 10 mg PO DAILY Qty: 30 5RF Discharge Orders: Discharge Order (Routine); Ordered 12/24/24 Ordered By: Uyen Gallo Diet: Advance to usual diet Activity on Discharge: As tolerated Stand Alone Forms: Patient Portal Discharge page Print Language: Syriac Activity Restrictions/Additional Instructions: You may shower today; do not submerge in a tub/hottub. You may climb a flight of stairs as tolerated Do not lift anything heavier than a gallon of milk for [address] Bonilla in follow-up in approximately 2 weeks time. You should already have an appointment if not please call my office at [phone] If you notice excessive bleeding from the groin, please immediately call my office or return to the emergency room. Care Plan Goals: Smoking cessation. Healthy, well balanced diet including protein and vegetables. Light activity for the next 2 weeks. Health Concerns: Continued smoking, please consider cutting back/quitting. Contact our PCP for help with smoking cessation. Eat a healthy, well balanced diet low in carbs and sugars. Maintain a blood sugar consistently under 200. Plan of Treatment: Rest, but do not be sedentary. Light activity only. Do not lift more than a gallon of milk (5 pounds) for the next 2 weeks, until your follow up visit. Keep the incision site clean and dry and do not submerge in a tub/hottub. Assessment: s/p femoral endarterectomy.
[2024-12-24 11:14] VITALS: BP 123/65; PULSE 84; RESP 18; TEMP 36.8; O2SAT 95
[2024-12-24] MEDS: Fluticasone/Umeclidinium/Vilanterol 200/62.5/25 BLST.W.DEV 1 PUFF INHALE (11:15)
[2024-12-24 11:45] LABS: Glucose, Whole Blood 282 mg/dL (60-115)
== END 2024-12-24 12:13 | disposition home or self-care (01) | DRG 254 ==
LOC: HO.SSSA 10:41 → HO.ICU 10:49 → HO.S3 12-23 09:55
PROVIDERS: Internal Medicine Pulmonary Disease; Nurse Practitioner; Admitting Provider Surgery Vascular Surgery; PCP Internal Medicine; Visit Provider Surgery Vascular Surgery
PROC: 04CK0ZZ Extirpation of Matter from Right Femoral Artery, Open Approach (ICD-10-PCS; principal; 2024-12-22 07:30)
DX: E11.51 Type 2 diabetes mellitus with diabetic peripheral angiopathy without gangrene (principal); I70.211 Atherosclerosis of native arteries of extremities with intermittent claudication, right leg; J44.9 Chronic obstructive pulmonary disease, unspecified; N40.0 Benign prostatic hyperplasia without lower urinary tract symptoms; F17.210 Nicotine dependence, cigarettes, uncomplicated; Z71.6 Tobacco abuse counseling; Z79.51 Long term (current) use of inhaled steroids; Z79.84 Long term (current) use of oral hypoglycemic drugs; Z79.899 Other long term (current) drug therapy
CPT/HCPCS: 36415; 80048; 82040; 82947; 83735; 84100; 85025; 85027; 85610; 85730; 86850; 86900; 86901; 88304; 88311; 94640; C1768; C9250; J0690; J1644; J2270; J3475

== ENCOUNTER → 2024-12-22 10:39 | Outpatient (BNV) | payer MEDICARE, SELFPAY | PROVIDERS: Admitting Provider Surgery Vascular Surgery; PCP Internal Medicine; Visit Provider Internal Medicine Pulmonary Disease | DX: E11.9 Type 2 diabetes mellitus without complications (principal); E78.5 Hyperlipidemia, unspecified; I25.10 Atherosclerotic heart disease of native coronary artery without angina pectoris; I73.9 Peripheral vascular disease, unspecified; J44.9 Chronic obstructive pulmonary disease, unspecified | CPT/HCPCS: 99222; 99232 ==

== ENCOUNTER 2025-01-15 13:27 | Outpatient (AMB) | payer MEDICARE, SELFPAY ==
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
--- OUTSIDE RECORDS SUMMARY | 2025-01-15 16:14 | XMS_ITS | Patient Health Record ---
Author Organization [facility] Address [address] [place] [id number] Care Team Providers Care Brush Head Maker Name Role Phone Tony BARRETT, Ermine Primary Care Provider Gage Calvo Jr Unavailable [...] Date A[employer] Medicare Advantage Plan [address] [address] [place] [address] [id number] SHAHBAZ CEVALLOS Self - patient is the insured
== END 2025-01-15 14:04 | disposition home or self-care (01) ==
LOC: HO.HVS 13:28
PROVIDERS: PCP Internal Medicine; Visit Provider Surgery Vascular Surgery
DX: I73.9 Peripheral vascular disease, unspecified (principal)
CPT/HCPCS: 99024

== ENCOUNTER → 2025-01-15 13:27 | Outpatient (BNVA) | payer MEDICARE, SELFPAY | PROVIDERS: PCP Internal Medicine; Visit Provider Surgery Vascular Surgery | DX: I73.9 Peripheral vascular disease, unspecified (principal) | CPT/HCPCS: 99212 ==

== ENCOUNTER 2025-01-19 15:42 | Outpatient (REF) | payer MEDICARE, SELFPAY ==
--- NOTE | ~2025-01-19 | US_ITS ---
EXAMINATION: US RETROPERITONEUM HISTORY: N40.1 - Benign prostatic hyperplasia with lower urinary tract symptoms TECHNIQUE: Real-time grayscale ultrasound imaging of the kidneys was performed and images were reviewed. COMPARISON: Correlation is made with an abdominal ultrasound dated 12/04/2023. FINDINGS: Right kidney: The right kidney measures 11.9 x 5.9 x 5.3 cm. Renal parenchymal echotexture and thickness are normal. There is a cyst in the interpolar region measuring 12 mm. There is no hydronephrosis or renal calculi. Left Kidney: The left kidney measures 13.8 x 6.6 x 5.8 cm. Renal parenchymal echotexture and thickness are normal. Multiple cysts are seen which demonstrate wall calcification. The largest cyst in the interpolar region measuring 1.9 x 1.7 x 2.1 cm. There is no hydronephrosis or renal calculi. The urinary bladder demonstrates mild wall trabeculation, but is otherwise unremarkable. Bilateral ureteral jets are identified. Before voiding, the urinary bladder measured 10.7 x 6.8 x 6.7 cm, for an estimated volume of 255 mL. After voiding, the urinary bladder measured 3.5 x 2.5 x 4.0 cm, for an estimated volume of 18.3 mL. The prostate measures 4.2 x 3.6 x 3.6 cm, for an estimated volume of 28.3 mL. US/US retroperitoneal comp IMPRESSION: 1. Bilateral renal cysts as described. 2. Post void bladder residual of 18.3 mL. 3. Prostate volume of 28.3 mL. Electronically signed by: Marcus Swain MD 01/20/2025 07:21 AM EDT
--- OUTSIDE RECORDS SUMMARY | 2025-01-19 15:45 | XMS_ITS | Patient Health Record ---
Author Organization [facility] Address [address] [place] [id number] Care Team Providers Care Rehabilitation Center Manager Name Role Phone Tony BARRETT, [place] Primary Care Provider Gage Calvo Jr Unavailable Reason For Referral No Information Problems Problem Type SNOMED Code ICD Code Onset Dates Problem Status W/U Status Risk Notes Problem Cholangitis (70420445) Other cholangitis (K83.09) Active confirmed Plan Of Treatment No Information Insurance Providers Payer Name Payer Address Payer Phone Subscriber Number Group Number Insured Name Patient Relationship to Insured Coverage Start Date Coverage End Date A[employer] Medicare Advantage Plan [address] [address] [place] [address] [phone] [id number] SHAHBAZ CEVALLOS Self - patient is the insured
== END 2025-01-19 15:43 | disposition home or self-care (01) ==
LOC: HO.US 15:42
PROVIDERS: PCP Internal Medicine; Visit Provider Urology
DX: N40.1 Benign prostatic hyperplasia with lower urinary tract symptoms (principal); R35.1 Nocturia; R35.0 Frequency of micturition
CPT/HCPCS: 76770

== ENCOUNTER → 2025-01-19 15:44 | Outpatient (BNV) | payer MEDICARE, SELFPAY | PROVIDERS: PCP Internal Medicine; Visit Provider Radiology Diagnostic Radiology | DX: N40.1 Benign prostatic hyperplasia with lower urinary tract symptoms (principal) | CPT/HCPCS: 76770 ==

== ENCOUNTER 2025-02-10 13:01 | Outpatient (AMB) | payer MEDICARE, SELFPAY ==
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
--- OUTSIDE RECORDS SUMMARY | 2025-02-10 14:06 | XMS_ITS | Patient Health Record ---
Author Organization [facility] Address [address] [place] [id number] Care Team Providers Care Tobacco Warehouse Manager Name Role Phone Tony BARRETT, [place] Primary Care Provider Gage Calvo Jr Unavailable [...] Date AARP Medicare Advantage Plan [address] [address] [place] [address] [phone] [id number] SHAHBAZ CEVALLOS Self - patient is the insured
== END 2025-02-10 13:37 | disposition home or self-care (01) ==
LOC: HO.HVS 13:02
PROVIDERS: PCP Internal Medicine; Visit Provider Surgery Vascular Surgery
DX: I73.9 Peripheral vascular disease, unspecified (principal)
CPT/HCPCS: 99024

== ENCOUNTER → 2025-02-10 13:01 | Outpatient (BNVA) | payer MEDICARE, SELFPAY | PROVIDERS: PCP Internal Medicine; Visit Provider Surgery Vascular Surgery | DX: I73.9 Peripheral vascular disease, unspecified (principal) | CPT/HCPCS: 99212 ==

== ENCOUNTER 2025-02-12 12:53 | Outpatient (AMB) | payer MEDICARE, SELFPAY ==
--- OUTSIDE RECORDS SUMMARY | 2025-02-12 13:05 | XMS_ITS | Patient Health Record ---
Author Organization [facility] Address [address] [place] [id number] Care Team Providers Care Retail Cosmetics Sales Beauty Advisor Name Role Phone Tony BARRETT, [place] Primary Care Provider Gage Calvo Jr Unavailable Reason For Referral No Information Problems Problem Type SNOMED Code ICD Code Onset Dates Problem Status W/U Status Risk Notes Problem Cholangitis (38225300) Other cholangitis (K83.09) Active confirmed Plan Of Treatment No Information Insurance Providers Payer Name Payer Address Payer Phone Subscriber Number Group Number Insured Name Patient Relationship to Insured Coverage Start Date Coverage End Date AARP Medicare Advantage Plan [address] [address] [place] [address] [id number] SHAHBAZ CEVALLOS Self - patient is the insured
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
== END 2025-02-12 14:09 | disposition home or self-care (01) ==
LOC: HO.HUSH 12:54
PROVIDERS: PCP Internal Medicine; Visit Provider Urology
DX: R79.89 Other specified abnormal findings of blood chemistry (principal)

== ENCOUNTER → 2025-02-12 12:53 | Outpatient (BNVA) | payer MEDICARE, SELFPAY | PROVIDERS: PCP Internal Medicine; Visit Provider Urology | DX: R97.20 Elevated prostate specific antigen [PSA] (principal); R79.89 Other specified abnormal findings of blood chemistry | CPT/HCPCS: 81003; 99212 ==

== ENCOUNTER 2025-02-13 08:40 | Outpatient (AMB) | payer MEDICARE, SELFPAY ==
--- OUTSIDE RECORDS SUMMARY | 2025-02-13 08:49 | XMS_ITS | Patient Health Record ---
Author Organization [facility] Address [address] [place] [id number] Care Team Providers Care Booking Manager Name Role Phone Tony BARRETT, [place] Primary Care Provider Gage Calvo Jr Unavailable Reason For Referral No Information Problems Problem Type SNOMED Code ICD Code Onset Dates Problem Status W/U Status Risk Notes Problem Cholangitis (74021407) Other cholangitis (K83.09) Active confirmed Plan Of Treatment No Information Insurance Providers Payer Name Payer Address Payer Phone Subscriber Number Group Number Insured Name Patient Relationship to Insured Coverage Start Date Coverage End Date AARP Medicare Advantage Plan [address] [address] [place] [address] [id number] SHAHBAZ CEVALLOS Self - patient is the insured
[2025-02-13 09:20] VITALS: BP 88/60; PULSE 61; TEMP 36.7; O2SAT 95; BMI 26.5
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
[2025-02-13 09:56] VITALS: BP 96/60
== END 2025-02-13 10:58 | disposition home or self-care (01) ==
PROVIDERS: PCP Internal Medicine; Visit Provider Physician Assistant
DX: M25.561 Pain in right knee (principal); R03.1 Nonspecific low blood-pressure reading

== ENCOUNTER 2025-02-13 08:40 | Outpatient (REF) | payer MEDICARE, SELFPAY ==
--- NOTE | ~2025-02-13 | XR_ITS ---
EXAMINATION: XR KNEE, RIGHT CLINICAL INFORMATION: M25.561 - Pain in right knee COMPARISON: None available. TECHNIQUE: Four views of the right knee. FINDINGS: There is no joint effusion. There is questionable mild narrowing of the lateral joint space. There are no osteophytes. There is moderate atherosclerotic calcification. XR/XR knee RT 4V IMPRESSION: Unremarkable right knee. Atherosclerotic disease Electronically signed by: Lázaro Renteria MD 02/13/2025 10:22 AM EDT
== END 2025-02-13 08:41 | disposition home or self-care (01) ==
LOC: HO.HMGCX 08:40
PROVIDERS: PCP Internal Medicine; Visit Provider Physician Assistant
DX: M25.561 Pain in right knee (principal); R03.1 Nonspecific low blood-pressure reading
CPT/HCPCS: 73564; 99212

== ENCOUNTER → 2025-02-13 10:08 | Outpatient (BNV) | payer MEDICARE, SELFPAY | PROVIDERS: PCP Internal Medicine; Visit Provider Radiology Diagnostic Radiology | DX: M25.861 Other specified joint disorders, right knee (principal) | CPT/HCPCS: 73564 ==

== ENCOUNTER 2025-02-20 09:40 | Outpatient (REF) | payer MEDICARE, SELFPAY ==
--- OUTSIDE RECORDS SUMMARY | 2025-02-20 09:49 | XMS_ITS | Patient Health Record ---
Author Organization [facility] Address [address] [place] [phone] Care Team Providers Care Equipment Maintenance Superintendent Name Role Phone Tony BARRETT, [place] Primary Care Provider Gage Calvo Jr Unavailable Reason For Referral No Information Problems Problem Type SNOMED Code ICD Code Onset Dates Problem Status W/U Status Risk Notes Problem Cholangitis (41796337) Other cholangitis (K83.09) Active confirmed Plan Of Treatment No Information Insurance Providers Payer Name Payer Address Payer Phone Subscriber Number Group Number Insured Name Patient Relationship to Insured Coverage Start Date Coverage End Date AARP Medicare Advantage Plan [address] [address] [place] [address] [id number] SHAHBAZ CEVALLOS Self - patient is the insured
[2025-02-20 13:58] LABS: Appearance Urine Clear; Glucose Urine UA 100 mg/dL (Negative); PH 8.0 (5.0-9.0); Specific Gravity - Urine 1.015 (1.005-1.025)
[2025-02-20 14:26] LABS: MANUAL DIFF FLAG NO
[2025-02-20 14:34] LABS: Hematocrit 43.8 % (42.0-52.0); Hemoglobin 15.3 g/dl (14.0-18.0); Imm Gran Abs Auto 0.03 X10*3/uL (0.00-0.03); Imm Gran Pct Auto 0.4 % (0.0-0.4); Lymphocytes Absolute Auto 2.1 X10*3/uL (1.2-4.9); Mean Corpuscular HGB Conc 34.9 g/dl (31.0-36.0); Mean Corpuscular Hemoglobin 29.9 pg (27.0-33.0); Mean Corpuscular Volume 85.7 fL (80.0-98.0); NRBC Abs Auto 0.000 X10*3/uL (0.0-0.012); NRBC Pct Auto 0.0 /100WBC (0.0-0.2); Platelet Count 163 X10*3/uL (160-400); Red Blood Count 5.11 X10*6/uL (4.60-5.80); White Blood Count 8.4 X10*3/uL (4.8-10.8)
[2025-02-20 14:54] LABS: Alanine Aminotransferase 23 U/L (0-40); Albumin Level 4.4 g/dL (3.5-5.0); Alkaline Phosphatase 90 U/L (39-117); Anion Gap 12 (12-20); Aspartate Amino Transferase 27 U/L (5-37); Blood Urea Nitrogen 8 mg/dL (9-16); Calcium 9.6 mg/dL (8.4-10.2); Carbon Dioxide 31 mmol/L (22-29); Chloride 99 mmol/L (96-108); Cholesterol 130 mg/dL (<200); Estimated Glomerular Filt Rate > 60; HDL Cholesterol 43 mg/dL (>40); Potassium 4.6 mmol/L (3.3-5.1); Sodium 137 mmol/L (135-145); Total Protein 7.4 g/dL (6.5-8.0); Triglycerides 134 mg/dL (<150)
[2025-02-20 14:58] LABS: Hemoglobin A1C 339.2995 umol/L; Total Hemoglobin (HGBA1C) 4005.6821 umol/L
[2025-02-20 15:05] LABS: Microalbum/Creatinine Ratio Ur 54.6 ug/mg cr (<30)
[2025-02-20 15:09] LABS: PSA,Total (Free>4and<10) 2.23 ng/mL (0.00-4.00)
[2025-02-20 15:22] LABS: Folate 5.0 ng/mL (> or = 4.0); Vitamin B12 424 pg/mL (200-900)
[2025-02-24 21:03] LABS: Testosterone, Free 19.7 pg/mL (30.0-135.0)
== END 2025-02-20 09:41 | disposition home or self-care (01) ==
LOC: HO.HMGCLDS 09:40
PROVIDERS: PCP Internal Medicine; Referring Provider Urology; Visit Provider Internal Medicine
DX: E11.9 Type 2 diabetes mellitus without complications (principal); D64.9 Anemia, unspecified; E78.00 Pure hypercholesterolemia, unspecified; E55.9 Vitamin D deficiency, unspecified; R30.0 Dysuria; E53.8 Deficiency of other specified B group vitamins; R97.20 Elevated prostate specific antigen [PSA]; R79.89 Other specified abnormal findings of blood chemistry; Z12.5 Encounter for screening for malignant neoplasm of prostate
CPT/HCPCS: 36415; 80053; 80061; 81003; 82043; 82306; 82570; 82607; 82746; 83036; 84153; 84402; 84403; 84443; 85025

== ENCOUNTER 2025-02-26 13:49 | Outpatient (AMB) | payer MEDICARE, SELFPAY ==
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
--- OUTSIDE RECORDS SUMMARY | 2025-02-26 13:55 | XMS_ITS | Patient Health Record ---
Author Organization [facility] Address [address] [place] [id number] Care Team Providers Care Distributing Clerk Name Role Phone Tony BARRETT, [place] Primary Care Provider Gage Calvo Jr Unavailable [phone] Reason For Referral No Information Problems Problem Type SNOMED Code ICD Code Onset Dates Problem Status W/U Status Risk Notes Problem Other cholangitis (K83.09) Active confirmed Plan Of Treatment No Information Insurance Providers Payer Name Payer Address Payer Phone Subscriber Number Group Number Insured Name Patient Relationship to Insured Coverage Start Date Coverage End Date [employer] Medicare Advantage Plan [address] [address] [place] [address] [id number] SHAHBAZ CEVALLOS Self - patient is the insured
== END 2025-02-26 16:16 | disposition home or self-care (01) ==
LOC: HO.HUSH 13:49
PROVIDERS: PCP Internal Medicine; Visit Provider Urology
DX: R97.20 Elevated prostate specific antigen [PSA] (principal); R79.89 Other specified abnormal findings of blood chemistry
CPT/HCPCS: 99213

== ENCOUNTER 2025-02-27 14:09 | Outpatient (AMB) | payer MEDICARE, SELFPAY ==
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
[2025-02-27 14:19] VITALS: BP 100/66; PULSE 73; TEMP 36.2; O2SAT 93; BMI 26.2
== END 2025-02-27 15:02 | disposition home or self-care (01) ==
LOC: HO.HMCH 14:10
PROVIDERS: PCP Internal Medicine; Visit Provider Internal Medicine
DX: E78.00 Pure hypercholesterolemia, unspecified (principal); E11.51 Type 2 diabetes mellitus with diabetic peripheral angiopathy without gangrene; J44.9 Chronic obstructive pulmonary disease, unspecified; I25.10 Atherosclerotic heart disease of native coronary artery without angina pectoris; M94.0 Chondrocostal junction syndrome [Tietze]; K21.9 Gastro-esophageal reflux disease without esophagitis; G56.10 Other lesions of median nerve, unspecified upper limb; E34.9 Endocrine disorder, unspecified; I73.9 Peripheral vascular disease, unspecified; M25.561 Pain in right knee; N40.0 Benign prostatic hyperplasia without lower urinary tract symptoms; F33.9 Major depressive disorder, recurrent, unspecified

== ENCOUNTER → 2025-02-27 14:09 | Outpatient (BNVA) | payer MEDICARE, SELFPAY | PROVIDERS: PCP Internal Medicine; Visit Provider Internal Medicine | DX: E78.00 Pure hypercholesterolemia, unspecified (principal); I25.10 Atherosclerotic heart disease of native coronary artery without angina pectoris; M94.0 Chondrocostal junction syndrome [Tietze]; E11.9 Type 2 diabetes mellitus without complications; J44.9 Chronic obstructive pulmonary disease, unspecified; G56.10 Other lesions of median nerve, unspecified upper limb; E34.9 Endocrine disorder, unspecified; I73.9 Peripheral vascular disease, unspecified; M25.561 Pain in right knee; N40.0 Benign prostatic hyperplasia without lower urinary tract symptoms; F33.9 Major depressive disorder, recurrent, unspecified; E66.3 Overweight; Z68.26 Body mass index [BMI] 26.0-26.9, adult; F17.200 Nicotine dependence, unspecified, uncomplicated; Z71.6 Tobacco abuse counseling; Z71.3 Dietary counseling and surveillance | CPT/HCPCS: 96127; 99212 ==

== ENCOUNTER 2025-03-02 14:45 | Outpatient (AMB) | payer MEDICARE, SELFPAY ==
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
[2025-03-02 14:51] VITALS: BP 110/62; PULSE 66; O2SAT 96; BMI 26.7
== END 2025-03-02 15:11 | disposition home or self-care (01) ==
LOC: HO.HPS 14:45
PROVIDERS: PCP Internal Medicine; Visit Provider Nurse Practitioner Family
DX: J44.9 Chronic obstructive pulmonary disease, unspecified (principal); F17.210 Nicotine dependence, cigarettes, uncomplicated; R05.9 Cough, unspecified; R91.1 Solitary pulmonary nodule
CPT/HCPCS: 99214

== ENCOUNTER → 2025-03-02 14:45 | Outpatient (BNVA) | payer MEDICARE, SELFPAY | PROVIDERS: PCP Internal Medicine; Visit Provider Nurse Practitioner Family | DX: J44.9 Chronic obstructive pulmonary disease, unspecified (principal); F17.210 Nicotine dependence, cigarettes, uncomplicated; R05.9 Cough, unspecified; R91.1 Solitary pulmonary nodule | CPT/HCPCS: 99212 ==

== ENCOUNTER → 2025-03-12 12:45 | Outpatient (REF) | payer MEDICARE, SELFPAY ==
--- NOTE | 2025-03-12 12:48 | CA_ITS ---
Transthoracic Echocardiogram Patient (Last, First, Middle): John Yoder M Gender: M Date of : 1955 Age: 69 Procedure Date: 03/12/2025 Procedure Type: Transthoracic Echocardiogram Location: OP Height: 167.64 cm Weight: 74.84 kg BSA: 1.84 m2 Heart Rate: bpm BP: 120 / 70 mmHg Remedial Project Manager: TO Referring MD: Sebas Mak MD Independent Sales Representative: Sebas Mak MD Symptoms: I25.10 - Atherosclerotic heart disease of [place] coronary artery without angina pectoris Study Quality: Adequate with contrast ECG Rhythm: Sinus Conclusions: - 1. Mildly reduced LV ejection fraction 45-50% with impaired relaxation filling pattern 2. Calcific mitral valve changes noted with normal cardiac valvular Dopplers 3. Mildly dilated left atrium 4. Normal RV systolic pressure 5. No pericardial effusion Findings Procedure Information Contrast agent, definity, is being given per protocol without apparent complications. Left Ventricle Normal left ventricular cavity size. There is normal left ventricular wall thickness. The left ventricular systolic function is mildly decreased. The visually estimated ejection fraction is between 45-50%. Spectral Doppler is indicative of an impaired relaxation filling pattern. E/E prime ratio is <8, consistent with normal filling pressures. Wall Motion Rest Echo Findings The basal inferior, basal inferoseptal, and mid inferolateral segments are hypokinetic. The basal inferolateral segment is akinetic. All other scored wall segments showed normal motion. Right Ventricle Normal right ventricular cavity size and systolic function. Atria The left atrium is mildly dilated. There is no evidence of interatrial shunt. The right atrium is normal in size. Aortic Valve The aortic valve structure and function is likely normal. There is no aortic valve stenosis. There is no aortic valve regurgitation. Mitral Valve There is mild anterior and posterior mitral leaflet thickening. The posterior mitral leaflet has restricted mobility. There is mild posterior mitral annular calcification. There is mild mitral annular calcification. There is trace mitral valve regurgitation. There is no mitral valve stenosis. Pulmonic Valve The pulmonic valve was not well visualized. Tricuspid Valve Likely normal tricuspid valve structure and function. There is trace tricuspid valve regurgitation. The right ventricular systolic pressure is normal. The right ventricular systolic pressure is 22 mmHg. Normal right atrial pressure. There is no evidence of pulmonary hypertension. Great Vessels All visible segments of the aorta are normal in size. The pulmonary artery was not well visualized. There is no dilatation of the ascending aorta measuring 3.40 cm. Small plaque is seen in the sino tubular ridge. Venous The inferior vena cava is normal in size and collapses greater than 50% with inspiration. Pericardium/Pleural There is no evidence of pericardial effusion. Prior Study Comparison Changes noted compared to prior study dated: 12/05/2023. LV ejection fraction has marginally reduced Measurements 2D Linear Measurements IVSd: 1.10 0.6-0.9/0.6-1.0 cm LVIDd: 5.06 3.9-5.3/4.2-5.9 cm LVIDd Index: 2.75 2.4-3.2/2.2-3.1 cm/m2 LVIDs: 4.02 2.0-3.6 cm LVPWd: 0.88 0.7-1.1 cm LV Mass: 228.75 67-162/88-224 g LV Mass Index: 124.32 43-95/49-115 g/m2 LVOT Diam: 2.40 3.0+(-)1.3 cm 2D Systolic Function EF 4C: 41.10 >55% EF 2C: 49.10 >55% EF BiP: 47.00 >55% Mitral Valve MV Pk E: 0.37 MV PK A: 0.57 MV Decel Time: 322.00 E/A: 0.60 E'Lateral: 7.18 E'Medial: 5.77 E/E' Med: 6.50 E/E' Lat: 5.20 PHT: 94.00 MVA PHT: 2.34 Decel [place]: 1.16 Aortic Valve AoV Pk Jesse: 1.69 AoV Mn Jesse: 0.97 AoV VTI: 0.29 AoV Pk Grad: 11.00 Aov Mn Grad: 5.00 MANNIE Cont.VTI: 2.89 LVOT LVOT Pk Jesse: 1.00 LVOT Mn Jesse: 0.56 LVOT VTI: 0.18 LVOT Pk Grad: 4.00 LVOT Mn Grad: 2.00 LVOT Diam: 2.40 LVOT Area: 4.52 Diastolic Function MV Pk E: 0.37 MV Pk A: 0.57 E/A: 0.60 E'Medial: 5.77 E/E' Med: 6.50 E' Laterial: 7.18 E/E' Lat: 5.20 Right Ventricle TAPSE (mm): 20.00 TVS' Jesse: 10.10 Tricuspid Valve TR Pk Jesse: 1.89 TR Pk Grad: 14.00 RA Press: 8.00 RVSP: 22.00 Great Vessels Aorta Sinus of Valsalva: 2.99 2.0-3.5 cm Ao Asc: 3.40 2.1-3.4 cm Updated in Other Vendor System with Status of Final Sebas Mak MD electronically signed on 03/13/2025 4:36:17 PM with status of Final
== END ==
LOC: HO.CARD 12:45
PROVIDERS: PCP Internal Medicine; Visit Provider Internal Medicine Cardiovascular Disease
DX: I25.10 Atherosclerotic heart disease of native coronary artery without angina pectoris (principal)
CPT/HCPCS: 93306; Q9957

== ENCOUNTER → 2025-03-12 12:48 | Outpatient (BNV) | payer MEDICARE, SELFPAY | PROVIDERS: PCP Internal Medicine; Visit Provider Internal Medicine Cardiovascular Disease | DX: I34.81 Nonrheumatic mitral (valve) annulus calcification (principal); I34.89 Other nonrheumatic mitral valve disorders; I51.89 Other ill-defined heart diseases | CPT/HCPCS: 93306 ==

== ENCOUNTER 2025-03-19 10:10 | Outpatient (AMB) | payer MEDICARE, SELFPAY ==
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
[2025-03-19 10:13] VITALS: BMI 27.1
--- OUTSIDE RECORDS SUMMARY | 2025-03-19 11:27 | XMS_ITS | Patient Health Record ---
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 [address] [place] [address] [id number] [id number] CEVALLOS Self - patient is the insured
== END 2025-03-19 10:45 | disposition home or self-care (01) ==
LOC: HO.HOS 10:11
PROVIDERS: PCP Internal Medicine; Visit Provider Orthopaedic Surgery
DX: M17.11 Unilateral primary osteoarthritis, right knee (principal)
CPT/HCPCS: 20610; 99203

== ENCOUNTER → 2025-03-19 10:10 | Outpatient (BNVA) | payer MEDICARE, SELFPAY | PROVIDERS: PCP Internal Medicine; Visit Provider Orthopaedic Surgery | DX: M17.11 Unilateral primary osteoarthritis, right knee (principal) | CPT/HCPCS: 20610; 99202; J1010; J2003 ==

== ENCOUNTER 2025-04-23 12:38 | Outpatient (REF) | payer MEDICARE, SELFPAY ==
--- NOTE | ~2025-04-23 | US_ITS ---
EXAMINATION: Noninvasive assessment of the arteries of both lower extremities to include a PVR exam complete (3+ levels), bilateral including segmental pressures. CLINICAL INFORMATION: Peripheral vascular disease. Post right femoral endarterectomy. COMPARISON: Bilateral lower extremity arterial ultrasound September 2024 and angiogram October 2024 TECHNIQUE: The ankle/brachial indices of the distal posterior tibial and the dorsalis pedis arteries were obtained of the lower extremity arterial system bilaterally; along with segmental pressures and pulse volume recordings at the ankle, calf and above the knee levels and duplex Doppler techniques of the common femoral, proximal femoral and proximal profunda arteries. The study was performed at rest. FINDINGS: RIGHT LEG 1. THE RIGHT ANKLE-BRACHIAL INDEX IS: 0.55 (higher of the DP/PT) >0.97-1.25 = normal - no significant arterial disease 0.75-0.96 = mild peripheral arterial disease 0.5-0.74 = moderate peripheral arterial disease <0.50 = severe peripheral arterial disease <0.30 = critical arterial disease 2. SEGMENTAL PRESSURES: Ankle: Decreased 3. PVR WAVEFORMS: Ankle: Dampened 4. DIRECT DUPLEX: Common femoral: There is a hypoechoic plaque and moderate luminal narrowing. Peak systolic velocity is decreased at 19 cm/s with monophasic waveform. There is diffuse atherosclerotic disease of the SFA. Peak systolic velocities measure 44, 27 and 39 cm/s with monophasic waveform. Proximal profunda: Hypoechoic plaque and severe stenosis at the right profunda origin. Peak systolic velocity is 51 cm/s with a monophasic waveform. Popliteal: Diffuse atherosclerotic disease. Peak systolic velocity 23 cm/s with monophasic waveform Posterior tibial artery: Diffuse atherosclerotic disease. Peak systolic velocity 17 cm/s with monophasic waveform. LEFT LE. THE LEFT ANKLE-BRACHIAL INDEX IS: 0.93 (higher of the DP/PT) >0.97-1.25 = normal - no significant arterial disease 0.75-0.96 = mild peripheral arterial disease 0.5-0.74 = moderate peripheral arterial disease <0.50 = severe peripheral arterial disease <0.30 = critical arterial disease 2. SEGMENTAL PRESSURES: Ankle: Normal 3. PVR WAVEFORMS: Ankle: Normal 4. DIRECT DUPLEX: Common femoral: Diffuse atherosclerotic disease. Peak systolic velocity measures 196 cm/s with a triphasic waveform. There is diffuse atherosclerotic disease of the left SFA. The systolic velocities measure 84, 103 and 85 cm/s with biphasic waveform. Lateral vessels seen arising from the distal superficial femoral artery. Proximal profunda: Patent. Peak systolic velocity measures 80 cm/s with biphasic waveform. Popliteal: Diffuse atherosclerotic disease. Peak systolic velocity 71 cm/s with biphasic waveform. Posterior tibial: Diffuse atherosclerotic disease. Peak systolic velocity 68 cm/s with biphasic waveform. US/US arterial duplex LE BI IMPRESSION: Right: Hypoechoic plaque seen at in the common femoral artery. Plaque seen at the right profunda and common femoral artery origins. Diffuse decreased peak systolic velocity throughout the right lower extremity with monophasic waveforms. The right MARIFER is 0.55 Left: Increased peak systolic velocity and plaque in the left common femoral artery. Diffuse atherosclerotic disease with normal peak systolic velocities and biphasic waveforms throughout the left lower extremity. The left MARIFER is 0.93. Electronically signed by: Tila Maynard MD 04/24/2025 11:04 AM EDT
== END 2025-04-23 12:39 | disposition home or self-care (01) ==
LOC: HO.US 12:38
PROVIDERS: PCP Internal Medicine; Visit Provider Surgery Vascular Surgery
DX: I73.9 Peripheral vascular disease, unspecified (principal)
CPT/HCPCS: 93925

== ENCOUNTER → 2025-04-23 12:39 | Outpatient (BNV) | payer MEDICARE, SELFPAY | PROVIDERS: PCP Internal Medicine; Visit Provider Radiology Diagnostic Radiology | DX: I73.9 Peripheral vascular disease, unspecified (principal) | CPT/HCPCS: 93925 ==

== ENCOUNTER 2025-04-30 12:49 | Outpatient (AMB) | payer MEDICARE, SELFPAY ==
[2025-04-30 13:05] VITALS: BMI 27.1
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
== END 2025-04-30 13:36 | disposition home or self-care (01) ==
LOC: HO.HVS 12:49
PROVIDERS: PCP Internal Medicine; Visit Provider Surgery Vascular Surgery
DX: I73.9 Peripheral vascular disease, unspecified (principal)
CPT/HCPCS: 99214

== ENCOUNTER → 2025-04-30 12:49 | Outpatient (BNVA) | payer MEDICARE, SELFPAY | PROVIDERS: PCP Internal Medicine; Visit Provider Surgery Vascular Surgery | DX: I73.9 Peripheral vascular disease, unspecified (principal); M25.569 Pain in unspecified knee; E11.9 Type 2 diabetes mellitus without complications; Z98.890 Other specified postprocedural states | CPT/HCPCS: 99212 ==

== ENCOUNTER 2025-06-29 07:52 | Outpatient (REF) | payer MEDICARE, SELFPAY ==
--- OUTSIDE RECORDS SUMMARY | 2025-06-29 07:59 | XMS_ITS | Patient Health Record ---
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 [address] [place] [phone] [id number] SHAHBAZ CEVALLOS Self - patient is the insured
[2025-06-29 10:13] LABS: MANUAL DIFF FLAG NO
[2025-06-29 10:23] LABS: Hematocrit 44.3 % (42.0-52.0); Hemoglobin 15.1 g/dl (14.0-18.0); Imm Gran Abs Auto 0.02 X10*3/uL (0.00-0.03); Imm Gran Pct Auto 0.2 % (0.0-0.4); Lymphocytes Absolute Auto 2.1 X10*3/uL (1.2-4.9); Mean Corpuscular HGB Conc 34.1 g/dl (31.0-36.0); Mean Corpuscular Hemoglobin 30.4 pg (27.0-33.0); Mean Corpuscular Volume 89.1 fL (80.0-98.0); NRBC Abs Auto 0.000 X10*3/uL (0.0-0.012); NRBC Pct Auto 0.0 /100WBC (0.0-0.2); Platelet Count 201 X10*3/uL (160-400); Red Blood Count 4.97 X10*6/uL (4.60-5.80); White Blood Count 8.9 X10*3/uL (4.8-10.8)
[2025-06-29 10:55] LABS: Hemoglobin A1C 149.9342 umol/L
[2025-06-29 11:46] LABS: Alanine Aminotransferase 25 U/L (0-40); Albumin Level 4.4 g/dL (3.5-5.0); Alkaline Phosphatase 71 U/L (39-117); Anion Gap 11 (12-20); Aspartate Amino Transferase 34 U/L (5-37); Blood Urea Nitrogen 11 mg/dL (9-16); Calcium 9.5 mg/dL (8.4-10.2); Carbon Dioxide 26 mmol/L (22-29); Chloride 105 mmol/L (96-108); Cholesterol 109 mg/dL (<200); Estimated Glomerular Filt Rate > 60; HDL Cholesterol 42 mg/dL (>40); Potassium 4.0 mmol/L (3.3-5.1); Sodium 138 mmol/L (135-145); Total Protein 7.0 g/dL (6.5-8.0); Triglycerides 83 mg/dL (<150)
[2025-06-29 12:06] LABS: Folate 6.3 ng/mL (> or = 4.0); Vitamin B12 366 pg/mL (200-900)
== END 2025-06-29 07:53 | disposition home or self-care (01) ==
LOC: HO.HMGCLDS 07:52
PROVIDERS: PCP Internal Medicine; Visit Provider Internal Medicine
DX: E53.8 Deficiency of other specified B group vitamins (principal); E78.00 Pure hypercholesterolemia, unspecified; D64.9 Anemia, unspecified; E11.9 Type 2 diabetes mellitus without complications; E55.9 Vitamin D deficiency, unspecified
CPT/HCPCS: 36415; 80053; 80061; 82306; 82607; 82746; 83036; 84443; 85025

== ENCOUNTER 2025-07-03 08:45 | Outpatient (AMB) | payer MEDICARE, SELFPAY ==
[2025-07-03 08:48] VITALS: BP 98/74; PULSE 61; O2SAT 94; BMI 24.7
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
== END 2025-07-03 09:29 | disposition home or self-care (01) ==
LOC: HO.HMCH 08:46
PROVIDERS: PCP Internal Medicine; Visit Provider Internal Medicine
DX: Z00.00 Encounter for general adult medical examination without abnormal findings (principal); E11.51 Type 2 diabetes mellitus with diabetic peripheral angiopathy without gangrene; J44.9 Chronic obstructive pulmonary disease, unspecified; E78.00 Pure hypercholesterolemia, unspecified; I25.10 Atherosclerotic heart disease of native coronary artery without angina pectoris; M94.0 Chondrocostal junction syndrome [Tietze]; K21.9 Gastro-esophageal reflux disease without esophagitis; G56.10 Other lesions of median nerve, unspecified upper limb; E34.9 Endocrine disorder, unspecified; I73.9 Peripheral vascular disease, unspecified; M25.561 Pain in right knee; N40.0 Benign prostatic hyperplasia without lower urinary tract symptoms; F33.9 Major depressive disorder, recurrent, unspecified; F17.200 Nicotine dependence, unspecified, uncomplicated

== ENCOUNTER → 2025-07-03 08:45 | Outpatient (BNVA) | payer MEDICARE, SELFPAY | PROVIDERS: PCP Internal Medicine; Visit Provider Internal Medicine | DX: Z00.00 Encounter for general adult medical examination without abnormal findings (principal); E78.00 Pure hypercholesterolemia, unspecified; I25.10 Atherosclerotic heart disease of native coronary artery without angina pectoris; E11.9 Type 2 diabetes mellitus without complications; M94.0 Chondrocostal junction syndrome [Tietze]; J44.9 Chronic obstructive pulmonary disease, unspecified; K21.9 Gastro-esophageal reflux disease without esophagitis; E34.9 Endocrine disorder, unspecified; I73.9 Peripheral vascular disease, unspecified; M25.561 Pain in right knee; N40.0 Benign prostatic hyperplasia without lower urinary tract symptoms; F33.9 Major depressive disorder, recurrent, unspecified; F17.200 Nicotine dependence, unspecified, uncomplicated; G56.13 Other lesions of median nerve, bilateral upper limbs; Z13.31 Encounter for screening for depression | CPT/HCPCS: 96127; 99397 ==